=== PATIENT | male | born 1950 | race Caucasian/White ===

== ENCOUNTER 2020-12-14 16:21 | Emergency (ER) | payer MEDICARE, SELFPAY ==
[2020-12-14 15:28] VITALS: BMI 25.5
[2020-12-14 16:29] VITALS: BP 153/70; PULSE 90; RESP 16; TEMP 36.4; O2SAT 98; BMI 25.4
== END 2020-12-14 17:53 | disposition left against medical advice (07) ==
LOC: ED 17:53
PROVIDERS: PCP Student in an Organized Health Care Education/Training Program
DX: S89.90XA Unspecified injury of unspecified lower leg, initial encounter (principal); Z53.21 Procedure and treatment not carried out due to patient leaving prior to being seen by health care provider; X58.XXXA Exposure to other specified factors, initial encounter; Y93.9 Activity, unspecified; Y92.9 Unspecified place or not applicable; Y99.9 Unspecified external cause status

== ENCOUNTER 2020-12-14 17:39 | Inpatient (IN) | payer MEDICARE, SELFPAY ==
[2020-12-14 16:29] VITALS: BMI 25.4
[2020-12-14 17:15] VITALS: PULSE 80; BMI 23.8
[2020-12-14 17:30] VITALS: BP 163/83; PULSE 99; RESP 18; TEMP 37.7; O2SAT 97
--- NOTE | 2020-12-14 17:46 | HP.PCM.HOS_ITS ---
Documented by User: Isacc NELSON 12/14/20 18:15 HPI - General General Date of Admission: 12/14/20 HPI Narrative Patient is a 70-year-old male who is a direct admission to [facility] from his wound docotr, Dr. Sethi for an infected LLE. In the wound care center today, patient presented to Dr. Sethi with a temperature of 99.3, tachycardia at a rate of 109 and a left lower extremity that is more swollen, red and painful to tough than the right. Dr. Sethi was able to express a considerable amount of creamy pus from the wound. Cultures were sent to the lab. Dr. Sethi noted in her note that the knee was warm to the touch, however not reddened. Approximately 2 weeks ago, patient tripped over his walker and sustained an abrasion/injury to the left lower extremity, that eventually became red, tender and warm to touch. He was originally admitted to [facility] but signed out AGAINST MEDICAL ADVICE, citing poor care by the doctors. Patient attempted to get the wound treated as an outpatient and was put on different tr ials of Augmentin, doxycycline and Bactrim. None of the antibiotic trials were successful in treating his wound. Initial culture of the wound grew MRSA. [facility] Medical History (Updated 12/14/20 @ 16:[address] Alena Sethi, ) History of ETOH abuse Home Medications [id number]-oholdkdgrxgoc-xjybnwi-caff 325 tab 12/14/20 [History Last Taken 12/11/20] acetaminophen PRN PRN 12/14/20 [History Last Taken 12/11/20] furosemide [Lasix] 40 mg PO DAILY 12/14/20 [History Last Taken 12/14/20 08:00 1] lisinopril 20 mg PO DAILY 12/14/20 [History Last Taken 12/14/20 08:00 1] naproxen sodium [Aleve] 220 mg PO BID PRN 12/14/20 [History Last Taken 12/11/20] sulfamethoxazole-trimethoprim [Bactrim DS] 1 tab PO BID 12/14/20 [History Last Taken 12/14/20 08:00 1] Allergy/AdvReac Type Severity Reaction Status Date / Time No Known Allergies Allergy Verified 12/14/20 16:22 Social History (Updated 06/15/21 @ 16:[address] 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 Smoking Status: Former smoker alcohol intake: former details: he quit 20 years ago substance use type: does not use ROS Constitutional Constitutional: Reports weakness; Denies anorexia, change in weight, chills, fatigue, fever(s), malaise, night sweats or other Eyes Eyes: Denies blurry vision, change in eye color, change in vision, discharge from eye(s), double vision, erythema, eye pain, loss of vision or other ENT HEENT: Denies abnormal hearing, dysphagia, ear pain, epistaxis, headache(s), hearing loss, nasal congestion, nasal discharge, post nasal drip, sinus pressure, sore throat or other Cardiovascular Cardiovascular: Denies chest pain, claudication, dyspnea on exertion, edema, lightheadedness, orthopnea, palpitations, paroxysmal nocturnal dyspnea, rapid heart rate, syncope or other Respiratory/Chest Respiratory/Chest: Denies cough, dyspnea, excessive phlegm production, hemoptysis, productive cough, shortness of breath at rest, shortness of breath with exertion, wheezing or other Gastrointestinal Gastrointestinal: Denies abdominal pain, coffee ground emesis, constipation, diarrhea, dyspepsia, hematemesis, hematochezia, loose stools, melena, nausea, vomiting or other Genitourinary Genitourinary: Denies burning urination, difficulty urinating, dysuria, hematuria, nocturia, urinary frequency, urinary hesitancy, urinary incontinence, urinary urgency or other Musculoskeletal Musculoskeletal: Denies arthralgias, back pain, joint pain, joint stiffness, joint swelling, myalgias, neck pain or other Neurologic Neurologic: Denies abnormal gait, abnormal speech, confusion, disequilibrium, dizziness, focal weakness, headache(s), numbness, paresthesias, seizure-like activity, seizures, syncope, tingling, tremor(s) or other Psychiatric Psychiatric: Denies anxiety, depression, homicidal ideation, suicidal ideation or other Endocrine Endocrinology: Denies change in body appearance, cold intolerance, excessive sweating, heat intolerance, polydipsia, polyuria or other Hematologic/Lymphatic Hematologic/Lymphatic: Denies anemia, easy bleeding, easy bruising, lymphadenopathy or other Allergic/Immunologic Allergic/Immunologic: Denies rhinitis, hives, eczemia, asthma or other Vital Signs Vital Signs Vital Signs: Weight Weight: 175 lb 14.862 oz Body Mass Index (BMI) 23.8 Physical Exam Const alert and oriented x3 HEENT normocephalic and head/scalp atraumatic Eyes PERRL, EOMs intact bilaterally and conjunctivae normal Neck no lymphadenopathy, supple and no JVD Resp normal respiratory effort, no retractions and no use of accessory muscles Cardio regular rate, regular rhythm, no murmurs and no JVD GI normal to inspection, nondistended, normoactive bowel sounds and soft to palpation Extremity Extremity Narrative: See skin Skin Skin Narrative: 2 x 1 cm wound on the sanchez of the left lower extremity. Not painful to touch or reddened. No pus was able to be expressed when wound was squeezed. Neuro CN's II-XII intact bilaterally Psych affect normal Results Lab / Micro Data Result Diagrams: 12/14/20 18:04 12/14/20 18:04 Assessment & Plan Assessment/Plan (1) MRSA (methicillin resistant staph aureus) culture positive: (2) Thrombocytopenia: (3) Macrocytic anemia: (4) Elevated LFTs: (5) Cellulitis and abscess of left leg: (6) HTN (hypertension): QUALIFIERS: Hypertension type: essential hypertension Qualified Code(s): I10 - Essential (primary) hypertension (7) Tobacco dependence in remission: (8) Venous insufficiency of both lower extremities: PLAN: 1) MRSA Cellulitis/Abcess of the LLE. Previous wound culture grew MRSA. Patient is a direct admission from Dr. Sethi's wound center. Pend MRI on plastic surgery consult. Per note from Dr. Sethi, venous ultrasounds were obtained and demonstrated no clots. Plan; updated wound cultures ordred, vancomycin and Zosyn ordered, plastic surgery consult ordered, Tylenol as needed, Zofran as needed, Restoril as needed. 2) Elevated LFT's Patient has a history of EtOH abuse, had stopped 20 years ago. 30 pound unintentional weight loss noted. Elevated LFTs were noted in Dr. Sethi's note, no actual quantitative value provided. Plan; obtain updated LFTs. 3) Thrombocytopenia CBC from 12/02 demonstrated a platelet count of 87,000, with a hemoglobin of 12.8 and WBC of 4.6. Plan; CBC ordered. 4) HTN Continue Lasix and lisinopril. 5) history of tobacco abuse Continued cessation encouraged. DVT prophylaxis -heparin CODE STATUS: Full code Patient seen by Isacc Coronado PA-C, under the supervision of Dr. Burris. Documented by User: Dr. Francesco Burris DO 12/14/20 18:33 HPI - General General Date of Admission: 12/14/20 [facility] Medical History (Updated 12/14/20 @ 16:[address] Alena Sethi DO) History of ETOH abuse Home Medications UYB-iihrhidsrxxid-qebfpif-caff 325 tab 12/14/20 [History Last Taken 12/11/20] acetaminophen PRN PRN 12/14/20 [History Last Taken 12/11/20] furosemide [Lasix] 40 mg PO DAILY 12/14/20 [History Last Taken 12/14/20 08:00 1] lisinopril 20 mg PO DAILY 12/14/20 [History Last Taken 12/14/20 08:00 1] naproxen sodium [Aleve] 220 mg PO BID PRN 12/14/20 [History Last Taken 12/11/20] sulfamethoxazole-trimethoprim [Bactrim DS] 1 tab PO BID 12/14/20 [History Last Taken 12/14/20 08:00 1] Allergy/AdvReac Type Severity Reaction Status Date / Time No Known Allergies Allergy Verified 12/14/20 16:22 Social History (Updated 12/14/20 @ 16:[address] 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 Patient had suffered an abrasion to the left lower leg approximately 2 to 3 weeks ago while using his walker, since that time it has s wollen and become reddened, he was hospitalized overnight at a local [facility] approximately 10 days ago, he checked himself out after staying overnight. Cultures obtained at that time grew out small numbers of MRSA. Patient was seen in follow-up as an outpatient by his family physician who placed him on doxycycline and Augmentin, this was changed on December 09, 2020 to Augmentin and Bactrim. He was seen today in the wound care center and it was noted that there was purulent drainage from his left lower leg. On examination he appeared older than his stated age, he was in no distress. Vital signs as documented. Skin warm and dry and without overt rashes. Neck without JVD, neck was supple, trachea midline, thyroid was normal. Lungs clear bilaterally, normal air movement was noted. Heart exam notable for regular rhythm, normal sounds and absence of murmurs, rubs or gallops. Abdomen unremarkable and without evidence of organomegaly, masses, or abdominal aortic enlargement. Bowel sounds are present, abdomen is not distended. Extremities- there is evidence of edema over the lower legs bilaterally, in addition, there was a wound noted that was several millimeters in diameter to the lateral aspect of the patient's left lower leg. I tried to express drainage from this area but was unable to. The left lower leg is also reddened., no cyanosis was noted, no clubbing was noted. Neuro: Cranial nerves II through XII are grossly intact, no focal motor deficits were noted, sensation to light touch and pinprick intact, motor exam 5/5 throughout. Psych: Patient is alert and oriented x3, he does not appear anxious or depressed, he does not appear agitated. Patient was admitted to [facility], I have made the decision to place the patient on vancomycin and Zosyn for now until culture results are final-these were obtained today at the wound care center. I have contacted plastic surgery will see the patient in consultation, it is likely he will need debridement of the area and most probably a wound VAC, I discussed this with the patient's who was in the room at the time of my exam and also discussed this with the patient. I have reviewed Isacc Coronado's history and physical including his medical assessment and plan of care and endorse it. Visit Charges Inpatient E&M: 96920 Init Hosp L3
[2020-12-14 18:22] LABS: Absolute Lymphocyte Count 0.85 X10^3/uL (0.83-4.51); Absolute Neutrophil Count 2.5 X10^3/uL (2.0-7.7); Basophil# 0.02 X10^3/uL; Basophil% 0.5 % (0-1); Eosinophil# 0.04 X10^3/uL; Eosinophils% 1.1 % (0-5); Hematocrit 35.5 % (40-54); Hemoglobin 11.8 g/dL (13.0-16.5); Lymphocyte # 0.85 X10^3/ul (0.83-4.51); Lymphocyte % 22.8 % (19-41); Mean Corp Hgb Conc 33.2 g/dL (32-36); Mean Corpuscular Volume 102.3 fL (80-94); Mean Platelet Vol. 11.1 fl (6.2-12.0); Monocyte# 0.33 X10^3/uL; Monocyte% 8.9 % (0-10); NRBC Flagged by Analyzer 0 % (0-5); Neutrophil # 2.48 X10^3/uL (2.7-7.7); Neutrophil % 66.7 % (47-70); POSITIVE COUNT YES; Platelet Count 59 K/mm3 (150-450); RBC Distribution Width CV 14.2 % (11.6-14.6); RBC Distribution Width SD 53.5 fl (35.1-43.9); Red Blood Count 3.47 M/mm3 (4.6-6.2); White Blood Count 3.7 K/mm3 (4.4-11.0)
[2020-12-14 18:24] LABS: Differential Indicated SCAN CRITERIA MET
[2020-12-14 18:43] LABS: ALB/GLOB Ratio 0.5 RATIO (0.9-2.4); AST(SGOT) 104 U/L (15-37); Alanine Aminotransfer ALT/SGPT 57 U/L (16-61); Albumin, Serum 2.6 g/dL (3.2-5.0); Alkaline Phosphatase 149 U/L (45-117); Anion Gap 6 (5-15); BUN 10 mg/dL (7-18); Calcium,Total 8.7 mg/dL (8.5-10.1); Chloride 110 mmol/L (98-107); Creatinine, Serum 0.91 mg/dL (0.70-1.30); EST Glomerular Filtration Rate 88 mL/min (>60); Est Glom Filt Rate - Afr Amer 106 mL/min (>60); Estimated Creatinine Clearance 84.09 ml/min; Glucose 93 mg/dL (74-106); Protein, Total 7.6 g/dL (6.4-8.2); Sodium Level 141 mmol/L (136-145)
[2020-12-14 18:56] LABS: Platelet Estimate MOD DEC (ADEQ)
[2020-12-14 18:57] LABS: Anisocytosis 1+; Macrocytosis 1+; Red Cell Morphology N CHROM NORMAL (NORM C&C)
[2020-12-14 20:56] VITALS: BP 174/82; PULSE 82; RESP 18; TEMP 37; O2SAT 96
[2020-12-14] MEDS: Heparin Injection (Vial) 5,000 UNIT/ML VIAL 5000 UNIT SC (20:58)
--- NOTE | 2020-12-14 23:08 | PCM.RX.CS ---
Consult Pharmacy has been consulted to manage selected antiobiotic: Vancomycin Type of Consult: New start Suspected Infection: Skin/Soft tissue Prior Doses of Antibiotics Received/Current Regimen: Medications Vancomycin HCl (Vancomycin) 1,000 mg in 200 mls @ 200 mls/hr IV Q12H DHAVAL Discontinued Medications Vancomycin HCl 2,000 mg/ (Sodium Chloride) 540 mls @ 250 mls/hr IV X1 ONE Stop: 12/14/20 20:39 Last Admin: 12/14/20 20:42 Dose: Infused Labs: Sodium 141 mmol/L (136-145) 12/14/20 18:04 Potassium 4.0 mmol/L (3.5-5.1) 12/14/20 18:04 Chloride 110 mmol/L (98-107) H 12/14/20 18:04 Carbon Dioxide 25.0 mmol/L (21.0-32.0) 12/14/20 18:04 Anion Gap 6 (5-15) 12/14/20 18:04 BUN 10 mg/dL (7-18) 12/14/20 18:04 Creatinine 0.91 mg/dL (0.70-1.30) 12/14/20 18:04 Est GFR (MDRD) Af Amer 106 mL/min (>60) 12/14/20 18:04 Est GFR (MDRD) Non-Af 88 mL/min (>60) 12/14/20 18:04 BUN/Creatinine Ratio 11.0 RATIO (10-20) 12/14/20 18:04 Glucose 93 mg/dL (74-106) 12/14/20 18:04 Weight used for dosin.8 kg Estimated Creatinine Clearance: 84 Goal Trough: 10-15 mcg/mL Pharmacy Plan for Drug Dosing: Pharmacy Service will continue to monitor and adjust dosing as required. Follow-Up Labs: Trough Vancomycin Labs to be done on [date and time ordered]: 12/16/20 @0600
[2020-12-15 02:46] VITALS: BP 152/80; PULSE 92; RESP 18; TEMP 36.6; O2SAT 97
[2020-12-15] MEDS: Vancomycin IV 1,000 MG/200 ML BAG 200 MG IV ×2 (05:33→18:22)
--- NOTE | 2020-12-15 07:41 | PN.HOSP_ITS ---
Subjective Subjective Patient seen and examined. He was admitted from the wound clinic for a painful, swollen left lower extremity. He had tripped over his walker a couple of weeks ago and sustained an abrasion to the left leg. He was initially admitted at [facility] but left AMA because he was unhappy with the care he received there. HE had been treated on outpatient basis since then but wound worsened. HE is being manaed for sepsis due to cellulitis of the RLE. Patient complains of pain in his LLE, but this is not new, and is manageable. Review of systems is otherwise negative. Objective Data Objective Data Vital Signs: Vital Signs Temp Pulse Resp BP Pulse Ox 97.9 F 92 18 152/80 H 97 12/15/20 02:46 12/15/20 02:46 12/15/20 02:46 12/15/20 02:46 12/15/20 02:46 Oxygen Delivery Method Room Air Weight: 175 lb 14.862 oz Body Mass Index (BMI) 23.8 Intake & Output: Intake and Output for Last 24 Hours 12/13/20 12/14/20 12/15/20 23:59 23:59 23:59 Intake Total 540 / 540 250 / 250 Balance 540 / 540 250 / 250 Lab / Micro Data Result Diagrams: 12/15/20 08:24 12/15/20 08:24 Labs: Laboratory Results - last 24 hr 12/14/20 12/14/20 18:04 18:04 WBC 3.7 L RBC 3.47 L Hgb 11.8 L Hct 35.5 L MCV 102.3 H MCH 34.0 H MCHC 33.2 RDW Std Deviation 53.5 H RDW Coeff of Marisel 14.2 Plt Count 59 L MPV 11.1 Immature Gran % (Auto) 0.000 Neut % (Auto) 66.7 Lymph % (Auto) 22.8 Shelby % (Auto) 8.9 Eos % (Auto) 1.1 Baso % (Auto) 0.5 Absolute Neuts (auto) 2.5 Absolute Lymphs (auto) 0.85 Nucleated RBC % 0 Platelet Estimate MOD DEC RBC Morphology N CHROM Anisocytosis 1+ Macrocytosis 1+ Sodium 141 Potassium 4.0 Chloride 110 H Carbon Dioxide 25.0 Anion Gap 6 BUN 10 Creatinine 0.91 Estim Creat Clear Calc 84.09 Est GFR (MDRD) Af Amer 106 Est GFR (MDRD) Non-Af 88 BUN/Creatinine Ratio 11.0 Glucose 93 Calcium 8.7 Total Bilirubin 1.00 AST 104 H ALT 57 Alkaline Phosphatase 149 H Total Protein 7.6 Albumin 2.6 L Globulin 5.0 H Albumin/Globulin Ratio 0.5 L Physical Exam Const alert, oriented x3 and no apparent distress Exam Limitations: no limitations HEENT head/scalp atraumatic, moist oral mucous membranes and oropharynx normal Head and Scalp: normocephalic Eyes PERRL, EOMs intact bilaterally and conjunctivae normal Neck no lymphadenopathy, supple and no JVD Resp normal respiratory effort Cardio regular rate, regular rhythm, S1 normal heart sound, S2 normal heart sound and no murmurs GI normal to inspection, nondistended, normoactive bowel sounds, soft to palpation, non-tender and non-distended Extremity Extremity Narrative: Both LLE's wrapped in bandage. Peripheral Pulses: Yes pulses 2+ throughout Skin no rashes or lesions noted Neuro oriented x3 Sensorium / Orientation: awake and alert Psych affect normal Assessment & Plan Assessment/Plan (1) MRSA (methicillin resistant staph aureus) culture positive: (2) Cellulitis and abscess of left leg: PLAN: #Cellulitis of the LLE * on IV vanc omycin and zosyn * previous wound cultures grew MRSA * plastic surgery consulted; await rec's * on tylenol prn for pain. * PT/OT on board. Fall precautions * wound and blood cultures pending. * #Thrombocytopenia: platelets are 59. no previous baseline known. WIll monitor and trend. #Hypertension: on lasix and lisinopril #Nicotine dependence: counseled to quit. DVT prophylaxis: SCDs. NO anticoagulation o/a of low platelets. Charges/Coding Visit Charges Inpatient E&M: 91057 [facility] Hosp L3
[2020-12-15 08:35] LABS: Absolute Lymphocyte Count 0.99 X10^3/uL (0.83-4.51); Absolute Neutrophil Count 2.7 X10^3/uL (2.0-7.7); Basophil# 0.01 X10^3/uL; Basophil% 0.2 % (0-1); Differential Indicated SCAN CRITERIA MET; Eosinophil# 0.02 X10^3/uL; Eosinophils% 0.5 % (0-5); Hematocrit 35.3 % (40-54); Hemoglobin 11.7 g/dL (13.0-16.5); Lymphocyte # 0.99 X10^3/ul (0.83-4.51); Lymphocyte % 24.4 % (19-41); Mean Corp Hgb Conc 33.1 g/dL (32-36); Mean Corpuscular Hgb 34.1 pg (27.0-32.0); Mean Corpuscular Volume 102.9 fL (80-94); Mean Platelet Vol. 11.3 fl (6.2-12.0); Monocyte# 0.28 X10^3/uL; Monocyte% 6.9 % (0-10); NRBC Flagged by Analyzer 0 % (0-5); Neutrophil # 2.74 X10^3/uL (2.7-7.7); Neutrophil % 67.8 % (47-70); POSITIVE COUNT YES; Platelet Count 59 K/mm3 (150-450); RBC Distribution Width CV 14.3 % (11.6-14.6); RBC Distribution Width SD 54.1 fl (35.1-43.9); Red Blood Count 3.43 M/mm3 (4.6-6.2); White Blood Count 4.1 K/mm3 (4.4-11.0)
[2020-12-15 08:45] VITALS: BP 148/71; PULSE 82; RESP 18; TEMP 37.1; O2SAT 96
[2020-12-15] MEDS: Heparin Injection (Vial) 5,000 UNIT/ML VIAL 5000 UNIT SC ×2 (08:47→21:16)
[2020-12-15] MEDS: Furosemide 40 MG Tablet PO (08:47)
[2020-12-15] MEDS: Lisinopril 20 MG Tablet PO (08:47)
[2020-12-15 08:55] LABS: Anion Gap 4 (5-15); BUN 8 mg/dL (7-18); Calcium,Total 8.7 mg/dL (8.5-10.1); Chloride 114 mmol/L (98-107); EST Glomerular Filtration Rate 101 mL/min (>60); Est Glom Filt Rate - Afr Amer 122 mL/min (>60); Estimated Creatinine Clearance 95.65 ml/min; Glucose 98 mg/dL (74-106); Potassium 4.2 mmol/L (3.5-5.1); Sodium Level 142 mmol/L (136-145)
[2020-12-15 09:08] LABS: Platelet Estimate MOD DEC (ADEQ)
--- NOTE | 2020-12-15 10:45 | CASEMGMT ---
OMAR PFEIFFER Face to Face with patient for initial transition planning/care coordination assessment. RN CM introduced self and role at [facility]. Patient lying in bed, alert and oriented, family at bedside. Patient willing to participate in assessment and is able to answer all questions appropriately. Care providers, pharmacy, and demographics verified. Patient wishes to discharge home, family interested in HHC at discharge. Patient states he has no further needs or concerns at this time. CM to follow for discharge planning needs that may arise. PCP: Agatha Specialists: none Preferred Pharmacy: [facility] Insurance: [facility] Prescription Benefit: none Living Will/HPOA: none LNOK: daughter, significant other Living Arrangements: Patient lives with significant other in a mobile home with ramp to enter the home. Patient states he is independent at home. Transportation:self, significant other, daughter DME/HHC: Patient states he has raised toilet, cane, walker at home. Patient denies previous HHC or SNF. Disposition Plan: Patient to discharge home with HHC, family support, and follow-up plans in place. Latanya PHILLIPS, RN, CM
--- NOTE | 2020-12-15 11:31 | NURSING ---
wound photo: left lower leg
[2020-12-15] MEDS: oxyCODONE 5 MG Tablet PO (12:57)
[2020-12-15 14:14] VITALS: BP 149/73; PULSE 82; RESP 18; TEMP 37.4; O2SAT 96
--- NOTE | 2020-12-15 14:43 | CASEMGMT ---
Patient was provided a list of HHC providers including quality and resource use data and consistent with the patient?s preferred geographic region, medical needs, and insurance network. Patient to review HHC list with family and provide preferences. CM will continue to follow this patient and plan for a safe discharge.
--- NOTE | 2020-12-15 15:50 | CON.PCM_ITS ---
Assessment & Plan Assessment/Plan (1) MRSA infection: (2) Ulcer of left lower extremity with muscle involvement without evidence of necrosis: (3) Abscess of left leg: (4) Former smoker: PLAN: Continue Vancomycin and Zosyn. Patient has a nonhealing infected MRSA ulcer left anterior leg just lateral to the tibia. There is concern that the infection may track down to the bone. Recommend surgical preparation left anterior leg with incision and drainage and excisional debridement nonhealing infected MRSA ulcer. If bone is exposed with the debridement, then a partial ostectomy for osteomyelitis will be done. Surgery will be done under local anesthesia and IV sedation. Postoperatively will apply the VAC. Tissue that is debrided will be sent to Pathology for analysis to rule out carcinoma and to Microbiology for culture. A positive culture will necessitate antibiotic therapy. If bone is excised, it will be sent to Pathology for analysis to evaluate for osteomyelitis and to Microbiology for culture. Anticipate increased metabolic demands from the ulcer and the surgery. Encourage nutritional supplementation with protein to help the healing process. After discharge, may followup at the [facility]. If there is a plateau in the healing process, may proceed with delayed closure with skin grafting. Patient was informed of the risks and complications of the procedure including alternatives to surgery. These were discussed with the patient personally. Patient voices understanding and wishes to proceed. We discussed the current risks associated with COVID-19. While it is understood that there is a community spread of COVID-19, the risk of penny COVID-19 while at [facility] ([facility]) is very low; however, the risk cannot be completely mitigated because of the community spread of the disease. We discussed in detail the risk of exposure to and/or potential harm posed by the COVID-19 virus with having a surgery/procedure at this time versus the risk of delaying the surgery/procedure. It is not possible to know either the risk of delaying the surgery or procedure or chance of getting an infection with perfect accuracy, but a joint decision was made to proceed at this time with the scheduled surgery/procedure as indicated on the consent form. Patient was notified that we will need to comply with any screening or testing [facility] wishes to perform or that surgery may be delayed for any positive results. Discussed with the patient that I was tested for COVID-19 on 01/01/20 which was negative and on 01/15/20 which was negative and on 01/29/20 which was negative and on 02/12/20 which was negative and on 02/26/20 which was negative and on 03/18/20 which was negative and on 04/08/20 which was negative and on 05/13/20 which was negative and on 06/03/20 which was negative and on 06/22/20 which was negative. ? My testing regimen at this time is to be COVID-19 tested every 2 weeks or so.? I received the COVID-19 vaccine (Moderna) on 06/30/20 and the second vaccine dose was received on 07/28/20.? When I was hospitalized on 08/30/20 I was tested for COVID-19 which was negative.? I was also? tested for COVID-19 on 09/14/20 which was negative and on 10/11/20 which was negative. HPI Consult Data Date of Consult: 12/15/20 PCP / Referring MD: Dr. Prosper Snider DO/Dr. Francesco Burris MD Attending Care Provider: Dr. Gin Lindsay MD DEPUTY CORONER: Dr. Cavazos. HPI Narrative Reason for Consultation: Nonhealing infected MRSA ulcer left anterior leg. HPI Narrative: 70 M was admitted with a nonhealing infected MRSA ulcer left anterior leg. Approximately 2 weeks ago, patient tripped over his walker and sustained an abrasion/injury to the left lower extremity, that eventually became red, tender and warm to touch. He was seen at the [facility] and pus was expressed from the ulcer which prompted a visit to the ED. While as an outpatient he was placed on Augmentin, Doxycycline, and Bactrim without resolution. Initial culture of the wound grew MRSA. When admitted, he was placed on Vancomycin and Zosyn. I was asked to evaluate this patient for surgical options for treatment. [facility] Medical History Abscess of left leg Back pain due to injury Cirrhosis History of ETOH abuse MRSA infection Skin graft disorder Ulcer of left lower extremity with muscle involvement without evidence of necrosis Home Medications furosemide [Lasix] 40 mg PO DAILY 12/14/20 [History Last Taken 12/14/20 08:00 1] lisinopril 20 mg PO DAILY 12/14/20 [History Last Taken 12/14/20 08:00 1] sulfamethoxazole-trimethoprim [Bactrim DS] 1 tab PO BID 12/14/20 [History Last Taken 12/14/20 08:00 1] Allergy/AdvReac Type Severity Reaction Status Date / Time No Known Allergies Allergy Verified 12/14/20 16:22 Social History household members: significant other current occupational status: retired 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 Eyes - Denies cataracts and glaucoma. ENT - Denies nasal congestion and sore throat. Endocrine - Denies excessive thirst and urination. Skin - Denies suspicious lesions and skin cancer. Musculoskeletal - Denies joint pain, joint stiffness, weakness of muscles and joints, back pain, and arthritis. Neuro - Denies headaches. Cardiovascular - Denies chest pain, fatigue, and shortness of breath with exertion. Psych - Denies anxiety and depression. Respiratory - Denies chronic cough and shortness of breath. Gastrointestinal - Denies nausea, vomiting, diarrhea, and constipation. Hematologic - Denies abnormal bruising and bleeding. Genitourinary - Denies hematuria and urinary frequency. Physical Exam Narrative PHYSICAL EXAMINATION General - Alert and Oriented. HEENT - PERRL. EOMI. Throat is clear. Neck - Supple and nontender. No cervical adenopathy. Lungs - Clear to auscultation. Heart - Regular rate and rhythm. Abdomen - Soft and nondistended. Extremities - FROM. No axillary adenopathy. Radial pulses are palpable. No inguinal adenopathy. Dorsalis pedis pulses are palpable. Mild swelling noted left leg. On the left anterior mid leg is a nonhealing ulcer. Measures 1.5 x 1 x 0.4 cm. .Ulcer extends into the muscle (tibialis anterior). No evidence of necrosis seen. Some periwound redness. No purulent drainage. No exposed bone. Tibia is palpable just medial to the ulcer. Mild tenderness to palpation. Neuro - CN II-XII grossly intact. Psych - Normal mood and affect. Lab / Micro Data Attestation: I reviewed the patient's lab results. Result Diagrams: 12/18/20 06:00 12/18/20 06:00 Labs: Laboratory Results - last 24 hr 12/14/20 12/14/20 12/15/20 18:04 18:04 08:24 WBC 3.7 L 4.1 L RBC 3.47 L 3.43 L Hgb 11.8 L 11.7 L Hct 35.5 L 35.3 L MCV 102.3 H 102.9 H MCH 34.0 H 34.1 H MCHC 33.2 33.1 RDW Std Deviation 53.5 H 54.1 H RDW Coeff of Marisel 14.2 14.3 Plt Count 59 L 59 L MPV 11.1 11.3 Immature Gran % (Auto) 0.000 0.200 Neut % (Auto) 66.7 67.8 Lymph % (Auto) 22.8 24.4 [place] % (Auto) 8.9 6.9 Eos % (Auto) 1.1 0.5 Baso % (Auto) 0.5 0.2 Absolute Neuts (auto) 2.5 2.7 Absolute Lymphs (auto) 0.85 0.99 Nucleated RBC % 0 0 Platelet Estimate MOD DEC MOD DEC RBC Morphology N CHROM Anisocytosis 1+ Macrocytosis 1+ Sodium 141 Potassium 4.0 Chloride 110 H Carbon Dioxide 25.0 Anion Gap 6 BUN 10 Creatinine 0.91 Estim Creat Clear Calc 84.09 Est GFR (MDRD) Af Amer 106 Est GFR (MDRD) Non-Af 88 BUN/Creatinine Ratio 11.0 Glucose 93 Calcium 8.7 Total Bilirubin 1.00 AST 104 H ALT 57 Alkaline Phosphatase 149 H Total Protein 7.6 Albumin 2.6 L Globulin 5.0 H Albumin/Globulin Ratio 0.5 L 12/15/20 08:24 WBC RBC Hgb Hct MCV MCH MCHC RDW Std Deviation RDW Coeff of Marisel Plt Count MPV Immature Gran % (Auto) Neut % (Auto) Lymph % (Auto) Sunflower % (Auto) Eos % (Auto) Baso % (Auto) Absolute Neuts (auto) Absolute Lymphs (auto) Nucleated RBC % Platelet Estimate RBC Morphology Anisocytosis Macrocytosis Sodium 142 Potassium 4.2 Chloride 114 H Carbon Dioxide 24.0 Anion Gap 4 L BUN 8 Creatinine 0.80 Estim Creat Clear Calc 95.65 Est GFR (MDRD) Af Amer 122 Est GFR (MDRD) Non-Af 101 BUN/Creatinine Ratio 10.0 Glucose 98 Calcium 8.7 Total Bilirubin AST ALT Alkaline Phosphatase Total Protein Albumin Globulin Albumin/Globulin Ratio Procedure Criteria Type of Procedure Procedure Type: Elective Elective Risks - COVID COVID Risk Discussion: The surgeon/proceduralist and patient have discussed in detail the risk of exposure to and/or potential harm posed by the COVID-19 virus with having a surgery/procedure at this time versus the risk of delaying the surgery/procedure. It is not possible to know either the risk of delaying the surgery or procedure or chance of getting an infection with perfect accuracy, but a joint decision was made between the patient and the surgeon/proceduralist to proceed at this time with the scheduled surgery/procedure as indicated on the consent form. Charges/Coding Visit Charges Inpatient E&M: 13229 Init Hosp L2 (ICD-10 - L97.925, L02.416, A49.02, Z87.891)
--- NOTE | 2020-12-15 16:08 | CHAPLAIN ---
Type of Pastoral Visit _x__ Initial Visit ___ Follow-up Visit ___ On-call Visit ___ General Patient Visit ___ Spiritual Assessment ___ Family Conference ___ Bereavement ___ Rapid Response ___ Code Blue ___ Other (describe below) Pastoral Care Referral From _x__ Patient ___ Family ___ Nurse ___ Physician ___ Pastrycook ___ Leather Coverer ___ Other (describe below) Sacrament/Intervention _x__ Active listening ___ Anointing ___ Pentecostal ___ Bereavement ___ Communion ___ Shaniqua exploration ___ ___ Life review _x__ Prayer ___ Reconciliation ___ Sacrament of Sick _x__ Supportive presence ___ Wedding ___ Other (describe below) Pastoral Comments
[2020-12-15 20:15] VITALS: BP 139/71; PULSE 68; RESP 16; TEMP 37.2; O2SAT 96
[2020-12-16] VITALS (12 sets, daily range): BP systolic 126–165; BP diastolic 36–90; PULSE 66–84; RESP 14–18; TEMP 36.4–37.3; O2SAT 94–97; BMI 22.9
--- NOTE | 2020-12-16 06:00 | EKG12_ITS ---
Test Reason : PRE-OP Blood Pressure : / mmHG Vent. Rate : 069 BPM Atrial Rate : 069 BPM P-R Int : 116 ms QRS Dur : 092 ms QT Int : 460 ms P-R-T Axes : 002 -02 -01 degrees QTc Int : 492 ms Normal sinus rhythm with sinus arrhythmia Inferior infarct , age undetermined Abnormal ECG No previous ECGs available Confirmed by LETTY GOMEZ, ASHANTI ([id number]), loan expeditor PAPA GARCIA ([id number]) on 12/17/2020 10:48:25 A M Referred By: DR LEE Confirmed By:JOSE SAENZ MD
[2020-12-16 06:03] LABS: Absolute Lymphocyte Count 0.99 X10^3/uL (0.83-4.51); Absolute Neutrophil Count 1.4 X10^3/uL (2.0-7.7); Basophil# 0.01 X10^3/uL; Basophil% 0.4 % (0-1); Eosinophils% 3.6 % (0-5); Hematocrit 31.8 % (40-54); Hemoglobin 10.7 g/dL (13.0-16.5); Lymphocyte # 0.99 X10^3/ul (0.83-4.51); Lymphocyte % 35.4 % (19-41); Mean Corp Hgb Conc 33.6 g/dL (32-36); Mean Corpuscular Hgb 34.6 pg (27.0-32.0); Mean Corpuscular Volume 102.9 fL (80-94); Mean Platelet Vol. 10.8 fl (6.2-12.0); Monocyte# 0.28 X10^3/uL; NRBC Flagged by Analyzer 0 % (0-5); Neutrophil # 1.41 X10^3/uL (2.7-7.7); Neutrophil % 50.2 % (47-70); POSITIVE COUNT YES; RBC Distribution Width CV 14.4 % (11.6-14.6); RBC Distribution Width SD 54.3 fl (35.1-43.9); Red Blood Count 3.09 M/mm3 (4.6-6.2); White Blood Count 2.8 K/mm3 (4.4-11.0)
[2020-12-16] MEDS: Vancomycin IV 1,000 MG/200 ML BAG 200 MG IV ×2 (06:03→19:31)
[2020-12-16 06:12] LABS: Differential Indicated SCAN CRITERIA MET; Platelet Count 49 K/mm3 (150-450)
[2020-12-16 06:26] LABS: Anion Gap 4 (5-15); BUN 7 mg/dL (7-18); BUN/Creat Ratio 10.1 RATIO (10-20); Calcium,Total 8.1 mg/dL (8.5-10.1); Chloride 113 mmol/L (98-107); EST Glomerular Filtration Rate 120 mL/min (>60); Est Glom Filt Rate - Afr Amer 145 mL/min (>60); Estimated Creatinine Clearance 76.52 ml/min; Glucose 85 mg/dL (74-106); Potassium 3.7 mmol/L (3.5-5.1); Sodium Level 143 mmol/L (136-145)
[2020-12-16 06:29] LABS: Vancomycin, Trough Level 12.6 ug/mL (5.0-15.0)
[2020-12-16 06:30] LABS: Platelet Estimate MKD DEC (ADEQ)
--- NOTE | 2020-12-16 07:21 | PN.HOSP_ITS ---
Subjective Subjective Patient seen and examined. He has no complaints, and pain is well controlled. Review of systems is otherwise negative. He is due for surgery today with plastic surgery. He has otherwise remained hemodynamically stable. Objective Data Objective Data Vital Signs: Vital Signs Temp Pulse Resp BP Pulse Ox 98.3 F 72 16 126/61 H 97 12/16/20 02:15 12/16/20 02:15 12/16/20 02:15 12/16/20 02:15 12/16/20 02:15 Oxygen Delivery Method Room Air Weight: 175 lb 14.862 oz Body Mass Index (BMI) 23.8 Intake & Output: Intake and Output for Last 24 Hours 12/14/20 12/15/20 12/16/20 23:59 23:59 23:59 Intake Total 540 / 540 1500 / 2050 800 / 800 Output Total 850 / 1350 1000 / 1000 Balance 540 / 540 650 / 700 -200 / -200 Lab / Micro Data Result Diagrams: 12/16/20 05:33 12/16/20 05:33 Labs: Laboratory Results - last 24 hr 12/15/20 12/15/20 12/16/20 08:24 08:24 05:33 WBC 4.1 L RBC 3.43 L Hgb 11.7 L Hct 35.3 L MCV 102.9 H MCH 34.1 H MCHC 33.1 RDW Std Deviation 54.1 H RDW Coeff of Marisel 14.3 Plt Count 59 L MPV 11.3 Immature Gran % (Auto) 0.200 Neut % (Auto) 67.8 Lymph % (Auto) 24.4 [place] % (Auto) 6.9 Eos % (Auto) 0.5 Baso % (Auto) 0.2 Absolute Neuts (auto) 2.7 Absolute Lymphs (auto) 0.99 Nucleated RBC % 0 [address] Review Platelet Estimate MOD DEC Sodium 142 Potassium 4.2 Chloride 114 H Carbon Dioxide 24.0 Anion Gap 4 L BUN 8 Creatinine 0.80 Estim Creat Clear Calc 95.65 Est GFR (MDRD) Af Amer 122 Est GFR (MDRD) Non-Af 101 BUN/Creatinine Ratio 10.0 Glucose 98 Calcium 8.7 Vancomycin Trough 12.6 12/16/20 12/16/20 05:33 05:33 WBC 2.8 L RBC 3.09 L Hgb 10.7 L Hct 31.8 L MCV 102.9 H MCH 34.6 H MCHC 33.6 RDW Std Deviation 54.3 H RDW Coeff of Marisel 14.4 Plt Count 49 L* MPV 10.8 Immature Gran % (Auto) 0.400 Neut % (Auto) 50.2 Lymph % (Auto) 35.4 [place] % (Auto) 10.0 Eos % (Auto) 3.6 Baso % (Auto) 0.4 Absolute Neuts (auto) 1.4 L Absolute Lymphs (auto) 0.99 Nucleated RBC % 0 [address] Review May foll Platelet Estimate MKD DEC Sodium 143 Potassium 3.7 Chloride 113 H Carbon Dioxide 26.0 Anion Gap 4 L BUN 7 Creatinine 0.70 Estim Creat Clear Calc 76.52 Est GFR (MDRD) Af Amer 145 Est GFR (MDRD) Non-Af 120 BUN/Creatinine Ratio 10.1 Glucose 85 Calcium 8.1 L Vancomycin Trough Physical Exam Const alert, oriented x3 and no apparent distress Exam Limitations: no limitations HEENT head/scalp atraumatic, moist oral mucous membranes and oropharynx normal Head and Scalp: normocephalic Eyes PERRL, EOMs intact bilaterally and conjunctivae normal Neck no lymphadenopathy, supple and no JVD Resp normal respiratory effort Cardio regular rate, regular rhythm, S1 normal heart sound, S2 normal heart sound and no murmurs GI normal to inspection, nondistended, normoactive bowel sounds, soft to palpation, non-tender and non-distended Extremity Extremity Narrative: Both LLE's wrapped in bandage. Skin no rashes or lesions noted Neuro oriented x3 Sensorium / Orientation: awake and alert Psych affect normal Assessment & Plan Assessment/Plan (1) MRSA (methicillin resistant staph aureus) culture positive: (2) Cellulitis and abscess of left leg: PLAN: #Cellulitis of the LLE * on IV vanc omycin and zosyn * previous wound cultures grew MRSA * plastic surgery on board; for surgery today * on tylenol prn for pain. * PT/OT on board. Fall precautions * wound and blood cultures pending. * #Pancytopenia * platelets are down to 49 today. was 59 yesterday. wbc is down to 2.8 and Hb is 10.7 * he says he has been told about this, and told it is due to cirrhosis of the liver. * request records from [facility] #Hypertension: on lasix and lisinopril #Nicotine dependence: counseled to quit. DVT prophylaxis: SCDs. NO anticoagulation o/a of low platelets. Charges/Coding Visit Charges Inpatient E&M: 61898 [facility] Hosp L3
[2020-12-16] MEDS: oxyCODONE 5 MG Tablet PO ×2 (07:33→14:46)
[2020-12-16] MEDS: Lisinopril 20 MG Tablet PO (08:24)
--- NOTE | 2020-12-16 08:25 | PCM.RX.CS ---
Consult Pharmacy has been consulted to manage selected antiobiotic: Vancomycin Type of Consult: Follow-up Suspected Infection: Skin/Soft tissue Labs: Sodium 143 mmol/L (136-145) 12/16/20 05:33 Potassium 3.7 mmol/L (3.5-5.1) 12/16/20 05:33 Chloride 113 mmol/L (98-107) H 12/16/20 05:33 Carbon Dioxide 26.0 mmol/L (21.0-32.0) 12/16/20 05:33 Anion Gap 4 (5-15) L 12/16/20 05:33 BUN 7 mg/dL (7-18) 12/16/20 05:33 Creatinine 0.70 mg/dL (0.70-1.30) 12/16/20 05:33 Est GFR (MDRD) Af Amer 145 mL/min (>60) 12/16/20 05:33 Est GFR (MDRD) Non-Af 120 mL/min (>60) 12/16/20 05:33 BUN/Creatinine Ratio 10.1 RATIO (10-20) 12/16/20 05:33 Glucose 85 mg/dL (74-106) 12/16/20 05:33 Vancomycin Trough 12.6 ug/mL (5.0-15.0) 12/16/20 05:33 Goal Trough: 10-15 mcg/mL Pharmacy Plan for Drug Dosing: Pharmacy Service will continue to monitor and adjust dosing as required. Follow-Up Labs: Trough Vancomycin - 12/18/20 @0600 Labs to be done on [date and time ordered]: 12/18/20 @0600
--- NOTE | 2020-12-16 12:10 | ABS_PTH ---
PATIENT: FRIDA PARSONS LOC: MS3 U#:[id number] AGE/SX: 70/M ROOM: [facility] RE12/14/[address]: Dr. Gin Lindsay MD : [id number] BED: 1 DIS: 12/18/2020 SPEC #: [id number] RECD: 12/16/20 15:07 STATUS: TIM RAMOS #: [id number] GREGG: 12/16/20 12:[address]: Kalen Cavazos DEPT: SURGICAL PATHOLOGY RECD BY: Carmencita Ivy ENTERED: 12/17/20 07:52 SP TYPE: Abscess OTHR DR: DO Dr. Francesco Lizarraga, DO Dr. Gin Lindsay MD Tissues: Left leg Procedures: Surgery Specimen Level III HEADER OPERATION: Incision, drainage abscess, infected MRSA abscess left leg PRE-OP DIAGNOSIS: Left leg abscess TISSUE SUBMITTED: Debrided tissue left leg abscess MICROSCOPIC DIAGNOSIS Left leg abscess, debrided tissue: Fragments of skin with underlying tissue with ulceration, fat necrosis, acute and chronic inflammation and granulation tissue reaction. THOM:berto 12/20/2020 MICROSCOPIC DESCRIPTION Slides are reviewed. GROSS DESCRIPTION Received in fixative is one container labeled with the patient's name and designated debrided tissue left leg abscess. The specimen consists of three variable sized pieces of skin with underlying tissue that in aggregate measure 3 x 3 x 0.8 cm. A focal area of ulceration is noted in the largest piece. Surgeon'S Assistant sections are submitted in two cassettes. / THOM:berto 12/17/20 TC:2 CPT: 30124
[2020-12-16 13:13] LABS: Pathologist Review Reviewed
--- NOTE | 2020-12-16 13:15 | OP.PCM_ITS ---
Problems Associated Problem List Diagnoses (1) Ulcer of left lower extremity with muscle involvement without evidence of necrosis: (2) MRSA infection: (3) Abscess of left leg: Report of Operation Date of Procedure: 12/16/20 Pre-Operative Diagnosis: Nonhealing infected MRSA abscess ulcer left anterior leg. Post-Operative Diagnosis: Same. Surgery/Procedure Performed:: Surgical preparation left anterior leg with incision and drainage and excisional debridement nonhealing infected MRSA abscess ulcer (14 cm2). Description of Surgical Findings:: 70 M was admitted with a nonhealing infected MRSA ulcer left anterior leg. Approximately 2 weeks ago, patient tripped over his walker and sustained an abrasion/injury to the left lower extremity, that eventually became red, tender and warm to touch. He was seen at the [facility] and pus was expressed from the ulcer which prompted a visit to the ED. While as an outpatient he was placed on Augmentin, Doxycycline, and Bactrim wit hout resolution. Initial culture of the wound grew MRSA. When admitted, he was placed on Vancomycin and Zosyn. I was asked to evaluate this patient for surgical options for treatment. Patient was informed of the risks and complications of the procedure including alternatives to surgery. These were discussed with the patient personally. Patient voices understanding and wishes to proceed. Size of defect left anterior leg - 4 x 3.5 x 1.5 cm. Surgeon: Kalen Cavazos project controls scheduler: None Type of Anesthesia: Local MAC (xylocaine with epinephrine and IV sedation.) Specimen's removed: 1. Nonhealing infected MRSA abscess ulcer left anterior leg to Pathology and Microbiology. 2. MRSA Wound PCR by DNA. Drains: None. Estimated Blood Loss (mL): 5. Description of Procedure: Patient was taken to OR in supine position and was given IV sedation. The left leg ulcer was prepped and draped in the usual fashion. SCD's were placed for DVT prophylaxis. Perioperative antibiotics were given intravenously. The nonhealing infected MRSA abscess ulcer left anterior leg was infiltrated with xylocaine and epinephrine. After waiting 5 minutes for the anesthetic to take effect, I proceeded with surgical preparation left anterior leg with incision and drainage down into the subcutaneous tissue. Some pus was seen. There was muscle seen with thickened fascia (tibialis anterior and extensor hallicus longus) which was excised and debrided. The ulcer tracked laterally so the tibia was not involved. There was fat necrosis tissue that was excised and debrided. This tissue was sent to Pathology for analysis to rule out carcinoma and to Microbiology for culture. A positive culture will necessitate antibiotic therapy. The size of the defect after incision and drainage and excisional debridement was 4 x 3.5 x 1.5 cm or 14 cm2. The ulcer was irrigated with saline. Hemostasis was obtained with electrocautery. The ulcer was dressed with Mepitel nonadherent dressing followed by gauze and Betadine followed by dry Kerlix gauze and followed by a compression christian wrap. Patient tolerated the procedure well and was sent to PACU in satisfactory condition. Patient will be sent upstairs for continued postop care. The VAC will be placed tomorrow. Grafts/Implants Used: None. Complications None. Admit VTE Documentation VTE Present on Admission: No VTE Mechan Device Prophylaxis: SCD's VTE Pharm Prophylaxis ordered?: No Addendum Addendum: Surgery Charges CPT - 59478 ICD-10 - L97.925, A49.02, L02.416, Z87.891 14437 L02.416, L97.925, A49.02, Z87.891
--- NOTE | 2020-12-16 15:12 | NURSING ---
Home VAC paperwork completed and on the front of the chart. prescription faxed to Dr Cavazos's office for signature. Once received back, will need faxed back to [facility] before VAC will be approved.
[2020-12-16 16:47] LABS: M R Staph aureus DNA By PCR POSITIVE (Negative); Probe Check PASS; Staph aureus DNA By PCR POSITIVE (Negative)
[2020-12-16] MEDS: Heparin Injection (Vial) 5,000 UNIT/ML VIAL 5000 UNIT SC (21:30)
[2020-12-17 00:45] VITALS: BP 123/73; PULSE 75; RESP 16; TEMP 37.1; O2SAT 95
[2020-12-17] MEDS: oxyCODONE 5 MG Tablet PO ×5 (05:00→21:20)
[2020-12-17] MEDS: Vancomycin IV 1,000 MG/200 ML BAG 200 MG IV ×2 (05:13→18:18)
[2020-12-17 05:57] LABS: Absolute Lymphocyte Count 0.89 X10^3/uL (0.83-4.51); Absolute Neutrophil Count 1.7 X10^3/uL (2.0-7.7); Basophil# 0.02 X10^3/uL; Basophil% 0.7 % (0-1); Eosinophil# 0.14 X10^3/uL; Eosinophils% 4.7 % (0-5); Hematocrit 33.3 % (40-54); Lymphocyte # 0.89 X10^3/ul (0.83-4.51); Lymphocyte % 29.6 % (19-41); Mean Corpuscular Hgb 34.2 pg (27.0-32.0); Mean Corpuscular Volume 103.4 fL (80-94); Mean Platelet Vol. 11.2 fl (6.2-12.0); Monocyte# 0.27 X10^3/uL; NRBC Flagged by Analyzer 0 % (0-5); Neutrophil # 1.69 X10^3/uL (2.7-7.7); POSITIVE COUNT YES; RBC Distribution Width CV 14.3 % (11.6-14.6); RBC Distribution Width SD 54.3 fl (35.1-43.9); Red Blood Count 3.22 M/mm3 (4.6-6.2)
[2020-12-17 05:58] LABS: Differential Indicated SCAN CRITERIA MET; Platelet Count 49 K/mm3 (150-450)
[2020-12-17 06:11] LABS: Platelet Estimate MKD DEC (ADEQ)
[2020-12-17 06:37] VITALS: BP 139/75; PULSE 77; RESP 16; TEMP 36.7; O2SAT 96
[2020-12-17 06:44] LABS: Anion Gap 4 (5-15); BUN 8 mg/dL (7-18); BUN/Creat Ratio 10.6 RATIO (10-20); Calcium,Total 7.9 mg/dL (8.5-10.1); Chloride 110 mmol/L (98-107); Creatinine, Serum 0.75 mg/dL (0.70-1.30); EST Glomerular Filtration Rate 109 mL/min (>60); Est Glom Filt Rate - Afr Amer 132 mL/min (>60); Estimated Creatinine Clearance 75.59 ml/min; Glucose 128 mg/dL (74-106); Prealbumin 9.3 mg/dL (20.0-40.0); Sodium Level 141 mmol/L (136-145)
--- NOTE | 2020-12-17 07:49 | PN.HOSP_ITS ---
Subjective Subjective Patient seen and examined. He had debridement of the LLE abscess and cellulitis yesterday. Today is POD 1. Pain is well controlled. REivew of systems is otherwise negative. Objective Data Objective Data Vital Signs: Vital Signs Temp Pulse Resp BP Pulse Ox 98.1 F 77 16 139/75 H 96 12/17/20 06:37 12/17/20 06:37 12/17/20 06:37 12/17/20 06:37 12/17/20 06:37 Oxygen Delivery Method Room Air Weight: 169 lb Body Mass Index (BMI) 22.9 Intake & Output: Intake and Output for Last 24 Hours 12/15/20 12/16/20 12/17/20 23:59 23:59 23:59 Intake Total 1500 / 2050 1900.25 / 2100.25 650 / 650 Output Total 850 / 1350 1750 / 2000 725 / 725 Balance 650 / 700 150.25 / 100.25 -75 / -75 Lab / Micro Data Result Diagrams: 12/17/20 05:36 12/17/20 05:36 Labs: Laboratory Results - last 24 hr 12/16/20 12/16/20 12/17/20 05:33 Unknown 05:36 WBC RBC Hgb Hct MCV MCH MCHC RDW Std Deviation RDW Coeff of Marisel Plt Count MPV Immature Gran % (Auto) Neut % (Auto) Lymph % (Auto) [place] % (Auto) Eos % (Auto) Baso % (Auto) Absolute Neuts (auto) Absolute Lymphs (auto) Nucleated RBC % Diff Path Review Reviewed Platelet Estimate Sodium 141 Potassium 4.0 Chloride 110 H Carbon Dioxide 27.0 Anion Gap 4 L BUN 8 Creatinine 0.75 Estim Creat Clear Calc 75.59 Est GFR (MDRD) Af Amer 132 Est GFR (MDRD) Non-Af 109 BUN/Creatinine Ratio 10.6 Glucose 128 H Calcium 7.9 L Prealbumin 9.3 L S.aureus Protein A PCR POSITIVE H MRSA (PCR) POSITIVE H 12/17/20 05:36 WBC 3.0 L RBC 3.22 L Hgb 11.0 L Hct 33.3 L MCV 103.4 H MCH 34.2 H MCHC 33.0 RDW Std Deviation 54.3 H RDW Coeff of Marisel 14.3 Plt Count 49 L* MPV 11.2 Immature Gran % (Auto) 0.000 Neut % (Auto) 56.0 Lymph % (Auto) 29.6 [place] % (Auto) 9.0 Eos % (Auto) 4.7 Baso % (Auto) 0.7 Absolute Neuts (auto) 1.7 L Absolute Lymphs (auto) 0.89 Nucleated RBC % 0 Diff Path Review May foll Platelet Estimate MKD DEC Sodium Potassium Chloride Carbon Dioxide Anion Gap BUN Creatinine Estim Creat Clear Calc Est GFR (MDRD) Af Amer Est GFR (MDRD) Non-Af BUN/Creatinine Ratio Glucose Calcium Prealbumin S.aureus Protein A PCR MRSA (PCR) Micro: Microbiology 12/16/20 Unknown Tissue - Leg, Left Gram Stain - Final 12/16/20 07:35 Mucosa - Nose SARS-CoV-2 Antigen (Rapid) - Final Physical Exam Const alert, oriented x3 and no apparent distress Exam Limitations: no limitations HEENT head/scalp atraumatic, moist oral mucous membranes and oropharynx normal Eyes PERRL, EOMs intact bilaterally and conjunctivae normal Neck no lymphadenopathy, supple and no JVD Resp normal respiratory effort Cardio regular rate, regular rhythm, S1 normal heart sound, S2 normal heart sound and no murmurs GI normal to inspection, nondistended, normoactive bowel sounds, soft to palpation, non-tender and non-distended Extremity Extremity Narrative: Both LLE's wrapped in bandage. Skin no rashes or lesions noted Neuro oriented x3 Sensorium / Orientation: awake and alert Psych affect normal Assessment & Plan Assessment/Plan (1) MRSA (methicillin resistant staph aureus) culture positive: (2) Cellulitis and abscess of left leg: PLAN: #Cellulitis of the LLE * on IV vanc omycin and zosyn * previous wound cultures grew MRSA * had debridement yesterday. Today is POD 1. * on tylenol prn for pain. * PT/OT on board. Fall precautions * wound and blood cultures pending. * #Pancytopenia * platelets are still 49 today. wbc is 3,a nd Hb is 11, with platelets of 49 * he says he has been told about this, and told it is due to cirrhosis of the liver. * request records from [facility] #Hypertension: on lasix and lisinopril #Nicotine dependence: counseled to quit. DVT prophylaxis: SCDs. NO anticoagulation o/a of low platelets. Charges/Coding Visit Charges Inpatient E&M: 46407 Subs Hosp L3
[2020-12-17] MEDS: Lisinopril 20 MG Tablet PO (08:53)
[2020-12-17] MEDS: Furosemide 40 MG Tablet PO (08:53)
[2020-12-17] MEDS: Heparin Injection (Vial) 5,000 UNIT/ML VIAL 5000 UNIT SC ×2 (08:54→21:11)
--- NOTE | 2020-12-17 10:55 | CASEMGMT ---
OMAR PFEIFFER in to discuss C choice with patient and significant other. Patient and significant other prefer [facility] after revieing the list. OMAR PFEIFFER sent referral to [facility] and awaiting call back. OMAR PFEIFFER will continue to follow this patient and plan for a safe discharge.
[2020-12-17 11:15] VITALS: BP 126/73; PULSE 84; RESP 16; TEMP 36.7; O2SAT 93
--- NOTE | 2020-12-17 11:30 | CASEMGMT ---
RN CM received call back from [facility] and they are able to accept the patient. RN CM updated the patient and significant other. OMAR PFEIFFER also updated floor nurse. CM will continue to follow this patient and plan for a safe discharge.
[2020-12-17 12:49] LABS: Pathologist Review Reviewed
--- NOTE | 2020-12-17 14:14 | PCM.PN.SRG ---
Subjective Subjective Postop #1 Patient sitting up in bed eating lunch. He states his pain is controlled. Objective Data Objective Data Vital Signs: Vital Signs Temp Pulse Resp BP Pulse Ox 98.1 F 84 16 126/73 H 93 12/17/20 11:15 12/17/20 11:15 12/17/20 11:15 12/17/20 11:15 12/17/20 11:15 Oxygen Delivery Method Room Air Weight: 169 lb Body Mass Index (BMI) 22.9 Intake & Output: Intake and Output for Last 24 Hours 12/15/20 12/16/20 12/17/20 23:59 23:59 23:59 Intake Total 1500 / 2050 1900.25 / 2100.25 1140.25 / 1140.25 Output Total 850 / 1350 1750 / 2000 1125 / 1125 Balance 650 / 700 150.25 / 100.25 15.25 / 15.25 Lab / Micro Data Result Diagrams: 12/17/20 05:36 12/17/20 05:36 Labs: Laboratory Results - last 24 hr 12/16/20 12/17/20 12/17/20 Unknown 05:36 05:36 WBC 3.0 L RBC 3.22 L Hgb 11.0 L Hct 33.3 L MCV 103.4 H MCH 34.2 H MCHC 33.0 RDW Std Deviation 54.3 H RDW Coeff of Marisel 14.3 Plt Count 49 L* MPV 11.2 Immature Gran % (Auto) 0.000 Neut % (Auto) 56.0 Lymph % (Auto) 29.6 [place] % (Auto) 9.0 Eos % (Auto) 4.7 Baso % (Auto) 0.7 Absolute Neuts (auto) 1.7 L Absolute Lymphs (auto) 0.89 Nucleated RBC % 0 Diff Path Review Reviewed Platelet Estimate MKD DEC Sodium 141 Potassium 4.0 Chloride 110 H Carbon Dioxide 27.0 Anion Gap 4 L BUN 8 Creatinine 0.75 Estim Creat Clear Calc 75.59 Est GFR (MDRD) Af Amer 132 Est GFR (MDRD) Non-Af 109 BUN/Creatinine Ratio 10.6 Glucose 128 H Calcium 7.9 L Prealbumin 9.3 L S.aureus Protein A PCR POSITIVE H MRSA (PCR) POSITIVE H Micro: Microbiology 12/16/20 Unknown Tissue - Leg, Left Gram Stain - Final 12/16/20 Unknown Tissue - Leg, Left Wound Culture - Preliminary No growth-Final to follow 12/16/20 07:35 Mucosa - Nose SARS-CoV-2 Antigen (Rapid) - Final Physical Exam Const no apparent distress Resp normal respiratory effort Cardio regular rate Extremity Extremity Narrative: Wound VAC dressing in place over left anterior leg wound. Spoke with patient's nurse and there was no active bleeding when she placed the wound vac. Assessment & Plan Assessment/Plan (1) Abscess of left leg: (2) MRSA (methicillin resistant staph aureus) culture positive: (3) Venous insufficiency of both lower extremities: PLAN: Pain controlled with oral pain meds. Wound VAC dressing placed today at 150 mmHg. MAXIM wrap for compression. Upon discharge he will have home health to assist with VAC changes. Encourage ambulation with assistance. Wound culture from 12/14/20 positive for MRSA. Operative culture pending. He is currently on Vancomycin and Zosyn IV. Prealbumin 9.3. Encouraged supplementation with protein to help promote wound healing. After discharge, he will follow up at the Wound center for wound care. Charges/Coding Procedures Integumentary [id number]: [id number] Global Visit
[2020-12-17 16:15] VITALS: BP 135/76; PULSE 85; RESP 16; TEMP 37.1; O2SAT 94
[2020-12-17 21:06] VITALS: BP 136/63; PULSE 78; RESP 18; TEMP 37.3; O2SAT 94
[2020-12-18 02:55] VITALS: BP 102/52; PULSE 61; RESP 18; TEMP 36.5; O2SAT 95
[2020-12-18] MEDS: Vancomycin IV 1,000 MG/200 ML BAG 200 MG IV (06:05)
[2020-12-18] MEDS: oxyCODONE 5 MG Tablet PO ×3 (06:06→17:21)
[2020-12-18 06:25] LABS: Absolute Lymphocyte Count 1.08 X10^3/uL (0.83-4.51); Absolute Neutrophil Count 1.2 X10^3/uL (2.0-7.7); Basophil# 0.02 X10^3/uL; Basophil% 0.7 % (0-1); Eosinophil# 0.11 X10^3/uL; Eosinophils% 4.1 % (0-5); Hematocrit 33.2 % (40-54); Hemoglobin 10.9 g/dL (13.0-16.5); Lymphocyte # 1.08 X10^3/ul (0.83-4.51); Mean Corp Hgb Conc 32.8 g/dL (32-36); Mean Corpuscular Volume 103.4 fL (80-94); Mean Platelet Vol. 11.4 fl (6.2-12.0); Monocyte% 11.1 % (0-10); NRBC Flagged by Analyzer 0 % (0-5); Neutrophil # 1.19 X10^3/uL (2.7-7.7); Neutrophil % 44.1 % (47-70); POSITIVE COUNT YES; Platelet Count 51 K/mm3 (150-450); RBC Distribution Width SD 53.3 fl (35.1-43.9); Red Blood Count 3.21 M/mm3 (4.6-6.2); White Blood Count 2.7 K/mm3 (4.4-11.0)
[2020-12-18 06:50] LABS: Anion Gap 4 (5-15); BUN 11 mg/dL (7-18); BUN/Creat Ratio 15.4 RATIO (10-20); Calcium,Total 8.3 mg/dL (8.5-10.1); Chloride 109 mmol/L (98-107); Creatinine, Serum 0.72 mg/dL (0.70-1.30); EST Glomerular Filtration Rate 116 mL/min (>60); Est Glom Filt Rate - Afr Amer 140 mL/min (>60); Estimated Creatinine Clearance 75.59 ml/min; Glucose 83 mg/dL (74-106); Potassium 4.1 mmol/L (3.5-5.1); Sodium Level 142 mmol/L (136-145)
[2020-12-18 06:52] LABS: Vancomycin, Trough Level 12.3 ug/mL (5.0-15.0)
--- NOTE | 2020-12-18 07:26 | PCM.RX.CS ---
Consult Pharmacy has been consulted to manage selected antiobiotic: Vancomycin Type of Consult: Follow-up Suspected Infection: Skin/Soft tissue Prior Doses of Antibiotics Received/Current Regimen: currently on 1000mg IV q12h Labs: Sodium 142 mmol/L (136-145) 12/18/20 06:00 Potassium 4.1 mmol/L (3.5-5.1) 12/18/20 06:00 Chloride 109 mmol/L (98-107) H 12/18/20 06:00 Carbon Dioxide 29.0 mmol/L (21.0-32.0) 12/18/20 06:00 Anion Gap 4 (5-15) L 12/18/20 06:00 BUN 11 mg/dL (7-18) 12/18/20 06:00 Creatinine 0.72 mg/dL (0.70-1.30) 12/18/20 06:00 Est GFR (MDRD) Af Amer 140 mL/min (>60) 12/18/20 06:00 Est GFR (MDRD) Non-Af 116 mL/min (>60) 12/18/20 06:00 BUN/Creatinine Ratio 15.4 RATIO (10-20) 12/18/20 06:00 Glucose 83 mg/dL (74-106) 12/18/20 06:00 Vancomycin Trough 12.3 ug/mL (5.0-15.0) 12/18/20 06:00 Microbiology: Microbiology 12/16/20 Unknown Tissue - Leg, Left Gram Stain - Final 12/16/20 Unknown Tissue - Leg, Left Wound Culture - Preliminary No growth-Final to follow 12/16/20 07:35 Mucosa - Nose SARS-CoV-2 Antigen (Rapid) - Final Weight used for dosin.7 kg Estimated Creatinine Clearance: 76ml/min Goal Trough: 10-15 mcg/mL Pharmacy Plan for Drug Dosing: Trough drawn before this morning's dose was 12.3. This is in goal range so will keep current dosing. Repeat trough again in 4 days per protocol. Pharmacy Service will continue to monitor and adjust dosing as required. Follow-Up Labs: Trough Vancomycin Labs to be done on [date and time ordered]: 12/22/20 06:00
[2020-12-18 08:35] VITALS: BP 134/69; PULSE 71; RESP 16; TEMP 37.2; O2SAT 92
[2020-12-18 08:40] VITALS: PULSE 60
[2020-12-18] MEDS: Heparin Injection (Vial) 5,000 UNIT/ML VIAL 5000 UNIT SC (10:16)
[2020-12-18] MEDS: Lisinopril 20 MG Tablet PO (10:16)
[2020-12-18] MEDS: Furosemide 40 MG Tablet PO (10:16)
[2020-12-18] MEDS: 0.9% Saline Lock 10 ML Syringe IV (13:21)
--- NOTE | 2020-12-18 14:36 | DS.PCM_ITS ---
Providers Date of Admission: 12/14/20 Primary Care Physician: Dr. 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 Code(s): L97.925 - Non-pressure chronic ulcer of unspecified part of left lower leg with muscle involvement without evidence of necrosis (3) Abscess of left leg: Status: Acute Code(s): L02.416 - Cutaneous abscess of left lower limb (4) Former smoker: Status: Chronic Code(s): Z87.891 - Personal history of nicotine dependence Medications at Discharge Home Medications furosemide [Lasix] 40 mg PO DAILY 12/14/20 lisinopril 20 mg PO DAILY 12/14/20 doxycycline hyclate 100 mg PO BID #28 tab 12/18/20 Hospital Course Operations - (debridement of LLE cellulitis and abscess) Procedures None Summary of Care Provided Minutes Spent on Discharge: 45 Hospital Course: Patient is a 70-year-old male with a past medical history as outlined who was admitted from the wound care clinic on 12/14/2020 for infected l eft lower extremity ulcer. Patient said he tripped over his walker a few days prior to admission and went to [facility] after he sustained an abrasion on the left lower extremity. His abrasion eventually became red and tender and warm to touch. However he signed out AGAINST MEDICAL ADVICE from [facility]. He subsequently presented to the wound care center [facility] where he was found to have fever of 99.3 with tachycardia and heart rate of 109 in the left lower extremity was swollen and erythematous and tender to touch. He had been on a trial of oral antibiotics on outpatient basis. He was admitted and managed for cellulitis and abscess of the left lower extremity. He was started on IV vancomycin and Zosyn and plastic surgery was consulted. Patient had incision and drainage and debridement done on 12/16/2020. He tolerated procedure well. Wound cultures grew MRSA. He had a wound VAC applied. Patient remained stable and was discharged home on 12/18/2020 on a 2-week course of p.o. doxycycline 100 mg twice daily. Per plastic surgery, he is to have his wound VAC changed 3 times weekly at home and is to follow-up with the wound care center within a week. Patient seen and examined prior to discharge. He had no complaints and felt well. Pain had improved. Review systems otherwise negative. Labs and vitals reviewed. Home medication reviewed and reconciled. Physical Exam Const alert, oriented x3 and no apparent distress General Appearance: cooperative, comfortable and well kempt Exam Limitations: no limitations HEENT head/scalp atraumatic, moist oral mucous membranes and oropharynx normal Eyes PERRL, EOMs intact bilaterally and conjunctivae normal Neck no lymphadenopathy, supple and no JVD Resp normal respiratory effort Cardio regular rate, regular rhythm, S1 normal heart sound, S2 normal heart sound and no murmurs GI normal to inspection, nondistended, normoactive bowel sounds, soft to palpation, non-tender and non-distended Extremity Extremity Narrative: Both LLE's wrapped in bandage. Skin no rashes or lesions noted Neuro oriented x3 Sensorium / Orientation: awake and alert Psych affect normal Weight / BMI Weight Weight: 169 lb Body Mass Index (BMI) 22.9 ABG / Lab / Microbiology Data Result Diagrams: 12/18/20 06:00 12/18/20 06:00 Laboratory: Laboratory Results - last 24 hr 12/18/20 12/18/20 12/18/20 06:00 06:00 06:00 WBC 2.7 L RBC 3.21 L Hgb 10.9 L Hct 33.2 L MCV 103.4 H MCH 34.0 H MCHC 32.8 RDW Std Deviation 53.3 H RDW Coeff of Marisel 14.0 Plt Count 51 L MPV 11.4 Immature Gran % (Auto) 0.000 Neut % (Auto) 44.1 L Lymph % (Auto) 40.0 [place] % (Auto) 11.1 H Eos % (Auto) 4.1 Baso % (Auto) 0.7 Absolute Neuts (auto) 1.2 L Absolute Lymphs (auto) 1.08 Nucleated RBC % 0 Sodium 142 Potassium 4.1 Chloride 109 H Carbon Dioxide 29.0 Anion Gap 4 L BUN 11 Creatinine 0.72 Estim Creat Clear Calc 75.59 Est GFR (MDRD) Af Amer 140 Est GFR (MDRD) Non-Af 116 BUN/Creatinine Ratio 15.4 Glucose 83 Calcium 8.3 L Vancomycin Trough 12.3 Microbiology: Microbiology 12/16/20 Unknown Gram Stain - Final Tissue - Leg, Left Wound Culture - Preliminary No growth-Final to follow Microbiology 12/16/20 Unknown Tissue - Leg, Left Gram Stain - Final 12/16/20 Unknown Tissue - Leg, Left Wound Culture - Preliminary No growth-Final to follow 12/16/20 07:35 Mucosa - Nose SARS-CoV-2 Antigen (Rapid) - Final D/C Instructions Discharge Diet: 2000 mg Sodium Diet Discharge Activity: Return to Normal Activity Weight Bearing Status: Weight bearing as tolerated Call your doctor if your incision/area has: Continuous Slow Oozing, Sudden Increased Bleeding, Increased Pain/ Swelling and Foul Smelling Discharge Call your doctor if you observe: Fever of 101 or Higher, Shortness of breath, Increased palpitations (irregular heartbeat) and Uncontrolled pain Additional Dressing/Incision Instructions: wound vac to be changed 3 x weekly at 150mmhg. Additional Instructions: call wound clinic- [phone] to schedule an appointment with Dr Cavazos Meaningful Use Info Meaningful Use Diagnoses (Choose all that apply): None applicable Discharge Plan Admission Admit Date/Time: 12/14/20 17:39 Primary Reason for Your Visit: LLE cellulitis and abscess Attending Provider: Gin Lindsay Primary Care Provider: Prosper Snider Consulting Providers: Kalen Cavazos Instructions Patient Instructions: ED Cellulitis Discharge Orders/Prescriptions Prescriptions: New doxycycline hyclate 100 mg tablet 100 mg PO BID Qty: 28 RF: 0 Continued furosemide [Lasix] 40 mg Tablet 40 mg PO DAILY RF: 0 lisinopril 20 mg Tablet 20 mg PO DAILY RF: 0 Discontinued sulfamethoxazole-trimethoprim [Bactrim DS] 800-160 mg Tablet 1 tab PO BID RF: 0 Referrals / Follow Up: Prosper Snider DO [Primary Care Provider] - Within 2 Weeks Kalen Cavazos MD [STAFF PHYSICIAN] - Within 1 Week (call wound clinic at [phone] for an appointment) Disposition Disposition (needs filled in before D/C Order can be placed): Home Health Service Charges/Coding Visit Charges Inpatient E&M: 27975 Disch Hosp
[2020-12-18 15:58] VITALS: BP 128/68; PULSE 78; RESP 16; TEMP 37.3; O2SAT 95
== END 2020-12-18 17:45 | disposition home health service (06) | DRG 580 ==
PROVIDERS: Surgery; Admitting Provider Internal Medicine; PCP Student in an Organized Health Care Education/Training Program; Visit Provider Student in an Organized Health Care Education/Training Program
PROC: 0KBT0ZZ Excision of Left Lower Leg Muscle, Open Approach (ICD-10-PCS; principal; 2020-12-16 12:00)
DX: L97.825 Non-pressure chronic ulcer of other part of left lower leg with muscle involvement without evidence of necrosis (principal); L03.116 Cellulitis of left lower limb; L02.416 Cutaneous abscess of left lower limb; D61.818 Other pancytopenia; B95.62 Methicillin resistant Staphylococcus aureus infection as the cause of diseases classified elsewhere; Z20.822 Contact with and (suspected) exposure to COVID-19; I87.2 Venous insufficiency (chronic) (peripheral); I11.9 Hypertensive heart disease without heart failure; K74.60 Unspecified cirrhosis of liver; S80.812S Abrasion, left lower leg, sequela; W22.8XXS Striking against or struck by other objects, sequela; Z79.899 Other long term (current) drug therapy; Z87.891 Personal history of nicotine dependence
CPT/HCPCS: 11042; 36415; 80048; 80053; 80202; 84134; 85025; 87070; 87075; 87102; 87176; 87205; 87206; 87426; 87640; 88304; 93005; 97110; 97162; 97166; 97530; 97535; 99203; J7040; J7050; A4216; G0463; J2405

== ENCOUNTER 2020-12-28 13:30 | Outpatient (RCR) | payer MEDICARE, SELFPAY ==
[2020-12-14 15:10] VITALS: BP 169/80; PULSE 94; RESP 20; TEMP 37.4; BMI 25.5
--- NOTE | 2020-12-14 16:03 | HP.PCM_ITS ---
History of Present Illness Date of Service: 12/14/20 Chief Complaint: non-healing infected wound of the LLE History of Wound: Branden Fraser is a 70-year-old male with a PMH of tobacco dependence in remission(quit 20 years ago), pancytopenia recently diagnosed, Hypertension, remote hx of ETOH abuse(quit 20 years ago), elevated LFT's and unintentional weight loss (30 lbs in the past 6 months ) who fell over a walker approximately 2 weeks ago and sustained an injury/abrasion to his left lower extremity. It became red, warm to touch and painful. He was admitted to [facility] but, signed out AMA the next day because the doctor never came in and they never applied a dressing to the wound. Prior to the recent admission to the hospital he had not seen a physician in 30 years. He was seen at [facility] on 12/02 and 12/09 and was initially on Augmentin and doxycycline but when it was getting worse the Doxycycline was discontinued and he was started on Bactrim. While in the hospital he had pancytopenia and his PLT count was 87,000. HGB on 12/02 was 12.8 and the WBC was 4.6. The MCV was 102.5. Creatinine was within normal limits and the GFR was 87. Folate and B12 were within normal limits. He had a culture of the wound that grew MRSA. He is scheduled for an MRI next week or the week after. He has been taking Alleve and Tylenol for pain. He tells me that both his legs have been swollen for about a year now. His EF at [facility] on ECHO is normal and he had LVH. The clinic put him on Lasix and the swelling in the R leg is better. He had venous US's and there were no clots per the patient and his significant other. He had a liver US this week.....I have no results for this. [facility] today with a temp of 99.3. The BP is 169/80 and he is tachycardic with a HR of 109. The LLE is more swollen than the R. There is erythema and increased warmth to touch of the LLE. He also has a swollen L knee and there is an effusion. The knee is not red but it is warm to touch. There is a wound at approximately mid calf and there is tunneling and undermining of this wound laterally. I was able to express a considerable amount of creamy pus from the wound and aerobic and anaerobic cultures were sent to the lab. I explained that I did not feel ?Bactrim was an adequate tx for this wound at this time and I recommended admission to [facility] and he was agreeable. I spoke with Dr. Burris who is the admitting hospitalist and he will accept the pt onto the hospitalist service. [facility] Medical History (Updated 12/14/20 @ 16:[address] Alena Sethi DO) History of ETOH abuse Home Medications [id number] 325 tab 12/14/20 [History Last Taken Unknown] acetaminophen PRN PRN 12/14/20 [History Last Taken Unknown] furosemide [Lasix] 40 mg PO DAILY 12/14/20 [History Last Taken Unknown] lisinopril 20 mg PO DAILY 12/14/20 [History Last Taken Unknown] naproxen sodium [Aleve] 220 mg PO BID PRN 12/14/20 [History Last Taken Unknown] sulfamethoxazole-trimethoprim [Bactrim DS] 1 tab PO BID 12/14/20 [History Last Taken Unknown] Allergy/AdvReac Type Severity Reaction Status Date / Time No Known Allergies Allergy Verified 12/14/20 16:22 other no surgical history Social History (Updated 12/14/20 @ 16:[address] 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 Smoking Status: Former smoker alcohol intake: former details: he quit 20 years ago substance use type: does not use Prior Cardiac Testing/Procedures Prior Cardiac Testing/Procedures: Echocardiogram ROS Constitutional Constitutional: Reports change in weight and weakness ENT HEENT: Denies dysphagia Cardiovascular Cardiovascular: Reports edema; Denies chest pain or dyspnea Respiratory/Chest Respiratory/Chest: Denies cough or hemoptysis Gastrointestinal Gastrointestinal: Denies abdominal pain, nausea or vomiting Genitourinary Genitourinary: Denies dysuria or urinary frequency Musculoskeletal Musculoskeletal: Reports joint pain Integumentary Integumentary: Reports wounds Neurologic Neurologic: Reports systems reviewed and no addt'l complaints, except as documented Psychiatric Psychiatric: Denies anxiety, depression, homicidal ideation or suicidal ideation Endocrine Endocrinology: Reports change in body appearance Hematologic/Lymphatic Hematologic/Lymphatic: Reports anemia, easy bleeding and easy bruising Vital Signs Vital Signs Vital Signs: 12/14/20 15:10 Temperature 99.3 F H Temperature Source Temporal Pulse Rate 94 Respiratory Rate 20 H Blood Pressure 169/80 H Blood Pressure Mean 109 Blood Pressure Source Monitor Weight Weight: 188 lb 7.504 oz Body Mass Index (BMI) 25.5 Physical Exam Const alert and oriented x3 Constitutional Narrative: looks older than his stated age. to me he appears cachectic General Appearance: cooperative, ill appearing and appears older than stated age Nutritional Appearance: cachectic HEENT normocephalic Neck no lymphadenopathy and no meningeal signs Lymph Lymphatic: no lymphadenopathy noted Chest Chest: symmetrical chest wall rise Resp normal respiratory effort and normal air movement Resp Narrative: no wheezes, rales or rhonchi. No conversational dyspnea. No respiratory distress or accessory muscle use. Effort and Inspection: able to speak in complete sentences Cardio regular rhythm, S1 normal heart sound, S2 normal heart sound, no murmurs, no rub and no gallops Cardio Narrative: No MM GI non-tender, non-distended and no bruits GI Narrative: he has hepatomegaly. Auscultation: normoactive bowel sounds Extremity General Extremity: edema bilateral; Negative for clubbing or cyanosis Peripheral Pulses: Yes femoral pulses present bilateral and dorsalis pedis pulses present bilateral Skin no jaundice Skin Narrative: The left knee is swollen and painful. There is effusion present. There is a wound on the left about mid calf and there is tunneling and undermining present. When I compress the lateral calf I was able to express significant mount of pus from the wound. He bruise very easily. There is no odor to the DC. A aerobic and anaerobic cultures were taken and will be sent to the lab. There is erythema present distal to the tibial plateau and increased warmth to touch. There is evidence of venous hypertension with small petechiae. The left leg is considerably more swollen than the right. I do not appreciate any lymphadenopathy in the left groin. Neuro CN's II-XII intact bilaterally Sensorium / Orientation: alert, oriented to person, oriented to place and oriented to time Psych mental status grossly normal, thought process normal, cooperative, affect normal, denies homicidal ideation and denies suicidal ideation Debridement Note Debridement Note Post-Debridement Measurements and Additional Note: Post-Debridement Measurements/Treatment WC - Nurse 1 - General Ulcer Assessment Start: 12/14/20 15:09 Freq: Status: Active Protocol: RAZ Activity Type Activity Date Activity User E-Sign Co-Sign Detail Recorded Client Recorded Date Recorded By Document 12/14/20 15:10 DL [id number] 12/14/20 15:26 DL Document 12/14/20 15:28 BMF [id number] 12/14/20 15:30 BMF 12/14/20 12/14/20 15:10 15:28 WC - Today's Visit Information Type of service Initial Visit Arrival Mode Ambulatory, Walker Transfer Assistance None Patient Identification Verified (Name & Yes ) Safety Precautions Fall Prevention Height and Weight Height 6 ft Weight 188 lb 7.504 oz Weight in Pounds 188.5 lbs Weight Measurement Method Estimated by Patient Body Mass Index (BMI) 25.5 25.5 BMI Classification Overweight Overweight BSA - Marcela 2.08 Vital Signs Temperature (97.8 F-99.1 F) 99.3 F H Temperature Source Temporal Pulse Rate (60-100) 94 Pulse Location Monitor Respiratory Rate (12-18) 20 H Respiratory rate source Observation Blood Pressure (90/60-120/80) 169/80 H Blood Pressure Mean 109 Source Monitor History Since Last Visit- (Skip if this is Patient's initial visit) Left Footwear Regular Shoe Right Footwear Regular Shoe Pain Scale: 0-10 Numeric Is Patient Pain Free? Yes Lower Extremity Assessment/ Foot Assessment/ Toe Nail Assessment Right -Posterior Tibial Palpable No -Posterior Tibial Doppler Multiphasic -Dorsalis Pedis Palpable Yes -Dorsalis Pedis Doppler Multiphasic -Extremity Color Pale -Hair Growth on Legs No -Hair Growth on Toes No -Temperature of Extremity Warm -Other Deformity No -Prior Foot Ulcer No -Charcot Joint No -Prior Amputation No -Thick Yes -Discolored Yes -Deformed No -Improper Length & Hygeine No Left -Posterior Tibial Palpable No -Posterior Tibial Doppler Multiphasic -Dorsalis Pedis Palpable Yes -Dorsalis Pedis Doppler Multiphasic -Extremity Color Pale -Hair Growth on Legs No -Hair Growth on Toes No -Temperature of Extremity Warm -Other Deformity No -Prior Foot Ulcer No -Charcot Joint No -Prior Amputation No -Thick Yes -Discolored Yes -Deformed No -Improper Length & Hygeine No Neuropathy Assessment Feet - Top Side and Bottom <Entered> (a) Communication Assessment Preferred language Maltese Able to Read Yes Able to Write Yes Communication Tools None Right Hearing Abillity Hard of Hearing Left Hearing Abillity Hard of Hearing Visual Assistive Devices Glasses Teaching Assessment Preferences Verbal,Written, Demonstration Barriers to Learning Knowledge Deficit Readiness To Learn Fair Willingness to Engage in Self Management Low Activies Readiness to Engage in Self Management Low Activities Anxiety Level Calm Cooperation Cooperative Perception Coherent Interest in Health Problem Asks Questions Education Importance Acknowledges Need Does Patient Smoke tobacco or other No substances Smoking Status Former smoker Is Patient Diabetic No Functional Assessment Recent Decline in Ability to Perform Denies Any Declines 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 Rubber Press Operator to contact place of adventist No Teaching: Wound Center Control Swelling with Leg Elevation -Person Taught Patient Dressing Your Wound -Person Taught Patient Discharge Instructions -Person Taught Patient *Welcome to the Wound Center -Person Taught Patient (a) 1 - + WC - Nurse 1 - General Ulcer Measurement Start: 12/14/20 15:09 Freq: Status: Active Protocol: Activity Type Activity Date Activity User E-Sign Co-Sign Detail Recorded Client Recorded Date Recorded By Document 12/14/20 15:10 DL [id number] 12/14/20 15:26 DL 12/14/20 15:10 Wound Center Nurse 1 #1 L Coleman -Current Size (cm) - Length 0.9 -Current Size (cm) - Width 1.4 -Current Size (cm) - Depth 5 -Total Square Cm 1.26 -Photo Taken Yes -Classification - Thickness Full Thickness without Exposed Support Structure -Exudate Amt Small -Exudate Type Serosanguineous -Wound Margin Distinct, Outline Attached -Granulation Amt Medium (34-66%) -Granulation Quality [place] -Necrosis Amt Medium (34-66%) -Necrotic Tissue Type Adherent Slough -Structure Exposed N/A -Texture (Ayanna-wound Skin Appearance) Localized Edema ,Scarring -Moisture (Ayanna-wound Skin Appearance) Dry/Scaly -Color (Ayanna-wound Skin Appearance) Erythema, Hemosiderin Staining -Temperature (Ayanna-wound Skin No Abnormality Appearance) (Pt Warm) -Tenderness on Palpation (Ayanna-wound No Skin Appearance) -Ulcer Cleansing Wound Cleanser -Foul Odor after Cleansing Yes, Due to Product Use -Anesthetic Used 5% Lidocaine Gel Right Calf (cm) 36.7 Point of measurement (cm from the medial 29 instep) Left Calf (cm) 38.6 Left Ankle (cm) 29.4 WC - Nurse 2 - General Ulcer CM Notes Start: 12/14/20 15:09 Freq: Status: Active Protocol: Activity Type Activity Date Activity User E-Sign Co-Sign Detail Recorded Client Recorded Date Recorded By Document 12/14/20 15:30 MW [id number] 12/14/20 15:48 MW 12/14/20 15:30 Wound Center Nurse 2 #1 L Coleman -Time 15:32 -Correct Patient Yes -Correct Side, Site, Position Yes -Correct Procedure Yes -Procedure Performed Yes -Type of Procedure Debridement -Clinical Debridement Subcutaneous -Tissue Removed Subcutaneous -Post Debridement (cm) - Length 1.5 -Post Debridement (cm) - Width 1.0 -Post Debridement (cm) - Depth 0.1 -Total Square (Post) (cm) 1.50 -Area of Debridement (cm) - Length 1.5 -Area of Debridement (cm) - Width 1.0 -Total Square (Area) (cm) 1.50 -Tunneling No -Tunneling Position (O'clock) 4 -Tunneling Distance (cm) 0.7 -Tunneling Position #2 (O'clock) 6 -Tunneling Distance #2 (cm) 0.3 -Undermining/Tunneling No -Undermining/Tunneling Starts (O'clock 2 ) -Undermining/Tunneling Ends (O'clock) 6 -Maximum Distance (cm) 0.7 -Circular Undermining No -Wound/Ulcer Outcome Not Healed -Ulcer Cleansing Rinsed/ Irrigated with Saline -Foul Odor after Cleansing No -Bioengineered Tissue No -Bleeding Controlled with Pressure -Offloading No -Treatment Response Procedure Tolerated Well -Debridement - Subq, 1st 20sq cm Yes Pain Scale: 0-10 Numeric Is Patient Pain Free? Yes WC - Nurse 3 - General Ulcer D/C NN Start: 12/14/20 15:09 Freq: Status: Active Protocol: Activity Type Activity Date Activity User E-Sign Co-Sign Detail Recorded Client Recorded Date Recorded By Document 12/14/20 15:54 MW [id number] 12/14/20 15:58 MW 12/14/20 15:54 Wound Care Nurse 3 #1 L Coleman -Ulcer Cleansing Rinsed/ Irrigated with Saline -Foul Odor after Cleansing No -Negative Pressure Wound Therapy N/A -Primary Dressing Applied Nugauze, Iodoform -Primary Dressing Covered/Secured with Dry Gauze & Roll Gauze, Secured with Tape -Nugauze, Iodoform / 1 Treatment Response Procedure Tolerated Well Pain Scale: 0-10 Numeric Is Patient Pain Free? Yes Teaching: Wound Center Dressing Your Wound -Person Taught Patient,Family -Teaching Method Discussion, Demonstration -Response to teaching Verbalize understanding WC - Visit Discharge Discharge Condition Stable Ambulatory Status Ambulatory, Walker Transportation Private Auto Accompanied by partner Medication Reconcilliation completed & No provided to patient/care provider Clinical Summary of Care Provided Yes Notes: sent to ER for evaluation of infection per Dr. Sethi No debridement was completed: No debridement was completed today Charges/Coding Visit Charges Office Visits / Consults: [id number] OV L5 New Assessment/Plan Assessment/Plan (1) Cellulitis and abscess of left leg: CODE(S): L03.116 - Cellulitis of left lower limb; L02.416 - Cutaneous abscess of left lower limb (2) Thrombocytopenia: CODE(S): D69.6 - Thrombocytopenia, unspecified (3) Macrocytic anemia: CODE(S): D53.9 - Nutritional anemia, unspecified (4) Elevated LFTs: CODE(S): R79.89 - Other specified abnormal findings of blood chemistry (5) Venous insufficiency of both lower extremities: CODE(S): I87.2 - Venous insufficiency (chronic) (peripheral) (6) LVH (left ventricular hypertrophy): CODE(S): I51.7 - Cardiomegaly (7) Tobacco dependence in remission: CODE(S): F17.201 - Nicotine dependence, unspecified, in remission (8) HTN (hypertension): CODE(S): I10 - Essential (primary) hypertension QUALIFIERS: Hypertension type: essential hypertension Qualified Code(s): I10 - Essential (primary) hypertension (9) MRSA (methicillin resistant staph aureus) culture positive: CODE(S): Z22.322 - Carrier or suspected carrier of Methicillin resistant Staphylococcus aureus PLAN: Pt was sent to [facility] for admission to the hospital. Dr. Burris will be the admitting physician. Following DC from the hospital he will return to the [facility]ound [facility] for follow up.
[2020-12-21 13:19] VITALS: BP 163/82; PULSE 87; TEMP 36.6; BMI 25.5
--- NOTE | 2020-12-21 13:26 | PN.PCM_ITS ---
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 It became red, warm to touch and painful. He was admitted to [facility] but, signed out AMA the next day because the doctor never came in and they never applied a dressing to the wound. Prior to the recent admission to the hospital he had not seen a physician in 30 years. He was seen at [facility] on 12/02 and 12/09 and was initially on Augmentin and doxycycline but when it was getting worse the Doxycycline was discontinued and he was started on Bactrim. While in the hospital he had pancytopenia and his PLT count was 87,000. HGB on 12/02 was 12.8 and the WBC was 4.6. The MCV was 102.5. Creatinine was within normal limits and the GFR was 87. Folate and B12 were within normal limits. He had a culture of the wound that grew MRSA. He is scheduled for an MRI next week or the week after. He has been taking Alleve and Tylenol for pain. He tells me that both his legs have been swollen for about a year now. His EF at [facility] on ECHO is normal and he had LVH. The clinic put him on Lasix and the swelling in the R leg is better. He had venous US's and there were no clots per the patient and his significant other. He had a liver US this week.....I have no results for this. [facility] with a temp of 99.3. The BP is 169/80 and he is tachycardic with a HR of 109. The LLE is more swollen than the R. There is erythema and increased warmth to touch of the LLE. He also has a swollen L knee and there is an effusion. The knee is not red but it is warm to touch. There is a wound at approximately mid calf and there is tunneling and undermining of this wound laterally. I was able to express a considerable amount of creamy pus from the wound and aerobic and anaerobic cultures were sent to the lab. I explained that I did not feel ?Bactrim was an adequate tx for this wound at this time and I recommended admission to [facility] and he was agreeable. I spoke with Dr. Burris who is the admitting hospitalist and he will accept the pt onto the hospitalist service. Jamel Otero was admitted to the hospital with an MRSA infected abscess and underwent an I&D with excisional debridement on 12/[address] Cavazos. Muscle was involved but there was no necrosis. He was discharged form the hospital with a wound vac. He was discharged on Doxycycline for 14 days. He returns to the [facility] today for follow up. He denies F/C/S. Last night the wound vac had an air leak and has been leaking since. He is taking 2-3 Oxycodone a day for pain. Denies diarrhea and also denies sore mouth pain and odynophagia. Has not been wearing a compression on the R leg. Has not been moisturizing his leg. Objective Data Objective Data Vital Signs: Vital Signs Temp Pulse Resp BP 99.3 F H 94 20 H 169/80 H 12/14/20 15:10 12/14/20 15:10 12/14/20 15:10 12/14/20 15:10 Weight: 188 lb 7.504 oz Body Mass Index (BMI) 25.5 Lab / Micro Data Micro: Microbiology 12/14/20 15:30 Wound Abcess - Leg, Left Gram Stain - Final 12/14/20 15:30 Wound Abcess - Leg, Left Wound Culture - Final Meth. resistant Staph. aureus 12/14/20 15:30 Wound Abcess - Leg, Left Anaerobic Culture - Final No anaerobic bacteria isolated. Charges/Coding Procedures Integumentary [id number]: [id number] Jasmin subq tissue 20 sq cm/< Physical Exam Skin Wound Narrative: The wound on the LLE at the site of the previous abscess that was incised and drained by Dr. Cavazos has a wound vac in place. There is no erythema and no increased warmth to touch. There is no odor and no purulent DC. He tells me that the last time the vac was changed it developed a big leak soon after the [facility] nurse left. Debridement Note Debridement Note Post-Debridement Measurements and Additional Note: Post-Debridement Measurements/Treatment WC - Nurse 1 - General Ulcer Assessment Start: 12/14/20 15:09 Freq: Status: Active Protocol: RAZ Activity Type Activity Date Activity User E-Sign Co-Sign Detail Recorded Client Recorded Date Recorded By Document 12/14/20 15:10 DL [id number] 12/14/20 15:26 DL Document 12/14/20 15:28 BMF [id number] 12/14/20 15:30 BMF 12/14/20 12/14/20 15:10 15:28 WC - Today's Visit Information Type of service Initial Visit Arrival Mode Ambulatory, Walker Transfer Assistance None Patient Identification Verified (Name & Yes ) Safety Precautions Fall Prevention Height and Weight Height 6 ft Weight 188 lb 7.504 oz Weight in Pounds 188.5 lbs Weight Measurement Method Estimated by Patient Body Mass Index (BMI) 25.5 25.5 BMI Classification Overweight Overweight BSA - Marcela 2.08 Vital Signs Temperature (97.8 F-99.1 F) 99.3 F H Temperature Source Temporal Pulse Rate (60-100) 94 Pulse Location Monitor Respiratory Rate (12-18) 20 H Respiratory rate source Observation Blood Pressure (90/60-120/80) 169/80 H Blood Pressure Mean (mm Hg) 109 Source Monitor History Since Last Visit- (Skip if this is Patient's initial visit) Left Footwear Regular Shoe Right Footwear Regular Shoe Pain Scale: 0-10 Numeric Is Patient Pain Free? Yes Lower Extremity Assessment/ Foot Assessment/ Toe Nail Assessment Right -Posterior Tibial Palpable No -Posterior Tibial Doppler Multiphasic -Dorsalis Pedis Palpable Yes -Dorsalis Pedis Doppler Multiphasic -Extremity Color Pale -Hair Growth on Legs No -Hair Growth on Toes No -Temperature of Extremity Warm -Other Deformity No -Prior Foot Ulcer No -Charcot Joint No -Prior Amputation No -Thick Yes -Discolored Yes -Deformed No -Improper Length & Hygeine No Left -Posterior Tibial Palpable No -Posterior Tibial Doppler Multiphasic -Dorsalis Pedis Palpable Yes -Dorsalis Pedis Doppler Multiphasic -Extremity Color Pale -Hair Growth on Legs No -Hair Growth on Toes No -Temperature of Extremity Warm -Other Deformity No -Prior Foot Ulcer No -Charcot Joint No -Prior Amputation No -Thick Yes -Discolored Yes -Deformed No -Improper Length & Hygeine No Neuropathy Assessment Feet - Top Side and Bottom <Entered> (a) Communication Assessment Preferred language Malay Able to Read Yes Able to Write Yes Communication Tools None Right Hearing Abillity Hard of Hearing Left Hearing Abillity Hard of Hearing Visual Assistive Devices Glasses Teaching Assessment Preferences Verbal,Written, Demonstration Barriers to Learning Knowledge Deficit Readiness To Learn Fair Willingness to Engage in Self Management Low Activies Readiness to Engage in Self Management Low Activities Anxiety Level Calm Cooperation Cooperative Perception Coherent Interest in Health Problem Asks Questions Education Importance Acknowledges Need Does Patient Smoke tobacco or other No substances Smoking Status Former smoker Is Patient Diabetic No Functional Assessment Recent Decline in Ability to Perform Denies Any Declines 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 Blending Plant Operator to contact place of mandaen No Teaching: Wound Center Control Swelling with Leg Elevation -Person Taught Patient Dressing Your Wound -Person Taught Patient Discharge Instructions -Person Taught Patient *Welcome to the Wound Center -Person Taught Patient (a) 1 - + WC - Nurse 1 - General Ulcer Measurement Start: 12/14/20 15:09 Freq: Status: Active Protocol: Activity Type Activity Date Activity User E-Sign Co-Sign Detail Recorded Client Recorded Date Recorded By Document 12/14/20 15:10 DL [id number] 12/14/20 15:26 DL 12/14/20 15:10 Wound Center Nurse 1 #1 L Coleman -Current Size (cm) - Length 0.9 -Current Size (cm) - Width 1.4 -Current Size (cm) - Depth 5 -Total Square Cm 1.26 -Photo Taken Yes -Classification - Thickness Full Thickness without Exposed Support Structure -Exudate Amt Small -Exudate Type Serosanguineous -Wound Margin Distinct, Outline Attached -Granulation Amt Medium (34-66%) -Granulation Quality [place] -Necrosis Amt Medium (34-66%) -Necrotic Tissue Type Adherent Slough -Structure Exposed N/A -Texture (Ayanna-wound Skin Appearance) Localized Edema ,Scarring -Moisture (Ayanna-wound Skin Appearance) Dry/Scaly -Color (Ayanna-wound Skin Appearance) Erythema, Hemosiderin Staining -Temperature (Ayanna-wound Skin No Abnormality Appearance) (Pt Warm) -Tenderness on Palpation (Ayanna-wound No Skin Appearance) -Ulcer Cleansing Wound Cleanser -Foul Odor after Cleansing Yes, Due to Product Use -Anesthetic Used 5% Lidocaine Gel Right Calf (cm) 36.7 Point of measurement (cm from the medial 29 instep) Left Calf (cm) 38.6 Left Ankle (cm) 29.4 WC - Nurse 2 - General Ulcer CM Notes Start: 12/14/20 15:09 Freq: Status: Active Protocol: Activity Type Activity Date Activity User E-Sign Co-Sign Detail Recorded Client Recorded Date Recorded By Document 12/14/20 15:30 MW [id number] 12/14/20 15:48 MW Edit Result 12/14/20 15:30 MW (1) [id number] 12/15/20 12:58 PL (1) #1 L Coleman - Debridement - Subq, 1st 20sq cm Yes => No 12/14/20 15:30 Wound Center Nurse 2 #1 L Coleman -Time 15:32 -Correct Patient Yes -Correct Side, Site, Position Yes -Correct Procedure Yes -Procedure Performed Yes -Type of Procedure Debridement -Clinical Debridement Subcutaneous -Tissue Removed Subcutaneous -Post Debridement (cm) - Length 1.5 -Post Debridement (cm) - Width 1.0 -Post Debridement (cm) - Depth 0.1 -Total Square (Post) (cm) 1.50 -Area of Debridement (cm) - Length 1.5 -Area of Debridement (cm) - Width 1.0 -Total Square (Area) (cm) 1.50 -Tunneling No -Tunneling Position (O'clock) 4 -Tunneling Distance (cm) 0.7 -Tunneling Position #2 (O'clock) 6 -Tunneling Distance #2 (cm) 0.3 -Undermining/Tunneling No -Undermining/Tunneling Starts (O'clock 2 ) -Undermining/Tunneling Ends (O'clock) 6 -Maximum Distance (cm) 0.7 -Circular Undermining No -Wound/Ulcer Outcome Not Healed -Ulcer Cleansing Rinsed/ Irrigated with Saline -Foul Odor after Cleansing No -Bioengineered Tissue No -Bleeding Controlled with Pressure -Offloading No -Treatment Response Procedure Tolerated Well -Debridement - Subq, 1st 20sq cm No Pain Scale: 0-10 Numeric Is Patient Pain Free? Yes WC - Nurse 3 - General Ulcer D/C NN Start: 12/14/20 15:09 Freq: Status: Active Protocol: Activity Type Activity Date Activity User E-Sign Co-Sign Detail Recorded Client Recorded Date Recorded By Document 12/14/20 15:54 MW [id number] 12/14/20 15:58 MW 12/14/20 15:54 Wound Care Nurse 3 #1 L Coleman -Ulcer Cleansing Rinsed/ Irrigated with Saline -Foul Odor after Cleansing No -Negative Pressure Wound Therapy N/A -Primary Dressing Applied Nugauze, Iodoform -Primary Dressing Covered/Secured with Dry Gauze & Roll Gauze, Secured with Tape -Nugauze, Iodoform / 1 Treatment Response Procedure Tolerated Well Pain Scale: 0-10 Numeric Is Patient Pain Free? Yes Teaching: Wound Center Dressing Your Wound -Person Taught Patient,Family -Teaching Method Discussion, Demonstration -Response to teaching Verbalize understanding WC - Visit Discharge Discharge Condition Stable Ambulatory Status Ambulatory, Walker Transportation Private Auto Accompanied by partner Medication Reconcilliation completed & No provided to patient/care provider Clinical Summary of Care Provided Yes Notes: sent to ER for evaluation of infection per Dr. 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
--- NOTE | 2020-12-21 13:56 | PN.PCM_ITS ---
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 It became red, warm to touch and painful. He was admitted to [facility] but, signed out AMA the next day because the doctor never came in and they never applied a dressing to the wound. Prior to the recent admission to the hospital he had not seen a physician in 30 years. He was seen at [facility] on 12/02 and 12/09 and was initially on Augmentin and doxycycline but when it was getting worse the Doxycycline was discontinued and he was started on Bactrim. While in the hospital he had pancytopenia and his PLT count was 87,000. HGB on 12/02 was 12.8 and the WBC was 4.6. The MCV was 102.5. Creatinine was within normal limits and the GFR was 87. Folate and B12 were within normal limits. He had a culture of the wound that grew MRSA. He is scheduled for an MRI next week or the week after. He has been taking Alleve and Tylenol for pain. He tells me that both his legs have been swollen for about a year now. His EF at [facility] on ECHO is normal and he had LVH. The clinic put him on Lasix and the swelling in the R leg is better. He had venous US's and there were no clots per the patient and his significant other. He had a liver US this week.....I have no results for this. [facility] with a temp of 99.3. The BP is 169/80 and he is tachycardic with a HR of 109. The LLE is more swollen than the R. There is erythema and increased warmth to touch of the LLE. He also has a swollen L knee and there is an effusion. The knee is not red but it is warm to touch. There is a wound at approximately mid calf and there is tunneling and undermining of this wound laterally. I was able to express a considerable amount of creamy pus from the wound and aerobic and anaerobic cultures were sent to the lab. I explained that I did not feel ?Bactrim was an adequate tx for this wound at this time and I recommended admission to [facility] and he was agreeable. I spoke with Dr. Burris who is the admitting hospitalist and he will accept the pt onto the hospitalist service. Objective Data Objective Data Vital Signs: Vital Signs Temp Pulse Resp BP 97.8 F 87 20 H 163/82 H 12/21/20 13:19 12/21/20 13:19 12/14/20 15:10 12/21/20 13:19 Weight: 188 lb 7.504 oz Body Mass Index (BMI) 25.5 Lab / Micro Data Micro: Microbiology 12/14/20 15:30 Wound Abcess - Leg, Left Gram Stain - Final 12/14/20 15:30 Wound Abcess - Leg, Left Wound Culture - Final Meth. resistant Staph. aureus 12/14/20 15:30 Wound Abcess - Leg, Left Anaerobic Culture - Final No anaerobic bacteria isolated. Debridement Note Debridement Note Post-Debridement Measurements and Additional Note: Post-Debridement Measurements/Treatment WC - Nurse 1 - General Ulcer Assessment Start: 12/14/20 15:09 Freq: Status: Active Protocol: WC.AYNI Activity Type Activity Date Activity User E-Sign Co-Sign Detail Recorded Client Recorded Date Recorded By Document 12/14/20 15:10 DL [id number] 12/14/20 15:26 DL Document 12/14/20 15:28 BMF [id number] 12/14/20 15:30 BMF Document 12/21/20 13:19 KR [id number] 12/21/20 13:28 KR 12/14/20 12/14/20 12/21/20 15:10 15:28 13:19 WC - Today's Visit Information Type of service Initial Visit Follow-up Visit (Physician/MILITARY LOGISTICS SPECIALIST ) Arrival Mode Ambulatory, Ambulatory Walker Transfer Assistance None Patient Identification Verified (Name & Yes Yes ) Safety Precautions Fall Prevention Height and Weight Height 6 ft Weight 188 lb 7.504 oz Weight in Pounds 188.5 lbs Weight Measurement Method Estimated by Patient Body Mass Index (BMI) 25.5 25.5 25.5 BMI Classification Overweight Overweight Overweight BSA - Marcela 2.08 Vital Signs Temperature (97.8 F-99.1 F) 99.3 F H 97.8 F Temperature Source Temporal Temporal Pulse Rate (60-100) 94 87 Pulse Location Monitor Monitor Respiratory Rate (12-18) 20 H Respiratory rate source Observation Blood Pressure (90/60-120/80) 169/80 H 163/82 H Blood Pressure Mean (mm Hg) 109 109 Source Monitor Monitor Position Sitting Blood Pressure Location Left Arm Have you changed medications since your No last visit? Any new allergies or adverse reactions No Had a fall/change in ADL's that may No increase risk of falls Signs or symptoms of abuse and/or No neglect since last visit Have you been in the hospital since your No last visit? Has dressing in place as prescribed Yes Has compression in place as prescribed N/A Has offloadiing in place as prescribed N/A Experienced any changes in pain level or No management History Since Last Visit- (Skip if this is Patient's initial visit) Left Footwear Regular Shoe Regular Shoe Right Footwear Regular Shoe Regular Shoe Pain Scale: 0-10 Numeric Is Patient Pain Free? Yes Yes Lower Extremity Assessment/ Foot Assessment/ Toe Nail Assessment Right -Posterior Tibial Palpable No -Posterior Tibial Doppler Multiphasic -Dorsalis Pedis Palpable Yes -Dorsalis Pedis Doppler Multiphasic -Extremity Color Pale -Hair Growth on Legs No -Hair Growth on Toes No -Temperature of Extremity Warm -Other Deformity No -Prior Foot Ulcer No -Charcot Joint No -Prior Amputation No -Thick Yes -Discolored Yes -Deformed No -Improper Length & Hygeine No Left -Posterior Tibial Palpable No -Posterior Tibial Doppler Multiphasic -Dorsalis Pedis Palpable Yes -Dorsalis Pedis Doppler Multiphasic -Extremity Color Pale -Hair Growth on Legs No -Hair Growth on Toes No -Temperature of Extremity Warm -Other Deformity No -Prior Foot Ulcer No -Charcot Joint No -Prior Amputation No -Thick Yes -Discolored Yes -Deformed No -Improper Length & Hygeine No Neuropathy Assessment Feet - Top Side and Bottom <Entered> (a) Communication Assessment Preferred language Estonian Able to Read Yes Able to Write Yes Communication Tools None Right Hearing Abillity Hard of Hearing Left Hearing Abillity Hard of Hearing Visual Assistive Devices Glasses Teaching Assessment Preferences Verbal,Written, Demonstration Barriers to Learning Knowledge Deficit Readiness To Learn Fair Willingness to Engage in Self Management Low Activies Readiness to Engage in Self Management Low Activities Anxiety Level Calm Cooperation Cooperative Perception Coherent Interest in Health Problem Asks Questions Education Importance Acknowledges Need Does Patient Smoke tobacco or other No substances Smoking Status Former smoker Is Patient Diabetic No Functional Assessment Recent Decline in Ability to Perform Denies Any Declines Culture/Baptist/Jail Officer Cultural/Baptist Needs that may affect No Treatment Plan Would you allow our hospital elementary instructional coach to No meet you for the purpose of spiritual/ emotional support? Jail Officer to contact place of oriental orthodox No Teaching: Wound Center Control Swelling with Leg Elevation -Person Taught Patient Dressing Your Wound -Person Taught Patient Discharge Instructions -Person Taught Patient *Welcome to the Wound Center -Person Taught Patient (a) 1 - + WC - Nurse 1 - General Ulcer Measurement Start: 12/14/20 15:09 Freq: Status: Active Protocol: Activity Type Activity Date Activity User E-Sign Co-Sign Detail Recorded Client Recorded Date Recorded By Document 12/14/20 15:10 DL [id number] 12/14/20 15:26 DL Document 12/21/20 13:19 KR [id number] 12/21/20 13:28 KR 12/14/20 12/21/20 15:10 13:19 Wound Center Nurse 1 #1 L Coleman -Current Size (cm) - Length 0.9 3.7 -Current Size (cm) - Width 1.4 4.3 -Current Size (cm) - Depth 5 1.2 -Total Square Cm 1.26 15.91 -Photo Taken Yes -Classification - Thickness Full Thickness without Exposed Support Structure -Exudate Amt Small Large -Exudate Type Serosanguineous Serosanguineous -Wound Margin Distinct, Distinct, Outline Outline Attached Attached -Granulation Amt Medium (34-66%) Large (67-100%) -Granulation Quality [place] Red -Necrosis Amt Medium (34-66%) None Present (0 %) -Necrotic Tissue Type Adherent Slough -Structure Exposed N/A -Texture (Ayanna-wound Skin Appearance) Localized Edema Assessed, ,Scarring Scarring -Moisture (Ayanna-wound Skin Appearance) Dry/Scaly No Abnormality, Assessed -Color (Ayanna-wound Skin Appearance) Erythema, No Abnormality, Hemosiderin Assessed Staining -Temperature (Ayanna-wound Skin No Abnormality No Abnormality Appearance) (Pt Warm) (Pt Warm) -Tenderness on Palpation (Ayanna-wound No No Skin Appearance) -Ulcer Cleansing Wound Cleanser Rinsed/ Irrigated with Saline -Foul Odor after Cleansing Yes, Due to No Product Use -Anesthetic Used 5% Lidocaine 4% Lidocaine Gel Solution Right Calf (cm) 36.7 Point of measurement (cm from the medial 29 instep) Left Calf (cm) 38.6 Left Ankle (cm) 29.4 WC - Nurse 2 - General Ulcer CM Notes Start: 12/14/20 15:09 Freq: Status: Active Protocol: Activity Type Activity Date Activity User E-Sign Co-Sign Detail Recorded Client Recorded Date Recorded By Document 12/14/20 15:30 MW [id number] 12/14/20 15:48 MW Edit Result 12/14/20 15:30 MW (1) [id number] 12/15/20 12:58 PL Document 12/21/20 13:34 MW [id number] 12/21/20 13:47 MW (1) #1 L Coleman - Debridement - Subq, 1st 20sq cm Yes => No 12/14/20 12/21/20 15:30 13:34 Wound Center Nurse 2 #1 L Coleman -Time 15:32 13:34 -Correct Patient Yes Yes -Correct Side, Site, Position Yes Yes -Correct Procedure Yes Yes -Procedure Performed Yes Yes -Type of Procedure Debridement Debridement -Clinical Debridement Subcutaneous Subcutaneous -Tissue Removed Subcutaneous Subcutaneous -Post Debridement (cm) - Length 1.5 3.7 -Post Debridement (cm) - Width 1.0 4.3 -Post Debridement (cm) - Depth 0.1 1.6 -Total Square (Post) (cm) 1.50 15.91 -Area of Debridement (cm) - Length 1.5 3.7 -Area of Debridement (cm) - Width 1.0 4.3 -Total Square (Area) (cm) 1.50 15.91 -Tunneling No No -Tunneling Position (O'clock) 4 -Tunneling Distance (cm) 0.7 -Tunneling Position #2 (O'clock) 6 -Tunneling Distance #2 (cm) 0.3 -Undermining/Tunneling No No -Undermining/Tunneling Starts (O'clock 2 ) -Undermining/Tunneling Ends (O'clock) 6 -Maximum Distance (cm) 0.7 -Circular Undermining No No -Wound/Ulcer Outcome Not Healed Not Healed -Ulcer Cleansing Rinsed/ Rinsed/ Irrigated with Irrigated with Saline Saline -Foul Odor after Cleansing No No -Bioengineered Tissue No No -Bleeding Controlled with Pressure Pressure -Offloading No No -Treatment Response Procedure Procedure Tolerated Well Tolerated Well -Debridement - Subq, 1st 20sq cm No Yes Pain Scale: 0-10 Numeric Is Patient Pain Free? Yes Yes WC - Nurse 3 - General Ulcer D/C NN Start: 12/14/20 15:09 Freq: Status: Active Protocol: Activity Type Activity Date Activity User E-Sign Co-Sign Detail Recorded Client Recorded Date Recorded By Document 12/14/20 15:54 MW [id number] 12/14/20 15:58 MW 12/14/20 15:54 Wound Care Nurse 3 #1 L Coleman -Ulcer Cleansing Rinsed/ Irrigated with Saline -Foul Odor after Cleansing No -Negative Pressure Wound Therapy N/A -Primary Dressing Applied Nugauze, Iodoform -Primary Dressing Covered/Secured with Dry Gauze & Roll Gauze, Secured with Tape -Nugauze, Iodoform 1/4 1 Treatment Response Procedure Tolerated Well Pain Scale: 0-10 Numeric Is Patient Pain Free? Yes Teaching: Wound Center Dressing Your Wound -Person Taught Patient,Family -Teaching Method Discussion, Demonstration -Response to teaching Verbalize understanding WC - Visit Discharge Discharge Condition Stable Ambulatory Status Ambulatory, Walker Transportation Private Auto Accompanied by partner Medication Reconcilliation completed & No provided to patient/care provider Clinical Summary of Care Provided Yes Notes: sent to ER for evaluation of infection per Dr. Sethi
[2020-12-28 13:41] VITALS: BP 140/71; PULSE 90; TEMP 37.4; BMI 25.5
--- NOTE | 2020-12-28 17:18 | PN.PCM_ITS ---
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 It became red, warm to touch and painful. He was admitted to [facility] but, signed out AMA the next day because the doctor never came in and they never applied a dressing to the wound. Prior to the recent admission to the hospital he had not seen a physician in 30 years. He was seen at [facility] on 12/02 and 12/09 and was initially on Augmentin and doxycycline but when it was getting worse the Doxycycline was discontinued and he was started on Bactrim. While in the hospital he had pancytopenia and his PLT count was 87,000. HGB on 12/02 was 12.8 and the WBC was 4.6. The MCV was 102.5. Creatinine was within normal limits and the GFR was 87. Folate and B12 were within normal limits. He had a culture of the wound that grew MRSA. He is scheduled for an MRI next week or the week after. He has been taking Alleve and Tylenol for pain. He tells me that both his legs have been swollen for about a year now. His EF at [facility] on ECHO is normal and he had LVH. The clinic put him on Lasix and the swelling in the R leg is better. He had venous US's and there were no clots per the patient and his significant other. He had a liver US this week.....I have no results for this. Branden [facility] to the [facility] today with a temp of 99.3. The BP is 169/80 and he is tachycardic with a HR of 109. The LLE is more swollen than the R. There is erythema and increased warmth to touch of the LLE. He also has a swollen L knee and there is an effusion. The knee is not red but it is warm to touch. There is a wound at approximately mid calf and there is tunneling and undermining of this wound laterally. I was able to express a considerable amount of creamy pus from the wound and aerobic and anaerobic cultures were sent to the lab. I explained that I did not feel ?Bactrim was an adequate tx for this wound at this time and I recommended admission to [facility] and he was agreeable. I spoke with Dr. Burris who is the admitting hospitalist and he will accept the pt onto the hospitalist service. Subjective Jamel Otero returns to the wound care center today for a recheck on the wound involving the left lateral calf due to recent abscess with I&D. currently being treated with a Wound vac. Did not complain to me of pain today and he denies F/C/S. He tells me that he has been wearing the MAXIM wrap on the left leg and the double tubogrip on the R. Objective Data Objective Data Vital Signs: Vital Signs Temp Pulse Resp BP 99.3 F H 90 20 H 140/71 H 12/28/20 13:41 12/28/20 13:41 12/14/20 15:10 12/28/20 13:41 Weight: 188 lb 7.504 oz Body Mass Index (BMI) 25.5 Lab / Micro Data Micro: Microbiology 12/14/20 15:30 Wound Abcess - Leg, Left Gram Stain - Final 12/14/20 15:30 Wound Abcess - Leg, Left Wound Culture - Final Meth. resistant Staph. aureus 12/14/20 15:30 Wound Abcess - Leg, Left Anaerobic Culture - Final No anaerobic bacteria isolated. Charges/Coding Procedures Integumentary [id number]: [id number] Jasmin subq tissue 20 sq cm/< Physical Exam Skin Wounds: wounds noted Wound Narrative: The wound on the left lateral LE distal to the knee has filled in a lot since I last saw it. There is no undermining, no tunneling, no odor and no purulent discharge. There are still some cautery robbins and there is an area in the middle of the wound that is deeper than the rest of the wound. There is no ayanna-wound erythema. the edema is still present but it is less than when I last saw him. [facility] has been changing the wound vac. The wound continues to contract and today it is 15.12 cm? post debridement down from 15.91 last week. Debridement Note Debridement Note Post-Debridement Measurements and Additional Note: Post-Debridement Measurements/Treatment WC - Nurse 1 - General Ulcer Assessment Start: 12/14/20 15:09 Freq: Status: Active Protocol: RAZ Activity Type Activity Date Activity User E-Sign Co-Sign Detail Recorded Client Recorded Date Recorded By Document 12/14/20 15:10 DL [id number] 12/14/20 15:26 DL Document 12/14/20 15:28 BMF [id number] 12/14/20 15:30 BMF Document 12/21/20 13:19 KR [id number] 12/21/20 13:28 KR Document 12/28/20 13:41 KR [id number] 12/28/20 13:48 KR 12/14/20 12/14/20 12/21/20 15:10 15:28 13:19 WC - Today's Visit Information Type of service Initial Visit Follow-up Visit (Physician/IMPLANT POLISHER ) Arrival Mode Ambulatory, Ambulatory Walker Transfer Assistance None Patient Identification Verified (Name & Yes Yes ) Safety Precautions Fall Prevention Height and Weight Height 6 ft Weight 188 lb 7.504 oz Weight in Pounds 188.5 lbs Weight Measurement Method Estimated by Patient Body Mass Index (BMI) 25.5 25.5 25.5 BMI Classification Overweight Overweight Overweight BSA - Marcela 2.08 Vital Signs Temperature (97.8 F-99.1 F) 99.3 F H 97.8 F Temperature Source Temporal Temporal Pulse Rate (60-100) 94 87 Pulse Location Monitor Monitor Respiratory Rate (12-18) 20 H Respiratory rate source Observation Blood Pressure (90/60-120/80) 169/80 H 163/82 H Blood Pressure Mean (mm Hg) 109 109 Source Monitor Monitor Position Sitting Blood Pressure Location Left Arm Have you changed medications since your No last visit? Any new allergies or adverse reactions No Had a fall/change in ADL's that may No increase risk of falls Signs or symptoms of abuse and/or No neglect since last visit Have you been in the hospital since your No last visit? Has dressing in place as prescribed Yes Has compression in place as prescribed N/A Has offloadiing in place as prescribed N/A Experienced any changes in pain level or No management History Since Last Visit- (Skip if this is Patient's initial visit) Left Footwear Regular Shoe Regular Shoe Right Footwear Regular Shoe Regular Shoe Pain Scale: 0-10 Numeric Is Patient Pain Free? Yes Yes Lower Extremity Assessment/ Foot Assessment/ Toe Nail Assessment Right -Posterior Tibial Palpable No -Posterior Tibial Doppler Multiphasic -Dorsalis Pedis Palpable Yes -Dorsalis Pedis Doppler Multiphasic -Extremity Color Pale -Hair Growth on Legs No -Hair Growth on Toes No -Temperature of Extremity Warm -Other Deformity No -Prior Foot Ulcer No -Charcot Joint No -Prior Amputation No -Thick Yes -Discolored Yes -Deformed No -Improper Length & Hygeine No Left -Posterior Tibial Palpable No -Posterior Tibial Doppler Multiphasic -Dorsalis Pedis Palpable Yes -Dorsalis Pedis Doppler Multiphasic -Extremity Color Pale -Hair Growth on Legs No -Hair Growth on Toes No -Temperature of Extremity Warm -Other Deformity No -Prior Foot Ulcer No -Charcot Joint No -Prior Amputation No -Thick Yes -Discolored Yes -Deformed No -Improper Length & Hygeine No Neuropathy Assessment Feet - Top Side and Bottom <Entered> (a) Communication Assessment Preferred language Kazakh Able to Read Yes Able to Write Yes Communication Tools None Right Hearing Abillity Hard of Hearing Left Hearing Abillity Hard of Hearing Visual Assistive Devices Glasses Teaching Assessment Preferences Verbal,Written, Demonstration Barriers to Learning Knowledge Deficit Readiness To Learn Fair Willingness to Engage in Self Management Low Activies Readiness to Engage in Self Management Low Activities Anxiety Level Calm Cooperation Cooperative Perception Coherent Interest in Health Problem Asks Questions Education Importance Acknowledges Need Does Patient Smoke tobacco or other No substances Smoking Status Former smoker Is Patient Diabetic No Functional Assessment Recent Decline in Ability to Perform Denies Any Declines Culture/Sikhism/Jacker Cultural/Sikhism Needs that may affect No Treatment Plan Would you allow our hospital patternmaker hand to No meet you for the purpose of spiritual/ emotional support? Jacker to contact place of hinduism No Teaching: Wound Center Control Swelling with Leg Elevation -Person Taught Patient Dressing Your Wound -Person Taught Patient Discharge Instructions -Person Taught Patient *Welcome to the Wound Center -Person Taught Patient 12/28/20 13:41 WC - Today's Visit Information Type of service Follow-up Visit (Physician/IMPLANT POLISHER ) Arrival Mode Ambulatory, Walker Transfer Assistance Patient Identification Verified (Name & Yes ) Safety Precautions Height and Weight Height Weight Weight in Pounds Weight Measurement Method Body Mass Index (BMI) 25.5 BMI Classification Overweight BSA - Marcela Vital Signs Temperature (97.8 F-99.1 F) 99.3 F H Temperature Source Temporal Pulse Rate (60-100) 90 Pulse Location Monitor Respiratory Rate (12-18) Respiratory rate source Blood Pressure (90/60-120/80) 140/71 H Blood Pressure Mean (mm Hg) 94 Source Monitor Position Sitting Blood Pressure Location Right Arm Have you changed medications since your No last visit? Any new allergies or adverse reactions No Had a fall/change in ADL's that may No increase risk of falls Signs or symptoms of abuse and/or No neglect since last visit Have you been in the hospital since your No last visit? Has dressing in place as prescribed Yes Has compression in place as prescribed N/A Has offloadiing in place as prescribed N/A Experienced any changes in pain level or No management History Since Last Visit- (Skip if this is Patient's initial visit) Left Footwear Regular Shoe Right Footwear Regular Shoe Pain Scale: 0-10 Numeric Is Patient Pain Free? Yes Lower Extremity Assessment/ Foot Assessment/ Toe Nail Assessment Right -Posterior Tibial Palpable -Posterior Tibial Doppler -Dorsalis Pedis Palpable -Dorsalis Pedis Doppler -Extremity Color -Hair Growth on Legs -Hair Growth on Toes -Temperature of Extremity -Other Deformity -Prior Foot Ulcer -Charcot Joint -Prior Amputation -Thick -Discolored -Deformed -Improper Length & Hygeine Left -Posterior Tibial Palpable -Posterior Tibial Doppler -Dorsalis Pedis Palpable -Dorsalis Pedis Doppler -Extremity Color -Hair Growth on Legs -Hair Growth on Toes -Temperature of Extremity -Other Deformity -Prior Foot Ulcer -Charcot Joint -Prior Amputation -Thick -Discolored -Deformed -Improper Length & Hygeine Neuropathy Assessment Feet - Top Side and Bottom Communication Assessment Preferred language Able to Read Able to Write Communication Tools Right Hearing Abillity Left Hearing Abillity Visual Assistive Devices Teaching Assessment Preferences Barriers to Learning Readiness To Learn Willingness to Engage in Self Management Activies Readiness to Engage in Self Management Activities Anxiety Level Cooperation Perception Interest in Health Problem Education Importance Does Patient Smoke tobacco or other substances Smoking Status Is Patient Diabetic Functional Assessment Recent Decline in Ability to Perform Culture/Sikhism/Jacker Cultural/Sikhism Needs that may affect Treatment Plan Would you allow our hospital patternmaker hand to meet you for the purpose of spiritual/ emotional support? Jacker to contact place of hinduism Teaching: Wound Center Control Swelling with Leg Elevation -Person Taught Dressing Your Wound -Person Taught Discharge Instructions -Person Taught *Welcome to the Wound Center -Person Taught (a) 1 - + WC - Nurse 1 - General Ulcer Measurement Start: 12/14/20 15:09 Freq: Status: Active Protocol: Activity Type Activity Date Activity User E-Sign Co-Sign Detail Recorded Client Recorded Date Recorded By Document 12/14/20 15:10 DL [id number] 12/14/20 15:26 DL Document 12/21/20 13:19 KR [id number] 12/21/20 13:28 KR Document 12/28/20 13:41 KR [id number] 12/28/20 13:48 KR 12/14/20 12/21/20 12/28/20 15:10 13:19 13:41 Wound Center Nurse 1 #1 L Coleman -Current Size (cm) - Length 0.9 3.7 3.6 -Current Size (cm) - Width 1.4 4.3 4.1 -Current Size (cm) - Depth 5 1.2 1 -Total Square Cm 1.26 15.91 14.76 -Photo Taken Yes -Classification - Thickness Full Thickness without Exposed Support Structure -Exudate Amt Small Large Medium -Exudate Type Serosanguineous Serosanguineous Serosanguineous -Wound Margin Distinct, Distinct, Distinct, Outline Outline Outline Attached Attached Attached -Granulation Amt Medium (34-66%) Large (67-100%) Large (67-100%) -Granulation Quality Freder[place]on Red Red -Necrosis Amt Medium (34-66%) None Present (0 None Present (0 %) %) -Necrotic Tissue Type Adherent Slough -Structure Exposed N/A -Texture (Ayanna-wound Skin Appearance) Localized Edema Assessed, Assessed, ,Scarring Scarring Scarring -Moisture (Ayanna-wound Skin Appearance) Dry/Scaly No Abnormality, No Abnormality, Assessed Assessed -Color (Ayanna-wound Skin Appearance) Erythema, No Abnormality, No Abnormality, Hemosiderin Assessed Assessed Staining -Temperature (Ayanna-wound Skin No Abnormality No Abnormality No Abnormality Appearance) (Pt Warm) (Pt Warm) (Pt Warm) -Tenderness on Palpation (Ayanna-wound No No No Skin Appearance) -Ulcer Cleansing Wound Cleanser Rinsed/ Rinsed/ Irrigated with Irrigated with Saline Saline -Foul Odor after Cleansing Yes, Due to No No Product Use -Anesthetic Used 5% Lidocaine 4% Lidocaine 4% Lidocaine Gel Solution Solution,5% Lidocaine Gel Right Calf (cm) 36.7 Point of measurement (cm from the medial 29 instep) Left Calf (cm) 38.6 Left Ankle (cm) 29.4 WC - Nurse 2 - General Ulcer CM Notes Start: 12/14/20 15:09 Freq: Status: Active Protocol: Activity Type Activity Date Activity User E-Sign Co-Sign Detail Recorded Client Recorded Date Recorded By Document 12/14/20 15:30 MW [id number] 12/14/20 15:48 MW Edit Result 12/14/20 15:30 MW (1) [id number] 12/15/20 12:58 PL Document 12/21/20 13:34 MW [id number] 12/21/20 13:47 MW Document 12/28/20 13:58 JF [id number] 12/28/20 14:03 JF (1) #1 L Coleman - Debridement - Subq, 1st 20sq cm Yes => No 12/14/20 12/21/20 12/28/20 15:30 13:34 13:58 Wound Center Nurse 2 #1 L Coleman -Time 15:32 13:34 13:59 -Correct Patient Yes Yes Yes -Correct Side, Site, Position Yes Yes Yes -Correct Procedure Yes Yes Yes -Procedure Performed Yes Yes Yes -Type of Procedure Debridement Debridement Debridement -Clinical Debridement Subcutaneous Subcutaneous Subcutaneous -Tissue Removed Subcutaneous Subcutaneous Subcutaneous -Post Debridement (cm) - Length 1.5 3.7 3.6 -Post Debridement (cm) - Width 1.0 4.3 4.2 -Post Debridement (cm) - Depth 0.1 1.6 1.0 -Total Square (Post) (cm) 1.50 15.91 15.12 -Area of Debridement (cm) - Length 1.5 3.7 3.6 -Area of Debridement (cm) - Width 1.0 4.3 4.2 -Total Square (Area) (cm) 1.50 15.91 15.12 -Tunneling No No No -Tunneling Position (O'clock) 4 -Tunneling Distance (cm) 0.7 -Tunneling Position #2 (O'clock) 6 -Tunneling Distance #2 (cm) 0.3 -Undermining/Tunneling No No No -Undermining/Tunneling Starts (O'clock 2 ) -Undermining/Tunneling Ends (O'clock) 6 -Maximum Distance (cm) 0.7 -Circular Undermining No No No -Wound/Ulcer Outcome Not Healed Not Healed Not Healed -Ulcer Cleansing Rinsed/ Rinsed/ Rinsed/ Irrigated with Irrigated with Irrigated with Saline Saline Saline -Foul Odor after Cleansing No No No -Bioengineered Tissue No No No -Bleeding Controlled with Pressure Pressure Pressure -Offloading No No No -Treatment Response Procedure Procedure Procedure Tolerated Well Tolerated Well Tolerated Well -Debridement - Subq, 1st 20sq cm No Yes Yes Pain Scale: 0-10 Numeric Is Patient Pain Free? Yes Yes Yes - Nurse 3 - General Ulcer D/C NN Start: 12/14/20 15:09 Freq: Status: Active Protocol: Activity Type Activity Date Activity User E-Sign Co-Sign Detail Recorded Client Recorded Date Recorded By Document 12/14/20 15:54 MW [id number] 12/14/20 15:58 MW Document 12/21/20 14:03 DL [id number] 12/21/20 14:15 DL Document 12/28/20 14:18 DL [id number] 12/28/20 14:28 DL 12/14/20 12/21/20 12/28/20 15:54 14:03 14:18 Wound Care Nurse 3 #1 L Coleman -Ulcer Cleansing Rinsed/ Rinsed/ Rinsed/ Irrigated with Irrigated with Irrigated with Saline Saline Saline -Foul Odor after Cleansing No No No -Negative Pressure Wound Therapy N/A Continue Continue -Setting (mmHg) 150 150 -Negative Pressure is Continuous Continuous -Primary Dressing Applied Nugauze, Iodoform -Primary Dressing Covered/Secured with Dry Gauze & Roll Gauze, Secured with Tape -NPWT Application Charge ($) NPWT </= 50 sq NPWT </= 50 sq cm cm -Nugauze, Iodoform 1/4 1 Left -Other stockinette/maxim maxim Right -Tubular Bandage Double Layer Double Layer -Size of Tubigrip Used Size D Size E -Size D ($) 2 -Size E ($) 1 Treatment Response Procedure Procedure Procedure Tolerated Well Tolerated Well Tolerated Well Pain Scale: 0-10 Numeric Is Patient Pain Free? Yes Yes Yes Teaching: Wound Center Dressing Your Wound -Person Taught Patient,Family -Teaching Method Discussion, Demonstration -Response to teaching Verbalize understanding - Visit Discharge Discharge Condition Stable Stable Stable Ambulatory Status Ambulatory, Ambulatory, Ambulatory, Walker Walker Walker Transportation Private Auto Private Auto Private Auto Accompanied by partner Medication Reconcilliation completed & No provided to patient/care provider Clinical Summary of Care Provided Yes Notes: sent to ER for evaluation of infection per Dr. Sethi Facility Type Home Health Home Health Orders Sent Yes Yes Wound debrided: non - healing surgical wound due to I&D of abscess Laterality: Left Wound Grade/Stage: NA Type of Debridement: Excisional debridement Anesthesia Used: 4% Lidocaine Solution Depth: Down to and including healthy tissue and in the subcutaneous layer Percentage of wound debrided: 70 Instrument Used: 5mm curette and Forceps Assessment/Plan Assessment/Plan (1) History of incision and drainage: CODE(S): Z98.890 - Other specified postprocedural states (2) Surgical wound, non healing: CODE(S): T81.89XA - Other complications of procedures, not elsewhere classified, initial encounter QUALIFIERS: Encounter type: subsequent encounter Qualified Code(s): T81.89XD - Other complications of procedures, not elsewhere classified, subsequent encounter PLAN: The wound vac was reapplied prior to Branden leaving the wound care center. He will RTC in 1 week for a recheck. He will call me or the WCC if any F/C/S.
== END 2020-12-29 23:59 ==
LOC: WC 13:30
PROVIDERS: PCP Student in an Organized Health Care Education/Training Program; Referring Provider Student in an Organized Health Care Education/Training Program; Visit Provider Internal Medicine
DX: L97.825 Non-pressure chronic ulcer of other part of left lower leg with muscle involvement without evidence of necrosis (principal); L03.116 Cellulitis of left lower limb; L02.416 Cutaneous abscess of left lower limb; B95.62 Methicillin resistant Staphylococcus aureus infection as the cause of diseases classified elsewhere; S80.812S Abrasion, left lower leg, sequela; W22.8XXS Striking against or struck by other objects, sequela; I87.2 Venous insufficiency (chronic) (peripheral); I11.9 Hypertensive heart disease without heart failure; D61.818 Other pancytopenia; M79.89 Other specified soft tissue disorders; M25.462 Effusion, left knee; Z22.322 Carrier or suspected carrier of Methicillin resistant Staphylococcus aureus; Z79.899 Other long term (current) drug therapy; Z79.82 Long term (current) use of aspirin; Z87.891 Personal history of nicotine dependence; Z98.890 Other specified postprocedural states
CPT/HCPCS: 11042; 87070; 87075; 87077; 87186; 87205; 97605; 99203; G0463

== ENCOUNTER 2020-12-30 15:00 | Outpatient (RCR) | payer MEDICARE, SELFPAY ==
[2020-12-28 17:18] VITALS: BMI 22.9
[2020-12-30 15:34] LABS: Anion Gap 8 (5-15); BUN 14 mg/dL (7-18); BUN/Creat Ratio 18.2 RATIO (10-20); Calcium,Total 8.4 mg/dL (8.5-10.1); Chloride 108 mmol/L (98-107); Creatinine, Serum 0.77 mg/dL (0.70-1.30); EST Glomerular Filtration Rate 106 mL/min (>60); Est Glom Filt Rate - Afr Amer 128 mL/min (>60); Glucose 133 mg/dL (74-106); Potassium 3.8 mmol/L (3.5-5.1); Sodium Level 142 mmol/L (136-145)
== END 2020-12-30 18:00 | disposition home or self-care (01) ==
LOC: HHLAB 15:00
PROVIDERS: PCP Student in an Organized Health Care Education/Training Program; Visit Provider Student in an Organized Health Care Education/Training Program
DX: L02.416 Cutaneous abscess of left lower limb (principal); L03.116 Cellulitis of left lower limb; B95.62 Methicillin resistant Staphylococcus aureus infection as the cause of diseases classified elsewhere
CPT/HCPCS: 80048

== ENCOUNTER 2021-01-25 14:00 | Outpatient (RCR) | payer MEDICARE, SELFPAY ==
[2020-12-28 17:18] VITALS: BMI 22.9
[2020-12-30 00:33] VITALS: BP 140/71; PULSE 90; RESP 20; TEMP 37.4
[2021-01-04 13:53] VITALS: BP 150/71; PULSE 81; RESP 16; TEMP 37.3; BMI 22.9
--- NOTE | 2021-01-04 15:04 | PCM.WC.PN ---
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 It became red, warm to touch and painful. He was admitted to [facility] but, signed out AMA the next day because the doctor never came in and they never applied a dressing to the wound. Prior to the recent admission to the hospital he had not seen a physician in 30 years. He was seen at [facility] on 12/02 and 12/09 and was initially on Augmentin and doxycycline but when it was getting worse the Doxycycline was discontinued and he was started on Bactrim. While in the hospital he had pancytopenia and his PLT count was 87,000. HGB on 12/02 was 12.8 and the WBC was 4.6. The MCV was 102.5. Creatinine was within normal limits and the GFR was 87. Folate and B12 were within normal limits. He had a culture of the wound that grew MRSA. He is scheduled for an MRI next week or the week after. He has been taking Alleve and Tylenol for pain. He tells me that both his legs have been swollen for about a year now. His EF at [facility] on ECHO is normal and he had LVH. The clinic put him on Lasix and the swelling in the R leg is better. He had venous US's and there were no clots per the patient and his significant other. He had a liver US this week.....I have no results for this. [facility] with a temp of 99.3. The BP is 169/80 and he is tachycardic with a HR of 109. The LLE is more swollen than the R. There is erythema and increased warmth to touch of the LLE. He also has a swollen L knee and there is an effusion. The knee is not red but it is warm to touch. There is a wound at approximately mid calf and there is tunneling and undermining of this wound laterally. I was able to express a considerable amount of creamy pus from the wound and aerobic and anaerobic cultures were sent to the lab. I explained that I did not feel ?Bactrim was an adequate tx for this wound at this time and I recommended admission to [facility] and he was agreeable. I spoke with Dr. Burris who is the admitting hospitalist and he will accept the pt onto the hospitalist service. Subjective Subjective Branden denies fevers, chills, sweats. Up until last night he had no pain. He has [facility] and they have been doing wound vac dressing twice a week. Objective Data Objective Data Vital Signs: Vital Signs Temp Pulse Resp BP 99.1 F 81 16 150/71 H 01/04/21 13:53 01/04/21 13:53 01/04/21 13:53 01/04/21 13:53 Weight: 188 lb 7.504 oz Body Mass Index (BMI) 22.9 Charges/Coding Procedures Integumentary 111xxx-113xx: 96098 Jasmin subq tissue 20 sq cm/< Physical Exam Skin Wounds: wounds noted Wound Narrative: The site of the previous I&D of the LLE continues to improve. It is penny and the depth is decreasing. There is evidence of new epithelialization at the wound margins. It is 100% granulation tissue. There is no undermining and no tunneling. No odor and no purulent DC. The wound margins were turning under and the margin was debrided with a #3 currette. Debridement Note Debridement Note Post-Debridement Measurements and Additional Note: Post-Debridement Measurements/Treatment - Nurse 1 - General Ulcer Assessment Start: 01/04/21 13:53 Freq: Status: Active Protocol: WC.LOWEXT Activity Type Activity Date Activity User E-Sign Co-Sign Detail Recorded Client Recorded Date Recorded By Document 01/04/21 13:53 ML [id number] 01/04/21 14:06 ML 01/04/21 13:53 - Today's Visit Information Type of service Follow-up Visit (Physician/NEUROSURGICAL PHYSICIAN ASSISTANT ) Arrival Mode Ambulatory, Walker Transfer Assistance None Patient Identification Verified (Name & Yes ) Patient Requires Transmission-Based No Precautions Safety Precautions NA Height and Weight Body Mass Index (BMI) 22.9 BMI Classification Normal Vital Signs Temperature (97.8 F-99.1 F) 99.1 F Temperature Source Temporal Pulse Rate (60-100) 81 Pulse Location Monitor Respiratory Rate (12-18) 16 Respiratory rate source Observation Blood Pressure (90/60-120/80) 150/71 H Blood Pressure Mean (mm Hg) 97 Source Monitor Position Sitting Blood Pressure Location Left Arm History Since Last Visit- (Skip if this is Patient's initial visit) Have you changed medications since your No last visit? Any new allergies or adverse reactions No Had a fall/change in ADL's that may No increase risk of falls Signs or symptoms of abuse and/or No neglect since last visit Have you been in the hospital since your No last visit? Has dressing in place as prescribed Yes Has compression in place as prescribed Yes Has offloadiing in place as prescribed Yes Experienced any changes in pain level or No management Left Footwear Regular Shoe Right Footwear Regular Shoe Pain Scale: 0-10 Numeric Is Patient Pain Free? Yes WC - Nurse 1 - General Ulcer Measurement Start: 01/04/21 13:53 Freq: Status: Active Protocol: Activity Type Activity Date Activity User E-Sign Co-Sign Detail Recorded Client Recorded Date Recorded By Document 01/04/21 13:53 ML [id number] 01/04/21 14:06 ML 01/04/21 13:53 Wound Center Nurse 1 #1 L Coleman -Current Size (cm) - Length 3.8 -Current Size (cm) - Width 4.1 -Current Size (cm) - Depth 0.2 -Total Square Cm 15.58 -Exudate Amt Large -Exudate Type Serosanguineous -Wound Margin Distinct, Outline Attached -Granulation Amt Medium (34-66%) -Granulation Quality Red -Slough/Fibrin Yes -Necrosis Amt None Present (0 %) -Texture (Ayanna-wound Skin Appearance) Assessed -Moisture (Ayanna-wound Skin Appearance) Assessed -Color (Ayanna-wound Skin Appearance) Assessed -Temperature (Ayanna-wound Skin No Abnormality Appearance) (Pt Warm) -Tenderness on Palpation (Ayanna-wound No Skin Appearance) -Ulcer Cleansing Wound Cleanser -Foul Odor after Cleansing No -Anesthetic Used 4% Lidocaine Solution WC - Nurse 2 - General Ulcer CM Notes Start: 01/04/21 13:53 Freq: Status: Active Protocol: Activity Type Activity Date Activity User E-Sign Co-Sign Detail Recorded Client Recorded Date Recorded By Document 01/04/21 14:10 MW [id number] 01/04/21 14:17 MW 01/04/21 14:10 Wound Center Nurse 2 -Time 14:11 -Correct Patient Yes -Correct Side, Site, Position Yes -Correct Procedure Yes -Procedure Performed Yes -Type of Procedure Debridement -Clinical Debridement Subcutaneous -Tissue Removed Subcutaneous -Post Debridement (cm) - Length 3.8 -Post Debridement (cm) - Width 4.3 -Post Debridement (cm) - Depth 0.2 -Total Square (Post) (cm) 16.34 -Area of Debridement (cm) - Length 3.8 -Area of Debridement (cm) - Width 4.3 -Total Square (Area) (cm) 16.34 -Tunneling No -Undermining/Tunneling No -Circular Undermining No -Wound/Ulcer Outcome Not Healed -Ulcer Cleansing Rinsed/ Irrigated with Saline -Foul Odor after Cleansing No -Bioengineered Tissue No -Bleeding Controlled with Pressure -Offloading No -Treatment Response Procedure Not Tolerated Well -Debridement - Subq, 1st 20sq cm Yes Pain Scale: 0-10 Numeric Is Patient Pain Free? Yes Wound debrided: site of previous I&D on the Left lateral leg distal to the knee Laterality: Left Wound Grade/Stage: N/A Type of Debridement: Selective debridement Anesthesia Used: 4% Lidocaine Solution Depth: Down to and including healthy tissue and in the subcutaneous layer Percentage of wound debrided: 50 Instrument Used: 3mm curette Tissue Removed: the rim of the wound which is rolled under and inhibiting epithelialzation Severity: Fat Layer Exposed Amount of bleeding with debridement: Mild Bleeding Controlled with: Pressure Patient tolerated procedure: Patient tolerated procedure well Operative Diagnosis: non-healing surgical wound at site of previous abscess Assessment/Plan Assessment/Plan (1) Venous insufficiency of both lower extremities: CODE(S): I87.2 - Venous insufficiency (chronic) (peripheral) (2) Ulcer of left lower extremity with muscle involvement without evidence of necrosis: CODE(S): L97.925 - Non-pressure chronic ulcer of unspecified part of left lower leg with muscle involvement without evidence of necrosis (3) Surgical wound, non healing: CODE(S): T81.89XA - Other complications of procedures, not elsewhere classified, initial encounter (4) History of incision and drainage: CODE(S): Z98.890 - Other specified postprocedural states PLAN: 1. Continue with the wound vac for now and apply for an advanced skin substitute product to cover the wound now that it is 100% granulating. 2. BL MAXIM wraps for compression. He had a reaction to the wound veil and will pad with gauze to prevent contact with the skin. there is a abrasion distal to the wound which I suspect is from tape. Will cover with adaptic. 3. RTC in 2 weeks for a recheck and hopefully we will be able to apply the advance skin substitute at that time. 4. He was reminded to elevate his legs whenever he is sitting. 5. Needs to have a CBC rechecked. Find out if he is following up with a PCP at his next visit. Why does he have this much edema if he has a normal EF? Why was he pancytopenic when he left the hospital?
[2021-01-18 14:35] VITALS: BP 144/76; PULSE 96; RESP 16; TEMP 37.3; BMI 22.9
--- NOTE | 2021-01-20 19:22 | PCM.WC.PN ---
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 It became red, warm to touch and painful. He was admitted to [facility] but, signed out AMA the next day because the doctor never came in and they never applied a dressing to the wound. Prior to the recent admission to the hospital he had not seen a physician in 30 years. He was seen at [facility] on 12/02 and 12/09 and was initially on Augmentin and doxycycline but when it was getting worse the Doxycycline was discontinued and he was started on Bactrim. While in the hospital he had pancytopenia and his PLT count was 87,000. HGB on 12/02 was 12.8 and the WBC was 4.6. The MCV was 102.5. Creatinine was within normal limits and the GFR was 87. Folate and B12 were within normal limits. He had a culture of the wound that grew MRSA. He is scheduled for an MRI next week or the week after. He has been taking Alleve and Tylenol for pain. He tells me that both his legs have been swollen for about a year now. His EF at [facility] on ECHO is normal and he had LVH. The clinic put him on Lasix and the swelling in the R leg is better. He had venous US's and there were no clots per the patient and his significant other. He had a liver US this week.....I have no results for this. Branden [facility] today with a temp of 99.3. The BP is 169/80 and he is tachycardic with a HR of 109. The LLE is more swollen than the R. There is erythema and increased warmth to touch of the LLE. He also has a swollen L knee and there is an effusion. The knee is not red but it is warm to touch. There is a wound at approximately mid calf and there is tunneling and undermining of this wound laterally. I was able to express a considerable amount of creamy pus from the wound and aerobic and anaerobic cultures were sent to the lab. I explained that I did not feel ?Bactrim was an adequate tx for this wound at this time and I recommended admission to [facility] and he was agreeable. I spoke with Dr. Burris who is the admitting hospitalist and he will accept the pt onto the hospitalist service. Jamel Otero returns to the wound care center today for a recheck. He has a nonhealing wound on the left lower extremity secondary to incision and drainage of an abscess. He continues to use a wound VAC. He denies fevers, chills, sweats. He states his pain is adequately controlled and he got a prescription for oxycodone recently from Dr. Cavazos. He cannot take Tylenol secondary to chronic liver disease. Objective Data Objective Data Vital Signs: Vital Signs Temp Pulse Resp BP 99.1 F 96 16 144/76 H 01/18/21 14:35 01/18/21 14:35 01/18/21 14:35 01/18/21 14:35 Oxygen Delivery Method Room Air Weight: 188 lb 7.504 oz Body Mass Index (BMI) 22.9 Charges/Coding Procedures Integumentary 111xxx-113xx: 65217 Jasmin subq tissue 20 sq cm/< Physical Exam Extremity Extremity Narrative: He has pitting edema of Both LE's with superficial varicosities. The edema is pitting. RLE edema is > LLE edema Skin Wound Narrative: The wound is 100% granulating and the depth is 0....it is even with the surrounding skin. There is no tunneling and no undermining. No purulent DC, no ayanna-wound erythema, no odor. the wound has decreased in size from 16.34 cm squared to 15.75 cm squared. Debridement Note Debridement Note Post-Debridement Measurements and Additional Note: Post-Debridement Measurements/Treatment WC - Nurse 1 - General Ulcer Assessment Start: 01/04/21 13:53 Freq: Status: Active Protocol: WC.LOWEXT Activity Type Activity Date Activity User E-Sign Co-Sign Detail Recorded Client Recorded Date Recorded By Document 01/04/21 13:53 ML [id number] 01/04/21 14:06 ML Document 01/18/21 14:35 DL [id number] 01/18/21 14:47 DL 01/04/21 01/18/21 13:53 14:35 WC - Today's Visit Information Type of service Follow-up Visit Follow-up Visit (Physician/ELECTRICAL TIMING DEVICE CALIBRATOR (Physician/ELECTRICAL TIMING DEVICE CALIBRATOR ) ) Arrival Mode Ambulatory, Ambulatory Walker Transfer Assistance None None Patient Identification Verified (Name & Yes Yes ) Patient Requires Transmission-Based No No Precautions Safety Precautions NA Height and Weight Body Mass Index (BMI) 22.9 22.9 BMI Classification Normal Normal Vital Signs Temperature (97.8 F-99.1 F) 99.1 F 99.1 F Temperature Source Temporal Temporal Pulse Rate (60-100) 81 96 Pulse Location Monitor Monitor Respiratory Rate (12-18) 16 16 Respiratory rate source Observation Observation Oxygen Delivery Method Room Air Blood Pressure (90/60-120/80) 150/71 H 144/76 H Blood Pressure Mean (mm Hg) 97 98 Source Monitor Monitor Position Sitting Sitting Blood Pressure Location Left Arm Left Arm History Since Last Visit- (Skip if this is Patient's initial visit) Have you changed medications since your No No last visit? Any new allergies or adverse reactions No No Had a fall/change in ADL's that may No No increase risk of falls Signs or symptoms of abuse and/or No No neglect since last visit Have you been in the hospital since your No No last visit? Has dressing in place as prescribed Yes Yes Has compression in place as prescribed Yes Yes Has offloadiing in place as prescribed Yes N/A Experienced any changes in pain level or No No management Left Footwear Regular Shoe Regular Shoe Right Footwear Regular Shoe Regular Shoe Pain Scale: 0-10 Numeric Is Patient Pain Free? Yes Yes - Nurse 1 - General Ulcer Measurement Start: 01/04/21 13:53 Freq: Status: Active Protocol: Activity Type Activity Date Activity User E-Sign Co-Sign Detail Recorded Client Recorded Date Recorded By Document 01/04/21 13:53 ML [id number] 01/04/21 14:06 ML Document 01/18/21 14:35 DL [id number] 01/18/21 14:47 DL 01/04/21 01/18/21 13:53 14:35 Wound Center Nurse 1 #1 L Coleman -Combined with other wound No -Current Size (cm) - Length 3.8 3.6 -Current Size (cm) - Width 4.1 4.3 -Current Size (cm) - Depth 0.2 0.1 -Total Square Cm 15.58 15.48 -Photo Taken No -Epithelialization Small 1-33% -Tunneling No -Undermining/Tunneling No -Circular Undermining No -Exudate Amt Large Medium -Exudate Type Serosanguineous Serosanguineous -Wound Margin Distinct, Distinct, Outline Outline Attached Attached -Granulation Amt Medium (34-66%) Large (67-100%) -Granulation Quality Red Red -Slough/Fibrin Yes Yes -Necrosis Amt None Present (0 Small (1-33%) %) -Necrotic Tissue Type Adherent Slough -Texture (Ayanna-wound Skin Appearance) Assessed Assessed, Scarring -Moisture (Ayanna-wound Skin Appearance) Assessed Assessed -Color (Ayanna-wound Skin Appearance) Assessed Assessed -Temperature (Ayanna-wound Skin No Abnormality No Abnormality Appearance) (Pt Warm) (Pt Warm) -Tenderness on Palpation (Ayanna-wound No Yes Skin Appearance) -Ulcer Cleansing Wound Cleanser soapy water -Foul Odor after Cleansing No No -Anesthetic Used 4% Lidocaine 5% Lidocaine Solution Gel WC - Nurse 2 - General Ulcer CM Notes Start: 01/04/21 13:53 Freq: Status: Active Protocol: Activity Type Activity Date Activity User E-Sign Co-Sign Detail Recorded Client Recorded Date Recorded By Document 01/04/21 14:10 MW [id number] 01/04/21 14:17 MW Document 01/18/21 15:03 MW [id number] 01/18/21 15:08 MW 01/04/21 01/18/21 14:10 15:03 Wound Center Nurse 2 #1 L Coleman -Time 14:11 15:04 -Correct Patient Yes Yes -Correct Side, Site, Position Yes Yes -Correct Procedure Yes Yes -Procedure Performed Yes Yes -Type of Procedure Debridement Debridement -Clinical Debridement Subcutaneous Subcutaneous -Tissue Removed Subcutaneous Subcutaneous -Post Debridement (cm) - Length 3.8 3.5 -Post Debridement (cm) - Width 4.3 4.5 -Post Debridement (cm) - Depth 0.2 0.1 -Total Square (Post) (cm) 16.34 15.75 -Area of Debridement (cm) - Length 3.8 3.5 -Area of Debridement (cm) - Width 4.3 4.5 -Total Square (Area) (cm) 16.34 15.75 -Tunneling No No -Undermining/Tunneling No No -Circular Undermining No No -Wound/Ulcer Outcome Not Healed Not Healed -Ulcer Cleansing Rinsed/ Rinsed/ Irrigated with Irrigated with Saline Saline -Foul Odor after Cleansing No No -Bioengineered Tissue No No -Bleeding Controlled with Pressure Pressure -Offloading No No -Treatment Response Procedure Not Procedure Tolerated Well Tolerated Well -Debridement - Subq, 1st 20sq cm Yes Yes Pain Scale: 0-10 Numeric Is Patient Pain Free? Yes Yes - Nurse 3 - General Ulcer D/C NN Start: 01/04/21 13:53 Freq: Status: Active Protocol: Activity Type Activity Date Activity User E-Sign Co-Sign Detail Recorded Client Recorded Date Recorded By Document 01/04/21 13:50 PL [id number] 01/06/21 06:43 PL Document 01/18/21 15:20 [facility] [id number] 01/18/21 15:23 [facility] 01/04/21 01/18/21 13:50 15:20 Wound Care Nurse 3 #1 L Coleman -Ulcer Cleansing Rinsed/ Rinsed/ Irrigated with Irrigated with Saline Saline -Foul Odor after Cleansing No No -Negative Pressure Wound Therapy Continue -Negative Pressure is Continuous -Primary Dressing Applied NonAdherent Contact Layer, Promogran Regino Matter -Primary Dressing Covered/Secured with Dry Gauze & Roll Gauze, Secured with Tape -NPWT Application Charge ($) NPWT </= 50 sq cm -Promogran Regino Matter 2 Left -Compression Wrap Moy Wrap Treatment Response Procedure Tolerated Well Pain Scale: 0-10 Numeric Is Patient Pain Free? Yes - Visit Discharge Discharge Condition Stable Ambulatory Status Ambulatory Transportation Private Auto Accompanied by girlfriend Facility Type Home Health Additional Wound Wound debrided: LLE wound Wound Grade/Stage: N/A - not a pressure wound Type of Debridement: Excisional debridement Anesthesia Used: 5% Lidocaine Gel Depth: Down to and including healthy tissue and in the subcutaneous layer Percentage of wound debrided: 100 Instrument Used: 5mm curette Tissue Removed: biofilm and dry top layer of cells Severity: Limited To Skin Breakdown Amount of bleeding with debridement: Mild Bleeding Controlled with: Pressure Patient tolerated procedure: Patient tolerated procedure well Operative Diagnosis: non-healing wound due to I&D of abscess Assessment/Plan Assessment/Plan (1) History of incision and drainage: CODE(S): Z98.890 - Other specified postprocedural states (2) Surgical wound, non healing: CODE(S): T81.89XA - Other complications of procedures, not elsewhere classified, initial encounter QUALIFIERS: Encounter type: subsequent encounter Qualified Code(s): T81.89XD - Other complications of procedures, not elsewhere classified, subsequent encounter (3) Venous insufficiency of both lower extremities: CODE(S): I87.2 - Venous insufficiency (chronic) (peripheral) (4) Pancytopenia: CODE(S): D61.818 - Other pancytopenia (5) Hypoalbuminemia: CODE(S): E88.09 - Other disorders of plasma-protein metabolism, not elsewhere classified PLAN: 1. The LE edema may be due to a multitude of things - hypoalbuminemia, chronic liver disease, venous insufficiency. continue with compression. 2. Wound vac hol - use a regino dressing 3. RTC in 1 week for a recheck 4. Call me or the [facility] if any F/C/S 5. Home Health for dressing changes on and Saturdays and we will change at the [facility] on Sunday 6. what is the chronic liver disease? Has he had a CT scan?, biopsy? US? 7. why is he pancytopenic? Is he following up with the PCP who saw him at [facility]?
[2021-01-25 14:12] VITALS: BP 141/71; PULSE 84; RESP 18; TEMP 37.3; BMI 22.9
--- NOTE | 2021-01-26 16:20 | PCM.WC.PN ---
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 It became red, warm to touch and painful. He was admitted to [facility] but, signed out AMA the next day because the doctor never came in and they never applied a dressing to the wound. Prior to the recent admission to the hospital he had not seen a physician in 30 years. He was seen at [facility] on 12/02 and 12/09 and was initially on Augmentin and doxycycline but when it was getting worse the Doxycycline was discontinued and he was started on Bactrim. While in the hospital he had pancytopenia and his PLT count was 87,000. HGB on 12/02 was 12.8 and the WBC was 4.6. The MCV was 102.5. Creatinine was within normal limits and the GFR was 87. Folate and B12 were within normal limits. He had a culture of the wound that grew MRSA. He is scheduled for an MRI next week or the week after. He has been taking Alleve and Tylenol for pain. He tells me that both his legs have been swollen for about a year now. His EF at [facility] on ECHO is normal and he had LVH. The clinic put him on Lasix and the swelling in the R leg is better. He had venous US's and there were no clots per the patient and his significant other. He had a liver US this week.....I have no results for this. Branden [facility] today with a temp of 99.3. The BP is 169/80 and he is tachycardic with a HR of 109. The LLE is more swollen than the R. There is erythema and increased warmth to touch of the LLE. He also has a swollen L knee and there is an effusion. The knee is not red but it is warm to touch. There is a wound at approximately mid calf and there is tunneling and undermining of this wound laterally. I was able to express a considerable amount of creamy pus from the wound and aerobic and anaerobic cultures were sent to the lab. I explained that I did not feel ?Bactrim was an adequate tx for this wound at this time and I recommended admission to [facility] and he was agreeable. I spoke with Dr. Burris who is the admitting hospitalist and he will accept the pt onto the hospitalist service. Subjective Subjective Branden returns to the wound care clinic today for a follow-up visit. He denies fevers, chills, night sweats. He has been on a wound VAC vacation for the past 1 week. The dressing is Delmi covered by a nonadherent contact layer and dry gauze. It was wrapped with a roll of gauze and secured with tape. His significant other does not feel comfortable doing the dressing changes. Objective Data Objective Data Vital Signs: Vital Signs Temp Pulse Resp BP 99.2 F H 84 18 141/71 H 01/25/21 14:12 01/25/21 14:12 01/25/21 14:12 01/25/21 14:12 Oxygen Delivery Method Room Air Weight: 188 lb 7.504 oz Body Mass Index (BMI) 22.9 Charges/Coding Procedures Integumentary 111xxx-113xx: 44708 Jasmin subq tissue 20 sq cm/< Physical Exam Skin Wounds: wounds noted Wound Narrative: The wound continues to contract. There is evidence of new epithelialization at the wound margins. The margins are somewhat hyperkeratotic and rolled under a bit. The wound base is 100% beefy red granulation tissue. There is no purulent discharge. There is no periwound erythema or increased warmth to touch. The wound has no tunneling and no undermining and there is no odor. Debridement Note Debridement Note Post-Debridement Measurements and Additional Note: Post-Debridement Measurements/Treatment WC - Nurse 1 - General Ulcer Assessment Start: 01/04/21 13:53 Freq: Status: Active Protocol: RO.LOWEXT Activity Type Activity Date Activity User E-Sign Co-Sign Detail Recorded Client Recorded Date Recorded By Document 01/04/21 13:53 ML [id number] 01/04/21 14:06 ML Document 01/18/21 14:35 DL [id number] 01/18/21 14:47 DL Document 01/25/21 14:12 JF [id number] 01/25/21 14:19 JF 01/04/21 01/18/21 01/25/21 13:53 14:35 14:12 WC - Today's Visit Information Type of service Follow-up Visit Follow-up Visit Follow-up Visit (Physician/ROD TAPE OPERATOR (Physician/ROD TAPE OPERATOR (Physician/ROD TAPE OPERATOR ) ) ) Arrival Mode Ambulatory, Ambulatory Ambulatory, Walker Walker Transfer Assistance None None Patient Identification Verified (Name & Yes Yes Yes ) Patient Requires Transmission-Based No No No Precautions Safety Precautions NA Height and Weight Body Mass Index (BMI) 22.9 22.9 22.9 BMI Classification Normal Normal Normal Vital Signs Temperature (97.8 F-99.1 F) 99.1 F 99.1 F 99.2 F H Temperature Source Temporal Temporal Temporal Pulse Rate (60-100) 81 96 84 Pulse Location Monitor Monitor Monitor Respiratory Rate (12-18) 16 16 18 Respiratory rate source Observation Observation Observation Oxygen Delivery Method Room Air Blood Pressure (90/60-120/80) 150/71 H 144/76 H 141/71 H Blood Pressure Mean (mm Hg) 97 98 94 Source Monitor Monitor Monitor Position Sitting Sitting Blood Pressure Location Left Arm Left Arm History Since Last Visit- (Skip if this is Patient's initial visit) Have you changed medications since your No No No last visit? Any new allergies or adverse reactions No No No Had a fall/change in ADL's that may No No No increase risk of falls Signs or symptoms of abuse and/or No No No neglect since last visit Have you been in the hospital since your No No No last visit? Has dressing in place as prescribed Yes Yes Has compression in place as prescribed Yes Yes Has offloadiing in place as prescribed Yes N/A Experienced any changes in pain level or No No management Left Footwear Regular Shoe Regular Shoe Regular Shoe Right Footwear Regular Shoe Regular Shoe Regular Shoe Pain Scale: 0-10 Numeric Is Patient Pain Free? Yes Yes Yes - Nurse 1 - General Ulcer Measurement Start: 01/04/21 13:53 Freq: Status: Active Protocol: Activity Type Activity Date Activity User E-Sign Co-Sign Detail Recorded Client Recorded Date Recorded By Document 01/04/21 13:53 ML [id number] 01/04/21 14:06 ML Document 01/18/21 14:35 DL [id number] 01/18/21 14:47 DL Document 01/25/21 14:12 JF [id number] 01/25/21 14:19 JF 01/04/21 01/18/21 01/25/21 13:53 14:35 14:12 Wound Center Nurse 1 #1 L Coleman -Combined with other wound No -Current Size (cm) - Length 3.8 3.6 2.6 -Current Size (cm) - Width 4.1 4.3 4.4 -Current Size (cm) - Depth 0.2 0.1 0.1 -Total Square Cm 15.58 15.48 11.44 -Photo Taken No -Epithelialization Small 1-33% -Tunneling No -Undermining/Tunneling No -Circular Undermining No -Exudate Amt Large Medium -Exudate Type Serosanguineous Serosanguineous Serosanguineous -Wound Margin Distinct, Distinct, Distinct, Outline Outline Outline Attached Attached Attached -Granulation Amt Medium (34-66%) Large (67-100%) None Present (0 %) -Granulation Quality Red Red -Slough/Fibrin Yes Yes No -Necrosis Amt None Present (0 Small (1-33%) %) -Necrotic Tissue Type Adherent Slough -Texture (Ayanna-wound Skin Appearance) Assessed Assessed, No Abnormality, Scarring Assessed -Moisture (Ayanna-wound Skin Appearance) Assessed Assessed No Abnormality, Assessed -Color (Ayanna-wound Skin Appearance) Assessed Assessed No Abnormality, Assessed -Temperature (Ayanna-wound Skin No Abnormality No Abnormality No Abnormality Appearance) (Pt Warm) (Pt Warm) (Pt Warm) -Tenderness on Palpation (Ayanna-wound No Yes Skin Appearance) -Ulcer Cleansing Wound Cleanser soapy water -Foul Odor after Cleansing No No -Anesthetic Used 4% Lidocaine 5% Lidocaine Solution Gel WC - Nurse 2 - General Ulcer CM Notes Start: 01/04/21 13:53 Freq: Status: Active Protocol: Activity Type Activity Date Activity User E-Sign Co-Sign Detail Recorded Client Recorded Date Recorded By Document 01/04/21 14:10 MW [id number] 01/04/21 14:17 MW Document 01/18/21 15:03 MW [id number] 01/18/21 15:08 MW Document 01/25/21 14:26 MW [id number] 01/25/21 14:40 MW 01/04/21 01/18/21 01/25/21 14:10 15:03 14:26 Wound Center Nurse 2 #1 L Coleman -Time 14:11 15:04 14:30 -Correct Patient Yes Yes Yes -Correct Side, Site, Position Yes Yes Yes -Correct Procedure Yes Yes Yes -Procedure Performed Yes Yes No -Type of Procedure Debridement Debridement -Clinical Debridement Subcutaneous Subcutaneous -Tissue Removed Subcutaneous Subcutaneous -Post Debridement (cm) - Length 3.8 3.5 2.1 -Post Debridement (cm) - Width 4.3 4.5 4.3 -Post Debridement (cm) - Depth 0.2 0.1 0.1 -Total Square (Post) (cm) 16.34 15.75 9.03 -Area of Debridement (cm) - Length 3.8 3.5 2.1 -Area of Debridement (cm) - Width 4.3 4.5 4.3 -Total Square (Area) (cm) 16.34 15.75 9.03 -Tunneling No No No -Undermining/Tunneling No No No -Circular Undermining No No No -Wound/Ulcer Outcome Not Healed Not Healed Not Healed -Ulcer Cleansing Rinsed/ Rinsed/ Rinsed/ Irrigated with Irrigated with Irrigated with Saline Saline Saline -Foul Odor after Cleansing No No No -Bioengineered Tissue No No Yes -Type of Bioengineered Tissue Theraskin -Bleeding Controlled with Pressure Pressure NA -Offloading No No No -Treatment Response Procedure Not Procedure Tolerated Well Tolerated Well -Debridement - Subq, 1st 20sq cm Yes Yes -Apply Skin Sub - 1st 25 sq cm - Legs 1 -Theraskin (per sq cm) 13 Pain Scale: 0-10 Numeric Is Patient Pain Free? Yes Yes Yes - Nurse 3 - General Ulcer D/C NN Start: 01/04/21 13:53 Freq: Status: Active Protocol: Activity Type Activity Date Activity User E-Sign Co-Sign Detail Recorded Client Recorded Date Recorded By Document 01/04/21 13:50 PL [id number] 01/06/21 06:43 PL Document 01/18/21 15:20 [facility] [id number] 01/18/21 15:23 BMF Document 01/25/21 14:54 DL [id number] 01/25/21 14:55 DL 07/06/21 07/20/21 07/27/21 13:50 15:20 14:54 Wound Care Nurse 3 #1 L Coleman -Ulcer Cleansing Rinsed/ Rinsed/ Irrigated with Irrigated with Saline Saline -Foul Odor after Cleansing No No No -Negative Pressure Wound Therapy Continue -Negative Pressure is Continuous -Primary Dressing Applied NonAdherent Contact Layer, Promogran Delmi Matter -Other Dressing theraskin -Primary Dressing Covered/Secured with Dry Gauze & Dry Gauze & Roll Gauze, Roll Gauze, Secured with Secured with Tape Tape -NPWT Application Charge ($) NPWT </= 50 sq cm -Promogran Delmi Matter 2 Left -Compression Wrap Moy Wrap -Tubular Bandage Double Layer -Size of Tubigrip Used Size D -Size D ($) 1 Treatment Response Procedure Procedure Tolerated Well Tolerated Well Pain Scale: 0-10 Numeric Is Patient Pain Free? Yes WC - Visit Discharge Discharge Condition Stable Stable Ambulatory Status Ambulatory Ambulatory, Walker Transportation Private Auto Private Auto Accompanied by girlfriend Facility Type Home Health Home Health Orders Sent Yes Additional Wound Wound debrided: Left lower leg wound Laterality: Left Wound Grade/Stage: this is surgical wound due to I&D of an abscess Type of Debridement: Excisional debridement Depth: Down to and including healthy tissue Percentage of wound debrided: 100 Instrument Used: 5mm curette, #15 blade and Forceps Tissue Removed: The hyperkeratotic margin and biofilm. Severity: Limited To Skin Breakdown Amount of bleeding with debridement: Mild Bleeding Controlled with: Pressure Operative Diagnosis: non-healing surgical wound due to I&D of an abscess Assessment/Plan Assessment/Plan (1) History of incision and drainage: CODE(S): Z98.890 - Other specified postprocedural states PLAN: Abscess RLE with infection due to MRSA. (2) Surgical wound, non healing: CODE(S): T81.89XA - Other complications of procedures, not elsewhere classified, initial encounter QUALIFIERS: Encounter type: subsequent encounter Qualified Code(s): T81.89XD - Other complications of procedures, not elsewhere classified, subsequent encounter PLAN: The wound is now even with the skin and continues to contract without the wound vac. He was approved for Ther-a-skin and we applied the first one today. The ther-a-skin was covered with an adaptic touch and then secured with steri strips. He will follow up with me again next week in the [facility] and he will call if fevers/chills/night sweats. (3) Pancytopenia: CODE(S): D61.818 - Other pancytopenia PLAN: This needs to be worked up by the PCP. I explained this to Branden. Will send a copy of this letter to the PCP if we have that name.
== END 2021-01-29 23:59 ==
LOC: WC 14:00
PROVIDERS: PCP Student in an Organized Health Care Education/Training Program; Referring Provider Student in an Organized Health Care Education/Training Program; Visit Provider Internal Medicine
DX: T81.89XD Other complications of procedures, not elsewhere classified, subsequent encounter (principal); I87.2 Venous insufficiency (chronic) (peripheral); L97.925 Non-pressure chronic ulcer of unspecified part of left lower leg with muscle involvement without evidence of necrosis; D61.818 Other pancytopenia; E88.09 Other disorders of plasma-protein metabolism, not elsewhere classified; M79.89 Other specified soft tissue disorders; M25.462 Effusion, left knee; I10 Essential (primary) hypertension; Z79.899 Other long term (current) drug therapy; Z98.890 Other specified postprocedural states; Z87.891 Personal history of nicotine dependence; Z86.14 Personal history of Methicillin resistant Staphylococcus aureus infection
CPT/HCPCS: 11042; 15271; 97605; Q4121

== ENCOUNTER 2021-03-01 14:15 | Outpatient (RCR) | payer MEDICARE, SELFPAY ==
[2021-01-30 00:33] VITALS: BP 141/71; PULSE 84; RESP 18; TEMP 37.3
[2021-02-01 14:17] VITALS: BP 145/73; PULSE 90; TEMP 37.3; BMI 22.9
--- NOTE | 2021-02-01 14:57 | PCM.WC.PN ---
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 It became red, warm to touch and painful. He was admitted to [facility] but, signed out AMA the next day because the doctor never came in and they never applied a dressing to the wound. Prior to the recent admission to the hospital he had not seen a physician in 30 years. He was seen at [facility] on 12/02 and 12/09 and was initially on Augmentin and doxycycline but when it was getting worse the Doxycycline was discontinued and he was started on Bactrim. While in the hospital he had pancytopenia and his PLT count was 87,000. HGB on 12/02 was 12.8 and the WBC was 4.6. The MCV was 102.5. Creatinine was within normal limits and the GFR was 87. Folate and B12 were within normal limits. He had a culture of the wound that grew MRSA. He is scheduled for an MRI next week or the week after. He has been taking Alleve and Tylenol for pain. He tells me that both his legs have been swollen for about a year now. His EF at [facility] on ECHO is normal and he had LVH. The clinic put him on Lasix and the swelling in the R leg is better. He had venous US's and there were no clots per the patient and his significant other. He had a liver US this week.....I have no results for this. Branden [facility] to the [facility] today with a temp of 99.3. The BP is 169/80 and he is tachycardic with a HR of 109. The LLE is more swollen than the R. There is erythema and increased warmth to touch of the LLE. He also has a swollen L knee and there is an effusion. The knee is not red but it is warm to touch. There is a wound at approximately mid calf and there is tunneling and undermining of this wound laterally. I was able to express a considerable amount of creamy pus from the wound and aerobic and anaerobic cultures were sent to the lab. I explained that I did not feel ?Bactrim was an adequate tx for this wound at this time and I recommended admission to [facility] and he was agreeable. I spoke with Dr. Burris who is the admitting hospitalist and he will accept the pt onto the hospitalist service. Subjective Jamel Otero presents to the wound care center today for a recheck on the non-healing surgical wound on the R lateral calf from I&D of an abscess due to MRSA. Last week we applied the first Theraskin. He has not changed the bandage since we applied it last week and the bandage was stuck to the wound from dried drainage and we had to soak it off which helped a little and then I had to debride the rest off. They have not been moistening the Theraskin as directed. Objective Data Objective Data Vital Signs: Vital Signs Temp Pulse Resp BP 99.1 F 90 18 145/73 H 02/01/21 14:17 02/01/21 14:17 01/30/21 00:33 02/01/21 14:17 Weight: 188 lb 7.504 oz Body Mass Index (BMI) 22.9 Lab / Micro Data Result Diagrams: 03/01/21 15:56 03/01/21 15:56 Charges/Coding Procedures Integumentary 111xxx-113xx: 11295 Jasmin subq tissue 20 sq cm/< Physical Exam Extremity Extremity Narrative: 4+ edema of the LE's L>R Skin Wound Narrative: after the dried Theraskin was debrided off the wound bed there was noted to be 95% granulation tissue and 5% slough. There was no undermining or tunnelling and after the wound was irrigated there was no odor. There is no armando-wound erythema. Debridement Note Debridement Note Post-Debridement Measurements and Additional Note: Post-Debridement Measurements/Treatment WC - Nurse 1 - General Ulcer Assessment Start: 02/01/21 14:17 Freq: Status: Active Protocol: RO.LOWEXT Activity Type Activity Date Activity User E-Sign Co-Sign Detail Recorded Client Recorded Date Recorded By Document 02/01/21 14:17 NOEL [id number] 02/01/21 14:20 NOEL 02/01/21 14:17 - Today's Visit Information Type of service Initial Visit Arrival Mode Ambulatory,Cane Patient Identification Verified (Name & Yes ) Height and Weight Body Mass Index (BMI) 22.9 BMI Classification Normal Vital Signs Temperature (97.8 F-99.1 F) 99.1 F Temperature Source Oral Pulse Rate (60-100) 90 Pulse Location Monitor Blood Pressure (90/60-120/80) 145/73 H Blood Pressure Mean (mm Hg) 97 Source Monitor Position Semi-Fowlers Blood Pressure Location Left Arm History Since Last Visit- (Skip if this is Patient's initial visit) Have you changed medications since your No last visit? Any new allergies or adverse reactions No Had a fall/change in ADL's that may No increase risk of falls Signs or symptoms of abuse and/or No neglect since last visit Have you been in the hospital since your No last visit? Has dressing in place as prescribed Yes Has compression in place as prescribed N/A Has offloadiing in place as prescribed N/A Experienced any changes in pain level or No management Left Footwear Regular Shoe Right Footwear Regular Shoe Pain Scale: 0-10 Numeric Is Patient Pain Free? Yes - Nurse 1 - General Ulcer Measurement Start: 02/01/21 14:17 Freq: Status: Active Protocol: Activity Type Activity Date Activity User E-Sign Co-Sign Detail Recorded Client Recorded Date Recorded By Document 02/01/21 14:17 NOEL [id number] 02/01/21 14:20 NOEL 02/01/21 14:17 Wound Center Nurse 1 #1 L Coleman -Current Size (cm) - Length 0.1 -Current Size (cm) - Width 0.1 -Current Size (cm) - Depth 0.1 -Total Square Cm 0.01 - Nurse 2 - General Ulcer CM Notes Start: 02/01/21 14:17 Freq: Status: Active Protocol: Activity Type Activity Date Activity User E-Sign Co-Sign Detail Recorded Client Recorded Date Recorded By Document 02/01/21 14:47 LAKEISHA [id number] 02/01/21 14:49 02/01/21 14:47 Wound Center Nurse 2 -Time 14:48 -Correct Patient Yes -Correct Side, Site, Position Yes -Correct Procedure Yes -Procedure Performed Yes -Type of Procedure Debridement -Clinical Debridement Subcutaneous -Tissue Removed Subcutaneous -Post Debridement (cm) - Length 2.3 -Post Debridement (cm) - Width 3.2 -Post Debridement (cm) - Depth 0.1 -Total Square (Post) (cm) 7.36 -Area of Debridement (cm) - Length 2.3 -Area of Debridement (cm) - Width 3.2 -Total Square (Area) (cm) 7.36 -Tunneling No -Undermining/Tunneling No -Circular Undermining No -Wound/Ulcer Outcome Not Healed -Ulcer Cleansing Rinsed/ Irrigated with Saline -Foul Odor after Cleansing No -Bioengineered Tissue Yes -Type of Bioengineered Tissue Theraskin -Expiration Date 04/11/24 -Product Lot Number [id number] -Percent Used 100 -Lot number of Saline Used [id number] -Bleeding Controlled with Pressure -Offloading No -Treatment Response Procedure Tolerated Well -Debridement - Subq, 1st 20sq cm No -Apply Skin Sub - 1st 25 sq cm - Legs 1 -Theraskin (per sq cm) 13 Pain Scale: 0-10 Numeric Is Patient Pain Free? Yes Wound debrided: Left coleman wound Laterality: Left Type of Debridement: Excisional debridement Anesthesia Used: 4% Lidocaine Solution Depth: Down to and including healthy tissue and in the subcutaneous layer Percentage of wound debrided: 100 Instrument Used: 5mm curette and Forceps Tissue Removed: slough and biofilm Severity: Limited To Skin Breakdown Amount of bleeding with debridement: Mild Bleeding Controlled with: Pressure Patient tolerated procedure: Patient tolerated procedure well Operative Diagnosis: non-healing surgical wound post I&D Assessment/Plan Assessment/Plan (1) Surgical wound, non healing: CODE(S): T81.89XA - Other complications of procedures, not elsewhere classified, initial encounter QUALIFIERS: Encounter type: subsequent encounter Qualified Code(s): T81.89XD - Other complications of procedures, not elsewhere classified, subsequent encounter PLAN: 1. theraskin #2 was applied today and covered with an adaptic touch. This was then secured with steri strips and a dry dressing was applied. 2. I asked him once again to keep the compression on the legs to help control the edema and promote healing 3. I asked him to follow up with his PCP to determine the cause of the 4+ edema and treat.......he is also pancytopenic and should be evaluated for this.
[2021-02-08 14:06] VITALS: BP 156/86; PULSE 90; TEMP 35.9; BMI 22.9
--- NOTE | 2021-02-08 17:17 | PCM.WC.PN ---
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 It became red, warm to touch and painful. He was admitted to [facility] but, signed out AMA the next day because the doctor never came in and they never applied a dressing to the wound. Prior to the recent admission to the hospital he had not seen a physician in 30 years. He was seen at [facility] on 12/02 and 12/09 and was initially on Augmentin and doxycycline but when it was getting worse the Doxycycline was discontinued and he was started on Bactrim. While in the hospital he had pancytopenia and his PLT count was 87,000. HGB on 12/02 was 12.8 and the WBC was 4.6. The MCV was 102.5. Creatinine was within normal limits and the GFR was 87. Folate and B12 were within normal limits. He had a culture of the wound that grew MRSA. He is scheduled for an MRI next week or the week after. He has been taking Alleve and Tylenol for pain. He tells me that both his legs have been swollen for about a year now. His EF at [facility] on ECHO is normal and he had LVH. The clinic put him on Lasix and the swelling in the R leg is better. He had venous US's and there were no clots per the patient and his significant other. He had a liver US this week.....I have no results for this. [facility]en [facility] today with a temp of 99.3. The BP is 169/80 and he is tachycardic with a HR of 109. The LLE is more swollen than the R. There is erythema and increased warmth to touch of the LLE. He also has a swollen L knee and there is an effusion. The knee is not red but it is warm to touch. There is a wound at approximately mid calf and there is tunneling and undermining of this wound laterally. I was able to express a considerable amount of creamy pus from the wound and aerobic and anaerobic cultures were sent to the lab. I explained that I did not feel ?Bactrim was an adequate tx for this wound at this time and I recommended admission to [facility] and he was agreeable. I spoke with Dr. Burris who is the admitting hospitalist and he will accept the pt onto the hospitalist service. Jamel Otero presents to the wound care center today for a follow-up visit. The wound VAC has been discontinued and he has had 2 applications of TheraSkin. He denies fevers, shaking chills, sweats. He denies pain in the left lower extremity. His tells me that he has no appetite. He drinks a lot of gatorade and the swelling in the legs is increased today. I presume this is due to cirrhosis due to prior ETOH abuse but, I am not certain. He has Lasix at home but, he has not been taking it. He denies being on Aldactone. He takes Oxycodone on a regular basis for pain due to rheumatoid arthritis. He was diagnosed with this at the [facility] many years ago and is on disability for this. He has not seen a ceramic chemist since them and is not on tx for RA.....just pain relievers. Objective Data Objective Data Vital Signs: Vital Signs Temp Pulse Resp BP 96.7 F L 90 18 156/86 H 02/08/21 14:06 02/08/21 14:06 01/30/21 00:33 02/08/21 14:06 Weight: 188 lb 7.504 oz Body Mass Index (BMI) 22.9 Charges/Coding Procedures Integumentary 111xxx-113xx: 54352 Jasmin subq tissue 20 sq cm/< Physical Exam Skin Wounds: wounds noted Wound Narrative: He has increased swelling of the legs today. Has been wearing double tubogrips but, not elevating enough and he is not restricting salt intake. There is venous HTN present and dilated superficial varicosities. The wound continues to contract and the size today is 6.08 cm?, down from 7.36 cm? last week. The base of the wound is 100% granulating with no slough. There is no odor, no purulent discharge and no periwound erythema or increased warmth. The old Theraskin was debrided off the wound. Debridement Note Debridement Note Post-Debridement Measurements and Additional Note: Post-Debridement Measurements/Treatment WC - Nurse 1 - General Ulcer Assessment Start: 02/01/21 14:17 Freq: Status: Active Protocol: RAZ Activity Type Activity Date Activity User E-Sign Co-Sign Detail Recorded Client Recorded Date Recorded By Document 02/01/21 14:17 NOEL [id number] 02/01/21 14:20 KR Document 02/08/21 14:06 KR [id number] 02/08/21 14:12 KR 02/01/21 02/08/21 14:17 14:06 WC - Today's Visit Information Type of service Initial Visit Follow-up Visit (Physician/COMMERCIAL REPRESENTATIVE ) Arrival Mode Ambulatory,Cane Ambulatory, Walker Patient Identification Verified (Name & Yes Yes ) Height and Weight Body Mass Index (BMI) 22.9 22.9 BMI Classification Normal Normal Vital Signs Temperature (97.8 F-99.1 F) 99.1 F 96.7 F L Temperature Source Oral Temporal Pulse Rate (60-100) 90 90 Pulse Location Monitor Monitor Blood Pressure (90/60-120/80) 145/73 H 156/86 H Blood Pressure Mean (mm Hg) 97 109 Source Monitor Monitor Position Semi-Fowlers Semi-Fowlers Blood Pressure Location Left Arm Right Arm History Since Last Visit- (Skip if this is Patient's initial visit) Have you changed medications since your No No last visit? Any new allergies or adverse reactions No No Had a fall/change in ADL's that may No No increase risk of falls Signs or symptoms of abuse and/or No No neglect since last visit Have you been in the hospital since your No No last visit? Has dressing in place as prescribed Yes Yes Has compression in place as prescribed N/A N/A Has offloadiing in place as prescribed N/A N/A Experienced any changes in pain level or No No management Left Footwear Regular Shoe Regular Shoe Right Footwear Regular Shoe Regular Shoe Pain Scale: 0-10 Numeric Is Patient Pain Free? Yes Yes RO Nix Nurse 1 - General Ulcer Measurement Start: 02/01/21 14:17 Freq: Status: Active Protocol: Activity Type Activity Date Activity User E-Sign Co-Sign Detail Recorded Client Recorded Date Recorded By Document 02/01/21 14:17 KR [id number] 02/01/21 14:20 KR Document 02/08/21 14:06 KR [id number] 02/08/21 14:12 KR 02/01/21 02/08/21 14:17 14:06 Wound Center Nurse 1 #1 L Coleman -Current Size (cm) - Length 0.1 0.1 -Current Size (cm) - Width 0.1 0.1 -Current Size (cm) - Depth 0.1 0.1 -Total Square Cm 0.01 0.01 -Texture (Ayanna-wound Skin Appearance) Scarring WC - Nurse 2 - General Ulcer CM Notes Start: 02/01/21 14:17 Freq: Status: Active Protocol: Activity Type Activity Date Activity User E-Sign Co-Sign Detail Recorded Client Recorded Date Recorded By Document 02/01/21 14:47 MW [id number] 02/01/21 14:49 MW Document 02/08/21 14:36 MW [id number] 02/08/21 14:43 MW 02/01/21 02/08/21 14:47 14:36 Wound Center Nurse 2 #1 L Coleman -Time 14:48 14:37 -Correct Patient Yes Yes -Correct Side, Site, Position Yes Yes -Correct Procedure Yes Yes -Procedure Performed Yes Yes -Type of Procedure Debridement Debridement -Clinical Debridement Subcutaneous Subcutaneous -Tissue Removed Subcutaneous Subcutaneous -Post Debridement (cm) - Length 2.3 1.9 -Post Debridement (cm) - Width 3.2 3.2 -Post Debridement (cm) - Depth 0.1 0.1 -Total Square (Post) (cm) 7.36 6.08 -Area of Debridement (cm) - Length 2.3 1.9 -Area of Debridement (cm) - Width 3.2 3.2 -Total Square (Area) (cm) 7.36 6.08 -Tunneling No No -Undermining/Tunneling No No -Circular Undermining No No -Wound/Ulcer Outcome Not Healed Not Healed -Ulcer Cleansing Rinsed/ Rinsed/ Irrigated with Irrigated with Saline Saline -Foul Odor after Cleansing No No -Bioengineered Tissue Yes Yes -Type of Bioengineered Tissue Theraskin Theraskin -Expiration Date 04/11/24 08/12/24 -Product Lot Number [id number] -Percent Used 100 100 -Lot number of Saline Used [id number] -Bleeding Controlled with Pressure Pressure -Offloading No No -Treatment Response Procedure Procedure Tolerated Well Tolerated Well -Debridement - Subq, 1st 20sq cm No No -Apply Skin Sub - 1st 25 sq cm - Legs 1 1 -Theraskin (per sq cm) 13 6 Pain Scale: 0-10 Numeric Is Patient Pain Free? Yes Yes WC - Nurse 3 - General Ulcer D/C NN Start: 02/01/21 14:17 Freq: Status: Active Protocol: Activity Type Activity Date Activity User E-Sign Co-Sign Detail Recorded Client Recorded Date Recorded By Document 02/01/21 15:10 AK [id number] 02/01/21 15:12 AK Document 02/08/21 15:12 DL [id number] 02/08/21 15:13 DL 02/01/21 02/08/21 15:10 15:12 Wound Care Nurse 3 #1 L Coleman -Ulcer Cleansing Not Cleansed -Foul Odor after Cleansing No No -Other Dressing Theraskin -Primary Dressing Covered/Secured with Dry Gauze & Dry Gauze & Roll Gauze, Roll Gauze, Secured with Secured with Tape Tape Right -Compression Wrap Surepress ($) left leg -Compression Wrap Surepress ($) -Tubular Bandage Double Layer -Size of Tubigrip Used Size D -Size D ($) 1 Treatment Response Procedure Tolerated Well Pain Scale: 0-10 Numeric Is Patient Pain Free? Yes WC - Visit Discharge Discharge Condition Unstable Stable Ambulatory Status Ambulatory,Cane Ambulatory, Walker Transportation Private Auto Accompanied by Clinical Summary of Care Provided Yes Facility Type Home Health Orders Sent Yes Additional Wound Wound debrided: Left coleman non-healing surgical wound Laterality: Left Type of Debridement: Excisional debridement Anesthesia Used: 5% Lidocaine Gel Depth: Down to and including healthy tissue Percentage of wound debrided: 50 Tissue Removed: old Theraskin and biofilm Severity: Limited To Skin Breakdown Amount of bleeding with debridement: Mild Bleeding Controlled with: Pressure Operative Diagnosis: delayed surgical wound healing Assessment/Plan Assessment/Plan (1) Surgical wound, non healing: CODE(S): T81.89XA - Other complications of procedures, not elsewhere classified, initial encounter QUALIFIERS: Encounter type: subsequent encounter Qualified Code(s): T81.89XD - Other complications of procedures, not elsewhere classified, subsequent encounter (2) History of incision and drainage: CODE(S): Z98.890 - Other specified postprocedural states PLAN: 1. Another Theraskin was applied to the wound today. Healing is slow due to multiple factors which include Cirrhosis, 4+ pitting edema of the LE's, malnutrition and wt loss, etc. I suspect the LE edema is due to cirrhosis but I can not r/o CHF, NS, venous insufficiency at this point. I told him to take the Lasix as instructed and follow up with Dr. Snider. 2. DC the double tubogrips and apply a surepres wrap today for better compression 3. Schedule an appt with the esters and emulsifiers supervisor to teach him about salt restriction and healthy protein and calorie intake 4. He needs to see a ceramic chemist to manage the RA and prevent further triston destruction. 5. RTC in 1 week for a recheck on the progress of the wound
[2021-02-15 14:44] VITALS: BP 152/67; PULSE 90; RESP 16; TEMP 37.1; BMI 22.9
--- NOTE | 2021-02-15 14:48 | WC ---
garry left intact
--- NOTE | 2021-02-15 17:30 | PCM.WC.PN ---
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 It became red, warm to touch and painful. He was admitted to [facility] but, signed out AMA the next day because the doctor never came in and they never applied a dressing to the wound. Prior to the recent admission to the hospital he had not seen a physician in 30 years. He was seen at [facility] on 12/02 and 12/09 and was initially on Augmentin and doxycycline but when it was getting worse the Doxycycline was discontinued and he was started on Bactrim. While in the hospital he had pancytopenia and his PLT count was 87,000. HGB on 12/02 was 12.8 and the WBC was 4.6. The MCV was 102.5. Creatinine was within normal limits and the GFR was 87. Folate and B12 were within normal limits. He had a culture of the wound that grew MRSA. He is scheduled for an MRI next week or the week after. He has been taking Alleve and Tylenol for pain. He tells me that both his legs have been swollen for about a year now. His EF at [facility] on ECHO is normal and he had LVH. The clinic put him on Lasix and the swelling in the R leg is better. He had venous US's and there were no clots per the patient and his significant other. He had a liver US this week.....I have no results for this. Branden presents to the [facility] today with a temp of 99.3. The BP is 169/80 and he is tachycardic with a HR of 109. The LLE is more swollen than the R. There is erythema and increased warmth to touch of the LLE. He also has a swollen L knee and there is an effusion. The knee is not red but it is warm to touch. There is a wound at approximately mid calf and there is tunneling and undermining of this wound laterally. I was able to express a considerable amount of creamy pus from the wound and aerobic and anaerobic cultures were sent to the lab. I explained that I did not feel ?Bactrim was an adequate tx for this wound at this time and I recommended admission to [facility] and he was agreeable. I spoke with Dr. Burris who is the admitting hospitalist and he will accept the pt onto the hospitalist service. Jamel Otero returns to the wound care center for a follow-up visit today. We are treating a nonhealing surgical wound of the left lower extremity that was the result of an incision and drainage of an abscess infected with MRSA. He had a wound VAC for a period of time and when the wound was 100% granulating and the base of the wound was even with the skin surface the wound VAC was discontinued and we have been using TheraSkin. Today is the third application of TheraSkin. Branden denies fevers, chills, night sweats, pain. His tells me that he has been removing the sure press wraps because they are causing pressure when he moves. They do not have a scale at home and he has not been doing daily weights. His LE's are very swollen today again and the LLE has a little seepage through the skin. He denies calf pain. He has been taking Lasix 40 mg a day again to help with the swelling. He denies SOB/orthopnea. Denies leg cramps. Objective Data Objective Data Vital Signs: Vital Signs Temp Pulse Resp BP 98.8 F 90 16 152/67 H 02/15/21 14:44 02/15/21 14:44 02/15/21 14:44 02/15/21 14:44 Oxygen Delivery Method Room Air Weight: 188 lb 7.504 oz Body Mass Index (BMI) 22.9 Lab / Micro Data Result Diagrams: 03/01/21 15:56 03/01/21 15:56 Charges/Coding Procedures Integumentary 111xxx-113xx: 57044 Jasmin subq tissue 20 sq cm/< Physical Exam Extremity Extremity Narrative: still with 4+ edema of the Legs. Skin Wound Narrative: the wound is 100% granulating and continues to contract. It is actually hypergranular and the wound base is above the surrounding skin. There is no tunnelling and no undermining. No odor and no purulent DC. No increased warmth to touch. Debridement Note Debridement Note Post-Debridement Measurements and Additional Note: Post-Debridement Measurements/Treatment - Nurse 1 - General Ulcer Assessment Start: 02/01/21 14:17 Freq: Status: Active Protocol: RO.[email or web address] Activity Type Activity Date Activity User E-Sign Co-Sign Detail Recorded Client Recorded Date Recorded By Document 02/01/21 14:17 [id number] 02/01/21 14:20 KR Document 02/08/21 14:06 KR [id number] 02/08/21 14:12 KR Document 02/15/21 14:44 [facility] [id number] 02/15/21 14:48 [facility] 02/01/21 02/08/21 02/15/21 14:17 14:06 14:44 - Today's Visit Information Type of service Initial Visit Follow-up Visit Follow-up Visit (Physician/MATERIALS ENGINEER (Physician/MATERIALS ENGINEER ) ) Arrival Mode Ambulatory,Cane Ambulatory, Ambulatory, Walker Walker Transfer Assistance None Accompanied by girlfriend Patient Identification Verified (Name & Yes Yes Yes ) Patient Requires Transmission-Based No Precautions Height and Weight Body Mass Index (BMI) 22.9 22.9 22.9 BMI Classification Normal Normal Normal Vital Signs Temperature (97.8 F-99.1 F) 99.1 F 96.7 F L 98.8 F Temperature Source Oral Temporal Temporal Pulse Rate (60-100) 90 90 90 Pulse Location Monitor Monitor Monitor Respiratory Rate (12-18) 16 Respiratory rate source Observation Oxygen Delivery Method Room Air Blood Pressure (90/60-120/80) 145/73 H 156/86 H 152/67 H Blood Pressure Mean (mm Hg) 97 109 95 Source Monitor Monitor Monitor Position Semi-Fowlers Semi-Fowlers Sitting Blood Pressure Location Left Arm Right Arm Left Arm History Since Last Visit- (Skip if this is Patient's initial visit) Have you changed medications since your No No No last visit? Any new allergies or adverse reactions No No No Had a fall/change in ADL's that may No No No increase risk of falls Signs or symptoms of abuse and/or No No No neglect since last visit Have you been in the hospital since your No No No last visit? Has dressing in place as prescribed Yes Yes Yes Has compression in place as prescribed N/A N/A No Has offloadiing in place as prescribed N/A N/A N/A Experienced any changes in pain level or No No No management Left Footwear Regular Shoe Regular Shoe Slipper Right Footwear Regular Shoe Regular Shoe Slipper Pain Scale: 0-10 Numeric Is Patient Pain Free? Yes Yes Yes - Nurse 1 - General Ulcer Measurement Start: 02/01/21 14:17 Freq: Status: Active Protocol: Activity Type Activity Date Activity User E-Sign Co-Sign Detail Recorded Client Recorded Date Recorded By Document 02/01/21 14:17 KR [id number] 02/01/21 14:20 KR Document 02/08/21 14:06 KR [id number] 02/08/21 14:12 KR Document 02/15/21 14:44 BM [id number] 02/15/21 14:48 BMF 02/01/21 02/08/21 02/15/21 14:17 14:06 14:44 Wound Center Nurse 1 #1 L Coleman -Combined with other wound No -Current Size (cm) - Length 0.1 0.1 0.1 -Current Size (cm) - Width 0.1 0.1 0.1 -Current Size (cm) - Depth 0.1 0.1 0.1 -Total Square Cm 0.01 0.01 0.01 -Texture (Aaynna-wound Skin Appearance) Scarring Assessed -Moisture (Ayanna-wound Skin Appearance) Assessed -Color (Ayanna-wound Skin Appearance) Assessed Lower Limb Edema Present Yes Left Calf (cm) 36 Left Ankle (cm) 29.5 WC - Nurse 2 - General Ulcer CM Notes Start: 02/01/21 14:17 Freq: Status: Active Protocol: Activity Type Activity Date Activity User E-Sign Co-Sign Detail Recorded Client Recorded Date Recorded By Document 02/01/21 14:47 MW [id number] 02/01/21 14:49 MW Document 02/08/21 14:36 MW [id number] 02/08/21 14:43 MW Document 02/15/21 14:52 JF [id number] 02/15/21 15:05 JF 02/01/21 02/08/21 02/15/21 14:47 14:36 14:52 Wound Center Nurse 2 #1 L Coleman -Time 14:48 14:37 15:03 -Correct Patient Yes Yes Yes -Correct Side, Site, Position Yes Yes Yes -Correct Procedure Yes Yes Yes -Procedure Performed Yes Yes Yes -Type of Procedure Debridement Debridement Debridement -Clinical Debridement Subcutaneous Subcutaneous Subcutaneous -Tissue Removed Subcutaneous Subcutaneous Subcutaneous -Post Debridement (cm) - Length 2.3 1.9 2 -Post Debridement (cm) - Width 3.2 3.2 2.8 -Post Debridement (cm) - Depth 0.1 0.1 0.1 -Total Square (Post) (cm) 7.36 6.08 5.6 -Area of Debridement (cm) - Length 2.3 1.9 2 -Area of Debridement (cm) - Width 3.2 3.2 2.8 -Total Square (Area) (cm) 7.36 6.08 5.6 -Tunneling No No -Undermining/Tunneling No No No -Circular Undermining No No No -Wound/Ulcer Outcome Not Healed Not Healed Not Healed -Ulcer Cleansing Rinsed/ Rinsed/ Rinsed/ Irrigated with Irrigated with Irrigated with Saline Saline Saline -Foul Odor after Cleansing No No No -Bioengineered Tissue Yes Yes Yes -Type of Bioengineered Tissue Theraskin Theraskin Theraskin -Expiration Date 04/11/24 08/12/24 08/14/24 -Product Lot Number [id number] -Percent Used 100 100 100 -Lot number of Saline Used [id number] -Bleeding Controlled with Pressure Pressure Pressure -Offloading No No No -Treatment Response Procedure Procedure Procedure Tolerated Well Tolerated Well Tolerated Well -Debridement - Subq, 1st 20sq cm No No No -Apply Skin Sub - 1st 25 sq cm - Legs 1 1 1 -Theraskin (per sq cm) 13 6 6 Pain Scale: 0-10 Numeric Is Patient Pain Free? Yes Yes Yes WC - Nurse 3 - General Ulcer D/C NN Start: 02/01/21 14:17 Freq: Status: Active Protocol: Activity Type Activity Date Activity User E-Sign Co-Sign Detail Recorded Client Recorded Date Recorded By Document 02/01/21 15:10 AK [id number] 02/01/21 15:12 AK Document 02/08/21 15:12 DL [id number] 02/08/21 15:13 DL Document 02/15/21 15:15 AK [id number] 02/15/21 15:17 AK 02/01/21 02/08/21 02/15/21 15:10 15:12 15:15 Wound Care Nurse 3 #1 L Coleman -Ulcer Cleansing Not Cleansed -Foul Odor after Cleansing No No -Other Dressing Theraskin -Primary Dressing Covered/Secured with Dry Gauze & Dry Gauze & Roll Gauze, Roll Gauze, Secured with Secured with Tape Tape Right -Compression Wrap Surepress ($) Surepress ($) -Other stockinette 1st left leg -Lotion applied to leg before No compression wrap -Compression Wrap Surepress ($) Surepress ($) -Tubular Bandage Double Layer -Size of Tubigrip Used Size D -Size D ($) 1 -Other stockinette 1st Treatment Response Procedure Tolerated Well Pain Scale: 0-10 Numeric Is Patient Pain Free? Yes WC - Visit Discharge Discharge Condition Unstable Stable Stable Ambulatory Status Ambulatory,Cane Ambulatory, Ambulatory Walker Transportation Private Auto Accompanied by Medication Reconcilliation completed & No provided to patient/care provider Clinical Summary of Care Provided Yes Yes Facility Type Home Health Orders Sent Yes Wound debrided: left coleman Laterality: Left Type of Debridement: Excisional debridement Anesthesia Used: 4% Lidocaine Solution Depth: Down to and including healthy tissue and in the subcutaneous layer Instrument Used: 5mm curette and Forceps Tissue Removed: biofilm and slough Severity: Limited To Skin Breakdown Amount of bleeding with debridement: Mild Bleeding Controlled with: Pressure Patient tolerated procedure: Patient tolerated procedure well Debridement Free Text: Theraskin was reapplied Assessment/Plan Assessment/Plan (1) Surgical wound, non healing: CODE(S): T81.89XA - Other complications of procedures, not elsewhere classified, initial encounter QUALIFIERS: Encounter type: subsequent encounter Qualified Code(s): T81.89XD - Other complications of procedures, not elsewhere classified, subsequent encounter PLAN: The wound is looking very good. It is penny more and more and there is now 100% granulation tissue in the wound bed. Another Theraskin was applied today and Branden will RTC in 1 week for a recheck. BMP today since he has restarted daily Lasix. I encouraged him to get a scale and start keeping track of his weight daily.
[2021-02-15 17:41] LABS: Albumin, Serum 2.6 g/dL (3.2-5.0); Anion Gap 6 (5-15); BUN 8 mg/dL (7-18); BUN/Creat Ratio 10.9 RATIO (10-20); Calcium,Total 8.6 mg/dL (8.5-10.1); Chloride 110 mmol/L (98-107); Creatinine, Serum 0.73 mg/dL (0.70-1.30); EST Glomerular Filtration Rate 113 mL/min (>60); Est Glom Filt Rate - Afr Amer 136 mL/min (>60); Estimated Creatinine Clearance 76.52 ml/min; Glucose 87 mg/dL (74-106); Potassium 3.8 mmol/L (3.5-5.1); Sodium Level 142 mmol/L (136-145)
[2021-02-22 15:14] VITALS: BP 146/70; PULSE 88; RESP 20; TEMP 37.4; BMI 22.9
--- NOTE | 2021-02-22 16:18 | PCM.WC.PN ---
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 It became red, warm to touch and painful. He was admitted to [facility] but, signed out AMA the next day because the doctor never came in and they never applied a dressing to the wound. Prior to the recent admission to the hospital he had not seen a physician in 30 years. He was seen at [facility] on 12/02 and 12/09 and was initially on Augmentin and doxycycline but when it was getting worse the Doxycycline was discontinued and he was started on Bactrim. While in the hospital he had pancytopenia and his PLT count was 87,000. HGB on 12/02 was 12.8 and the WBC was 4.6. The MCV was 102.5. Creatinine was within normal limits and the GFR was 87. Folate and B12 were within normal limits. He had a culture of the wound that grew MRSA. He is scheduled for an MRI next week or the week after. He has been taking Alleve and Tylenol for pain. He tells me that both his legs have been swollen for about a year now. His EF at [facility] on ECHO is normal and he had LVH. The clinic put him on Lasix and the swelling in the R leg is better. He had venous US's and there were no clots per the patient and his significant other. He had a liver US this week.....I have no results for this. [facility] with a temp of 99.3. The BP is 169/80 and he is tachycardic with a HR of 109. The LLE is more swollen than the R. There is erythema and increased warmth to touch of the LLE. He also has a swollen L knee and there is an effusion. The knee is not red but it is warm to touch. There is a wound at approximately mid calf and there is tunneling and undermining of this wound laterally. I was able to express a considerable amount of creamy pus from the wound and aerobic and anaerobic cultures were sent to the lab. I explained that I did not feel ?Bactrim was an adequate tx for this wound at this time and I recommended admission to [facility] and he was agreeable. I spoke with Dr. Burris who is the admitting hospitalist and he will accept the pt onto the hospitalist service. Subjective Subjective Denies fevers, chills, night sweats. He denies pain in the area of the wound on the left lower extremity. He has now been seen by palliative care and they will be handling his pain control. He was able to purchase a scale and he is weighing himself daily and keeping a record. He was started on Aldactone 25 mg daily after his last visit. He continues to take Lasix 40 mg daily. He denies muscle cramps. Denies shortness of breath, orthopnea or paroxysmal nocturnal dyspnea. Objective Data Objective Data Vital Signs: Vital Signs Temp Pulse Resp BP 99.4 F H 88 20 H 146/70 H 02/22/21 15:14 02/22/21 15:14 02/22/21 15:14 02/22/21 15:14 Oxygen Delivery Method Room Air Weight: 188 lb 7.504 oz Body Mass Index (BMI) 22.9 Lab / Micro Data Result Diagrams: 02/15/21 15:36 02/15/21 15:36 Charges/Coding Visit Charges Office Visits / Consults: [id number] OV L2 Est Physical Exam Extremity Extremity Narrative: there is less edema in the LE's today. Skin Wound Narrative: I elected to leave the current Theraskin on for a second week. The dressing is intact and there is no erythema around the dressing. There is no odor. Debridement Note Debridement Note Post-Debridement Measurements and Additional Note: Post-Debridement Measurements/Treatment - Nurse 1 - General Ulcer Assessment Start: 02/01/21 14:17 Freq: Status: Active Protocol: RO.LOWEXT Activity Type Activity Date Activity User E-Sign Co-Sign Detail Recorded Client Recorded Date Recorded By Document 02/01/21 14:17 NOEL [id number] 02/01/21 14:20 KR Document 02/08/21 14:06 KR [id number] 02/08/21 14:12 KR Document 02/15/21 14:44 BMF [id number] 02/15/21 14:48 BMF Document 02/22/21 15:14 DL [id number] 02/22/21 15:20 DL 02/01/21 02/08/21 02/15/21 14:17 14:06 14:44 WC - Today's Visit Information Type of service Initial Visit Follow-up Visit Follow-up Visit (Physician/CONSTRUCTION LINEMAN (Physician/CONSTRUCTION LINEMAN ) ) Arrival Mode Ambulatory,Cane Ambulatory, Ambulatory, Walker Walker Transfer Assistance None Accompanied by girlfriend Patient Identification Verified (Name & Yes Yes Yes ) Patient Requires Transmission-Based No Precautions Height and Weight Body Mass Index (BMI) 22.9 22.9 22.9 BMI Classification Normal Normal Normal Vital Signs Temperature (97.8 F-99.1 F) 99.1 F 96.7 F L 98.8 F Temperature Source Oral Temporal Temporal Pulse Rate (60-100) 90 90 90 Pulse Location Monitor Monitor Monitor Respiratory Rate (12-18) 16 Respiratory rate source Observation Oxygen Delivery Method Room Air Blood Pressure (90/60-120/80) 145/73 H 156/86 H 152/67 H Blood Pressure Mean (mm Hg) 97 109 95 Source Monitor Monitor Monitor Position Semi-Fowlers Semi-Fowlers Sitting Blood Pressure Location Left Arm Right Arm Left Arm Comment History Since Last Visit- (Skip if this is Patient's initial visit) Have you changed medications since your No No No last visit? Any new allergies or adverse reactions No No No Had a fall/change in ADL's that may No No No increase risk of falls Signs or symptoms of abuse and/or No No No neglect since last visit Have you been in the hospital since your No No No last visit? Has dressing in place as prescribed Yes Yes Yes Has compression in place as prescribed N/A N/A No Has offloadiing in place as prescribed N/A N/A N/A Experienced any changes in pain level or No No No management Left Footwear Regular Shoe Regular Shoe Slipper Right Footwear Regular Shoe Regular Shoe Slipper Pain Scale: 0-10 Numeric Is Patient Pain Free? Yes Yes Yes 02/22/21 15:14 WC - Today's Visit Information Type of service Follow-up Visit (Physician/CONSTRUCTION LINEMAN ) Arrival Mode Ambulatory Transfer Assistance Stretcher Accompanied by Patient Identification Verified (Name & Yes ) Patient Requires Transmission-Based No Precautions Height and Weight Body Mass Index (BMI) 22.9 BMI Classification Normal Vital Signs Temperature (97.8 F-99.1 F) 99.4 F H Temperature Source Temporal Pulse Rate (60-100) 88 Pulse Location Monitor Respiratory Rate (12-18) 20 H Respiratory rate source Observation Oxygen Delivery Method Blood Pressure (90/60-120/80) 146/70 H Blood Pressure Mean (mm Hg) 95 Source Monitor Position Blood Pressure Location Comment Theraskin recheck today History Since Last Visit- (Skip if this is Patient's initial visit) Have you changed medications since your No last visit? Any new allergies or adverse reactions No Had a fall/change in ADL's that may No increase risk of falls Signs or symptoms of abuse and/or No neglect since last visit Have you been in the hospital since your No last visit? Has dressing in place as prescribed Yes Has compression in place as prescribed No Has offloadiing in place as prescribed N/A Experienced any changes in pain level or management Left Footwear Right Footwear Pain Scale: 0-10 Numeric Is Patient Pain Free? Yes WC - Nurse 1 - General Ulcer Measurement Start: 02/01/21 14:17 Freq: Status: Active Protocol: Activity Type Activity Date Activity User E-Sign Co-Sign Detail Recorded Client Recorded Date Recorded By Document 02/01/21 14:17 KR [id number] 02/01/21 14:20 KR Document 02/08/21 14:06 KR [id number] 02/08/21 14:12 KR Document 02/15/21 14:44 [facility] [id number] 02/15/21 14:48 BMF Document 02/22/21 15:14 DL [id number] 02/22/21 15:20 DL 02/01/21 02/08/21 02/15/21 14:17 14:06 14:44 Wound Center Nurse 1 #1 L Coleman -Combined with other wound No -Current Size (cm) - Length 0.1 0.1 0.1 -Current Size (cm) - Width 0.1 0.1 0.1 -Current Size (cm) - Depth 0.1 0.1 0.1 -Total Square Cm 0.01 0.01 0.01 -Photo Taken -Exudate Amt -Exudate Type -Wound Margin -Texture (Ayanna-wound Skin Appearance) Scarring Assessed -Moisture (Ayanna-wound Skin Appearance) Assessed -Color (Ayanna-wound Skin Appearance) Assessed -Temperature (Ayanna-wound Skin Appearance) -Tenderness on Palpation (Ayanna-wound Skin Appearance) -Ulcer Cleansing -Foul Odor after Cleansing Lower Limb Edema Present Yes Left Calf (cm) 36 Left Ankle (cm) 29.5 02/22/21 15:14 Wound Center Nurse 1 #1 L Coleman -Combined with other wound -Current Size (cm) - Length 0.1 -Current Size (cm) - Width 0.1 -Current Size (cm) - Depth 0.1 -Total Square Cm 0.01 -Photo Taken No -Exudate Amt Small -Exudate Type Serosanguineous -Wound Margin Distinct, Outline Attached -Texture (Ayanna-wound Skin Appearance) -Moisture (Ayanna-wound Skin Appearance) -Color (Ayanna-wound Skin Appearance) Hemosiderin Staining -Temperature (Ayanna-wound Skin No Abnormality Appearance) (Pt Warm) -Tenderness on Palpation (Ayanna-wound No Skin Appearance) -Ulcer Cleansing Wound Cleanser -Foul Odor after Cleansing No Lower Limb Edema Present Left Calf (cm) 33.8 Left Ankle (cm) 30.5 WC - Nurse 2 - General Ulcer CM Notes Start: 02/01/21 14:17 Freq: Status: Active Protocol: Activity Type Activity Date Activity User E-Sign Co-Sign Detail Recorded Client Recorded Date Recorded By Document 02/01/21 14:47 MW [id number] 02/01/21 14:49 MW Document 02/08/21 14:36 MW [id number] 02/08/21 14:43 MW Document 02/15/21 14:52 [id number] 02/15/21 15:05 JF Document 02/22/21 15:37 MW [id number] 02/22/21 15:38 MW 02/01/21 02/08/21 02/15/21 14:47 14:36 14:52 Wound Center Nurse 2 #1 L Coleman -Time 14:48 14:37 15:03 -Correct Patient Yes Yes Yes -Correct Side, Site, Position Yes Yes Yes -Correct Procedure Yes Yes Yes -Procedure Performed Yes Yes Yes -Type of Procedure Debridement Debridement Debridement -Clinical Debridement Subcutaneous Subcutaneous Subcutaneous -Tissue Removed Subcutaneous Subcutaneous Subcutaneous -Post Debridement (cm) - Length 2.3 1.9 2 -Post Debridement (cm) - Width 3.2 3.2 2.8 -Post Debridement (cm) - Depth 0.1 0.1 0.1 -Total Square (Post) (cm) 7.36 6.08 5.6 -Area of Debridement (cm) - Length 2.3 1.9 2 -Area of Debridement (cm) - Width 3.2 3.2 2.8 -Total Square (Area) (cm) 7.36 6.08 5.6 -Tunneling No No -Undermining/Tunneling No No No -Circular Undermining No No No -Wound/Ulcer Outcome Not Healed Not Healed Not Healed -Ulcer Cleansing Rinsed/ Rinsed/ Rinsed/ Irrigated with Irrigated with Irrigated with Saline Saline Saline -Foul Odor after Cleansing No No No -Bioengineered Tissue Yes Yes Yes -Type of Bioengineered Tissue Theraskin Theraskin Theraskin -Expiration Date 04/11/24 08/12/24 08/14/24 -Product Lot Number [id number] -Percent Used 100 100 100 -Lot number of Saline Used [id number] -Bleeding Controlled with Pressure Pressure Pressure -Offloading No No No -Treatment Response Procedure Procedure Procedure Tolerated Well Tolerated Well Tolerated Well -Debridement - Subq, 1st 20sq cm No No No -Apply Skin Sub - 1st 25 sq cm - Legs 1 1 1 -Theraskin (per sq cm) 13 6 6 Pain Scale: 0-10 Numeric Is Patient Pain Free? Yes Yes Yes 02/22/21 15:37 Wound Center Nurse 2 #1 L Coleman -Time 15:37 -Correct Patient Yes -Correct Side, Site, Position Yes -Correct Procedure Yes -Procedure Performed No -Type of Procedure -Clinical Debridement -Tissue Removed -Post Debridement (cm) - Length -Post Debridement (cm) - Width -Post Debridement (cm) - Depth -Total Square (Post) (cm) -Area of Debridement (cm) - Length -Area of Debridement (cm) - Width -Total Square (Area) (cm) -Tunneling No -Undermining/Tunneling No -Circular Undermining No -Wound/Ulcer Outcome Not Healed -Ulcer Cleansing -Foul Odor after Cleansing -Bioengineered Tissue -Type of Bioengineered Tissue -Expiration Date -Product Lot Number -Percent Used -Lot number of Saline Used -Bleeding Controlled with -Offloading -Treatment Response -Debridement - Subq, 1st 20sq cm -Apply Skin Sub - 1st 25 sq cm - Legs -Theraskin (per sq cm) Pain Scale: 0-10 Numeric Is Patient Pain Free? Yes - Nurse 3 - General Ulcer D/C NN Start: 02/01/21 14:17 Freq: Status: Active Protocol: Activity Type Activity Date Activity User E-Sign Co-Sign Detail Recorded Client Recorded Date Recorded By Document 02/01/21 15:10 AK [id number] 02/01/21 15:12 AK Document 02/08/21 15:12 DL [id number] 02/08/21 15:13 DL Document 02/15/21 15:15 AK [id number] 02/15/21 15:17 AK Document 02/22/21 15:48 BMF [id number] 02/22/21 15:48 BMF 02/01/21 02/08/21 02/15/21 15:10 15:12 15:15 Wound Care Nurse 3 #1 L Coleman -Ulcer Cleansing Not Cleansed -Foul Odor after Cleansing No No -Primary Dressing Applied -Other Dressing Theraskin -Primary Dressing Covered/Secured with Dry Gauze & Dry Gauze & Roll Gauze, Roll Gauze, Secured with Secured with Tape Tape Right -Compression Wrap Surepress ($) Surepress ($) -Other stockinette 1st left leg -Lotion applied to leg before No compression wrap -Compression Wrap Surepress ($) Surepress ($) -Tubular Bandage Double Layer -Size of Tubigrip Used Size D -Size D ($) 1 -Other stockinette 1st Treatment Response Procedure Tolerated Well Pain Scale: 0-10 Numeric Is Patient Pain Free? Yes - Visit Discharge Discharge Condition Unstable Stable Stable Ambulatory Status Ambulatory,Cane Ambulatory, Ambulatory Walker Transportation Private Auto Accompanied by Medication Reconcilliation completed & No provided to patient/care provider Clinical Summary of Care Provided Yes Yes Facility Type Home Health Orders Sent Yes 02/22/21 15:48 Wound Care Nurse 3 #1 L Coleman -Ulcer Cleansing -Foul Odor after Cleansing -Primary Dressing Applied Other -Other Dressing theraskin left intact -Primary Dressing Covered/Secured with Dry Gauze & Roll Gauze, Secured with Tape Right -Compression Wrap -Other left leg -Lotion applied to leg before compression wrap -Compression Wrap Surepress ($) -Tubular Bandage -Size of Tubigrip Used -Size D ($) -Other Treatment Response Procedure Tolerated Well Pain Scale: 0-10 Numeric Is Patient Pain Free? Yes WC - Visit Discharge Discharge Condition Stable Ambulatory Status Ambulatory, Walker Transportation Private Auto Accompanied by girlfriend Medication Reconcilliation completed & provided to patient/care provider Clinical Summary of Care Provided Facility Type Orders Sent Assessment/Plan Assessment/Plan (1) Surgical wound, non healing: CODE(S): T81.89XA - Other complications of procedures, not elsewhere classified, initial encounter QUALIFIERS: Encounter type: subsequent encounter Qualified Code(s): T81.89XD - Other complications of procedures, not elsewhere classified, subsequent encounter PLAN: The wound is healing with Theraskin and resolution of infection. Will have him come back next week and will take the Theraskin off at that time. (2) Venous insufficiency of both lower extremities: CODE(S): I87.2 - Venous insufficiency (chronic) (peripheral) PLAN: BL peripheral edema. Continue the Lasix and the Aldactone. (3) Cirrhosis: CODE(S): K74.60 - Unspecified cirrhosis of liver PLAN: This also contributes to the swelling in the LE's. I ? how bad the cirrhosis is ? The bili was only 1 in November of this year. The AST was 104 and the ALT was 57. AP was 149. There is no PT/PTT in the EMR from this institution. He also has not had a CT abdomen to look at the liver at this hospital. (4) Hypoalbuminemia: CODE(S): E88.09 - Other disorders of plasma-protein metabolism, not elsewhere classified (5) Leg edema: CODE(S): R60.0 - Localized edema PLAN: This is somewhat better with the addition of the Aldactone to the Lasix. He will bring the record of his weights with him to the next visit and will order a repeat BMP next week. (6) Pancytopenia: CODE(S): D61.818 - Other pancytopenia PLAN: WHY? due to RA? +/- cirrhosis? malignancy? B12 deficiency? I recommended he discuss a referral to a milking machine mechanic with his PCP. I also think he should see a spare parts clerk because he is on disability for RA and he is not on any medications used to treat RA to prevent joint destruction.
[2021-03-01 14:37] VITALS: BP 130/69; PULSE 86; TEMP 37.4; BMI 22.9
--- NOTE | 2021-03-01 14:39 | PCM.WC.PN ---
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 It became red, warm to touch and painful. He was admitted to [facility] but, signed out AMA the next day because the doctor never came in and they never applied a dressing to the wound. Prior to the recent admission to the hospital he had not seen a physician in 30 years. He was seen at [facility] on 12/02 and 12/09 and was initially on Augmentin and doxycycline but when it was getting worse the Doxycycline was discontinued and he was started on Bactrim. While in the hospital he had pancytopenia and his PLT count was 87,000. HGB on 12/02 was 12.8 and the WBC was 4.6. The MCV was 102.5. Creatinine was within normal limits and the GFR was 87. Folate and B12 were within normal limits. He had a culture of the wound that grew MRSA. He is scheduled for an MRI next week or the week after. He has been taking Alleve and Tylenol for pain. He tells me that both his legs have been swollen for about a year now. His EF at [facility] on ECHO is normal and he had LVH. The clinic put him on Lasix and the swelling in the R leg is better. He had venous US's and there were no clots per the patient and his significant other. He had a liver US this week.....I have no results for this. [facility] with a temp of 99.3. The BP is 169/80 and he is tachycardic with a HR of 109. The LLE is more swollen than the R. There is erythema and increased warmth to touch of the LLE. He also has a swollen L knee and there is an effusion. The knee is not red but it is warm to touch. There is a wound at approximately mid calf and there is tunneling and undermining of this wound laterally. I was able to express a considerable amount of creamy pus from the wound and aerobic and anaerobic cultures were sent to the lab. I explained that I did not feel ?Bactrim was an adequate tx for this wound at this time and I recommended admission to [facility] and he was agreeable. I spoke with Dr. Burris who is the admitting hospitalist and he will accept the pt onto the hospitalist service. Subjective Subjective Branden returns today for a follow up visit for a non-healing wound due to I&D of a MRSA abscess on the RLE. We have been treating him with Theraskin. It has been 2 weeks since the current Theraskin was applied. He tells me that he is only sometimes wearing the compression stockings. He has been weighing himself and tells me he has lost 6 ounces.......yet his and I agree that both legs are smaller since he is taking Aldactone and Lasix together. He struck his left leg on the corner of the door in his BR and has a new open wound. He denies F/S/C. He has no pain in the left leg. Objective Data Objective Data Vital Signs: Vital Signs Temp Pulse Resp BP 99.4 F H 88 20 H 146/70 H 02/22/21 15:14 02/22/21 15:14 02/22/21 15:14 02/22/21 15:14 Oxygen Delivery Method Room Air Weight: 188 lb 7.504 oz Body Mass Index (BMI) 22.9 Lab / Micro Data Result Diagrams: 03/01/21 15:56 03/01/21 15:56 Charges/Coding Visit Charges Office Visits / Consults: 19456 OV L3 Est Physical Exam Skin Skin Narrative: He has patchy redness in areas of both eyebrows and there are yello scales present. He also has some in the nasolabial fold on the L and in the kirby area. Wound Narrative: The wound we have been treating on the lateral left leg about 3 inches below the knee is penny every week. There is nearly 100% granulation tissue. There is no purulent DC and no odor. There is no erythema surrounding the wound. No tunnelling and no undermining. the pitting edema is more distal now and there is no pitting over the mid tibia area. He has swelling in both feet. He also now has a open area on the left lateral leg proximal to the ankle. It is superficial. There is a small amount of focal swelling and bruising. It was cleansed. Debridement Note Debridement Note Post-Debridement Measurements and Additional Note: Post-Debridement Measurements/Treatment - Nurse 1 - General Ulcer Assessment Start: 02/01/21 14:17 Freq: Status: Active Protocol: KRISTIEXT Activity Type Activity Date Activity User E-Sign Co-Sign Detail Recorded Client Recorded Date Recorded By Document 02/01/21 14:17 KR [id number] 02/01/21 14:20 KR Document 02/08/21 14:06 KR [id number] 02/08/21 14:12 KR Document 02/15/21 14:44 BMF [id number] 02/15/21 14:48 BMF Document 02/22/21 15:14 DL [id number] 02/22/21 15:20 DL 02/01/21 02/08/21 02/15/21 14:17 14:06 14:44 - Today's Visit Information Type of service Initial Visit Follow-up Visit Follow-up Visit (Physician/TURNING AND BEADING MACHINE OPERATOR (Physician/TURNING AND BEADING MACHINE OPERATOR ) ) Arrival Mode Ambulatory,Cane Ambulatory, Ambulatory, Walker Walker Transfer Assistance None Accompanied by girlfriend Patient Identification Verified (Name & Yes Yes Yes ) Patient Requires Transmission-Based No Precautions Height and Weight Body Mass Index (BMI) 22.9 22.9 22.9 BMI Classification Normal Normal Normal Vital Signs Temperature (97.8 F-99.1 F) 99.1 F 96.7 F L 98.8 F Temperature Source Oral Temporal Temporal Pulse Rate (60-100) 90 90 90 Pulse Location Monitor Monitor Monitor Respiratory Rate (12-18) 16 Respiratory rate source Observation Oxygen Delivery Method Room Air Blood Pressure (90/60-120/80) 145/73 H 156/86 H 152/67 H Blood Pressure Mean (mm Hg) 97 109 95 Source Monitor Monitor Monitor Position Semi-Fowlers Semi-Fowlers Sitting Blood Pressure Location Left Arm Right Arm Left Arm Comment History Since Last Visit- (Skip if this is Patient's initial visit) Have you changed medications since your No No No last visit? Any new allergies or adverse reactions No No No Had a fall/change in ADL's that may No No No increase risk of falls Signs or symptoms of abuse and/or No No No neglect since last visit Have you been in the hospital since your No No No last visit? Has dressing in place as prescribed Yes Yes Yes Has compression in place as prescribed N/A N/A No Has offloadiing in place as prescribed N/A N/A N/A Experienced any changes in pain level or No No No management Left Footwear Regular Shoe Regular Shoe Slipper Right Footwear Regular Shoe Regular Shoe Slipper Pain Scale: 0-10 Numeric Is Patient Pain Free? Yes Yes Yes 02/22/21 15:14 - Today's Visit Information Type of service Follow-up Visit (Physician/TURNING AND BEADING MACHINE OPERATOR ) Arrival Mode Ambulatory Transfer Assistance Stretcher Accompanied by Patient Identification Verified (Name & Yes ) Patient Requires Transmission-Based No Precautions Height and Weight Body Mass Index (BMI) 22.9 BMI Classification Normal Vital Signs Temperature (97.8 F-99.1 F) 99.4 F H Temperature Source Temporal Pulse Rate (60-100) 88 Pulse Location Monitor Respiratory Rate (12-18) 20 H Respiratory rate source Observation Oxygen Delivery Method Blood Pressure (90/60-120/80) 146/70 H Blood Pressure Mean (mm Hg) 95 Source Monitor Position Blood Pressure Location Comment Theraskin recheck today History Since Last Visit- (Skip if this is Patient's initial visit) Have you changed medications since your No last visit? Any new allergies or adverse reactions No Had a fall/change in ADL's that may No increase risk of falls Signs or symptoms of abuse and/or No neglect since last visit Have you been in the hospital since your No last visit? Has dressing in place as prescribed Yes Has compression in place as prescribed No Has offloadiing in place as prescribed N/A Experienced any changes in pain level or management Left Footwear Right Footwear Pain Scale: 0-10 Numeric Is Patient Pain Free? Yes - Nurse 1 - General Ulcer Measurement Start: 02/01/21 14:17 Freq: Status: Active Protocol: Activity Type Activity Date Activity User E-Sign Co-Sign Detail Recorded Client Recorded Date Recorded By Document 02/01/21 14:17 KR [id number] 02/01/21 14:20 KR Document 02/08/21 14:06 KR [id number] 02/08/21 14:12 KR Document 02/15/21 14:44 BM [id number] 02/15/21 14:48 BMF Document 02/22/21 15:14 DL [id number] 02/22/21 15:20 DL 02/01/21 02/08/21 02/15/21 14:17 14:06 14:44 Wound Center Nurse 1 #1 L Coleman -Combined with other wound No -Current Size (cm) - Length 0.1 0.1 0.1 -Current Size (cm) - Width 0.1 0.1 0.1 -Current Size (cm) - Depth 0.1 0.1 0.1 -Total Square Cm 0.01 0.01 0.01 -Photo Taken -Exudate Amt -Exudate Type -Wound Margin -Texture (Ayanna-wound Skin Appearance) Scarring Assessed -Moisture (Ayanna-wound Skin Appearance) Assessed -Color (Ayanna-wound Skin Appearance) Assessed -Temperature (Ayanna-wound Skin Appearance) -Tenderness on Palpation (Ayanna-wound Skin Appearance) -Ulcer Cleansing -Foul Odor after Cleansing Lower Limb Edema Present Yes Left Calf (cm) 36 Left Ankle (cm) 29.5 02/22/21 15:14 Wound Center Nurse 1 #1 L Coleman -Combined with other wound -Current Size (cm) - Length 0.1 -Current Size (cm) - Width 0.1 -Current Size (cm) - Depth 0.1 -Total Square Cm 0.01 -Photo Taken No -Exudate Amt Small -Exudate Type Serosanguineous -Wound Margin Distinct, Outline Attached -Texture (Ayanna-wound Skin Appearance) -Moisture (Ayanna-wound Skin Appearance) -Color (Ayanna-wound Skin Appearance) Hemosiderin Staining -Temperature (Ayanna-wound Skin No Abnormality Appearance) (Pt Warm) -Tenderness on Palpation (Ayanna-wound No Skin Appearance) -Ulcer Cleansing Wound Cleanser -Foul Odor after Cleansing No Lower Limb Edema Present Left Calf (cm) 33.8 Left Ankle (cm) 30.5 WC - Nurse 2 - General Ulcer CM Notes Start: 02/01/21 14:17 Freq: Status: Active Protocol: Activity Type Activity Date Activity User E-Sign Co-Sign Detail Recorded Client Recorded Date Recorded By Document 02/01/21 14:47 MW [id number] 02/01/21 14:49 MW Document 02/08/21 14:36 MW [id number] 02/08/21 14:43 MW Document 02/15/21 14:52 [id number] 02/15/21 15:05 JF Document 02/22/21 15:37 MW [id number] 02/22/21 15:38 MW 02/01/21 02/08/21 02/15/21 14:47 14:36 14:52 Wound Center Nurse 2 #1 L Coleman -Time 14:48 14:37 15:03 -Correct Patient Yes Yes Yes -Correct Side, Site, Position Yes Yes Yes -Correct Procedure Yes Yes Yes -Procedure Performed Yes Yes Yes -Type of Procedure Debridement Debridement Debridement -Clinical Debridement Subcutaneous Subcutaneous Subcutaneous -Tissue Removed Subcutaneous Subcutaneous Subcutaneous -Post Debridement (cm) - Length 2.3 1.9 2 -Post Debridement (cm) - Width 3.2 3.2 2.8 -Post Debridement (cm) - Depth 0.1 0.1 0.1 -Total Square (Post) (cm) 7.36 6.08 5.6 -Area of Debridement (cm) - Length 2.3 1.9 2 -Area of Debridement (cm) - Width 3.2 3.2 2.8 -Total Square (Area) (cm) 7.36 6.08 5.6 -Tunneling No No -Undermining/Tunneling No No No -Circular Undermining No No No -Wound/Ulcer Outcome Not Healed Not Healed Not Healed -Ulcer Cleansing Rinsed/ Rinsed/ Rinsed/ Irrigated with Irrigated with Irrigated with Saline Saline Saline -Foul Odor after Cleansing No No No -Bioengineered Tissue Yes Yes Yes -Type of Bioengineered Tissue Theraskin Theraskin Theraskin -Expiration Date 04/11/24 08/12/24 08/14/24 -Product Lot Number [id number] -Percent Used 100 100 100 -Lot number of Saline Used [id number] -Bleeding Controlled with Pressure Pressure Pressure -Offloading No No No -Treatment Response Procedure Procedure Procedure Tolerated Well Tolerated Well Tolerated Well -Debridement - Subq, 1st 20sq cm No No No -Apply Skin Sub - 1st 25 sq cm - Legs 1 1 1 -Theraskin (per sq cm) 13 6 6 Pain Scale: 0-10 Numeric Is Patient Pain Free? Yes Yes Yes 02/22/21 15:37 Wound Center Nurse 2 #1 L Coleman -Time 15:37 -Correct Patient Yes -Correct Side, Site, Position Yes -Correct Procedure Yes -Procedure Performed No -Type of Procedure -Clinical Debridement -Tissue Removed -Post Debridement (cm) - Length -Post Debridement (cm) - Width -Post Debridement (cm) - Depth -Total Square (Post) (cm) -Area of Debridement (cm) - Length -Area of Debridement (cm) - Width -Total Square (Area) (cm) -Tunneling No -Undermining/Tunneling No -Circular Undermining No -Wound/Ulcer Outcome Not Healed -Ulcer Cleansing -Foul Odor after Cleansing -Bioengineered Tissue -Type of Bioengineered Tissue -Expiration Date -Product Lot Number -Percent Used -Lot number of Saline Used -Bleeding Controlled with -Offloading -Treatment Response -Debridement - Subq, 1st 20sq cm -Apply Skin Sub - 1st 25 sq cm - Legs -Theraskin (per sq cm) Pain Scale: 0-10 Numeric Is Patient Pain Free? Yes - Nurse 3 - General Ulcer D/C NN Start: 02/01/21 14:17 Freq: Status: Active Protocol: Activity Type Activity Date Activity User E-Sign Co-Sign Detail Recorded Client Recorded Date Recorded By Document 02/01/21 15:10 AK [id number] 02/01/21 15:12 AK Document 02/08/21 15:12 DL [id number] 02/08/21 15:13 DL Document 02/15/21 15:15 AK [id number] 02/15/21 15:17 AK Document 02/22/21 15:48 [facility] [id number] 02/22/21 15:48 [facility] 02/01/21 02/08/21 02/15/21 15:10 15:12 15:15 Wound Care Nurse 3 #1 L Coleman -Ulcer Cleansing Not Cleansed -Foul Odor after Cleansing No No -Primary Dressing Applied -Other Dressing Theraskin -Primary Dressing Covered/Secured with Dry Gauze & Dry Gauze & Roll Gauze, Roll Gauze, Secured with Secured with Tape Tape Right -Compression Wrap Surepress ($) Surepress ($) -Other stockinette 1st left leg -Lotion applied to leg before No compression wrap -Compression Wrap Surepress ($) Surepress ($) -Tubular Bandage Double Layer -Size of Tubigrip Used Size D -Size D ($) 1 -Other stockinette 1st Treatment Response Procedure Tolerated Well Pain Scale: 0-10 Numeric Is Patient Pain Free? Yes WC - Visit Discharge Discharge Condition Unstable Stable Stable Ambulatory Status Ambulatory,Cane Ambulatory, Ambulatory Walker Transportation Private Auto Accompanied by Medication Reconcilliation completed & No provided to patient/care provider Clinical Summary of Care Provided Yes Yes Facility Type Home Health Orders Sent Yes 02/22/21 15:48 Wound Care Nurse 3 #1 L Coleman -Ulcer Cleansing -Foul Odor after Cleansing -Primary Dressing Applied Other -Other Dressing theraskin left intact -Primary Dressing Covered/Secured with Dry Gauze & Roll Gauze, Secured with Tape Right -Compression Wrap -Other left leg -Lotion applied to leg before compression wrap -Compression Wrap Surepress ($) -Tubular Bandage -Size of Tubigrip Used -Size D ($) -Other Treatment Response Procedure Tolerated Well Pain Scale: 0-10 Numeric Is Patient Pain Free? Yes WC - Visit Discharge Discharge Condition Stable Ambulatory Status Ambulatory, Walker Transportation Private Auto Accompanied by girlfriend Medication Reconcilliation completed & provided to patient/care provider Clinical Summary of Care Provided Facility Type Orders Sent Wound debrided: Left lateral distal LE below the knee Laterality: Left Type of Debridement: Excisional debridement Anesthesia Used: 4% Lidocaine Solution Depth: Down to and including healthy tissue Percentage of wound debrided: 100 Tissue Removed: the remaining Theraskin and biofilm Severity: Limited To Skin Breakdown Amount of bleeding with debridement: Mild Bleeding Controlled with: Pressure Patient tolerated procedure: Patient tolerated procedure well Operative Diagnosis: delayed healing of surgical wound due to I&D of abscess Assessment/Plan Assessment/Plan (1) Cirrhosis: CODE(S): K74.60 - Unspecified cirrhosis of liver (2) Surgical wound, non healing: CODE(S): T81.89XA - Other complications of procedures, not elsewhere classified, initial encounter QUALIFIERS: Encounter type: subsequent encounter Qualified Code(s): T81.89XD - Other complications of procedures, not elsewhere classified, subsequent encounter (3) Pancytopenia: CODE(S): D61.818 - Other pancytopenia (4) Leg edema: CODE(S): R60.0 - Localized edema (5) Venous insufficiency of both lower extremities: CODE(S): I87.2 - Venous insufficiency (chronic) (peripheral) (6) Seborrheic dermatitis: CODE(S): L21.9 - Seborrheic dermatitis, unspecified PLAN: 1. Theraskin applied to the wound. He will return in 1 week for a recheck. He will call me if he has F/C/S, increased pain or increased redness of the leg. 2. BMP and mag today 3. continue the Lasix and the Aldactone 4. He has an appt with Dr. Snider tomorrow and I will send a copy of today's note when finished. 5. He is persistently pancytopenic.......why? due to cirrhosis? occult malignancy? HIV? Will defer w/U to Dr. Snider. 6. Ketaconazol/hydrocortisone cream to the reddened areas with yellow scales on the eyebrows and the nasolabial folds BID
[2021-03-01 17:26] LABS: Anion Gap 4 (5-15); BUN 10 mg/dL (7-18); BUN/Creat Ratio 12.6 RATIO (10-20); Chloride 109 mmol/L (98-107); Creatinine, Serum 0.79 mg/dL (0.70-1.30); EST Glomerular Filtration Rate 103 mL/min (>60); Est Glom Filt Rate - Afr Amer 125 mL/min (>60); Estimated Creatinine Clearance 76.52 ml/min; Glucose 92 mg/dL (74-106); Magnesium 2.1 mg/dL (1.6-2.6); Potassium 4.3 mmol/L (3.5-5.1); Sodium Level 140 mmol/L (136-145)
== END 2021-03-01 23:59 ==
LOC: WC 14:15
PROVIDERS: PCP Student in an Organized Health Care Education/Training Program; Referring Provider Student in an Organized Health Care Education/Training Program; Visit Provider Internal Medicine
DX: T81.89XA Other complications of procedures, not elsewhere classified, initial encounter (principal); I87.2 Venous insufficiency (chronic) (peripheral); S81.802A Unspecified open wound, left lower leg, initial encounter; W22.09XA Striking against other stationary object, initial encounter; Y93.9 Activity, unspecified; Y92.003 Bedroom of unspecified non-institutional (private) residence as the place of occurrence of the external cause; Y99.9 Unspecified external cause status; R60.0 Localized edema; M25.462 Effusion, left knee; D61.818 Other pancytopenia; E88.09 Other disorders of plasma-protein metabolism, not elsewhere classified; K74.60 Unspecified cirrhosis of liver; I10 Essential (primary) hypertension; M06.9 Rheumatoid arthritis, unspecified; L21.9 Seborrheic dermatitis, unspecified; Z79.899 Other long term (current) drug therapy; Z87.891 Personal history of nicotine dependence; Z86.14 Personal history of Methicillin resistant Staphylococcus aureus infection
CPT/HCPCS: 11042; 15271; 36415; 80048; 82040; 83735; 99213; Q4121; G0463

== ENCOUNTER 2021-03-22 14:15 | Outpatient (RCR) | payer MEDICARE, SELFPAY ==
[2021-03-02 00:36] VITALS: BP 130/69; PULSE 86; RESP 20; TEMP 37.4; BMI 22.9
[2021-03-08 15:13] VITALS: BP 136/69; PULSE 68; TEMP 37.2; BMI 22.9
--- NOTE | 2021-03-08 16:12 | PCM.WC.PN ---
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 It became red, warm to touch and painful. He was admitted to [facility] but, signed out AMA the next day because the doctor never came in and they never applied a dressing to the wound. Prior to the recent admission to the hospital he had not seen a physician in 30 years. He was seen at [facility] on 12/02 and 12/09 and was initially on Augmentin and doxycycline but when it was getting worse the Doxycycline was discontinued and he was started on Bactrim. While in the hospital he had pancytopenia and his PLT count was 87,000. HGB on 12/02 was 12.8 and the WBC was 4.6. The MCV was 102.5. Creatinine was within normal limits and the GFR was 87. Folate and B12 were within normal limits. He had a culture of the wound that grew MRSA. He is scheduled for an MRI next week or the week after. He has been taking Alleve and Tylenol for pain. He tells me that both his legs have been swollen for about a year now. His EF at [facility] on ECHO is normal and he had LVH. The clinic put him on Lasix and the swelling in the R leg is better. He had venous US's and there were no clots per the patient and his significant other. He had a liver US this week.....I have no results for this. [facility] with a temp of 99.3. The BP is 169/80 and he is tachycardic with a HR of 109. The LLE is more swollen than the R. There is erythema and increased warmth to touch of the LLE. He also has a swollen L knee and there is an effusion. The knee is not red but it is warm to touch. There is a wound at approximately mid calf and there is tunneling and undermining of this wound laterally. I was able to express a considerable amount of creamy pus from the wound and aerobic and anaerobic cultures were sent to the lab. I explained that I did not feel ?Bactrim was an adequate tx for this wound at this time and I recommended admission to [facility] and he was agreeable. I spoke with Dr. Burris who is the admitting hospitalist and he will accept the pt onto the hospitalist service. Subjective Subjective Branden returns to the [facility] today for a follow up visit on the non-healing surgical site of I&D of an abscess. Branden denies fever/chills/shaking chills. He currently has a Tegaderm in place that was applied last week. The steri strips and the Adaptic touch were removed and the wound was examined. The Tegaderm is in good position and we elected to leave the dressing in place for another week. He is not c/o pain and the swelling in his legs is much better since the Aldactone was added to the daily Lasix. Objective Data Objective Data Vital Signs: Vital Signs Temp Pulse Resp BP 98.9 F 68 20 H 136/69 H 03/08/21 15:13 03/08/21 15:13 03/02/21 00:36 03/08/21 15:13 Weight: 188 lb 7.504 oz Body Mass Index (BMI) 22.9 Charges/Coding Visit Charges Office Visits / Consults: 74670 OV L2 Est Physical Exam Skin Wound Narrative: There are 2 wounds on the LLE. The wound we have been treating with Tegaderm on the lateral upper portion of the calf is covered with covered with Theraskin and the Tegaderm remains in good poistion. There is no increased warmth to touch in the area and no significant erythema. No maceration. the wound on the distal lateral sanchez is healing with no evidence of infection, no DC and no erythema. The pitting edema is pretty much limited to the feet and ankles today and he had no pitting over the pretibial area. Debridement Note Debridement Note No debridement was completed: No debridement was completed today Post-Debridement Measurements and Additional Note: Post-Debridement Measurements/Treatment WC - Nurse 1 - General Ulcer Assessment Start: 03/08/21 15:12 Freq: Status: Active Protocol: RO.LOWEXT Activity Type Activity Date Activity User E-Sign Co-Sign Detail Recorded Client Recorded Date Recorded By Document 03/08/21 15:13 AK [id number] 03/08/21 15:17 AK 03/08/21 15:13 WC - Today's Visit Information Type of service Follow-up Visit (Physician/CALCINE FURNACE TENDER ) Arrival Mode Ambulatory, Walker Patient Identification Verified (Name & No ) Patient Requires Transmission-Based No Precautions Safety Precautions NA Height and Weight Body Mass Index (BMI) 22.9 BMI Classification Normal Vital Signs Temperature (97.8 F-99.1 F) 98.9 F Temperature Source Temporal Pulse Rate (60-100) 68 Pulse Location Monitor Blood Pressure (90/60-120/80) 136/69 H Blood Pressure Mean (mm Hg) 91 Source Monitor History Since Last Visit- (Skip if this is Patient's initial visit) Have you changed medications since your No last visit? Any new allergies or adverse reactions No Had a fall/change in ADL's that may No increase risk of falls Signs or symptoms of abuse and/or No neglect since last visit Have you been in the hospital since your No last visit? Has dressing in place as prescribed Yes Has compression in place as prescribed Yes Has offloadiing in place as prescribed N/A Experienced any changes in pain level or No management Left Footwear Regular Shoe Right Footwear Regular Shoe - Nurse 2 - General Ulcer CM Notes Start: 03/08/21 15:12 Freq: Status: Active Protocol: Activity Type Activity Date Activity User E-Sign Co-Sign Detail Recorded Client Recorded Date Recorded By Document 03/08/21 15:51 MW [id number] 03/08/21 15:54 MW 03/08/21 15:51 Wound Center Nurse 2 #2 Left sanchez inferior / lateral -Time 15:52 -Correct Patient Yes -Correct Side, Site, Position Yes -Correct Procedure Yes -Procedure Performed No -Tunneling No -Undermining/Tunneling No -Circular Undermining No -Wound/Ulcer Outcome Not Healed #1 L Sanchez -Time 15:53 -Correct Patient Yes -Correct Side, Site, Position Yes -Correct Procedure Yes -Procedure Performed No -Tunneling No -Undermining/Tunneling No -Circular Undermining No -Wound/Ulcer Outcome Not Healed Pain Scale: 0-10 Numeric Is Patient Pain Free? Yes - Nurse 3 - General Ulcer D/C NN Start: 03/08/21 15:12 Freq: Status: Active Protocol: Activity Type Activity Date Activity User E-Sign Co-Sign Detail Recorded Client Recorded Date Recorded By Document 03/08/21 16:07 [facility] [id number] 03/08/21 16:07 [facility] 03/08/21 16:07 Wound Care Nurse 3 #2 Left sanchez inferior / lateral -Other Dressing theraskin -Primary Dressing Covered/Secured with Dry Gauze & Roll Gauze, Secured with Tape #1 L Sanchez -Other Dressing theraskin -Primary Dressing Covered/Secured with Dry Gauze & Roll Gauze, Secured with Tape Left -Compression Wrap Surepress ($) -Other stockinette to protect skin Treatment Response Procedure Tolerated Well Pain Scale: 0-10 Numeric Is Patient Pain Free? Yes WC - Visit Discharge Discharge Condition Stable Ambulatory Status Ambulatory, Walker Transportation Private Auto Accompanied by girlfriend Assessment/Plan Assessment/Plan (1) Surgical wound, non healing: CODE(S): T81.89XA - Other complications of procedures, not elsewhere classified, initial encounter QUALIFIERS: Encounter type: subsequent encounter Qualified Code(s): T81.89XD - Other complications of procedures, not elsewhere classified, subsequent encounter (2) Seborrheic dermatitis: CODE(S): L21.9 - Seborrheic dermatitis, unspecified PLAN: 1. the seborrheic dermatitis is healed. 2. RTC in 1 week for removal of the Tegaderm and follow up 3. Call me or the [facility] if any F/S/C or if there is increased swelling, pain or redness.
[2021-03-15 14:47] VITALS: BMI 22.9
--- NOTE | 2021-03-15 15:33 | PCM.WC.PN ---
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 It became red, warm to touch and painful. He was admitted to [facility] but, signed out AMA the next day because the doctor never came in and they never applied a dressing to the wound. Prior to the recent admission to the hospital he had not seen a physician in 30 years. He was seen at [facility] on 12/02 and 12/09 and was initially on Augmentin and doxycycline but when it was getting worse the Doxycycline was discontinued and he was started on Bactrim. While in the hospital he had pancytopenia and his PLT count was 87,000. HGB on 12/02 was 12.8 and the WBC was 4.6. The MCV was 102.5. Creatinine was within normal limits and the GFR was 87. Folate and B12 were within normal limits. He had a culture of the wound that grew MRSA. He is scheduled for an MRI next week or the week after. He has been taking Alleve and Tylenol for pain. He tells me that both his legs have been swollen for about a year now. His EF at [facility] on ECHO is normal and he had LVH. The clinic put him on Lasix and the swelling in the R leg is better. He had venous US's and there were no clots per the patient and his significant other. He had a liver US this week.....I have no results for this. Branden [facility] today with a temp of 99.3. The BP is 169/80 and he is tachycardic with a HR of 109. The LLE is more swollen than the R. There is erythema and increased warmth to touch of the LLE. He also has a swollen L knee and there is an effusion. The knee is not red but it is warm to touch. There is a wound at approximately mid calf and there is tunneling and undermining of this wound laterally. I was able to express a considerable amount of creamy pus from the wound and aerobic and anaerobic cultures were sent to the lab. I explained that I did not feel ?Bactrim was an adequate tx for this wound at this time and I recommended admission to [facility] and he was agreeable. I spoke with Dr. Burris who is the admitting hospitalist and he will accept the pt onto the hospitalist service. Jamel Otero returns to the wound care center today for a follow-up visit on a nonhealing surgical wound on the left lower extremity. He has a second wound distal to the previous wound which was due to hitting his leg on a door. He denies fevers, shaking chills and sweats. His legs have been swelling more with the heat. He does not know who made the diagnosis of cirrhosis as the cause of the BL LE edema. He has been trying to get an appt with a station cleaning porter but no one calls him back. Objective Data Objective Data Vital Signs: Vital Signs Temp Pulse Resp BP 98.9 F 68 20 H 136/69 H 03/08/21 15:13 03/08/21 15:13 03/02/21 00:36 03/08/21 15:13 Weight: 188 lb 7.504 oz Body Mass Index (BMI) 22.9 Charges/Coding Procedures Integumentary [id number]: [id number] Jasmin subq tissue 20 sq cm/< Physical Exam Extremity Extremity Narrative: He has deeply pitting edema of both LE's. Skin Wound Narrative: The distal wound on the L leg is completely healed. The Proximal wound is 0.1 cm in diameter. there is no increased warmth to touch and no DC. Debridement Note Debridement Note Wound debrided: non-healing surgical wound secondary to I&D of a MRSA abscess Laterality: Left Type of Debridement: Excisional debridement Anesthesia Used: 5% Lidocaine Gel Depth: Down to and including healthy tissue and in the subcutaneous layer Percentage of wound debrided: 100 Instrument Used: Forceps Tissue Removed: the old Theraskin was debrided off and the biofilm Severity: Limited To Skin Breakdown Amount of bleeding with debridement: Mild Bleeding Controlled with: Pressure Patient tolerated procedure: Patient tolerated procedure well Operative Diagnosis: non-healing surgical wound on the left leg Post-Debridement Measurements and Additional Note: Post-Debridement Measurements/Treatment - Nurse 1 - General Ulcer Assessment Start: 03/08/21 15:12 Freq: Status: Active Protocol: RAZ Activity Type Activity Date Activity User E-Sign Co-Sign Detail Recorded Client Recorded Date Recorded By Document 03/08/21 15:13 AK [id number] 03/08/21 15:17 AK Document 03/15/21 14:47 DL [id number] 03/15/21 14:51 DL 03/08/21 03/15/21 15:13 14:47 - Today's Visit Information Type of service Follow-up Visit Follow-up Visit (Physician/CLEANER [employer]ORAT[employer] EQUIPMENT (Physician/CLEANER [employer]ORAT[employer] EQUIPMENT ) ) Arrival Mode Ambulatory, Ambulatory Walker Transfer Assistance None Patient Identification Verified (Name & No Yes ) Patient Requires Transmission-Based No No Precautions Safety Precautions NA Height and Weight Body Mass Index (BMI) 22.9 22.9 BMI Classification Normal Normal Vital Signs Temperature (97.8 F-99.1 F) 98.9 F Temperature Source Temporal Pulse Rate (60-100) 68 Pulse Location Monitor Blood Pressure (90/60-120/80) 136/69 H Blood Pressure Mean (mm Hg) 91 Source Monitor History Since Last Visit- (Skip if this is Patient's initial visit) Have you changed medications since your No No last visit? Any new allergies or adverse reactions No No Had a fall/change in ADL's that may No No increase risk of falls Signs or symptoms of abuse and/or No No neglect since last visit Have you been in the hospital since your No No last visit? Has dressing in place as prescribed Yes Yes Has compression in place as prescribed Yes Yes Has offloadiing in place as prescribed N/A N/A Experienced any changes in pain level or No No management Left Footwear Regular Shoe Right Footwear Regular Shoe Pain Scale: 0-10 Numeric Is Patient Pain Free? Yes - Nurse 1 - General Ulcer Measurement Start: 03/08/21 15:12 Freq: Status: Active Protocol: Activity Type Activity Date Activity User E-Sign Co-Sign Detail Recorded Client Recorded Date Recorded By Document 03/15/21 14:47 DL [id number] 03/15/21 14:51 DL 03/15/21 14:47 Wound Center Nurse 1 #2 Left coleman inferior / lateral -Current Size (cm) - Length 0.1 -Current Size (cm) - Width 0.1 -Current Size (cm) - Depth 0.1 -Total Square Cm 0.01 -Photo Taken No -Exudate Amt None Present -Wound Margin Indistinct, Non -Visible -Granulation Amt None Present (0 %) -Necrosis Amt None Present (0 %) -Structure Exposed N/A -Texture (Ayanna-wound Skin Appearance) Scarring -Moisture (Ayanna-wound Skin Appearance) No Abnormality -Color (Ayanna-wound Skin Appearance) No Abnormality -Temperature (Ayanna-wound Skin No Abnormality Appearance) (Pt Warm) -Tenderness on Palpation (Ayanna-wound No Skin Appearance) -Ulcer Cleansing Wound Cleanser -Foul Odor after Cleansing Yes, Due to Product Use -Anesthetic Used 5% Lidocaine Gel #1 L Coleman -Current Size (cm) - Length 1 -Current Size (cm) - Width 2 -Current Size (cm) - Depth 0.1 -Total Square Cm 2 -Photo Taken No -Exudate Amt Small -Exudate Type Serosanguineous -Wound Margin Indistinct, Non -Visible -Granulation Amt None Present (0 %) -Necrosis Amt None Present (0 %) -Structure Exposed N/A -Texture (Ayanna-wound Skin Appearance) Scarring -Moisture (Ayanna-wound Skin Appearance) No Abnormality -Color (Ayanna-wound Skin Appearance) No Abnormality -Temperature (Ayanna-wound Skin No Abnormality Appearance) (Pt Warm) -Tenderness on Palpation (Ayanna-wound No Skin Appearance) -Ulcer Cleansing Wound Cleanser -Foul Odor after Cleansing No -Anesthetic Used 5% Lidocaine Gel Left Calf (cm) 34.5 Left Ankle (cm) 29.4 WC - Nurse 2 - General Ulcer CM Notes Start: 03/08/21 15:12 Freq: Status: Active Protocol: Activity Type Activity Date Activity User E-Sign Co-Sign Detail Recorded Client Recorded Date Recorded By Document 03/08/21 15:51 MW [id number] 03/08/21 15:54 MW Document 03/15/21 14:57 MW [id number] 03/15/21 15:01 MW 03/08/21 03/15/21 15:51 14:57 Wound Center Nurse 2 #2 Left coleman inferior / lateral -Time 15:52 14:59 -Correct Patient Yes Yes -Correct Side, Site, Position Yes Yes -Correct Procedure Yes Yes -Procedure Performed No No -Post Debridement (cm) - Length 0 -Post Debridement (cm) - Width 0 -Post Debridement (cm) - Depth 0 -Total Square (Post) (cm) 0 -Tunneling No -Undermining/Tunneling No -Circular Undermining No -Wound/Ulcer Outcome Not Healed Healed- Epithelialized #1 L Coleman -Time 15:53 15:00 -Correct Patient Yes Yes -Correct Side, Site, Position Yes Yes -Correct Procedure Yes Yes -Procedure Performed No Yes -Type of Procedure Debridement -Clinical Debridement Subcutaneous -Tissue Removed Subcutaneous -Post Debridement (cm) - Length 0.1 -Post Debridement (cm) - Width 0.1 -Post Debridement (cm) - Depth 0.1 -Total Square (Post) (cm) 0.01 -Area of Debridement (cm) - Length 0.1 -Area of Debridement (cm) - Width 0.1 -Total Square (Area) (cm) 0.01 -Tunneling No No -Undermining/Tunneling No No -Circular Undermining No No -Wound/Ulcer Outcome Not Healed Not Healed -Ulcer Cleansing Rinsed/ Irrigated with Saline -Foul Odor after Cleansing No -Bioengineered Tissue No -Bleeding Controlled with Pressure -Offloading No -Treatment Response Procedure Tolerated Well -Debridement - Subq, 1st 20sq cm Yes Pain Scale: 0-10 Numeric Is Patient Pain Free? Yes Yes - Nurse 3 - General Ulcer D/C NN Start: 03/08/21 15:12 Freq: Status: Active Protocol: Activity Type Activity Date Activity User E-Sign Co-Sign Detail Recorded Client Recorded Date Recorded By Document 03/08/21 16:07 [facility] [id number] 03/08/21 16:07 [facility] Document 03/15/21 15:08 [facility] [id number] 03/15/21 15:09 [facility] 03/08/21 03/15/21 16:07 15:08 Wound Care Nurse 3 #2 Left coleman inferior / lateral -Other Dressing theraskin -Primary Dressing Covered/Secured with Dry Gauze & Roll Gauze, Secured with Tape #1 L Coleman -Ulcer Cleansing Rinsed/ Irrigated with Saline -Foul Odor after Cleansing No -Primary Dressing Applied NonAdherent Contact Layer -Other Dressing theraskin drsg per ak extension course counselor -Primary Dressing Covered/Secured with Dry Gauze & Dry Gauze & Roll Gauze, Roll Gauze, Secured with Secured with Tape Tape Left -Compression Wrap Surepress ($) Surepress ($) -Other stockinette to protect skin Treatment Response Procedure Tolerated Well Pain Scale: 0-10 Numeric Is Patient Pain Free? Yes Yes WC - Visit Discharge Discharge Condition Stable Stable Ambulatory Status Ambulatory, Ambulatory, Walker Walker Transportation Private Auto Private Auto Accompanied by girlfriend girlfriend Assessment/Plan Assessment/Plan (1) Surgical wound, non healing: CODE(S): T81.89XA - Other complications of procedures, not elsewhere classified, initial encounter QUALIFIERS: Encounter type: subsequent encounter Qualified Code(s): T81.89XD - Other complications of procedures, not elsewhere classified, subsequent encounter PLAN: The proximal wound on the LLE is nearly healed. The more distal wound is healed. (2) Pancytopenia: CODE(S): D61.818 - Other pancytopenia PLAN: I do not think he has been evaluated for this. (3) Cirrhosis: CODE(S): K74.60 - Unspecified cirrhosis of liver PLAN: I do not know who made this diagnosis or how the diagnosis was made. Branden can not tell me. Bili is normal and the AST is mildly increased at 104 with a SLT of 57. AP was 149. No Pt was checked. He has not had hepatitis serology at this institution. He has not had any imaging of the abd/liver at [facility]. There is no record of a liver biopsy and Branden denies. He has no hx of CHF and to his knowledge he has no pulmonary HTN. He has RA but this is not currently being treated although I have encouraged him to follow up with the [facility] in [place]. I am going to refer him to Dr. Díaz who is a station cleaning porter who recently started at [facility]. (4) Leg edema: CODE(S): R60.0 - Localized edema PLAN: Etiology of this is uncertain at this time. I started him on Lasix and Aldactone he is supposed to be wearing compression stockings but he is no real consistent with this. Will consider a venous study of the LE's to r/o incompetent valves. (5) Seborrheic dermatitis: CODE(S): L21.9 - Seborrheic dermatitis, unspecified PLAN: Resolved with Ketoconazole.
[2021-03-22 14:19] VITALS: BP 143/69; PULSE 78; RESP 16; TEMP 36.3; BMI 22.9
--- NOTE | 2021-03-22 15:28 | PCM.WC.PN ---
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 It became red, warm to touch and painful. He was admitted to [facility] but, signed out AMA the next day because the doctor never came in and they never applied a dressing to the wound. Prior to the recent admission to the hospital he had not seen a physician in 30 years. He was seen at [facility] on 12/02 and 12/09 and was initially on Augmentin and doxycycline but when it was getting worse the Doxycycline was discontinued and he was started on Bactrim. While in the hospital he had pancytopenia and his PLT count was 87,000. HGB on 12/02 was 12.8 and the WBC was 4.6. The MCV was 102.5. Creatinine was within normal limits and the GFR was 87. Folate and B12 were within normal limits. He had a culture of the wound that grew MRSA. He is scheduled for an MRI next week or the week after. He has been taking Alleve and Tylenol for pain. He tells me that both his legs have been swollen for about a year now. His EF at [facility] on ECHO is normal and he had LVH. The clinic put him on Lasix and the swelling in the R leg is better. He had venous US's and there were no clots per the patient and his significant other. He had a liver US this week.....I have no results for this. [facility] with a temp of 99.3. The BP is 169/80 and he is tachycardic with a HR of 109. The LLE is more swollen than the R. There is erythema and increased warmth to touch of the LLE. He also has a swollen L knee and there is an effusion. The knee is not red but it is warm to touch. There is a wound at approximately mid calf and there is tunneling and undermining of this wound laterally. I was able to express a considerable amount of creamy pus from the wound and aerobic and anaerobic cultures were sent to the lab. I explained that I did not feel ?Bactrim was an adequate tx for this wound at this time and I recommended admission to [facility] and he was agreeable. I spoke with Dr. Burris who is the admitting hospitalist and he will accept the pt onto the hospitalist service. Subjective Subjective He denies F/C/S. He denies pain in the LLE. His legs and feet are swollen. He has been taking Lasix and Aldactone everyday except when he comes to [facility]. They have called Dr. Díaz's office and are awaiting a call back about an appt to be evaluated for cirrhosis. HE will not wear the Surepres wraps but he is compliant with the Tubigrips. Objective Data Objective Data Vital Signs: Vital Signs Temp Pulse Resp BP 97.3 F L 78 16 143/69 H 03/22/21 14:19 03/22/21 14:19 03/22/21 14:19 03/22/21 14:19 Oxygen Delivery Method Room Air Weight: 188 lb 7.504 oz Body Mass Index (BMI) 22.9 Charges/Coding Visit Charges Office Visits / Consults: 41694 OV L2 Est Physical Exam Skin Wound Narrative: The wound on the distal LLE remains healed. the proximal wound is now healed as well. Debridement Note Debridement Note No debridement was completed: No debridement was completed today Assessment/Plan Assessment/Plan (1) Surgical wound, non healing: CODE(S): T81.89XA - Other complications of procedures, not elsewhere classified, initial encounter QUALIFIERS: Encounter type: subsequent encounter Qualified Code(s): T81.89XD - Other complications of procedures, not elsewhere classified, subsequent encounter PLAN: The wound is healed. We discussed the different options for compression and he has chosen to wear double layer Tubigrips BL. He will call me or schedule an appt if there is any breakdown and he knows that he needs to be very careful with that area as the skin is still fragile.
== END 2021-03-22 15:04 | disposition home or self-care (01) ==
LOC: WC 14:15
PROVIDERS: PCP Student in an Organized Health Care Education/Training Program; Referring Provider Student in an Organized Health Care Education/Training Program; Visit Provider Internal Medicine
DX: T81.89XA Other complications of procedures, not elsewhere classified, initial encounter (principal); R60.0 Localized edema; L21.9 Seborrheic dermatitis, unspecified; M25.462 Effusion, left knee; S80.812A Abrasion, left lower leg, initial encounter; W18.09XA Striking against other object with subsequent fall, initial encounter; Y93.9 Activity, unspecified; Y92.9 Unspecified place or not applicable; Y99.9 Unspecified external cause status; K74.60 Unspecified cirrhosis of liver; D61.818 Other pancytopenia; I10 Essential (primary) hypertension; Z79.899 Other long term (current) drug therapy; Z87.891 Personal history of nicotine dependence; Z86.14 Personal history of Methicillin resistant Staphylococcus aureus infection
CPT/HCPCS: 11042; 99213; G0463

== ENCOUNTER 2021-09-06 08:35 | Outpatient (CLI) | payer MEDICARE, MEDICAID, SELFPAY ==
--- NOTE | 2021-09-06 08:38 | US_ITS ---
STUDY: ABDOMINAL ULTRASOUND - RIGHT UPPER QUADRANT REASON FOR VISIT: Male, 71 years old LIVER CIRRHOSIS -- ATTN: LIVER, SPLEEN TECHNIQUE: Ultrasound evaluation of the right upper quadrant was performed with real-time and static walter-scale imaging. TECHNICAL QUALITY: Adequate. COMPARISON: None. FINDINGS: Liver: The liver is upper limits of normal and measures 17.9 cm. There is increased echogenicity consistent with fatty infiltration. The bile ducts are within normal limits. There is hepatic color flow. The direction of portal flow is hepatopetal. There is no demonstrated mass lesion. Gallbladder: There is a distended gallbladder. The gallbladder wall measures 2.8 mm. There is a negative sonographic Aviles''s sign. There is no pericholecystic fluid. There are no gallstones. There is a 5 mm gallbladder polyp adherent to the gallbladder wall. Common Bile Duct (C.B.D.): The common bile duct measures 4.5 mm. Pancreas: Normal size of the head, body and tail of the pancreas. There is normal echogenicity of the pancreas. There is no demonstrated pancreatic mass or cyst. Right Kidney: Normal size of the right kidney. The right kidney measures 11.5 cm x 6.9 cm x 5.6 cm. Normal renal cortex. The right cortex measures 1.5 cm. There is no demonstrated renal mass or cyst. There is no right hydronephrosis. US/Abdomen Limited IMPRESSION: The liver measures upper limits of normal. Fatty infiltration of the liver. Distended gallbladder. 5 mm gallbladder polyp. Electronically Signed: Francis Lucero MD at 13:07 EST ,
--- NOTE | 2021-09-06 08:38 | US_ITS ---
STUDY: ABDOMINAL ULTRASOUND - left UPPER QUADRANT REASON FOR VISIT: Male, 71 years old CIRRHOSIS TECHNIQUE: Ultrasound evaluation of the right upper quadrant was performed with real-time and static walter-scale imaging. TECHNICAL QUALITY: Adequate. COMPARISON: None. FINDINGS: Spleen: There is evidence of a splenomegaly. The spleen measures 16.1 cm x 7.3 cm x 5.9 cm. Left Kidney: Normal size of the left kidney. The left kidney measures 12.5 cm x 6 cm x 6.5 cm. Normal renal cortex. The left cortex measures 2.4 cm. There is no demonstrated renal mass or cyst. There is no left hydronephrosis. US/Spleen IMPRESSION: Splenomegaly. Electronically Signed: Francis Lucero MD at 13:05 EST ,
== END 2021-09-06 23:59 | disposition home or self-care (01) ==
PROVIDERS: PCP Student in an Organized Health Care Education/Training Program; Referring Provider Internal Medicine Hematology & Oncology; Visit Provider Internal Medicine Hematology & Oncology
DX: K74.60 Unspecified cirrhosis of liver (principal)
CPT/HCPCS: 76705

== ENCOUNTER → 2021-09-12 15:55 | Outpatient (CLI) | payer MEDICARE, SELFPAY | PROVIDERS: PCP Student in an Organized Health Care Education/Training Program | DX: R97.20 Elevated prostate specific antigen [PSA] (principal) | CPT/HCPCS: 36415; 84153 ==

== ENCOUNTER → 2022-08-29 | Outpatient (CLI) | payer MEDICARE, SELFPAY ==
[2022-08-29 12:29] LABS: Hematocrit 34.8 % (40-54); Hemoglobin 11.4 g/dL (13.0-16.5); Mean Corp Hgb Conc 32.8 g/dL (32-36); Mean Corpuscular Hgb 33.3 pg (27.0-32.0); Mean Corpuscular Volume 101.8 fL (80-94); Mean Platelet Vol. 10.5 fl (6.2-12.0); POSITIVE COUNT YES; Platelet Count 59 K/mm3 (150-450); RBC Distribution Width CV 14.6 % (11.6-14.6); RBC Distribution Width SD 54.7 fl (35.1-43.9); Red Blood Count 3.42 M/mm3 (4.6-6.2); White Blood Count 4.3 K/mm3 (4.4-11.0)
[2022-08-29 12:33] LABS: ALB/GLOB Ratio 0.4 RATIO (0.9-2.4); AST(SGOT) 74 U/L (15-37); Alanine Aminotransfer ALT/SGPT 47 U/L (16-61); Albumin, Serum 1.9 g/dL (3.2-5.0); Alkaline Phosphatase 77 U/L (45-117); Anion Gap 3 (5-15); BUN 10 mg/dL (7-18); Calcium,Total 8.3 mg/dL (8.5-10.1); Chloride 111 mmol/L (98-107); Creatinine, Serum 0.71 mg/dL (0.70-1.30); EST Glomerular Filtration Rate 116 mL/min (>60); Est Glom Filt Rate - Afr Amer 140 mL/min (>60); Globulin 4.7 g/dL (2.2-4.2); Glucose 121 mg/dL (74-106); Protein, Total 6.6 g/dL (6.4-8.2); Scan Indicated on CBC? Y/N NO; Sodium Level 141 mmol/L (136-145)
== END | disposition home or self-care (01) ==
LOC: LABSPEC 12:08
PROVIDERS: PCP Student in an Organized Health Care Education/Training Program; Visit Provider Family Medicine
DX: D61.818 Other pancytopenia (principal); K70.30 Alcoholic cirrhosis of liver without ascites; D53.9 Nutritional anemia, unspecified
CPT/HCPCS: 80053; 85027

== ENCOUNTER → 2022-09-07 | Outpatient (CLI) | payer MEDICARE, MEDICAID, SELFPAY ==
[2022-09-07 18:46] LABS: Color, Urine Yellow (Yellow); Glucose, Dipstick Normal (Normal); Ketone-Dipstick 5 mg/dl (Negative); Leukocyte Esterase-Dipstick 100 /ul (Negative); Nitrite-Dipstick Positive (Negative); Occult Blood-Urine 250 /ul (Negative); Protein-Dipstick 100 mg/dl (Negative); Specific Gravity, Urine 1.015 (1.002-1.030); Urine Clarity Cloudy (Clear); Urine Urobilinogen 8 mg/dl (Normal); Urine pH 6.5 (5.0 - 8.0)
[2022-09-07 18:47] LABS: Urine Bilirubin Dipstick 1 mg/dL (Negative)
== END | disposition home or self-care (01) ==
PROVIDERS: PCP Student in an Organized Health Care Education/Training Program; Visit Provider Family Medicine
DX: N39.0 Urinary tract infection, site not specified (principal); K70.30 Alcoholic cirrhosis of liver without ascites
CPT/HCPCS: 81002; 87077; 87086; 87088; 87186

== ENCOUNTER 2022-09-08 13:03 | Inpatient (IN) | payer MEDICARE, MEDICAID, SELFPAY ==
[2022-09-08 13:04] VITALS: BP 147/88; PULSE 101; RESP 20; TEMP 37.7; O2SAT 97; BMI 25.2
[2022-09-08 13:09] VITALS: BP 147/88; PULSE 94; RESP 19; TEMP 37.7; O2SAT 97
[2022-09-08] MEDS: 0.9% Normal Saline 1,000 ML 1000 ML IV (14:08)
[2022-09-08 14:10] VITALS: BP 123/83; PULSE 88; RESP 19; TEMP 37.7; O2SAT 96
[2022-09-08 14:17] LABS: Absolute Lymphocyte Count 0.71 X10^3/uL (0.83-4.51); Absolute Neutrophil Count 4.1 X10^3/uL (2.0-7.7); Basophil# 0.02 X10^3/uL; Basophil% 0.4 % (0-1); Eosinophil# 0.01 X10^3/uL; Eosinophils% 0.2 % (0-5); Hematocrit 34.8 % (40-54); Hemoglobin 11.7 g/dL (13.0-16.5); Lymphocyte # 0.71 X10^3/ul (0.83-4.51); Lymphocyte % 13.1 % (19-41); Mean Corp Hgb Conc 33.6 g/dL (32-36); Mean Corpuscular Hgb 33.8 pg (27.0-32.0); Mean Corpuscular Volume 100.6 fL (80-94); Mean Platelet Vol. 10.6 fl (6.2-12.0); Monocyte# 0.53 X10^3/uL; Monocyte% 9.8 % (0-10); NRBC Flagged by Analyzer 0 % (0-5); Neutrophil # 4.13 X10^3/uL (2.7-7.7); Neutrophil % 76.3 % (47-70); POSITIVE COUNT YES; Platelet Count 58 K/mm3 (150-450); RBC Distribution Width CV 14.6 % (11.6-14.6); RBC Distribution Width SD 53.6 fl (35.1-43.9); Red Blood Count 3.46 M/mm3 (4.6-6.2); White Blood Count 5.4 K/mm3 (4.4-11.0)
--- NOTE | 2022-09-08 14:22 | EX.ED.DYSGE1 ---
HPI History of Present Illness Chief Complaint: Complaint Informant: patient and other (Caregiver) Narrative Narrative: Patient sent in here by hospice nurse, Vandana, for Potts catheter. I spoke with Vandana after evaluation the patient. Apparently having difficulty urinating she attempted Potts catheter 8 Spanish unable to get this in. Caregiver here states there is increasing blood. Reporting slight confusion. He has been with hospice for a year. Hospice for history of cirrhosis he had findings of stroke he has been bedridden for the last 18 months. He deals with previous osteomyelitis of the foot, he has had wound care and currently followed outpatient. He is currently on Keflex twice daily started yesterday. Per caregiver he has had extensive urination since yesterday. Per caregiver they do not want to revoke hospice. [facility] OF [facility] Medical History Abscess of left leg Back pain due to injury Cirrhosis History of ETOH abuse MRSA infection Polyclonal gammopathy Rheumatoid arthritis Skin graft disorder Ulcer of left lower extremity with muscle involvement without evidence of necrosis Home Medications furosemide 40 mg tablet (Lasix) 40 mg PO DAILY water pill 12/14/20 [History Last Taken 12/14/20 08:00 1] lisinopril 20 mg tablet 20 mg PO DAILY high bp 12/14/20 [History Last Taken 12/14/20 08:00 1] hydroxyzine HCl 25 mg tablet 25 mg PO TID PRN 08/12/21 [History Last Taken Unknown] guaifenesin 600 mg tablet, extended release 12 hr (Mucinex) 600 mg PO BID 09/12/21 [History Last Taken Unknown] albuterol sulfate 2.5 mg/3 mL (0.083 %) solution for nebulization 2.5 mg inhalation Q4H PRN SOB 09/08/22 [History Last Taken 2 Days Ago ~09/06/22] cephalexin 500 mg capsule 500 mg PO BID . 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 Smoking Status: Former smoker how long ago did patient quit smokin years ago alcohol intake: former details: he quit 20 years ago substance use type: does not use ROS ROS ED Constitutional Constitutional ED: Denies chills, fever(s) or sweats Eyes Eyes: Denies change in vision ENT ENT ED: Denies dysphagia or sore throat Cardiovascular Cardiovascular: Denies chest pain, leg edema, palpitations or racing heartbeat Respiratory/Chest Respiratory/Chest: Denies cough, dyspnea or dyspnea on exertion Gastrointestinal Gastrointestinal: Denies abdominal pain, diarrhea, nausea or vomiting Genitourinary Genitourinary ED: Reports urinary frequency; Denies dysuria or hematuria Musculoskeletal Musculoskeletal: Denies back pain, extremity pain or neck pain Integumentary Reports rash; Denies wounds Neurologic Neurologic: Denies headache(s), paresthesias or weakness EXAM Physical Exam Const Vital Signs: 09/08/22 13:04 09/08/22 13:09 09/08/22 14:10 Temperature 99.9 F H 99.9 F H 99.8 F H Temperature Source Temporal Temporal Temporal Pulse Rate 101 H 94 88 Respiratory Rate 20 H 19 H 19 H Blood Pressure 147/88 H 147/88 H 123/83 H Blood Pressure Mean 107 107 96 Pulse Ox 97 97 96 Oxygen Delivery Method Room Air Room Air Room Air Constitutional Narrative: Patient awake alert, answering some questions. Denies any pain symptoms. HEENT Reports dry mucous membranes normocephalic and atraumatic Mouth ED: Yes dry mucous membranes Mouth: dry mucous membranes Eyes PERRL, EOMs intact bilaterally and conjunctivae normal General Eye ED: Yes normal appearance of both eyes Neck no lymphadenopathy and supple General: Negative for tenderness Chest Wall Chest: Negative for tenderness Resp normal respiratory effort and normal air movement Effort and Inspection: symmetric chest movement; Negative for respiratory distress Cardio regular rate, regular rhythm and no murmurs Peripheral Pulses: pulses 2+ throughout GI normal to inspection, nondistended, normoactive bowel sounds and non-tender Palpation: Negative for guarding or rebound tenderness present Narrative: There is stenosis at the orifice of the foreskin, he is uncircumcised Back/Spine no CVA tenderness and no thoracic nor lumbar tenderness Extremity normal to inspection General Extremety ED: Negative for edema or tenderness General Extremity: Negative for edema Neuro oriented x3 and no sensory deficits noted Sensorium / Orientation: awake and alert Skin Skin Narrative: Left leg swelling with erythema with scaly skin. Cellulitis. Bilateral heels with blisters, there is no ulcers there is clear drainage. MDM MDM MDM Narrative Medical decision making narrative: Interventions / MDM: Differential diagnosis: Left lower extremity cellulitis, UTI, pressure sores bilateral heels Diagnosis considered but do not suspect: N/A My EKG interpretation: N/A Imaging independently reviewed and interpreted by myself: N/A External documents reviewed: N/A Test considered but not ordered:N/A ED course: After my evaluation, I reached out to hospice nurse Vandana, requesting a Potts catheter. Nursing with difficulties due to stenosis, I will attempt. She did okay labs and fluids along with urine test. Attempted Potts catheter, going through the foreskin as an able to access the orifice to advance. Multiple attempts, unsuccessful. He urinated approximate 300 cc of urine, he is not obstructed. His labs creatinine 1.01 white count was 5.4. He had a nondistended abdomen. Urine sent positive for infection culture sent. 163: Rediscussed with hospice nurse Vandana, discussed findings and treatment for complicated UTI using cefuroxime instead of Keflex which has skin coverage of the legs. She agreed with this. I discussed that if for concerns of wanting Potts catheter, he can be referred to urology through them for placement for convenience. She is concerned that caregiver are unable to change him frequently. Hospice is only there 3 days a week. She states she was going to talk with family. I spoke with the niece in the room updated on plan of care with antibiotics. She initially was stating concerns that he would like to walk again and he has not walked for 1 year now. He has contractures of the lower extremity other and I stated to her he is likely not able to walk again. Plan was for discharge with continued hospice care which was noted. Re-evaluation: 1644: I was called back to the room, patient's caregiver apparently got off the phone with hospice nurse, now tells me that they want his heel blisters and wound addressed. They were told that they can revoke hospice and when discharged can get back onto hospice. Therefore they have made the decision to revoke hospice. I spoke with them his white count is normal he is tolerating oral antibiotics, admission would be for wound care to evaluate, and if concerns that they cannot manage him that he goes to a nursing facility. Therefore, I did speak with hospitalist Dr. Jacobson, updated on patient's findings and family concerns. We will admit to medicine under observations. Disposition discussed with patient/family/significant other: Patient and caregiver and niece Case discussed with consulting clinician: Hospice nurseVandana. Hospitalist, Dr. Jacobson Lab Data Attestation: I reviewed the patient's lab results. Labs: Laboratory Results - last 24 hr 09/08/22 09/08/22 09/08/22 14:00 14:00 15:10 WBC 5.4 RBC 3.46 L Hgb 11.7 L Hct 34.8 L MCV 100.6 H MCH 33.8 H MCHC 33.6 RDW Std Deviation 53.6 H RDW Coeff of Marisel 14.6 Plt Count 58 L MPV 10.6 Immature Gran % (Auto) 0.200 Neut % (Auto) 76.3 H Lymph % (Auto) 13.1 L Morrill % (Auto) 9.8 Eos % (Auto) 0.2 Baso % (Auto) 0.4 Absolute Neuts (auto) 4.1 Absolute Lymphs (auto) 0.71 L Nucleated RBC % 0 Sodium 142 Potassium 3.8 Chloride 110 H Carbon Dioxide 27.0 Anion Gap 5 BUN 13 Creatinine 1.01 Estim Creat Clear Calc 73.63 Est GFR (MDRD) Af Amer 94 Est GFR (MDRD) Non-Af 77 BUN/Creatinine Ratio 12.9 Glucose 138 H Calcium 8.0 L Urine Color Ирина Urine Clarity Cloudy Urine pH 7.0 Ur Specific [place] 1.015 Urine Protein 100 H Urine Glucose (UA) Normal Urine Ketones 5 H Urine Occult Blood 250 H Urine Nitrite Positive H Urine Bilirubin 3 H Urine Urobilinogen 8 H Ur Leukocyte Esterase 100 H Urine RBC > 100 SEEN Urine WBC 5-10 SEEN Ur Squamous Epith Cells 0-5 SEEN Urine Bacteria RARE Urine Mucus 0 SEEN Discharge Plan Triage Chief Complaint: Complaint ED Provider: Josh Guzman Dx/Rx/DC Orders Clinical Impression: Acute UTI, Urine frequency, Cellulitis of left leg, Cirrhosis Prescriptions: New cefuroxime axetil 500 mg tablet 500 mg PO BID Qty: 13 0RF No Action hydroxyzine HCl 25 mg tablet 25 mg PO TID PRN clindamycin HCl 150 mg capsule 150 mg PO TID guaifenesin [Mucinex] 600 mg tablet extended release 12hr 600 mg PO BID furosemide [Lasix] 40 mg Tablet 40 mg PO DAILY lisinopril 20 mg Tablet 20 mg PO DAILY oxycodone 5 mg tablet 5 mg PO Q6H PRN (Reason: pain) 7 Days Qty: 21 0RF oxycodone 5 mg tablet See Rx Instructions .ROUTE .COMPLEX PRN (Reason: pain) 7 Days Qty: 42 0RF Rx Instructions: 5-10 mg every 4 hours as needed for pain 4-10 spironolactone [Aldactone] 25 mg tablet 25 mg PO DAILY Qty: 30 0RF ketoconazole-hydrocortisone [Pheyo] 2-2.5 % cream 1 applic topical BID Qty: 30 0RF Rx Instructions: apply to the red area in the eyebrows and around the nose and mouth. Primary Care Provider: Care Physician,No Primary Referrals: Alecia Zhao MD [Med Staff - Active Staff] - 1 Week Care Physician,No Primary [Primary Care Provider] - Disposition Disposition: [facility]
[2022-09-08 14:27] LABS: Anion Gap 5 (5-15); BUN 13 mg/dL (7-18); BUN/Creat Ratio 12.9 RATIO (10-20); Chloride 110 mmol/L (98-107); Creatinine, Serum 1.01 mg/dL (0.70-1.30); EST Glomerular Filtration Rate 77 mL/min (>60); Est Glom Filt Rate - Afr Amer 94 mL/min (>60); Estimated Creatinine Clearance 73.63 ml/min; Glucose 138 mg/dL (74-106); Potassium 3.8 mmol/L (3.5-5.1); Sodium Level 142 mmol/L (136-145)
[2022-09-08 15:18] LABS: Mucous, Urine 0 SEEN /hpf (<or=2+)
[2022-09-08] MEDS: oxyCODONE 5 MG Tablet 15 MG PO (15:35)
[2022-09-08 15:44] LABS: Color, Urine Amber (Yellow); Glucose, Dipstick Normal (Normal); Ketone-Dipstick 5 mg/dl (Negative); Leukocyte Esterase-Dipstick 100 /ul (Negative); Nitrite-Dipstick Positive (Negative); Occult Blood-Urine 250 /ul (Negative); Protein-Dipstick 100 mg/dl (Negative); Specific Gravity, Urine 1.015 (1.002-1.030); Urine Clarity Cloudy (Clear); Urine Urobilinogen 8 mg/dl (Normal)
[2022-09-08 16:00] LABS: Red Blood Cells-Urine > 100 SEEN /hpf (0-5); Squamous Epithelial Cells - UA 0-5 SEEN /hpf (0-5); Urine Bilirubin Dipstick 3 mg/dL (Negative); White Blood Cells 5-10 SEEN /hpf (0-5)
[2022-09-08 16:01] LABS: Bacteria RARE /hpf (None Seen)
--- NOTE | 2022-09-08 16:48 | PCM.HP.STD ---
HPI - General General Date of Admission: 09/08/22 Date of Service: 09/08/22 Chief Complaint: Family revoked hospice. Bilateral heel ulcer, left worse than right. Contracture of lower extremities. Suspicion of UTI. HPI Narrative FRIDA PARSONS, is a 72 M who was sent to ED by hospice nurse Vandana. ED physician talked to hospice nurse Vandana and she tried to put Potts catheter 8 [place] but was unable to get through. Patient is still voiding urine although incontinent. Patient has been home hospice for more than 1 year and has been bedridden for last 18 months after his stroke. Patient also has history of alcoholic cirrhosis with pancytopenia. Patient used to follow with wound center until March 2021. Was last admitted in November 2020 for left lower extremity abscess and cellulitis. At that time patient had wound debridement and grew MRSA at that. Patient has history of MRSA. Patient has history of osteomyelitis of foot. Wound culture from 09/07 growing gram-negative clay 25,000-50,000 colonies. Patient is confused disoriented. He looks very dehydrated. In ED, Tmax 99.9 Fahrenheit. Patient does not have understanding and cannot make decision by himself. ED physician tried to discharge on oral antibiotic but family wanted more care therefore admitted. Rest of the history taken by patient's significant others and daughter in ED. [facility] Medical History Abscess of left leg Back pain due to injury Cirrhosis History of ETOH abuse MRSA infection Polyclonal gammopathy Rheumatoid arthritis Skin graft disorder Ulcer of left lower extremity with muscle involvement without evidence of necrosis Home Medications furosemide 40 mg tablet (Lasix) 40 mg PO DAILY water pill 12/14/20 [History Last Taken 2 Weeks Ago ~08/25/22] lisinopril 20 mg tablet 20 mg PO DAILY high bp 12/14/20 [History Last Taken 09/08/22] hydroxyzine HCl 25 mg tablet 25 mg PO TID PRN Anxiety 08/12/21 [History Last Taken 2 Weeks Ago ~08/25/22] guaifenesin 600 mg tablet, extended release 12 hr (Mucinex) 600 mg PO BID 09/12/21 [History Last Taken 09/08/22] albuterol sulfate 2.5 mg/3 mL (0.083 %) solution for nebulization 2.5 mg inhalation Q4H PRN SOB 09/08/22 [History Last Taken 2 Days Ago ~09/06/22] cephalexin 500 mg capsule 500 mg PO BID . 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 Urinary incontinent. Complain of pain in lower back, legs but cannot identify exact location. Cannot give detailed history of pain. Patient has been chronically confused and disoriented possible dementia. Vital Signs Vital Signs Vital Signs: 09/08/22 13:04 09/08/22 13:09 09/08/22 14:10 Temperature 99.9 F H 99.9 F H 99.8 F H Temperature Source Temporal Temporal Temporal Pulse Rate 101 H 94 88 Respiratory Rate 20 H 19 H 19 H Blood Pressure 147/88 H 147/88 H 123/83 H Blood Pressure Mean 107 107 96 Pulse Ox 97 97 96 Oxygen Delivery Method Room Air Room Air Room Air Weight Weight: 186 lb 1.122 oz Body Mass Index (BMI) 25.2 Physical Exam Narrative Physical exam General: Confused, disoriented, incoherent and incomprehensible few words. Cannot speak in sentences. HEENT: Atraumatic, PERRLA, EOMI, Normocephalic Oral: Oral mucosa very dry. No Gingival or Mucosal Lesions/ Ulcerations Neck: Supple, No JVD, Negative Carotid Bruits Lungs: Air entry diminished in bilateral lung bases. No crepitation/rhonchi Cardiovascular: Sinus rhythm, Normal S1, Normal S2, No murmurs Abdomen: Bowel Sounds Present, Soft, Non Tender, Non-Distended : Chronic urinary incontinent, cannot ascertain dysuria or new LUTS. No renal angle tenderness. No suprapubic tenderness. Extremities: Chronic bilateral lower extremity subcutaneous fibrosis and lymphedema, Capillary Refill Less than 3 Seconds Skin: Large ulcer of left heel. Blister has ruptured. Foul-smelling, purulent discharge. Right heel ulcer but left is worse. Musculoskeletal: Contractures present in bilateral lower extremity at knee and hip joints. Cannot extend both knees. Back could not be examined. Patient in debilitated condition. Neurological: Cranial nerves II-XII grossly intact, detailed neuro exam unobtainable. Psych/Mental Status: Confused disoriented, possible dementia. Results Lab / Micro Data Result Diagrams: 09/08/22 14:00 09/08/22 14:00 Labs: Laboratory Results - last 24 hr 09/08/22 14:00: WBC 5.4, RBC 3.46 L, Hgb 11.7 L, Hct 34.8 L, MCV 100.6 H, MCH 33.8 H, MCHC 33.6, RDW Std Deviation 53.6 H, RDW Coeff of Marisel 14.6, Plt Count 58 L, MPV 10.6, Immature Gran % (Auto) 0.200, Neut % (Auto) 76.3 H, Lymph % (Auto) 13.1 L, [place] % (Auto) 9.8, Eos % (Auto) 0.2, Baso % (Auto) 0.4, Absolute Neuts (auto) 4.1, Absolute Lymphs (auto) 0.71 L, Nucleated RBC % 0 09/08/22 14:00: Sodium 142, Potassium 3.8, Chloride 110 H, Carbon Dioxide 27.0, Anion Gap 5, BUN 13, Creatinine 1.01, Estim Creat Clear Calc 73.63, Est GFR (MDRD) Af Amer 94, Est GFR (MDRD) Non-Af 77, BUN/Creatinine Ratio 12.9, Glucose 138 H, Calcium 8.0 L 09/08/22 15:10: Urine Color Ирина, Urine Clarity Cloudy, Urine pH 7.0, Ur Specific [place] 1.015, Urine Protein 100 H, Urine Glucose (UA) Normal, Urine Ketones 5 H, Urine Occult Blood 250 H, Urine Nitrite Positive H, Urine Bilirubin 3 H, Urine Urobilinogen 8 H, Ur Leukocyte Esterase 100 H, Urine RBC > 100 SEEN, Urine WBC 5-10 SEEN, Ur Squamous Epith Cells 0-5 SEEN, Urine Bacteria RARE, Urine Mucus 0 SEEN Assessment & Plan Assessment/Plan (1) Cellulitis of left leg: (2) Heel ulcer: PLAN: Plan This is a 72-year-old gentleman who revoked hospice for treatment of bilateral heel ulcer and possible UTI 1. Bilateral heel ulcer left worse than right with purulent drainage and surrounding/contiguous cellulitis: Patient is being admitted to [facility]. Ulcer looks chronic. Bilateral lower extremity lymphedema with subcutaneous fibrosis and hyperplasia. After discussion of family members, they are agreeable for realistic goal of wound dressing, care and antibiotic but not definitive treatment or major surgical procedure like amputation. Production Aide Is consulted. Empirically started on IV vancomycin and Zosyn. IV fluid half-normal saline. Lactic acid is ordered. Patient family knows that if patient meets criteria for sepsis, he is not a candidate for sepsis protocol for IV fluid bolus, vasopressors or aggressive measures because of decompensated alcoholic cirrhosis, multiple comorbidities, and poor functional status . 2. Suspected UTI/colonization/contamination: Patient last urine culture shows gram-negative clay [id number] but urine collection method is doubtful and does not seem to be sterile or optimal collection. 3. Chronic alcoholic cirrhosis decompensated with pancytopenia: Patient has seen Dr. Phillips's oncologist in the past. Hemoglobin 11.7, hematocrit 35%, MCV 100.6, platelet count 58,000 WBC count normal. Patient does not look like fluid overload. Will hold Lasix and lisinopril. 4. Hypertension: Hold lasix and lisinopril 5. Patient significant other and daughter revoked home hospice care. They are agreeable for gentle wound care, IV antibiotics, fluid and wounddressing, local bedside debridement and podiatry consult. They know that definitive treatment is not realistic goal as it seems patient does not have healthy vascular supply or nerve supply, nutrition and functional mobility. 6. Emaciated, chronic moderate protein calorie malnutrition: Although BMI is 25.2 kg/m? but patient is contracted at knee and hip joints. Patient has moderate to severe muscle atrophy and loss of subcutaneous fat. ADL is dependent. Patient cannot transfer himself or rotate sideways on the bed. Living will/advanced directive/end of life care: Patient does have living will or advanced directive. His significant other present in the room has power of document review attorney for health. As patient cannot understand and make decisions therefore discussed with patient's significant other and her daughter at the bedside. After discussion of benefits/risks procedures involved with full code, DNR CC arrest and DNR CC, they are agreeable with DNR CC arrest with no intubation. Patient does want artificial life support including intubation, tube feed, ventilator and/chest compression, central venous catheter, vasopressor and DC shock if needed Total time spent in [id number] encounter in discussion of advanced directive 20 minutes. Laboratory Results 09/08/22 14:00: WBC 5.4, RBC 3.46 L, Hgb 11.7 L, Hct 34.8 L, MCV 100.6 H, MCH 33.8 H, MCHC 33.6, RDW Std Deviation 53.6 H, RDW Coeff of Marisel 14.6, Plt Count 58 L, MPV 10.6, Immature Gran % (Auto) 0.200, Neut % (Auto) 76.3 H, Lymph % (Auto) 13.1 L, [place] % (Auto) 9.8, Eos % (Auto) 0.2, Baso % (Auto) 0.4, Absolute Neuts (auto) 4.1, Absolute Lymphs (auto) 0.71 L, Nucleated RBC % 0 09/08/22 14:00: Sodium 142, Potassium 3.8, Chloride 110 H, Carbon Dioxide 27.0, Anion Gap 5, BUN 13, Creatinine 1.01, Estim Creat Clear Calc 73.63, Est GFR (MDRD) Af Amer 94, Est GFR (MDRD) Non-Af 77, BUN/Creatinine Ratio 12.9, Glucose 138 H, Calcium 8.0 L 09/08/22 14:00: Magnesium Pending 09/08/22 15:10: Urine Color Ирина, Urine Clarity Cloudy, Urine pH 7.0, Ur Specific [place] 1.015, Urine Protein 100 H, Urine Glucose (UA) Normal, Urine Ketones 5 H, Urine Occult Blood 250 H, Urine Nitrite Positive H, Urine Bilirubin 3 H, Urine Urobilinogen 8 H, Ur Leukocyte Esterase 100 H, Urine RBC > 100 SEEN, Urine WBC 5-10 SEEN, Ur Squamous Epith Cells 0-5 SEEN, Urine Bacteria RARE, Urine Mucus 0 SEEN Charges/Coding Visit Charges Inpatient E&M: 72738 Init Hosp L3 Procedures Hospitalists Procedures: 33669 Advncd Care Plan 30 Min
[2022-09-08 17:00] VITALS: BP 148/83; PULSE 96; RESP 18; TEMP 37.7; O2SAT 96
[2022-09-08 18:01] LABS: Magnesium 1.8 mg/dL (1.6-2.6)
[2022-09-08 18:07] VITALS: BP 148/83; PULSE 96; RESP 19; TEMP 37.7; O2SAT 94
[2022-09-08 18:23] VITALS: BMI 23.3
[2022-09-08 18:31] VITALS: BP 152/83; PULSE 82; RESP 18; TEMP 37.5; O2SAT 98
[2022-09-08 19:13] LABS: Lactic Acid 0.7 mmol/L (0.4-1.9)
--- NOTE | 2022-09-08 19:35 | CPS ---
Pt asleep, unable to wake up to do IS/PEP therapy.
[2022-09-08] MEDS: KCL 20MEQ in 0.9% NS 20 MEQ/1,000 ML IV.SOLN. 100 MEQ IV (20:26)
[2022-09-08] MEDS: 0.9% Saline Lock 10 ML Syringe IV (20:27)
[2022-09-08] MEDS: Senna/Docusate Sodium 1 Tablet 2 TABLET PO (20:34)
[2022-09-08] MEDS: Polyethylene Glycol 3350 17 GM PACKET PO (20:34)
[2022-09-08] MEDS: guaiFENesin 600 MG Tablet PO (20:34)
--- NOTE | 2022-09-08 20:43 | PCM.RX.CS ---
Consult Pharmacy has been consulted to manage selected antiobiotic: Vancomycin Type of Consult: New start Suspected Infection: Skin/Soft tissue Labs: Sodium 142 mmol/L (136-145) 09/08/22 14:00 Potassium 3.8 mmol/L (3.5-5.1) 09/08/22 14:00 Chloride 110 mmol/L (98-107) H 09/08/22 14:00 Carbon Dioxide 27.0 mmol/L (21.0-32.0) 09/08/22 14:00 Anion Gap 5 (5-15) 09/08/22 14:00 BUN 13 mg/dL (7-18) 09/08/22 14:00 Creatinine 1.01 mg/dL (0.70-1.30) 09/08/22 14:00 Est GFR (MDRD) Af Amer 94 mL/min (>60) 09/08/22 14:00 Est GFR (MDRD) Non-Af 77 mL/min (>60) 09/08/22 14:00 BUN/Creatinine Ratio 12.9 RATIO (10-20) 09/08/22 14:00 Glucose 138 mg/dL (74-106) H 09/08/22 14:00 Pharmacy Plan for Drug Dosing: NEW START IV VANCOMYCIN Consulting Physician: RAEANN Indication: CELLULITIS Goal Trough: 15-20 MG/DL SrCr: 1.01 MG/DL (09/08) CrCl: 73.6 ML/MIN Comments: LOADING DOSE OF 2000MG GIVEN @2036 Vancomycin Dose: WILL SCHEDULE 1250MG Q12H STARTING 09/09 @ 0900 BASED ON WEIGHT AND CRCL. WILL ORDER A TROUGH PRIOR TO 4TH TOTAL DOSE OF REGIMEN PER POLICY. Pending Level: 09/10/22 @ 0830 Pharmacy Service will continue to monitor and adjust dosing as required.
[2022-09-08 22:06] LABS: M R Staph aureus DNA By PCR POSITIVE (Negative); Probe Check PASS; Staph aureus DNA By PCR POSITIVE (Negative)
[2022-09-08 22:07] LABS: M R Staph aureus DNA By PCR POSITIVE (Negative); Probe Check PASS; Staph aureus DNA By PCR POSITIVE (Negative)
[2022-09-09 02:00] VITALS: BP 138/80; PULSE 76; RESP 16; TEMP 37.2; O2SAT 97
[2022-09-09] MEDS: oxyCODONE 5 MG Tablet PO ×4 (03:28→20:04)
[2022-09-09 04:21] VITALS: BMI 23.3
[2022-09-09 06:50] VITALS: O2SAT 95
[2022-09-09 07:35] LABS: Absolute Lymphocyte Count 0.57 X10^3/uL (0.83-4.51); Absolute Neutrophil Count 3.2 X10^3/uL (2.0-7.7); Basophil# 0.01 X10^3/uL; Basophil% 0.2 % (0-1); Eosinophil# 0.03 X10^3/uL; Eosinophils% 0.7 % (0-5); Hematocrit 30.2 % (40-54); Lymphocyte # 0.57 X10^3/ul (0.83-4.51); Lymphocyte % 13.6 % (19-41); Mean Corp Hgb Conc 33.1 g/dL (32-36); Mean Corpuscular Volume 102.7 fL (80-94); Mean Platelet Vol. 11.5 fl (6.2-12.0); Monocyte# 0.39 X10^3/uL; Monocyte% 9.3 % (0-10); NRBC Flagged by Analyzer 0 % (0-5); Neutrophil # 3.18 X10^3/uL (2.7-7.7); Neutrophil % 75.7 % (47-70); POSITIVE COUNT YES; POSITIVE DIFFERENTIAL YES; RBC Distribution Width CV 14.6 % (11.6-14.6); RBC Distribution Width SD 55.2 fl (35.1-43.9); Red Blood Count 2.94 M/mm3 (4.6-6.2); White Blood Count 4.2 K/mm3 (4.4-11.0)
[2022-09-09 07:38] LABS: Differential Indicated SCAN CRITERIA MET; Platelet Count 48 K/mm3 (150-450)
[2022-09-09 07:51] LABS: Anion Gap 6 (5-15); BUN 13 mg/dL (7-18); BUN/Creat Ratio 16.4 RATIO (10-20); Calcium,Total 7.5 mg/dL (8.5-10.1); Chloride 112 mmol/L (98-107); Creatinine, Serum 0.79 mg/dL (0.70-1.30); EST Glomerular Filtration Rate 102 mL/min (>60); Est Glom Filt Rate - Afr Amer 124 mL/min (>60); Estimated Creatinine Clearance 78.78 ml/min; Glucose 84 mg/dL (74-106); Potassium 3.9 mmol/L (3.5-5.1); Sodium Level 142 mmol/L (136-145)
[2022-09-09 08:05] LABS: AST(SGOT) 47 U/L (15-37); Alanine Aminotransfer ALT/SGPT 29 U/L (16-61); Albumin, Serum 1.6 g/dL (3.2-5.0); Alkaline Phosphatase 58 U/L (45-117); Bilirubin, Direct 0.71 mg/dL (0.00-0.30); Protein, Total 5.6 g/dL (6.4-8.2)
[2022-09-09] MEDS: KCL 20MEQ in 0.9% NS 20 MEQ/1,000 ML IV.SOLN. 100 MEQ IV (08:47)
[2022-09-09] MEDS: Polyethylene Glycol 3350 17 GM PACKET PO (08:49)
[2022-09-09] MEDS: Furosemide 40 MG Tablet PO (08:49)
[2022-09-09] MEDS: Senna/Docusate Sodium 1 Tablet 2 TABLET PO (08:50)
[2022-09-09] MEDS: guaiFENesin 600 MG Tablet PO ×2 (08:50→22:54)
[2022-09-09 08:51] LABS: International Normalized Ratio 1.6; Partial Thromboplast Time 33.5 Seconds (24.1-36.2); Prothrombin Time (Protime)PT. 18.5 SECONDS (11.7-14.9)
[2022-09-09] MEDS: Acetaminophen 325 MG Tablet 650 MG PO (08:54)
[2022-09-09 09:02] VITALS: BP 128/69; PULSE 69; RESP 16; TEMP 36.8; O2SAT 94
--- NOTE | 2022-09-09 09:11 | PN_ITS ---
Objective Data Objective Data Vital Signs: Vital Signs Temp Pulse Resp BP Pulse Ox O2 Del Method 98.2 F 69 16 128/69 H 94 Room Air 09/09/22 09:02 09/09/22 09:02 09/09/22 09:02 09/09/22 09:02 09/09/22 09:02 09/09/22 09:02 Oxygen Delivery Method Room Air Weight: 82.5 kg Body Mass Index (BMI) 23.3 Intake & Output: Intake and Output for Last 24 Hours 09/07/22 09/08/22 09/09/22 23:59 23:59 23:59 Intake Total 1563.33 / 1563.33 1026.67 / 1026.67 Output Total 200 / 200 Balance 1563.33 / 1563.33 826.67 / 826.67 Lab / Micro Data Result Diagrams: 09/09/22 05:25 09/09/22 05:25 Labs: Laboratory Results - last 24 hr 09/08/22 14:00: WBC 5.4, RBC 3.46 L, Hgb 11.7 L, Hct 34.8 L, MCV 100.6 H, MCH 33.8 H, MCHC 33.6, RDW Std Deviation 53.6 H, RDW Coeff of Marisel 14.6, Plt Count 58 L, MPV 10.6, Immature Gran % (Auto) 0.200, Neut % (Auto) 76.3 H, Lymph % (Auto) 13.1 L, [place] % (Auto) 9.8, Eos % (Auto) 0.2, Baso % (Auto) 0.4, Absolute Neuts (auto) 4.1, Absolute Lymphs (auto) 0.71 L, Nucleated RBC % 0 09/08/22 14:00: Sodium 142, Potassium 3.8, Chloride 110 H, Carbon Dioxide 27.0, Anion Gap 5, BUN 13, Creatinine 1.01, Estim Creat Clear Calc 73.63, Est GFR (MDRD) Af Amer 94, Est GFR (MDRD) Non-Af 77, BUN/Creatinine Ratio 12.9, Glucose 138 H, Calcium 8.0 L 09/08/22 14:00: Magnesium 1.8 09/08/22 15:10: Urine Color Ирина, Urine Clarity Cloudy, Urine pH 7.0, Ur Specific [place] 1.015, Urine Protein 100 H, Urine Glucose (UA) Normal, Urine Ketones 5 H, Urine Occult Blood 250 H, Urine Nitrite Positive H, Urine Bilirubin 3 H, Urine Urobilinogen 8 H, Ur Leukocyte Esterase 100 H, Urine RBC > 100 SEEN, Urine WBC 5-10 SEEN, Ur Squamous Epith Cells 0-5 SEEN, Urine Bacteria RARE, Urine Mucus 0 SEEN 09/08/22 18:43: Lactic Acid 0.7 09/08/22 18:45: S.aureus Protein A PCR POSITIVE H, MRSA (PCR) POSITIVE H 09/08/22 18:45: S.aureus Protein A PCR POSITIVE H, MRSA (PCR) POSITIVE H 09/09/22 05:25: WBC 4.2 L, RBC 2.94 L, Hgb 10.0 L, Hct 30.2 L, MCV 102.7 H, MCH 34.0 H, MCHC 33.1, RDW Std Deviation 55.2 H, RDW Coeff of Marisel 14.6, Plt Count 48 L*, MPV 11.5, Immature Gran % (Auto) 0.500, Neut % (Auto) 75.7 H, Lymph % (Auto) 13.6 L, [place] % (Auto) 9.3, Eos % (Auto) 0.7, Baso % (Auto) 0.2, Absolute Neuts (auto) 3.2, Absolute Lymphs (auto) 0.57 L, Nucleated RBC % 0 09/09/22 05:25: Sodium 142, Potassium 3.9, Chloride 112 H, Carbon Dioxide 24.0, Anion Gap 6, BUN 13, Creatinine 0.79, Estim Creat Clear Calc 78.78, Est GFR (MDRD) Af Amer 124, Est GFR (MDRD) Non-Af 102, BUN/Creatinine Ratio 16.4, Glucose 84, Calcium 7.5 L 09/09/22 05:25: Total Bilirubin 2.00 H, Direct Bilirubin 0.71 H, AST 47 H, ALT 29, Alkaline Phosphatase 58, Total Protein 5.6 L, Albumin 1.6 L, Globulin 4.0 09/09/22 08:00: PT 18.5 H, INR 1.6, APTT 33.5
--- NOTE | 2022-09-09 09:46 | CASEMGMT ---
Social Work SW reviewed chart, pt had been on hospice with [facility] for a year. Hospice revoked and pt now in the hospital. SW called [facility]. Pt does not have POA papers on the chart. SW spoke w/pt's significant other/parallel computing software engineer Lise and his niece Tiffany outside of the room. They explain pt has been home on hospice for a year, pt has not walked in 18 months. Lise has been his primary parallel computing software engineer, and helps pt with all ADLs. Lise and Tiffany explain pt is normally alert and oriented, though has been more confused the last couple of days. SW spoke w/Lise and Tiffany about POA. Pt has not completed the forms, they said they are making all decisions together. SW inquired about other family. Pt has 4 siblings. SW explained that if pt becomes more alert and oriented, we will completed POA papers w/pt. Family states understanding. They explained pt had an infection and was having pain, they did not feel hospice was addressing the issue. They spoke about plan at discharge, they do NOT want pt going back on hospice with [facility]. They spoke about pt going to the hospice center in [place]. Lise states she does not feel she can manage his care any longer at home. We talked about pt going back to hospice versus going to a group home skilled for a short time. They may be in agreement with skilled care at a group home for a short time before going back on hospice. EPHRAIM provided to Lise and Tiffany a list of alf facilities in pt's preferred geographic area, in pt's insurance network, complete with quality and resource use data. SW will continue to follow, it is anticipated pt will be here through the weekend. Family gave SW insurance cards, SW copied and sent to financial dept via interoffice envelope. Plan: SNF vs hospice. VEE Chavira
--- NOTE | 2022-09-09 09:53 | PCM.PN.HOSP ---
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 Very low functional status, confusion, encephalopathy contracture and decompensated cirrhosis. Objective Data Objective Data Vital Signs: Vital Signs Temp Pulse Resp BP Pulse Ox O2 Del Method 98.2 F 69 16 128/69 H 94 Room Air 09/09/22 09:02 09/09/22 09:02 09/09/22 09:02 09/09/22 09:02 09/09/22 09:02 09/09/22 09:05 Oxygen Delivery Method Room Air Weight: 181 lb 14.102 oz Body Mass Index (BMI) 23.3 Intake & Output: Intake and Output for Last 24 Hours 09/07/22 09/08/22 09/09/22 23:59 23:59 23:59 Intake Total 1563.33 / 1563.33 1026.67 / 1026.67 Output Total 200 / 200 Balance 1563.33 / 1563.33 826.67 / 826.67 Lab / Micro Data Result Diagrams: 09/09/22 05:25 09/09/22 05:25 Labs: Laboratory Results - last 24 hr 09/08/22 14:00: WBC 5.4, RBC 3.46 L, Hgb 11.7 L, Hct 34.8 L, MCV 100.6 H, MCH 33.8 H, MCHC 33.6, RDW Std Deviation 53.6 H, RDW Coeff of Marisel 14.6, Plt Count 58 L, MPV 10.6, Immature Gran % (Auto) 0.200, Neut % (Auto) 76.3 H, Lymph % (Auto) 13.1 L, [place] % (Auto) 9.8, Eos % (Auto) 0.2, Baso % (Auto) 0.4, Absolute Neuts (auto) 4.1, Absolute Lymphs (auto) 0.71 L, Nucleated RBC % 0 09/08/22 14:00: Sodium 142, Potassium 3.8, Chloride 110 H, Carbon Dioxide 27.0, Anion Gap 5, BUN 13, Creatinine 1.01, Estim Creat Clear Calc 73.63, Est GFR (MDRD) Af Amer 94, Est GFR (MDRD) Non-Af 77, BUN/Creatinine Ratio 12.9, Glucose 138 H, Calcium 8.0 L 09/08/22 14:00: Magnesium 1.8 09/08/22 15:10: Urine Color Ирина, Urine Clarity Cloudy, Urine pH 7.0, Ur Specific [place] 1.015, Urine Protein 100 H, Urine Glucose (UA) Normal, Urine Ketones 5 H, Urine Occult Blood 250 H, Urine Nitrite Positive H, Urine Bilirubin 3 H, Urine Urobilinogen 8 H, Ur Leukocyte Esterase 100 H, Urine RBC > 100 SEEN, Urine WBC 5-10 SEEN, Ur Squamous Epith Cells 0-5 SEEN, Urine Bacteria RARE, Urine Mucus 0 SEEN 09/08/22 18:43: Lactic Acid 0.7 09/08/22 18:45: S.aureus Protein A PCR POSITIVE H, MRSA (PCR) POSITIVE H 09/08/22 18:45: S.aureus Protein A PCR POSITIVE H, MRSA (PCR) POSITIVE H 09/09/22 05:25: WBC 4.2 L, RBC 2.94 L, Hgb 10.0 L, Hct 30.2 L, MCV 102.7 H, MCH 34.0 H, MCHC 33.1, RDW Std Deviation 55.2 H, RDW Coeff of Marisel 14.6, Plt Count 48 L*, MPV 11.5, Immature Gran % (Auto) 0.500, Neut % (Auto) 75.7 H, Lymph % (Auto) 13.6 L, [place] % (Auto) 9.3, Eos % (Auto) 0.7, Baso % (Auto) 0.2, Absolute Neuts (auto) 3.2, Absolute Lymphs (auto) 0.57 L, Nucleated RBC % 0 09/09/22 05:25: Sodium 142, Potassium 3.9, Chloride 112 H, Carbon Dioxide 24.0, Anion Gap 6, BUN 13, Creatinine 0.79, Estim Creat Clear Calc 78.78, Est GFR (MDRD) Af Amer 124, Est GFR (MDRD) Non-Af 102, BUN/Creatinine Ratio 16.4, Glucose 84, Calcium 7.5 L 09/09/22 05:25: Total Bilirubin 2.00 H, Direct Bilirubin 0.71 H, AST 47 H, ALT 29, Alkaline Phosphatase 58, Total Protein 5.6 L, Albumin 1.6 L, Globulin 4.0 09/09/22 08:00: PT 18.5 H, INR 1.6, APTT 33.5 Physical Exam Narrative Discussed with the patient, family, significant other and niece present in the room Physical exam General: More awake, alert, speaking few words to 1 sentence. Still does not have good understanding. HEENT: Atraumatic, PERRLA, EOMI, Normocephalic Oral: Oral mucosa very dry. No Gingival or Mucosal Lesions/ Ulcerations Neck: Supple, No JVD, Negative Carotid Bruits Lungs: Air entry diminished in bilateral lung bases. No crepitation/rhonchi Cardiovascular: Sinus rhythm, Normal S1, Normal S2, No murmurs Abdomen: Bowel Sounds Present, Soft, Non Tender, Non-Distended : Chronic urinary incontinent, cannot ascertain dysuria or new LUTS. No renal angle tenderness. No suprapubic tenderness. Extremities: Chronic bilateral lower extremity subcutaneous fibrosis and lymphedema, Capillary Refill Less than 3 Seconds Skin: Large ulcer of left heel. Blister has ruptured. Serous discharge with mild purulent stain on the dressing. Some necrotic tissue. Small right heel ulcer but left is worse. Musculoskeletal: Contractures present in bilateral lower extremity at knee and hip joints. Bedbound for more than 1 year. Patient in debilitated condition. Neurological: Cranial nerves II-XII grossly intact, no acute neurological lateralization sign. Psych/Mental Status: Confused disoriented, possible dementia. Assessment & Plan Assessment/Plan (1) Cellulitis of left leg: (2) Heel ulcer: PLAN: Plan This is a 72-year-old gentleman who revoked hospice for treatment of bilateral heel ulcer and possible UTI 1. Bilateral heel ulcer left worse than right with purulent drainage and surrounding/contiguous cellulitis: Patient is being admitted to [facility]. Ulcer looks chronic. Bilateral lower extremity lymphedema with subcutaneous fibrosis and hyperplasia. After discussion of family members, they are agreeable for realistic goal of wound dressing, care and antibiotic but not definitive treatment with the intent of cure or major surgical procedure like amputation. Employment Programs Analyst Is consulted. Empirically started on IV vancomycin and Zosyn. IV fluid half-normal saline. 09/09: Labs reviewed. Lactic acid normal. Patient did not had hypotension therefore does not meet criteria for sepsis. Discussed with Dr. Rhodes. Goal is to control infection, palliative wound debridement. Overall patient looks better. Discussed with Dr. Rhodes. Infection looks more superficial it was mainly blister which ruptured with serous discharge and small necrotic tissue which was debrided near the bedside. He ordered the x-ray. egative clay [id number] but urine collection method is doubtful and does not seem to be sterile or optimal collection. 09/09: UA shows WBC 5-10 cells, RBC more than 100, LE 100 urine nitrite positive therefore possible UTI. Acute encephalopathy, present on admission with history of baseline hepatic encephalopathy and dementia: As per patient's caregiver his significant other and niece's mental status has worsened for last 4 to 5 days with confusion, disorientation, talking irrelevant which does not make sense, less amount of his speech hardly 1 or 2 words and mostly somnolent. 3: Patient looks better he is eating his breakfast, he speaks more words sometimes in whole sentence. Orientation still cannot be ascertained. Started on lactulose and Xifaxan. 3. Chronic alcoholic cirrhosis decompensated with pancytopenia and hepatic encephalopathy, splenomegaly: Patient has seen Dr. Chaudhry oncologist in the past. Hemoglobin 11.7, hematocrit 35%, MCV 100.6, platelet count 58,000. WBC count normal. Patient does not look like fluid overload. 09/09: Patient has thrombocytopenia but WBC count and hemoglobin acceptable limit. On lactulose and Xifaxan. Lasix low-dose 20 mg and spironolactone 50 mg daily from tomorrow AM. 4. Hypertension: Hold lisinopril 5. Patient significant other and daughter revoked home hospice care. They are agreeable for gentle wound care, IV antibiotics, fluid and wounddressing, local bedside debridement and podiatry consult. They know that definitive treatment is not realistic goal as it seems patient does not have healthy vascular supply or nerve supply, nutrition and functional mobility. 6. Emaciated, chronic moderate protein calorie malnutrition: Although BMI is 25.2 kg/m? but patient is contracted at knee and hip joints. Patient has moderate to severe muscle atrophy and loss of subcutaneous fat. ADL is dependent. Patient cannot transfer himself or rotate sideways on the bed. Living will/advanced directive/end of life care: Patient does have living will or advanced directive. His significant other present in the room has power of corporate associate attorney for health. As patient cannot understand and make decisions therefore discussed with patient's significant other and her daughter at the bedside. After discussion of benefits/risks procedures involved with full code, DNR CC arrest and DNR CC, they are agreeable with DNR CC arrest with no intubation. Patient does want artificial life support including intubation, tube feed, ventilator and/chest compression, central venous catheter, vasopressor and DC shock if needed Total time of the visit including total time spent in counseling or coordination of care, (more than 50% of the total time, spent in obtaining medical information from nurses and other ancillary care providers,explaining to the patient about labs, imaging, diagnosis and management of active complex medical conditions, wound review discussion with electrical tester battery, clinical update to patient's niece and significant other, review of labs and imaging is 55 minutes. Charges/Coding Visit Charges Inpatient E&M: 52823 Subs Hosp L3
[2022-09-09 09:56] LABS: Differential Comment SCANNED; Platelet Estimate MKD DEC (ADEQ)
--- NOTE | 2022-09-09 10:11 | RAD_ITS ---
STUDY: X-RAY - RIGHT FOOT CLINICAL: Male, 72 years old. heel ulcer TECHNIQUE: 3 view(s) of the foot. COMPARISON: None. FINDINGS: Radiolucency the plantar aspect of the calcaneus worrisome for osteomyelitis. Normal visualized subtalar, talonavicular, calcaneocuboid, tarsal and tarsometatarsal articulations. Normal metatarsi. There is degenerative arthrosis of the metatarsophalangeal joint of the hallux . Normal tibial and fibular sesamoid bones. Normal interphalangeal joint of the great toe. Normal phalanges of the great toe. Normal second through fifth metatarsophalangeal joints. Normal interphalangeal joints and phalanges of the lesser toes. The soft tissue structures are unremarkable. 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 Correlation MRI would be useful. Electronically Signed: Holger Carson MD at 12:22 EST ,
--- NOTE | 2022-09-09 10:12 | PCM.CONS.GEN ---
Assessment & Plan Assessment/Plan (1) Heel ulcer: (2) Cirrhosis: PLAN: Plan Evaluation performed. Reviewed diagnostic data. Patient has bilateral heel ulcerations. He also has blister to lateral left midfoot and 5th toe. These are c/w pressure wounds. There was some very loose superficial epidermal skin which was removed sharply. A culture has been obtained and is pending. Patient is on Vanc/Zosyn at this time. Bilateral foot xrays were ordered. Wound care: Dakin's solution (half strength, 0.25%) gauze wet to dry, overlying dry gauze, kerlix and christian. Keep heels offloaded at all times. Ordered offloading heel boots. Discussed with patient's family who was present at bedside. Reviewed these will likely be very slow to heal or could be nonhealing given patient's overall health status. Patient would benefit going to wound center after discharge. Discussed with Dr. Jacobson, hospitalist. Podiatry will continue to follow, thank you for consult. HPI Consult Data Date of Consult: 09/09/22 HPI Narrative Reason for Consultation: Heel ulcers bilateral HPI Narrative: FRIDA PARSONS, is a 72 M who presents with bilateral heel ulcerations. Patient is bed bound, knees are contracted, he has developed blisters/wounds to heels. He has infection and has been started on Vanc and Zosyn. A culture has been obtained and is pending. He has cirrhosis of the liver and is on hospice. He is afebrile. He does relate there is pain to the ulcer sites. [facility] Medical History Abscess of left leg Back pain due to injury Cirrhosis History of ETOH abuse MRSA infection Polyclonal gammopathy Rheumatoid arthritis Skin graft disorder Ulcer of left lower extremity with muscle involvement without evidence of necrosis Home Medications furosemide 40 mg tablet (Lasix) 40 mg PO DAILY water pill 12/14/20 [History Last Taken 2 Weeks Ago ~08/25/22] lisinopril 20 mg tablet 20 mg PO DAILY high bp 12/14/20 [History Last Taken 09/08/22] hydroxyzine HCl 25 mg tablet 25 mg PO TID PRN Anxiety 08/12/21 [History Last Taken 2 Weeks Ago ~08/25/22] guaifenesin 600 mg tablet, extended release 12 hr (Mucinex) 600 mg PO BID 09/12/21 [History Last Taken 09/08/22] albuterol sulfate 2.5 mg/3 mL (0.083 %) solution for nebulization 2.5 mg inhalation Q4H PRN SOB 09/08/22 [History Last Taken 2 Days Ago ~09/06/22] cephalexin 500 mg capsule 500 mg PO BID . 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 There is intact superficial blister to the lateral left midfoot and lateral 5th toe with no evidence of infection, there is chronic venous stasis skin changes bilateral lower extremity, CFT < 2 seconds to all toes with no evidence of acute ischemia. The bases of the ulcerations of the heels is granular and otherwise margins healthy and viable. Const alert and no apparent distress Lab / Micro Data Result Diagrams: 09/09/22 05:25 09/09/22 05:25 Labs: Laboratory Results - last 24 hr 09/08/22 14:00: WBC 5.4, RBC 3.46 L, Hgb 11.7 L, Hct 34.8 L, MCV 100.6 H, MCH 33.8 H, MCHC 33.6, RDW Std Deviation 53.6 H, RDW Coeff of Marisel 14.6, Plt Count 58 L, MPV 10.6, Immature Gran % (Auto) 0.200, Neut % (Auto) 76.3 H, Lymph % (Auto) 13.1 L, [place] % (Auto) 9.8, Eos % (Auto) 0.2, Baso % (Auto) 0.4, Absolute Neuts (auto) 4.1, Absolute Lymphs (auto) 0.71 L, Nucleated RBC % 0 09/08/22 14:00: Sodium 142, Potassium 3.8, Chloride 110 H, Carbon Dioxide 27.0, Anion Gap 5, BUN 13, Creatinine 1.01, Estim Creat Clear Calc 73.63, Est GFR (MDRD) Af Amer 94, Est GFR (MDRD) Non-Af 77, BUN/Creatinine Ratio 12.9, Glucose 138 H, Calcium 8.0 L 09/08/22 14:00: Magnesium 1.8 09/08/22 15:10: Urine Color Ирина, Urine Clarity Cloudy, Urine pH 7.0, Ur Specific [place] 1.015, Urine Protein 100 H, Urine Glucose (UA) Normal, Urine Ketones 5 H, Urine Occult Blood 250 H, Urine Nitrite Positive H, Urine Bilirubin 3 H, Urine Urobilinogen 8 H, Ur Leukocyte Esterase 100 H, Urine RBC > 100 SEEN, Urine WBC 5-10 SEEN, Ur Squamous Epith Cells 0-5 SEEN, Urine Bacteria RARE, Urine Mucus 0 SEEN 09/08/22 18:43: Lactic Acid 0.7 09/08/22 18:45: S.aureus Protein A PCR POSITIVE H, MRSA (PCR) POSITIVE H 09/08/22 18:45: S.aureus Protein A PCR POSITIVE H, MRSA (PCR) POSITIVE H 09/09/22 05:25: WBC 4.2 L, RBC 2.94 L, Hgb 10.0 L, Hct 30.2 L, MCV 102.7 H, MCH 34.0 H, MCHC 33.1, RDW Std Deviation 55.2 H, RDW Coeff of Marisel 14.6, Plt Count 48 L*, MPV 11.5, Immature Gran % (Auto) 0.500, Neut % (Auto) 75.7 H, Lymph % (Auto) 13.6 L, [place] % (Auto) 9.3, Eos % (Auto) 0.7, Baso % (Auto) 0.2, Absolute Neuts (auto) 3.2, Absolute Lymphs (auto) 0.57 L, Nucleated RBC % 0, Differential Comment SCANNED, Diff Path Review October, Platelet Estimate MKD 09/09/22 05:25: Sodium 142, Potassium 3.9, Chloride 112 H, Carbon Dioxide 24.0, Anion Gap 6, BUN 13, Creatinine 0.79, Estim Creat Clear Calc 78.78, Est GFR (MDRD) Af Amer 124, Est GFR (MDRD) Non-Af 102, BUN/Creatinine Ratio 16.4, Glucose 84, Calcium 7.5 L 09/09/22 05:25: Total Bilirubin 2.00 H, Direct Bilirubin 0.71 H, AST 47 H, ALT 29, Alkaline Phosphatase 58, Total Protein 5.6 L, Albumin 1.6 L, Globulin 4.0 09/09/22 08:00: PT 18.5 H, INR 1.6, APTT 33.5
--- NOTE | 2022-09-09 10:13 | RAD_ITS ---
STUDY: X-RAY - LEFT FOOT CLINICAL: Male, 72 years old. HEEL ULCER TECHNIQUE: 3 view(s) of the foot. COMPARISON: None. FINDINGS: 2 cm oval radiolucency involving the plantar aspect of the calcaneus worrisome for osteomyelitis. Normal visualized subtalar, talonavicular, calcaneocuboid, tarsal and tarsometatarsal articulations. Normal metatarsi. Normal metatarsophalangeal joint of the great toe. Normal tibial and fibular sesamoid bones. Normal interphalangeal joint of the great toe. Normal phalanges of the great toe. Normal second through fifth metatarsophalangeal joints. Healed fractures of the fourth and fifth proximal phalanges. The soft tissue structures are unremarkable. 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 Electronically Signed: Holger Carson MD at 12:20 EST ,
--- NOTE | 2022-09-09 10:29 | CASEMGMT ---
Social Work SW spoke w/pt's niece and significant other, as well as [facility]. Pt does not have healthcare POA papers completed. VEE Chavira
[2022-09-09] MEDS: rifAXIMin 550 MG Tablet PO ×2 (10:32→22:54)
[2022-09-09] MEDS: Lactulose 20 GM/30 ML PHA UDC PO ×2 (10:32→22:55)
--- NOTE | 2022-09-09 11:20 | NURSING ---
waffle boots applied
[2022-09-09] MEDS: Ensure Plus High Protein 120 ML LIQUID PO ×2 (13:59→17:39)
[2022-09-09] MEDS: MENTHOL 226.8 GM JAR 1 APPLIC TOPICAL (14:01)
[2022-09-09 14:02] VITALS: BP 131/74; PULSE 64; RESP 16; TEMP 36.7; O2SAT 95
[2022-09-09 19:59] VITALS: BP 144/81; PULSE 76; RESP 18; TEMP 36.8; O2SAT 92
[2022-09-09] MEDS: 0.9% Saline Lock 10 ML Syringe IV (20:05)
[2022-09-09] MEDS: Menthol/Lanolin/Calamine/Znox 113 GM Tube 1 APPLIC TOPICAL (22:54)
[2022-09-10 04:01] VITALS: BP 149/92; PULSE 78; RESP 18; TEMP 37; O2SAT 92
[2022-09-10 06:00] VITALS: BMI 23.8
[2022-09-10 06:59] VITALS: O2SAT 95
--- NOTE | 2022-09-10 08:20 | PCM.PN.HOSP ---
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 Objective Data Objective Data Vital Signs: Vital Signs Temp Pulse Resp BP Pulse Ox O2 Del Method 98.6 F 78 18 149/92 H 95 Room Air 09/10/22 04:01 09/10/22 04:01 09/10/22 04:01 09/10/22 04:01 09/10/22 06:59 09/10/22 06:59 Oxygen Delivery Method Room Air Weight: 185 lb 10.067 oz Body Mass Index (BMI) 23.8 Intake & Output: Intake and Output for Last 24 Hours 09/08/22 09/09/22 09/11/22 23:59 23:59 00:59 Intake Total 1563.33 / 1563.33 3376.67 / 3376.67 325 / 325 Output Total 200 / 200 1000 / 1000 Balance 1563.33 / 1563.33 3176.67 / 3176.67 -675 / -675 Medical Nutrition Assessment Dietitian: Malnutrition Criteria Met Start: 09/09/22 10:18 Freq: Status: Active Protocol: Document 09/09/22 10:18 AG (Rec: 09/09/22 10:18 [id number]) Nutrition Malnutrition Evidence of Malnutrition Exists Yes Malnutrition (moderate): Chronic Evidenced By Suboptimal Energy Intake ( Moderate),Weight Loss ( Moderate) Clinical Problem Chronic Disease or Condition Related Malnutrition Etiology moderate, chronic malnutrition related to inadequate energy intake Signs/Symptoms as evidenced by estimated PO intake meeting <75% of estimated energy needs > 3 months; Moderate muscle wasting/fat loss evident in physical exam per orbital, clavicle, acromion, temporal areas and muscle wasting in lower extremities Status Active Problem Recommendation Dietitian Recommendations/Changes continue regular diet as tolerated; will add 120mL ensure plus high protein 4x/ day w/ medpass for additional calories/protein if consumed. Will cut up meats as requested by family. Lab / Micro Data Result Diagrams: 09/09/22 05:25 09/09/22 05:25 Labs: Laboratory Results - last 24 hr 09/09/22 05:25: WBC 4.2 L, RBC 2.94 L, Hgb 10.0 L, Hct 30.2 L, MCV 102.7 H, MCH 34.0 H, MCHC 33.1, RDW Std Deviation 55.2 H, RDW Coeff of Marisel 14.6, Plt Count 48 L*, MPV 11.5, Immature Gran % (Auto) 0.500, Neut % (Auto) 75.7 H, Lymph % (Auto) 13.6 L, Anson % (Auto) 9.3, Eos % (Auto) 0.7, Baso % (Auto) 0.2, Absolute Neuts (auto) 3.2, Absolute Lymphs (auto) 0.57 L, Nucleated RBC % 0, Differential Comment SCANNED, Diff Path Review October, Platelet Estimate MKD 09/09/22 05:25: Sodium 142, Potassium 3.9, Chloride 112 H, Carbon Dioxide 24.0, Anion Gap 6, BUN 13, Creatinine 0.79, Estim Creat Clear Calc 78.78, Est GFR (MDRD) Af Amer 124, Est GFR (MDRD) Non-Af 102, BUN/Creatinine Ratio 16.4, Glucose 84, Calcium 7.5 L 09/09/22 05:25: Total Bilirubin 2.00 H, Direct Bilirubin 0.71 H, AST 47 H, ALT 29, Alkaline Phosphatase 58, Total Protein 5.6 L, Albumin 1.6 L, Globulin 4.0 09/09/22 08:00: PT 18.5 H, INR 1.6, APTT 33.5 Micro: Microbiology 09/08/22 18:45 Wound - Heel Gram Stain - Final 09/08/22 18:45 Wound - Heel Wound Culture - Preliminary Mixed Gram Pos & Gram Neg Org 09/08/22 18:45 Wound - Other Gram Stain - Final 09/08/22 18:45 Wound - Other Wound Culture - Preliminary Mixed Gram Pos & Gram Neg Org 09/08/22 15:10 Urine, Random Urine Culture - Preliminary Culture exhibits no growth. 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 Correlation MRI would be useful. 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 Electronically Signed: Holger Carson MD at 12:20 EST Reading Location ID and State: [id number] / [facility] Tel , Service support , Physical Exam Narrative Discussed with the patient, family, significant other and niece present in the room Physical exam General: Patient awake and alert and answer simple questions. Fluctuating orientation because of cirrhosis. HEENT: Atraumatic, PERRLA, EOMI, Normocephalic Oral: Oral mucosa moist. No Gingival or Mucosal Lesions/ Ulcerations Neck: Supple, No JVD, Negative Carotid Bruits Lungs: Air entry diminished in bilateral lung bases. No crepitation/rhonchi Cardiovascular: Sinus rhythm, Normal S1, Normal S2, No murmurs Abdomen: Bowel Sounds Present, Soft, Non Tender, Non-Distended : Chronic urinary incontinent, cannot ascertain dysuria or new LUTS. No renal angle tenderness. No suprapubic tenderness. Extremities: Chronic bilateral lower extremity subcutaneous fibrosis and lymphedema, Capillary Refill Less than 3 Seconds Skin: Large ulcer superficial ulcer after ruptured blister.Serous discharge. Some necrotic tissue was debrided. Small right heel ulcer but left is worse. Musculoskeletal: Contractures present in bilateral lower extremity at knee and hip joints. Bedbound for more than 1 year. Patient in debilitated condition. Neurological: Cranial nerves II-XII grossly intact, no acute neurological lateralization sign. Psych/Mental Status: Mild cognitive deficit with dementia Assessment & Plan Assessment/Plan (1) Cellulitis of left leg: (2) Heel ulcer: PLAN: Plan This is a 72-year-old gentleman who revoked hospice for treatment of bilateral heel ulcer and possible UTI 1. Bilateral heel ulcer left worse than right with purulent drainage and surrounding/contiguous cellulitis: Patient is being admitted to [facility]. Ulcer looks chronic. Bilateral lower extremity lymphedema with subcutaneous fibrosis and hyperplasia. After discussion of family members, they are agreeable for realistic goal of wound dressing, care and antibiotic but not definitive treatment with the intent of cure or major surgical procedure like amputation. Weight And Test Bar Clerk Is consulted. Empirically started on IV vancomycin and Zosyn. IV fluid half-normal saline. 09/09: Labs reviewed. Lactic acid normal. Patient did not had hypotension therefore does not meet criteria for sepsis. Discussed with Dr. Rhodes. Goal is to control infection, palliative wound debridement. Overall patient looks better. Discussed with Dr. Rhodes. Infection looks more superficial it was mainly blister which ruptured with serous discharge and small necrotic tissue which was debrided near the bedside. He ordered the x-ray. egative clay [id number] but urine collection method is doubtful and does not seem to be sterile or optimal collection. 09/09: UA shows WBC 5-10 cells, RBC more than 100, LE 100 urine nitrite positive therefore possible UTI. 09/10: Urine culture from 09/08 shows no growth. Previous urine culture from 09/07 Morganella morganii, sensitive to present antibiotic Zosyn but also to fluoroquinolones and Bactrim. Prelim Gram stain shows gram-negative clay 3+ Staph aureus 1+. Overall since patient had a UTI and is treated, therefore resolved. Continue present antibiotic. And consult ID tomorrow a.m. Acute encephalopathy, present on admission with history of baseline hepatic encephalopathy and dementia: As per patient's caregiver his significant other and niece's mental status has worsened for last 4 to 5 days with confusion, disorientation, talking irrelevant which does not make sense, less amount of his speech hardly 1 or 2 words and mostly somnolent. 09/09: Patient looks better he is eating his breakfast, he speaks more words sometimes in whole sentence. Orientation still cannot be ascertained. Started on lactulose and Xifaxan. 09/10: Patient mental status is improved. Patient having loose bowel movement with lactulose. On Xifaxan. 3. Chronic alcoholic cirrhosis decompensated with pancytopenia and hepatic encephalopathy, splenomegaly: Patient has seen Dr. Chaudhry oncologist in the past. Hemoglobin 11.7, hematocrit 35%, MCV 100.6, platelet count 58,000. WBC count normal. Patient does not look like fluid overload. 09/09: Patient has thrombocytopenia but WBC count and hemoglobin acceptable limit. On lactulose and Xifaxan. Lasix low-dose 20 mg and spironolactone 50 mg daily from tomorrow AM. 09/10: Follow electrolytes 4. Hypertension: Hold lisinopril 09/10: BP systolic 149. Resume lisinopril. 5. Patient significant other and daughter revoked home hospice care. They are agreeable for gentle wound care, IV antibiotics, fluid and wounddressing, local bedside debridement and podiatry consult. They know that definitive treatment is not realistic goal as it seems patient does not have healthy vascular supply or nerve supply, nutrition and functional mobility. 6. Emaciated, chronic moderate protein calorie malnutrition: Although BMI is 25.2 kg/m? but patient is contracted at knee and hip joints. Patient has moderate to severe muscle atrophy and loss of subcutaneous fat. ADL is dependent. Patient cannot transfer himself or rotate sideways on the bed. Living will/advanced directive/end of life care: Patient does have living will or advanced directive. His significant other present in the room has power of butter grader for health. As patient cannot understand and make decisions therefore discussed with patient's significant other and her daughter at the bedside. After discussion of benefits/risks procedures involved with full code, DNR CC arrest and DNR CC, they are agreeable with DNR CC arrest with no intubation. Patient does want artificial life support including intubation, tube feed, ventilator and/chest compression, central venous catheter, vasopressor and DC shock if needed Charges/Coding Visit Charges Inpatient E&M: [address] [facility] Hosp L2
[2022-09-10 09:00] VITALS: BP 154/72; PULSE 75; RESP 18; TEMP 37.1; O2SAT 95
[2022-09-10] MEDS: Ensure Plus High Protein 120 ML LIQUID PO ×3 (09:00→18:30)
[2022-09-10] MEDS: Polyethylene Glycol 3350 17 GM PACKET PO (09:16)
[2022-09-10] MEDS: guaiFENesin 600 MG Tablet PO ×2 (09:16→21:21)
[2022-09-10] MEDS: rifAXIMin 550 MG Tablet PO ×2 (09:17→21:21)
[2022-09-10] MEDS: Furosemide 20 MG Tablet PO (09:17)
[2022-09-10] MEDS: Menthol/Lanolin/Calamine/Znox 113 GM Tube 1 APPLIC TOPICAL ×2 (09:19→21:22)
[2022-09-10 09:42] LABS: Vancomycin, Trough Level 20.9 ug/mL (5.0-15.0)
[2022-09-10] MEDS: oxyCODONE 5 MG Tablet PO ×3 (09:44→21:22)
[2022-09-10 10:36] LABS: Creatinine, Serum 0.83 mg/dL (0.70-1.30); EST Glomerular Filtration Rate 97 mL/min (>60); Est Glom Filt Rate - Afr Amer 117 mL/min (>60); Estimated Creatinine Clearance 94.91 ml/min
--- NOTE | 2022-09-10 10:54 | PCM.PROGNOTE ---
Subjective Subjective Patient wsraquel seen this morning for follow up on bilateral heel ulcers. He is resting in bed. No new complaints. Objective Data Objective Data Vital Signs: Vital Signs Temp Pulse Resp BP Pulse Ox O2 Del Method 98.6 F 78 18 149/92 H 95 Room Air 09/10/22 04:01 09/10/22 04:01 09/10/22 04:01 09/10/22 04:01 09/10/22 06:59 09/10/22 06:59 Oxygen Delivery Method Room Air Weight: 84.2 kg Body Mass Index (BMI) 23.8 Intake & Output: Intake and Output for Last 24 Hours 09/08/22 09/09/22 09/11/22 23:59 23:59 00:59 Intake Total 1563.33 / 1563.33 3376.67 / 3376.67 375 / 375 Output Total 200 / 200 1000 / 1000 Balance 1563.33 / 1563.33 3176.67 / 3176.67 -625 / -625 Medical Nutrition Assessment Dietitian: Malnutrition Criteria Met Start: 09/09/22 10:18 Freq: Status: Active Protocol: Document 09/09/22 10:18 AG (Rec: 09/09/22 10:18 AG [id number]) Nutrition Malnutrition Evidence of Malnutrition Exists Yes Malnutrition (moderate): Chronic Evidenced By Suboptimal Energy Intake ( Moderate),Weight Loss ( Moderate) Clinical Problem Chronic Disease or Condition Related Malnutrition Etiology moderate, chronic malnutrition related to inadequate energy intake Signs/Symptoms as evidenced by estimated PO intake meeting <75% of estimated energy needs > 3 months; Moderate muscle wasting/fat loss evident in physical exam per orbital, clavicle, acromion, temporal areas and muscle wasting in lower extremities Status Active Problem Recommendation Dietitian Recommendations/Changes continue regular diet as tolerated; will add 120mL ensure plus high protein 4x/ day w/ medpass for additional calories/protein if consumed. Will cut up meats as requested by family. Lab / Micro Data Result Diagrams: 09/09/22 05:25 09/10/22 08:25 Labs: Laboratory Results - last 24 hr 09/09/22 05:25: Differential Comment SCANNED, Diff Path Review October foll, Platelet Estimate MKD 09/10/22 08:25: Vancomycin Trough 20.9 H 09/10/22 08:25: Creatinine 0.83, Estim Creat Clear Calc 94.91, Est GFR (MDRD) Af Amer 117, Est GFR (MDRD) Non-Af 97 Micro: Microbiology 09/08/22 18:45 Wound - Heel Gram Stain - Final 09/08/22 18:45 Wound - Heel Wound Culture - Preliminary Gram negative clay Staphylococcus aureus 09/08/22 18:45 Wound - Other Gram Stain - Final 09/08/22 18:45 Wound - Other Wound Culture - Preliminary Gram negative clay Gram negative clay#2 Staphylococcus aureus 09/08/22 15:10 Urine, Random Urine Culture - Preliminary Culture exhibits no growth. 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 Correlation MRI would be useful. 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 Electronically Signed: Holger Carson MD at 12:20 EST Reading Location ID and State: [place] / [employer] Tel , Service support , Physical Exam Narrative Bilateral superficial heel ulcerations down to subcutaneous tissue with some dry eschar right heel, otherwise granular visble tissue base and margins, there is no probe or exposed bone, no fluctuance, no visible abscess, no crepitus, no streaking, no purulence at this time. There is intact superficial blister to the lateral left midfoot and lateral 5th toe with no evidence of infection, there is chronic venous stasis skin changes bilateral lower extremity, CFT < 2 seconds to all toes with no evidence of acute ischemia. Const alert and no apparent distress Assessment & Plan Assessment/Plan (1) Heel ulcer: (2) Cirrhosis: PLAN: Plan Evaluation performed. Reviewed diagnostic data. Patient has bilateral heel ulcerations. He also has blister to lateral left midfoot and 5th toe. These are c/w pressure wounds. Ulcers are stable. A culture has been obtained, reviewed available results, final results pending. Patient is on Vanc/Zosyn at this time. Bilateral foot xrays were ordered. Reviewed - there is noted diffuse radiolucency - radiologist unable to r/o osteomyelitis, discussed with Dr. Jacobson as well as Lise patient's significant other; will hold off on MRI at this time and we will continue with local wound care and antibiotics. Wound care: Dakin's solution (half strength, 0.25%) gauze wet to dry, overlying dry gauze, kerlix and christian. Keep heels offloaded at all times. Ordered offloading heel boots. Discussed with Dr. Jacobson, hospitalist. Podiatry will continue to follow.
--- NOTE | 2022-09-10 11:13 | PHA.PHARE_ITS ---
Consult Pharmacy has been consulted to manage selected antiobiotic: Vancomycin Type of Consult: Follow-up Suspected Infection: Skin/Soft tissue Prior Doses of Antibiotics Received/Current Regimen: current dose is vanc 1250mg IV q12h Labs: Sodium 142 mmol/L (136-145) 09/09/22 05:25 Potassium 3.9 mmol/L (3.5-5.1) 09/09/22 05:25 Chloride 112 mmol/L (98-107) H 09/09/22 05:25 Carbon Dioxide 24.0 mmol/L (21.0-32.0) 09/09/22 05:25 Anion Gap 6 (5-15) 09/09/22 05:25 BUN 13 mg/dL (7-18) 09/09/22 05:25 Creatinine 0.83 mg/dL (0.70-1.30) 09/10/22 08:25 Est GFR (MDRD) Af Amer 117 mL/min (>60) 09/10/22 08:25 Est GFR (MDRD) Non-Af 97 mL/min (>60) 09/10/22 08:25 BUN/Creatinine Ratio 16.4 RATIO (10-20) 09/09/22 05:25 Glucose 84 mg/dL (74-106) 09/09/22 05:25 Vancomycin Trough 20.9 ug/mL (5.0-15.0) H 09/10/22 08:25 Microbiology: Microbiology 09/08/22 18:45 Wound - Heel Gram Stain - Final 09/08/22 18:45 Wound - Heel Wound Culture - Preliminary Gram negative clay Staphylococcus aureus 09/08/22 18:45 Wound - Other Gram Stain - Final 09/08/22 18:45 Wound - Other Wound Culture - Preliminary Gram negative clay Gram negative clay#2 Staphylococcus aureus 09/08/22 15:10 Urine, Random Urine Culture - Preliminary Culture exhibits no growth. Weight used for dosin.2 kg Estimated Creatinine Clearance: 94.9ml/min Goal Trough: 15-20 mcg/mL Pharmacy Plan for Drug Dosing: The vanc trough drawn at 08:25 today (approx 11.5 hours after the previous dose) was 20.9. This is above goal range so will hold current dose. Will check a random level in about 8 hours per protocol. If that is <20, will be able to res tart at a newly calculated dose. Pharmacy Service will continue to monitor and adjust dosing as required. Follow-Up Labs: Trough Vancomycin - random Labs to be done on [date and time ordered]: 09/10/22 17:00
--- NOTE | 2022-09-10 12:11 | NURSING ---
This RN got a phone call from Luis E Allen. Tiffany stated that her Uncle used to take anti anxiety medication because he can get verbal abuse and agitated. He told the Niece that he felt more agitated the more he has to stay in the hospital. This RN Cortexted DR. Jacobson to let him know.
[2022-09-10] MEDS: Lisinopril 10 MG Tablet PO (12:24)
[2022-09-10] MEDS: Spironolactone 50 MG Tablet PO (12:24)
[2022-09-10] MEDS: hydrOXYzine 10 MG Tablet PO (15:14)
[2022-09-10] MEDS: Acetaminophen 325 MG Tablet 650 MG PO (15:31)
[2022-09-10 15:36] VITALS: BP 122/68; PULSE 75; RESP 20; TEMP 38.4; O2SAT 93
[2022-09-10] MEDS: Vancomycin IV 1,000 MG/200 ML BAG 200 MG IV (18:29)
[2022-09-10 18:31] VITALS: BP 112/65; PULSE 67; RESP 16; TEMP 37.2; O2SAT 93
--- NOTE | 2022-09-10 18:36 | PCM.RX.CS ---
Consult Pharmacy has been consulted to manage selected antiobiotic: Vancomycin Type of Consult: Follow-up Suspected Infection: Skin/Soft tissue Prior Doses of Antibiotics Received/Current Regimen: dose is currently being held Labs: Sodium 142 mmol/L (136-145) 09/09/22 05:25 Potassium 3.9 mmol/L (3.5-5.1) 09/09/22 05:25 Chloride 112 mmol/L (98-107) H 09/09/22 05:25 Carbon Dioxide 24.0 mmol/L (21.0-32.0) 09/09/22 05:25 Anion Gap 6 (5-15) 09/09/22 05:25 BUN 13 mg/dL (7-18) 09/09/22 05:25 Creatinine 0.83 mg/dL (0.70-1.30) 09/10/22 08:25 Est GFR (MDRD) Af Amer 117 mL/min (>60) 09/10/22 08:25 Est GFR (MDRD) Non-Af 97 mL/min (>60) 09/10/22 08:25 BUN/Creatinine Ratio 16.4 RATIO (10-20) 09/09/22 05:25 Glucose 84 mg/dL (74-106) 09/09/22 05:25 Vancomycin Trough 20.9 ug/mL (5.0-15.0) H 09/10/22 08:25 Random Vancomycin 15.0 ug/mL (0.0-15.0) 09/10/22 16:40 Microbiology: Microbiology 09/08/22 15:10 Urine, Random Urine Culture - Final Culture exhibits no growth. 09/08/22 18:45 Wound - Heel Gram Stain - Final 09/08/22 18:45 Wound - Heel Wound Culture - Preliminary Gram negative clay Staphylococcus aureus 09/08/22 18:45 Wound - Other Gram Stain - Final 09/08/22 18:45 Wound - Other Wound Culture - Preliminary Gram negative clay Gram negative clay#2 Staphylococcus aureus Weight used for dosin.2 kg Estimated Creatinine Clearance: 94.9ml/min Goal Trough: 15-20 mcg/mL Pharmacy Plan for Drug Dosing: The vanc random level drawn at 16:40 was 15.0. This is back below 20 so can resume dosing at a newly calculated dose of 1000mg IV q12h. Will check a trough before the 4th dose. Pharmacy Service will continue to monitor and adjust dosing as required. Follow-Up Labs: Trough Vancomycin Labs to be done on [date and time ordered]: 09/12/22 05:30
[2022-09-10 21:15] VITALS: BP 114/60; PULSE 74; RESP 18; TEMP 37.1; O2SAT 94
[2022-09-11 01:22] VITALS: BMI 23.8
[2022-09-11 03:32] VITALS: BP 127/76; PULSE 69; RESP 18; TEMP 36.8; O2SAT 92
[2022-09-11] MEDS: oxyCODONE 5 MG Tablet PO ×4 (03:38→21:18)
[2022-09-11] MEDS: Vancomycin IV 1,000 MG/200 ML BAG 200 MG IV ×2 (05:10→17:44)
[2022-09-11 07:10] LABS: Absolute Lymphocyte Count 0.78 X10^3/uL (0.83-4.51); Absolute Neutrophil Count 2.1 X10^3/uL (2.0-7.7); Basophil# 0.02 X10^3/uL; Basophil% 0.6 % (0-1); Eosinophil# 0.18 X10^3/uL; Eosinophils% 5.3 % (0-5); Hematocrit 30.3 % (40-54); Lymphocyte # 0.78 X10^3/ul (0.83-4.51); Lymphocyte % 22.8 % (19-41); Mean Corpuscular Hgb 33.6 pg (27.0-32.0); Mean Corpuscular Volume 101.7 fL (80-94); Mean Platelet Vol. 11.1 fl (6.2-12.0); Monocyte# 0.33 X10^3/uL; Monocyte% 9.6 % (0-10); NRBC Flagged by Analyzer 0 % (0-5); Neutrophil % 61.4 % (47-70); POSITIVE COUNT YES; Platelet Count 56 K/mm3 (150-450); RBC Distribution Width CV 14.7 % (11.6-14.6); Red Blood Count 2.98 M/mm3 (4.6-6.2); White Blood Count 3.4 K/mm3 (4.4-11.0)
[2022-09-11 07:50] LABS: ALB/GLOB Ratio 0.4 RATIO (0.9-2.4); AST(SGOT) 37 U/L (15-37); Alanine Aminotransfer ALT/SGPT 25 U/L (16-61); Albumin, Serum 1.5 g/dL (3.2-5.0); Alkaline Phosphatase 54 U/L (45-117); Anion Gap 6 (5-15); BUN 12 mg/dL (7-18); BUN/Creat Ratio 14.7 RATIO (10-20); Calcium,Total 7.6 mg/dL (8.5-10.1); Chloride 115 mmol/L (98-107); Creatinine, Serum 0.81 mg/dL (0.70-1.30); EST Glomerular Filtration Rate 99 mL/min (>60); Est Glom Filt Rate - Afr Amer 120 mL/min (>60); Estimated Creatinine Clearance 97.25 ml/min; Globulin 3.9 g/dL (2.2-4.2); Glucose 110 mg/dL (74-106); Potassium 3.1 mmol/L (3.5-5.1); Protein, Total 5.4 g/dL (6.4-8.2); Sodium Level 145 mmol/L (136-145)
--- NOTE | 2022-09-11 08:53 | PCM.PN.HOSP ---
Subjective Subjective Doing well, having some pain. Wound cultures are pending Objective Data Objective Data Vital Signs: Vital Signs Temp Pulse Resp BP Pulse Ox O2 Del Method 98.2 F 69 18 127/76 H 92 Room Air 09/11/22 03:32 09/11/22 03:32 09/11/22 03:32 09/11/22 03:32 09/11/22 03:32 09/11/22 03:41 Oxygen Delivery Method Room Air Weight: 185 lb 10.067 oz Body Mass Index (BMI) 23.8 Intake & Output: Intake and Output for Last 24 Hours 09/10/22 09/11/22 09/12/22 03:59 03:59 03:59 Intake Total 1469.25 / 1469.25 400 / 400 Output Total 500 / 500 200 / 200 Balance 969.25 / 969.25 200 / 200 Medical Nutrition Assessment Dietitian: Malnutrition Criteria Met Start: 09/09/22 10:18 Freq: Status: Active Protocol: Document 09/09/22 10:18 AG (Rec: 09/09/22 10:18 [id number]) Nutrition Malnutrition Evidence of Malnutrition Exists Yes Malnutrition (moderate): Chronic Evidenced By Suboptimal Energy Intake ( Moderate),Weight Loss ( Moderate) Clinical Problem Chronic Disease or Condition Related Malnutrition Etiology moderate, chronic malnutrition related to inadequate energy intake Signs/Symptoms as evidenced by estimated PO intake meeting <75% of estimated energy needs > 3 months; Moderate muscle wasting/fat loss evident in physical exam per orbital, clavicle, acromion, temporal areas and muscle wasting in lower extremities Status Active Problem Recommendation Dietitian Recommendations/Changes continue regular diet as tolerated; will add 120mL ensure plus high protein 4x/ day w/ medpass for additional calories/protein if consumed. Will cut up meats as requested by family. Lab / Micro Data Result Diagrams: 09/11/22 06:20 09/11/22 06:20 Labs: Laboratory Results - last 24 hr 09/10/22 08:25: Vancomycin Trough 20.9 H 09/10/22 08:25: Creatinine 0.83, Estim Creat Clear Calc 94.91, Est GFR (MDRD) Af Amer 117, Est GFR (MDRD) Non-Af 97 09/10/22 16:40: Random Vancomycin 15.0 09/11/22 06:20: WBC 3.4 L, RBC 2.98 L, Hgb 10.0 L, Hct 30.3 L, MCV 101.7 H, MCH 33.6 H, MCHC 33.0, RDW Std Deviation 55.0 H, RDW Coeff of Marisel 14.7 H, Plt Count 56 L, MPV 11.1, Immature Gran % (Auto) 0.300, Neut % (Auto) 61.4, Lymph % (Auto) 22.8, [place] % (Auto) 9.6, Eos % (Auto) 5.3 H, Baso % (Auto) 0.6, Absolute Neuts (auto) 2.1, Absolute Lymphs (auto) 0.78 L, Nucleated RBC % 0 09/11/22 06:20: Sodium 145, Potassium 3.1 L, Chloride 115 H, Carbon Dioxide 24.0, Anion Gap 6, BUN 12, Creatinine 0.81, Estim Creat Clear Calc 97.25, Est GFR (MDRD) Af Amer 120, Est GFR (MDRD) Non-Af 99, BUN/Creatinine Ratio 14.7, Glucose 110 H, Calcium 7.6 L, Total Bilirubin 0.80, AST 37, ALT 25, Alkaline Phosphatase 54, Total Protein 5.4 L, Albumin 1.5 L, Globulin 3.9, Albumin/Globulin Ratio 0.4 L Micro: Microbiology 09/08/22 18:45 Wound - Heel Gram Stain - Final 09/08/22 18:45 Wound - Heel Wound Culture - Final Meth. resistant Staph. aureus Acinetobacter baumannii 09/08/22 18:45 Wound - Other Gram Stain - Final 09/08/22 18:45 Wound - Other Wound Culture - Final Acinetobacter baumannii Enterobacter cloacae complex Meth. resistant Staph. aureus 09/08/22 15:10 Urine, Random Urine Culture - Final Culture exhibits no growth. Physical Exam Narrative General: Alert, cooperative, No apparent distress HEENT: Atraumatic, PERRLA, EOMI, Normocephalic Oral: Moist Mucosa Neck: Supple, No JVD Lungs: Clear to auscultation, Normal air movement, No rhonchi, No wheeze, No rales Cardiovascular: Regular rate, Regular Rhythm, Normal S1, Normal S2, No murmurs Abdomen: Soft, Non Tender, Non-Distended, No Hepato-splenomegaly Extremities: No edema, Capillary Refill Less than 3 Seconds Skin: Lower extremity wounds bilaterally on his heels imaging consistent with osteo Musculoskeletal: Bilateral lower extremity contractures, extremely debilitated Neurological: No focal neurological deficits, complete exam difficult with his contractures Psych/Mental Status: Flat Assessment & Plan Assessment/Plan (1) Cellulitis of left leg: (2) Heel ulcer: PLAN: Plan 1. Bilateral heel ulcer left worse than right with purulent drainage and surrounding/contiguous cellulitis: Patient is being [facility]. Ulcer looks chronic. Bilateral lower extremity lymphedema with subcutaneous fibrosis and hyperplasia. After discussion of family members, they are agreeable for realistic goal of wound dressing, care and antibiotic but not definitive treatment with the intent of cure or major surgical procedure like amputation. Media Aid Is consulted. Empirically started on IV vancomycin and Zosyn. IV fluid half-normal saline. 09/09: Labs reviewed. Lactic acid normal. Patient did not had hypotension therefore does not meet criteria for sepsis. Discussed with Dr. Rhodes. Goal is to control infection, palliative wound debridement. Overall patient looks better. Discussed with Dr. Rhodes. Infection looks more superficial it was mainly blister which ruptured with serous discharge and small necrotic tissue which was debrided near the bedside. He ordered the x-ray. egative clay [id number] but urine collection method is doubtful and does not seem to be sterile or optimal collection. 09/09: UA shows WBC 5-10 cells, RBC more than 100, LE 100 urine nitrite positive therefore possible UTI. 09/10: Urine culture from 09/08 shows no growth. Previous urine culture from 09/07 Morganella morganii, sensitive to present antibiotic Zosyn but also to fluoroquinolones and Bactrim. Prelim Gram stain shows gram-negative clay 3+ Staph aureus 1+. Overall since patient had a UTI and is treated, therefore resolved. Continue present antibiotic. And consult ID tomorrow a.m. 09/11/2022: Hopefully wound cultures when they resolve can identify an oral antibiotic as are not sure he would qualify for any kind of hospice if he needed IV antibiotics 2. Acute encephalopathy, present on admission with history of baseline hepatic encephalopathy and dementia: As per patient's caregiver his significant other and niece's mental status has worsened for last 4 to 5 days with confusion, disorientation, talking irrelevant which does not make sense, less amount of his speech hardly 1 or 2 words and mostly somnolent. 09/09: Patient looks better he is eating his breakfast, he speaks more words sometimes in whole sentence. Orientation still cannot be ascertained. Started on lactulose and Xifaxan. 09/10: Patient mental status is improved. Patient having loose bowel movement with lactulose. On Xifaxan. 3. Chronic alcoholic cirrhosis decompensated with pancytopenia and hepatic encephalopathy, splenomegaly: Patient has seen Dr. Chaudhry oncologist in the past. Hemoglobin 11.7, hematocrit 35%, MCV 100.6, platelet count 58,000. WBC count normal. Patient does not look like fluid overload. 09/09: Patient has thrombocytopenia but WBC count and hemoglobin acceptable limit. On lactulose and Xifaxan. Lasix low-dose 20 mg and spironolactone 50 mg daily from tomorrow AM. 09/10: Follow electrolytes 4. Hypertension: Hold lisinopril 09/10: BP systolic 149. Resume lisinopril. 3. Patient significant other and daughter revoked home hospice care. They are agreeable for gentle wound care, IV antibiotics, fluid and wounddressing, local bedside debridement and podiatry consult. They know that definitive treatment is not realistic goal as it seems patient does not have healthy vascular supply or nerve supply, nutrition and functional mobility. 09/11/2022: Will need to discuss with family the role of IV antibiotics versus oral antibiotics, there is reports that they would like to transition to [facility] 4. Emaciated, chronic moderate protein calorie malnutrition: Although BMI is 25.2 kg/m? but patient is contracted at knee and hip joints. Patient has moderate to severe muscle atrophy and loss of subcutaneous fat. ADL is dependent. Patient cannot transfer himself or rotate sideways on the bed. Charges/Coding Visit Charges Inpatient E&M: 73524 Subs Hosp L2
[2022-09-11 09:01] VITALS: BP 143/76; PULSE 79; RESP 16; TEMP 36.7; O2SAT 94
--- NOTE | 2022-09-11 10:03 | CASEMGMT ---
Addendum entered by Ирина Cueto 09/11/22 10:05: SW will follow up with pt and family when pt is more comfortable. Original Note: Social Work SW in to pt room to follow up with pt and family from weekend SW visit. Pt SO, Lise, informed pt has been waiting for a bed house for sometime. EPHRAIM informed Lise MONTGOMERY, of pt need. Lise informed will assist pt's Matthew MONTGOMERY in aiding pt. ELI Hernandez
[2022-09-11] MEDS: rifAXIMin 550 MG Tablet PO ×2 (10:25→21:25)
[2022-09-11] MEDS: Ciprofloxacin 500 MG Tablet PO ×2 (10:26→21:19)
[2022-09-11] MEDS: Furosemide 20 MG Tablet PO (10:26)
[2022-09-11] MEDS: Lisinopril 10 MG Tablet PO (10:26)
[2022-09-11] MEDS: Spironolactone 50 MG Tablet PO (10:26)
[2022-09-11] MEDS: guaiFENesin 600 MG Tablet PO ×2 (10:26→21:19)
[2022-09-11] MEDS: Potassium Chloride Oral Tablet 20 MEQ 40 MEQ PO (10:27)
[2022-09-11] MEDS: Menthol/Lanolin/Calamine/Znox 113 GM Tube 1 APPLIC TOPICAL ×2 (10:37→21:18)
[2022-09-11] MEDS: Acetaminophen 325 MG Tablet 650 MG PO (10:43)
--- NOTE | 2022-09-11 12:05 | CASEMGMT ---
Addendum entered by Ирина Cueto 09/11/22 13:43: EPHRAIM received update from wound nurse, No, that MD Parkinson had met with pt and family. No shared family have decided to have consult sent to [facility] to determine if pt is appropriate for inpatient level of care. SW faxed referral to [facility]. Original Note: Social Work SW in to meet with pt and family. SW attempted to monitor pt mentation. Pt still appearing slightly confused, stated it is month of Aug and discussed groundhog's day was not long ago. Pt initially stated not knowing who family in room was then stated was joking. SW explained pt needs to be of sound mind to complete HCPOA documents and this will be revisited tomorrow. Pt voiced understanding. SO and shannon discussed discharge plan with SW. Pt and family stated that pt does want to go with [facility] and if SNF is needed [facility] would be first choice. However, pt and family want to talk to MD Jacobson before making that choice. Family stated MD Jacobson is aware they are waiting to discuss pt prognosis. SW discussed intent to check back later this day or tomorrow morning for ongoing care. ELI Hernandez
--- NOTE | 2022-09-11 12:37 | PN_ITS ---
Subjective Subjective No changes today, patient reports pain to foot wounds. Denies constitutionals. No new complaints. Objective Data Objective Data Vital Signs: Vital Signs Temp Pulse Resp BP Pulse Ox O2 Del Method 98.0 F 79 16 143/76 H 94 Room Air 09/11/22 09:01 09/11/22 09:01 09/11/22 09:01 09/11/22 09:01 09/11/22 09:01 09/11/22 09:01 Oxygen Delivery Method Room Air Weight: 84.2 kg Body Mass Index (BMI) 23.8 Intake & Output: Intake and Output for Last 24 Hours 09/09/22 09/10/22 09/11/22 22:59 23:59 23:59 Intake Total 700 / 700 Output Total 200 / 200 Balance 500 / 500 Medical Nutrition Assessment Dietitian: Malnutrition Criteria Met Start: 09/09/22 10:18 Freq: Status: Active Protocol: Document 09/09/22 10:18 AG (Rec: 09/09/22 10:18 [id number]) Nutrition Malnutrition Evidence of Malnutrition Exists Yes Malnutrition (moderate): Chronic Evidenced By Suboptimal Energy Intake ( Moderate),Weight Loss ( Moderate) Clinical Problem Chronic Disease or Condition Related Malnutrition Etiology moderate, chronic malnutrition related to inadequate energy intake Signs/Symptoms as evidenced by estimated PO intake meeting <75% of estimated energy needs > 3 months; Moderate muscle wasting/fat loss evident in physical exam per orbital, clavicle, acromion, temporal areas and muscle wasting in lower extremities Status Active Problem Recommendation Dietitian Recommendations/Changes continue regular diet as tolerated; will add 120mL ensure plus high protein 4x/ day w/ medpass for additional calories/protein if consumed. Will cut up meats as requested by family. Lab / Micro Data Result Diagrams: 09/11/22 06:20 09/11/22 06:20 Labs: Laboratory Results - last 24 hr 09/10/22 16:40: Random Vancomycin 15.0 09/11/22 06:20: WBC 3.4 L, RBC 2.98 L, Hgb 10.0 L, Hct 30.3 L, MCV 101.7 H, MCH 33.6 H, MCHC 33.0, RDW Std Deviation 55.0 H, RDW Coeff of Marisel 14.7 H, Plt Count 56 L, MPV 11.1, Immature Gran % (Auto) 0.300, Neut % (Auto) 61.4, Lymph % (Auto) 22.8, [place] % (Auto) 9.6, Eos % (Auto) 5.3 H, Baso % (Auto) 0.6, Absolute Neuts (auto) 2.1, Absolute Lymphs (auto) 0.78 L, Nucleated RBC % 0 09/11/22 06:20: Sodium 145, Potassium 3.1 L, Chloride 115 H, Carbon Dioxide 24.0, Anion Gap 6, BUN 12, Creatinine 0.81, Estim Creat Clear Calc 97.25, Est GFR (MDRD) Af Amer 120, Est GFR (MDRD) Non-Af 99, BUN/Creatinine Ratio 14.7, Glucose 110 H, Calcium 7.6 L, Total Bilirubin 0.80, AST 37, ALT 25, Alkaline Phosphatase 54, Total Protein 5.4 L, Albumin 1.5 L, Globulin 3.9, Albumin/Globulin Ratio 0.4 L Micro: Microbiology 09/08/22 17:43 Blood Culture (Wb) - Left Hand Blood Culture - Preliminary No growth in 48 hours. 09/08/22 17:40 Blood Culture (Wb) - Anticubital Left Blood Culture - Preliminary No growth in 48 hours. 09/08/22 18:45 Wound - Heel Gram Stain - Final 09/08/22 18:45 Wound - Heel Wound Culture - Final Meth. resistant Staph. aureus Acinetobacter baumannii 09/08/22 18:45 Wound - Other Gram Stain - Final 09/08/22 18:45 Wound - Other Wound Culture - Final Acinetobacter baumannii Enterobacter cloacae complex Meth. resistant Staph. aureus 09/08/22 15:10 Urine, Random Urine Culture - Final Culture exhibits no growth. Physical Exam Narrative Bilateral superficial heel ulcerations down to subcutaneous tissue with some dry eschar right heel, otherwise granular visble tissue base and margins, there is no probe or exposed bone, no fluctuance, no visible abscess, no crepitus, no streaking, no purulence at this time. There is intact superficial blister to the lateral left midfoot and lateral 5th toe with no evidence of infection, there is chronic venous stasis skin changes bilateral lower extremity, CFT < 2 seconds to all toes with no evidence of acute ischemia. Const alert and no apparent distress Assessment & Plan Assessment/Plan (1) Heel ulcer: (2) Cirrhosis: PLAN: Plan Evaluation performed. Reviewed diagnostic data. Patient has bilateral heel ulcerations. He also has blister to lateral left midfoot and 5th toe. These are c/w pressure wounds. Ulcers are stable. Culture positive for MRSA. Patient is on Vanc/Zosyn at this time. Bilateral foot xrays demonstrate disuse osteoporosis. Wound care: non-adherent dressing with absorptive overlying dressing. Podiatry will continue to follow, I recommend frequent dressing changes to manage chronic ulcerations.
[2022-09-11] MEDS: Morphine 4 MG/ML Syringe IV (13:04)
[2022-09-11] MEDS: 0.9% Saline Lock 10 ML Syringe IV (13:05)
[2022-09-11 13:57] LABS: Pathologist Review Reviewed
--- NOTE | 2022-09-11 14:34 | WOUNDNOTE ---
wound photo: left lower leg
--- NOTE | 2022-09-11 14:35 | WOUNDNOTE ---
wound photo: left heel
--- NOTE | 2022-09-11 14:35 | WOUNDNOTE ---
skin photo: bilateral lower legs
--- NOTE | 2022-09-11 14:36 | WOUNDNOTE ---
wound photo: right heel
[2022-09-11 15:34] VITALS: BP 113/66; PULSE 70; RESP 16; TEMP 36.9; O2SAT 95
[2022-09-11 21:12] VITALS: BP 121/70; PULSE 74; RESP 18; TEMP 37; O2SAT 95
[2022-09-12 02:15] VITALS: BP 105/58; PULSE 72; RESP 18; TEMP 36.7; O2SAT 94
[2022-09-12] MEDS: oxyCODONE 5 MG Tablet PO ×4 (02:19→21:10)
[2022-09-12] MEDS: hydrOXYzine 10 MG Tablet PO ×2 (02:23→21:11)
[2022-09-12] MEDS: Vancomycin IV 1,000 MG/200 ML BAG 200 MG IV (05:57)
[2022-09-12 06:00] VITALS: BMI 23.6
[2022-09-12 06:13] LABS: Absolute Lymphocyte Count 1.14 X10^3/uL (0.83-4.51); Absolute Neutrophil Count 3.3 X10^3/uL (2.0-7.7); Basophil# 0.02 X10^3/uL; Basophil% 0.4 % (0-1); Eosinophil# 0.13 X10^3/uL; Eosinophils% 2.6 % (0-5); Hematocrit 32.5 % (40-54); Hemoglobin 10.8 g/dL (13.0-16.5); Lymphocyte # 1.14 X10^3/ul (0.83-4.51); Lymphocyte % 22.6 % (19-41); Mean Corp Hgb Conc 33.2 g/dL (32-36); Mean Corpuscular Hgb 33.9 pg (27.0-32.0); Mean Corpuscular Volume 101.9 fL (80-94); Mean Platelet Vol. 11.2 fl (6.2-12.0); Monocyte% 7.9 % (0-10); NRBC Flagged by Analyzer 0 % (0-5); Neutrophil # 3.34 X10^3/uL (2.7-7.7); Neutrophil % 66.1 % (47-70); POSITIVE COUNT YES; Platelet Count 62 K/mm3 (150-450); RBC Distribution Width CV 14.6 % (11.6-14.6); RBC Distribution Width SD 54.4 fl (35.1-43.9); Red Blood Count 3.19 M/mm3 (4.6-6.2); White Blood Count 5.1 K/mm3 (4.4-11.0)
--- NOTE | 2022-09-12 06:59 | PCM.RX.CS ---
Consult Pharmacy has been consulted to manage selected antiobiotic: Vancomycin Type of Consult: Follow-up Prior Doses of Antibiotics Received/Current Regimen: Medications Vancomycin HCl (Vancomycin) 1,000 mg in 200 mls @ 200 mls/hr IV Q12H DHAVAL Last Admin: 09/12/22 05:57 Dose: 200 mls/hr Labs: Sodium 145 mmol/L (136-145) 09/11/22 06:20 Potassium 3.1 mmol/L (3.5-5.1) L 09/11/22 06:20 Chloride 115 mmol/L (98-107) H 09/11/22 06:20 Carbon Dioxide 24.0 mmol/L (21.0-32.0) 09/11/22 06:20 Anion Gap 6 (5-15) 09/11/22 06:20 BUN 12 mg/dL (7-18) 09/11/22 06:20 Creatinine 0.81 mg/dL (0.70-1.30) 09/11/22 06:20 Est GFR (MDRD) Af Amer 120 mL/min (>60) 09/11/22 06:20 Est GFR (MDRD) Non-Af 99 mL/min (>60) 09/11/22 06:20 BUN/Creatinine Ratio 14.7 RATIO (10-20) 09/11/22 06:20 Glucose 110 mg/dL (74-106) H 09/11/22 06:20 Vancomycin Trough 19.0 ug/mL (5.0-15.0) H 09/12/22 05:35 Random Vancomycin 15.0 ug/mL (0.0-15.0) 09/10/22 16:40 Microbiology: Microbiology 09/08/22 17:43 Blood Culture (Wb) - Left Hand Blood Culture - Preliminary No growth in 48 hours. 09/08/22 17:40 Blood Culture (Wb) - Anticubital Left Blood Culture - Preliminary No growth in 48 hours. 09/08/22 18:45 Wound - Heel Gram Stain - Final 09/08/22 18:45 Wound - Heel Wound Culture - Final Meth. resistant Staph. aureus Acinetobacter baumannii 09/08/22 18:45 Wound - Other Gram Stain - Final 09/08/22 18:45 Wound - Other Wound Culture - Final Acinetobacter baumannii Enterobacter cloacae complex Meth. resistant Staph. aureus 09/08/22 15:10 Urine, Random Urine Culture - Final Culture exhibits no growth. Weight used for dosin kg Goal Trough: 15-20 mcg/mL Pharmacy Plan for Drug Dosing: Vancomycin trough still at the upper end of goal limit after previous reduction. Dose already given after trough drawn. Reduce to 750mg IV q12h and re-check prior to 4th dose. Will add 25% to interval to make up for dose reduction. Pharmacy Service will continue to monitor and adjust dosing as required. Follow-Up Labs: Trough Vancomycin - 09/14 @ [id number]
--- NOTE | 2022-09-12 08:31 | CASEMGMT ---
Social Work SW received VM from Oksana at [facility]. A nurse will be in to meet with and assess pt today. Hospice will call pt family to arrange a time. ELI Hernandez
--- NOTE | 2022-09-12 08:55 | PCM.PN.HOSP ---
Subjective Subjective Unchanged from yesterday, no new issues Objective Data Objective Data Vital Signs: Vital Signs Temp Pulse Resp BP Pulse Ox O2 Del Method 98.1 F 72 18 105/58 L 94 Room Air 09/12/22 02:15 09/12/22 02:15 09/12/22 02:15 09/12/22 02:15 09/12/22 02:15 09/12/22 02:31 Oxygen Delivery Method Room Air Weight: 183 lb 13.848 oz Body Mass Index (BMI) 23.6 Intake & Output: Intake and Output for Last 24 Hours 09/11/22 09/12/22 09/13/22 03:59 03:59 03:59 Intake Total 1469.25 / 1469.25 1095.75 / 1095.75 300 / 300 Output Total 500 / 500 200 / 200 Balance 969.25 / 969.25 895.75 / 895.75 300 / 300 Medical Nutrition Assessment Dietitian: Malnutrition Criteria Met Start: 09/09/22 10:18 Freq: Status: Active Protocol: Document 09/09/22 10:18 AG (Rec: 09/09/22 10:18 [id number]) Nutrition Malnutrition Evidence of Malnutrition Exists Yes Malnutrition (moderate): Chronic Evidenced By Suboptimal Energy Intake ( Moderate),Weight Loss ( Moderate) Clinical Problem Chronic Disease or Condition Related Malnutrition Etiology moderate, chronic malnutrition related to inadequate energy intake Signs/Symptoms as evidenced by estimated PO intake meeting <75% of estimated energy needs > 3 months; Moderate muscle wasting/fat loss evident in physical exam per orbital, clavicle, acromion, temporal areas and muscle wasting in lower extremities Status Active Problem Recommendation Dietitian Recommendations/Changes continue regular diet as tolerated; will add 120mL ensure plus high protein 4x/ day w/ medpass for additional calories/protein if consumed. Will cut up meats as requested by family. Lab / Micro Data Result Diagrams: 09/12/22 05:35 09/11/22 06:20 Labs: Laboratory Results - last 24 hr 09/09/22 05:25: Diff Path Review Reviewed 09/12/22 05:35: WBC 5.1, RBC 3.19 L, Hgb 10.8 L, Hct 32.5 L, MCV 101.9 H, MCH 33.9 H, MCHC 33.2, RDW Std Deviation 54.4 H, RDW Coeff of Marisel 14.6, Plt Count 62 L, MPV 11.2, Immature Gran % (Auto) 0.400, Neut % (Auto) 66.1, Lymph % (Auto) 22.6, [place] % (Auto) 7.9, Eos % (Auto) 2.6, Baso % (Auto) 0.4, Absolute Neuts (auto) 3.3, Absolute Lymphs (auto) 1.14, Nucleated RBC % 0 09/12/22 05:35: Vancomycin Trough 19.0 H Micro: Microbiology 09/08/22 17:43 Blood Culture (Wb) - Left Hand Blood Culture - Preliminary No growth in 48 hours. 09/08/22 17:40 Blood Culture (Wb) - Anticubital Left Blood Culture - Preliminary No growth in 48 hours. 09/08/22 18:45 Wound - Heel Gram Stain - Final 09/08/22 18:45 Wound - Heel Wound Culture - Final Meth. resistant Staph. aureus Acinetobacter baumannii 09/08/22 18:45 Wound - Other Gram Stain - Final 09/08/22 18:45 Wound - Other Wound Culture - Final Acinetobacter baumannii Enterobacter cloacae complex Meth. resistant Staph. aureus 09/08/22 15:10 Urine, Random Urine Culture - Final Culture exhibits no growth. Physical Exam Narrative General: Alert, cooperative, No apparent distress HEENT: Atraumatic, PERRLA, EOMI, Normocephalic Oral: Moist Mucosa Neck: Supple, No JVD Lungs: Clear to auscultation, Normal air movement, No rhonchi, No wheeze, No rales Cardiovascular: Regular rate, Regular Rhythm, Normal S1, Normal S2, No murmurs Abdomen: Soft, Non Tender, Non-Distended, No Hepato-splenomegaly Extremities: No edema, Capillary Refill Less than 3 Seconds Skin: Lower extremity wounds bilaterally on his heels imaging consistent with osteo Musculoskeletal: Bilateral lower extremity contractures, extremely debilitated Neurological: No focal neurological deficits, complete exam difficult with his contractures Psych/Mental Status: Flat Assessment & Plan Assessment/Plan (1) Cellulitis of left leg: (2) Heel ulcer: PLAN: Plan 1. Bilateral heel ulcer left worse than right with purulent drainage and surrounding/contiguous cellulitis: Patient is being admitted to [facility]. Ulcer looks chronic. Bilateral lower extremity lymphedema with subcutaneous fibrosis and hyperplasia. After discussion of family members, they are agreeable for realistic goal of wound dressing, care and antibiotic but not definitive treatment with the intent of cure or major surgical procedure like amputation. Tar Leveler Is consulted. Empirically started on IV vancomycin and Zosyn. IV fluid half-normal saline. 09/09: Labs reviewed. Lactic acid normal. Patient did not had hypotension therefore does not meet criteria for sepsis. Discussed with Dr. Rhodes. Goal is to control infection, palliative wound debridement. Overall patient looks better. Discussed with Dr. Rhodes. Infection looks more superficial it was mainly blister which ruptured with serous discharge and small necrotic tissue which was debrided near the bedside. He ordered the x-ray. egative clay [id number] but urine collection method is doubtful and does not seem to be sterile or optimal collection. 09/09: UA shows WBC 5-10 cells, RBC more than 100, LE 100 urine nitrite positive therefore possible UTI. 09/10: Urine culture from 09/08 shows no growth. Previous urine culture from 09/07 Morganella morganii, sensitive to present antibiotic Zosyn but also to fluoroquinolones and Bactrim. Prelim Gram stain shows gram-negative clay 3+ Staph aureus 1+. Overall since patient had a UTI and is treated, therefore resolved. Continue present antibiotic. And consult ID tomorrow a.m. 09/11/2022: Hopefully wound cultures when they resolve can identify an oral antibiotic as are not sure he would qualify for any kind of hospice if he needed IV antibiotics 09/12/2022: Cultures are back and everything is sensitive to Levaquin which she can be discharged on 500 mg p.o. daily 2. Acute encephalopathy, present on admission with history of baseline hepatic encephalopathy and dementia: As per patient's caregiver his significant other and niece's mental status has worsened for last 4 to 5 days with confusion, disorientation, talking irrelevant which does not make sense, less amount of his speech hardly 1 or 2 words and mostly somnolent. 09/09: Patient looks better he is eating his breakfast, he speaks more words sometimes in whole sentence. Orientation still cannot be ascertained. Started on lactulose and Xifaxan. 09/10: Patient mental status is improved. Patient having loose bowel movement with lactulose. On Xifaxan. 3. Chronic alcoholic cirrhosis decompensated with pancytopenia and hepatic encephalopathy, splenomegaly: Patient has seen Dr. Chaudhry oncologist in the past. Hemoglobin 11.7, hematocrit 35%, MCV 100.6, platelet count 58,000. WBC count normal. Patient does not look like fluid overload. 09/09: Patient has thrombocytopenia but WBC count and hemoglobin acceptable limit. On lactulose and Xifaxan. Lasix low-dose 20 mg and spironolactone 50 mg daily from tomorrow AM. 09/10: Follow electrolytes 4. Hypertension: Hold lisinopril 09/10: BP systolic 149. Resume lisinopril. 3. Patient significant other and daughter revoked home hospice care. They are agreeable for gentle wound care, IV antibiotics, fluid and wounddressing, local bedside debridement and podiatry consult. They know that definitive treatment is not realistic goal as it seems patient does not have healthy vascular supply or nerve supply, nutrition and functional mobility. 09/11/2022: Will need to discuss with family the role of IV antibiotics versus oral antibiotics, there is reports that they would like to transition to [facility], versus hospice at SNF 09/12/2022: We will discuss plans for transitioning of his care to hospice either in [facility], back at home, or at a SNF 4. Emaciated, chronic moderate protein calorie malnutrition: Although BMI is 25.2 kg/m? but patient is contracted at knee and hip joints. Patient has moderate to severe muscle atrophy and loss of subcutaneous fat. ADL is dependent. Patient cannot transfer himself or rotate sideways on the bed. Charges/Coding Visit Charges Inpatient E&M: 49293 Subs Hosp L2
[2022-09-12 09:22] VITALS: BP 131/64; PULSE 70; RESP 16; TEMP 36.9; O2SAT 95
[2022-09-12] MEDS: Spironolactone 50 MG Tablet PO (09:29)
[2022-09-12] MEDS: Menthol/Lanolin/Calamine/Znox 113 GM Tube 1 APPLIC TOPICAL ×2 (09:29→21:10)
[2022-09-12] MEDS: Furosemide 20 MG Tablet PO (09:30)
[2022-09-12] MEDS: guaiFENesin 600 MG Tablet PO ×2 (09:30→21:10)
[2022-09-12] MEDS: Lisinopril 10 MG Tablet PO (09:31)
[2022-09-12] MEDS: rifAXIMin 550 MG Tablet PO ×2 (09:31→21:10)
[2022-09-12] MEDS: levoFLOXacin 500 MG Tablet PO (09:48)
--- NOTE | 2022-09-12 09:58 | PCM.CONS.GEN ---
Assessment & Plan Assessment/Plan (1) Cellulitis of left leg: PLAN: Ucx with morganella. Wound cx with AcB, MRSA, enterobacter. Will change abx to po levaquin, plan on 10 more days of abx. Will follow as needed, thank you, d/w case folder (2) Heel ulcer: HPI Consult Data Date of Consult: 09/12/22 HPI Narrative Reason for Consultation: foot infection HPI Narrative: FRIDA PARSONS, is a 72 M who presented 09/08 after hospice was revoked by family. H/o stroke, cirrhosis, pancytopenia. C/o severe pain in foot. Seen by podiatry, I&D done, on vanc/cefepime. Cipro added yesterday. Feeling ok this AM, no fever. Family to meet with hospice today. Full ROS performed and neg except as noted above. [facility] Medical History Abscess of left leg Back pain due to injury Cirrhosis History of ETOH abuse MRSA infection Polyclonal gammopathy Rheumatoid arthritis Skin graft disorder Ulcer of left lower extremity with muscle involvement without evidence of necrosis Home Medications furosemide 40 mg tablet (Lasix) 40 mg PO DAILY water pill 12/14/20 [History Last Taken 2 Weeks Ago ~08/25/22] lisinopril 20 mg tablet 20 mg PO DAILY high bp 12/14/20 [History Last Taken 09/08/22] hydroxyzine HCl 25 mg tablet 25 mg PO TID PRN Anxiety 08/12/21 [History Last Taken 2 Weeks Ago ~08/25/22] guaifenesin 600 mg tablet, extended release 12 hr (Mucinex) 600 mg PO BID 09/12/21 [History Last Taken 09/08/22] albuterol sulfate 2.5 mg/3 mL (0.083 %) solution for nebulization 2.5 mg inhalation Q4H PRN SOB 09/08/22 [History Last Taken 2 Days Ago ~09/06/22] cephalexin 500 mg capsule 500 mg PO BID . 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 Smoking Status: Former smoker how long ago did patient quit smokin years ago alcohol intake: former details: he quit 20 years ago substance use type: does not use Physical Exam Const alert and no apparent distress General Appearance: cooperative HEENT normocephalic and head/scalp atraumatic Eyes PERRL and EOMs intact bilaterally Neck supple and No nodes Resp normal air movement and clear to auscultation bilaterally Cardio regular rate and regular rhythm GI soft to palpation, non-tender and non-distended Extremity General Extremity: edema Skin Skin Narrative: reviewed photos of wound Neuro CN's II-XII intact bilaterally Medical Records Data Medical Nutrition Assessment Dietitian: Malnutrition Criteria Met Start: 09/09/22 10:18 Freq: Status: Active Protocol: Document 09/09/22 10:18 (Rec: 09/09/22 10:18 [id number]) Nutrition Malnutrition Evidence of Malnutrition Exists Yes Malnutrition (moderate): Chronic Evidenced By Suboptimal Energy Intake ( Moderate),Weight Loss ( Moderate) Clinical Problem Chronic Disease or Condition Related Malnutrition Etiology moderate, chronic malnutrition related to inadequate energy intake Signs/Symptoms as evidenced by estimated PO intake meeting <75% of estimated energy needs > 3 months; Moderate muscle wasting/fat loss evident in physical exam per orbital, clavicle, acromion, temporal areas and muscle wasting in lower extremities Status Active Problem Recommendation Dietitian Recommendations/Changes continue regular diet as tolerated; will add 120mL ensure plus high protein 4x/ day w/ medpass for additional calories/protein if consumed. Will cut up meats as requested by family. Lab / Micro Data Attestation: I reviewed the patient's lab results. Result Diagrams: 09/12/22 05:35 09/11/22 06:20 Labs: Laboratory Results - last 24 hr 09/09/22 05:25: Diff Path Review Reviewed 09/12/22 05:35: WBC 5.1, RBC 3.19 L, Hgb 10.8 L, Hct 32.5 L, MCV 101.9 H, MCH 33.9 H, MCHC 33.2, RDW Std Deviation 54.4 H, RDW Coeff of Marisel 14.6, Plt Count 62 L, MPV 11.2, Immature Gran % (Auto) 0.400, Neut % (Auto) 66.1, Lymph % (Auto) 22.6, Davison % (Auto) 7.9, Eos % (Auto) 2.6, Baso % (Auto) 0.4, Absolute Neuts (auto) 3.3, Absolute Lymphs (auto) 1.14, Nucleated RBC % 0 09/12/22 05:35: Vancomycin Trough 19.0 H Micro: Microbiology 09/08/22 17:43 Blood Culture (Wb) - Left Hand Blood Culture - Preliminary No growth in 48 hours. 09/08/22 17:40 Blood Culture (Wb) - Anticubital Left Blood Culture - Preliminary No growth in 48 hours. 09/08/22 18:45 Wound - Heel Gram Stain - Final 09/08/22 18:45 Wound - Heel Wound Culture - Final Meth. resistant Staph. aureus Acinetobacter baumannii 09/08/22 18:45 Wound - Other Gram Stain - Final 09/08/22 18:45 Wound - Other Wound Culture - Final Acinetobacter baumannii Enterobacter cloacae complex Meth. resistant Staph. aureus
--- NOTE | 2022-09-12 12:05 | CHAPLAIN ---
Type of Pastoral Visit _x__ Initial Visit ___ Follow-up Visit ___ On-call Visit ___ General Patient Visit ___ Spiritual Assessment ___ Family Conference ___ Bereavement ___ Rapid Response ___ Code Blue ___ Other (describe below) Pastoral Care Referral From _x__ Patient ___ Family ___ Nurse ___ Physician ___ Crystallography Teacher ___ Public Health Technician ___ Other (describe below) Sacrament/Intervention _x__ Active listening ___ Anointing ___ Mormonism ___ Bereavement ___ Communion ___ Shaniqua exploration ___ _x__ Life review ___ Prayer ___ Reconciliation ___ Sacrament of Sick _x__ Supportive presence ___ Wedding ___ Other (describe below) Pastoral Comments patient is awake and two guests are in room; a niece and a girlfriend are with him; pt uses humor to answer questions about his situation and his needs; pt is a consult for hospice but he does not discuss this at this time; pt talks about some of his frustrations with people; otherwise when asked the patient does not indicate any needs or concerns
[2022-09-12 14:09] VITALS: BP 133/74; PULSE 71; RESP 20; TEMP 36.9; O2SAT 96
--- NOTE | 2022-09-12 15:10 | CASEMGMT ---
Social Work This director of social media marketing met with patient in room to assess if patient is alert enough today to complete advanced directives as family continues to ask about this. This director of social media marketing introduced self and director of social media marketing role. Patient agreeable to meeting with this director of social media marketing. Patient able to identify the people in the room as patient significant other, Lise and patient nieceTiffany. Patient able to identify season as Winter and to be located in the hospital. Patient appears to be alert and oriented and joking with family and this director of social media marketing. 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 This director of social media marketing assisted patient in completing Health Care Power of Auto T[employer] Up Mechanic. This director of social media marketing placed copy on patient chart and provided patient with original documents. Tiffany is listed as first Health Care Power of civil attorney and Lise is listed as second. Tiffany then asking about status of referral to [facility]. This director of social media marketing to look into this and get back to Tiffany. This director of social media marketing speaking with unit director of social media marketing, Ирина about status of [facility] Hospice referral. Ирина states to have a missed called from Rubia with [facility] and to have not called Rubia back yet. Telephone call to Rubia Barkley reports to be waiting on code status to be changed to DNRCC, if this is patient wishes and to have the home that patient wishes to use. Rubia reports to be unable to accept patient until home is picked out. This director of social media marketing inquired about on site visit from [facility] to confirm patient level of care. Rubia states to be doing admission remotely to the inpatient unit and no need for [facility] staff to come to the hospital. Rubia states intent to set up transportation for patient when home is confirmed and patient is a DNRCC. Rubia request for discharge information and medication list to be faxed to [phone] when discharge is completed and patient accepted to [facility] Inpatient Hospice unit. This social updated patient and Tiffany on above information. Tiffany plans to reach out to Rubia with home choice. Dr. Hedrick to speak with patient about confirming code status of DNRCC. This director of social media marketing updated Ирина director of social media marketing. Ирина plans to follow up with [facility]. PLAN: [facility] Inpatient Hospice Unit. Social Work to continue to follow as needed. Jo ADAMSON, VEE
--- NOTE | 2022-09-12 16:58 | DCINST_ITS ---
Discharge Instructions Diet Discharge Diet: No restrictions Activity Discharge Activity: Return to Normal Activity Follow Up Care Test Results: Test results from this visit will be discussed in further detail at your follow- up appointment, if applicable. Discharge Plan Admission Admit Date/Time: 09/09/22 11:32 Attending Provider: Femi Hedrick Primary Care Provider: Care Physician,No Primary Consulting Providers: Jeromy Parkinson ; Mina Love ; Santhosh Jacobson Discharge Orders/Prescriptions Prescriptions: New polyethylene glycol 3350 17 gram Powder In Packet 17 g PO DAILY Qty: 0 0RF levofloxacin 500 mg Tablet 500 mg PO DAILY@0600 10 Days Qty: 0 0RF sennosides-docusate sodium [Stool Softener-Stimulant Laxat] 8.6-50 mg Tablet 2 tab PO BID Qty: 0 0RF spironolactone 50 mg Tablet 50 mg PO DAILY Qty: 0 0RF Continued hydroxyzine HCl 25 mg tablet 25 mg PO TID PRN (Reason: Anxiety) guaifenesin [Mucinex] 600 mg tablet extended release 12hr 600 mg PO BID furosemide [Lasix] 40 mg Tablet 40 mg PO DAILY lisinopril 20 mg Tablet 20 mg PO DAILY albuterol sulfate 2.5 mg /3 mL (0.083 %) Solution For Nebulization 2.5 mg INHALATION Q4H PRN (Reason: SOB) methadone 5 mg tablet 7.5 mg PO BID PRN (Reason: Pain) oxycodone 5 mg tablet 15 mg PO Q6H PRN (Reason: pain) Discontinued cephalexin 500 mg capsule 500 mg PO BID Label Comments: take 1 capsule by mouth twice a day for 5 days Referrals / Follow Up: Alecia Zhao MD [Med Staff - Active Staff] - 1 Week Care Physician,No Primary [Primary Care Provider] - Disposition Disposition (needs filled in before D/C Order can be placed): Hospice in Medical Facility
--- NOTE | 2022-09-12 17:01 | PCM.DC.SUM ---
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/hoop rolls operator Routine Comment: Reason for Consult:: B/L heel ulcer Consult: Podiatry Routine Consulting Provider: Jeromy Parkinson Reason for Consult: B/L leg ulcer EMERGENT Consult: No Notified: Yes Date Notified: 09/08/22 Time Notified: 17:17 Method of Notification: Text 09/10/22 10:28 Consult: Infectious Disease Routine Consulting Provider: Mina Love Reason for Consult: B/L heel ulcer, debilated, had UTI EMERGENT Consult: No MD Notified: Yes Date Notified: 09/10/22 Time Notified: 10:29 Method of Notification: Text Reason For Visit: UTI, OBSTRUCTED BLADDER Diagnosis Discharge Diagnosis (1) Cellulitis of left leg: Status: Acute Code(s): L03.116 - Cellulitis of left lower limb (2) Heel ulcer: Status: Acute Code(s): L97.409 - Non-pressure chronic ulcer of unspecified heel and midfoot with unspecified severity Medications at Discharge Home Medications furosemide 40 mg tablet (Lasix) 40 mg PO DAILY water pill 12/14/20 lisinopril 20 mg tablet 20 mg PO DAILY high bp 12/14/20 hydroxyzine HCl 25 mg tablet 25 mg PO TID PRN Anxiety 08/12/21 guaifenesin 600 mg tablet, extended release 12 hr (Mucinex) 600 mg PO BID 09/12/21 albuterol sulfate 2.5 mg/3 mL (0.083 %) solution for nebulization 2.5 mg inhalation Q4H PRN SOB 09/08/22 methadone 5 mg tablet 7.5 mg PO BID PRN Pain 09/08/22 oxycodone 5 mg tablet 15 mg PO Q6H PRN pain 09/08/22 levofloxacin 500 mg tablet 500 mg PO DAILY@0600 10 days #0 tabs 09/12/22 polyethylene glycol 3350 17 gram oral powder packet 17 g PO DAILY #0 ea 09/12/22 sennosides 8.6 mg-docusate sodium 50 mg tablet (Stool Softener-Stimulant Laxative) 2 tab PO BID #0 tabs 09/12/22 spironolactone 50 mg tablet 50 mg PO DAILY #0 tabs 09/12/22 Hospital Course Operations None Procedures None Summary of Care Provided Minutes Spent on Discharge: 40 Hospital Course: Per HPI: FRIDA PARSONS, is a 72 M who was sent to ED by hospice nurse Vandana.? ED physician talked to hospice nurse Vandana and she tried to put Potts catheter 8 Albanian but was unable to get through.? Patient is still voiding urine although incontinent.? Patient has been home hospice for more than 1 year and has been bedridden for last 18 months after his stroke.? Patient also has history of alcoholic cirrhosis with pancytopenia.? Patient used to follow with wound center until March 2021.? Was last admitted in November 2020 for left lower extremity abscess and cellulitis.? At that time patient had wound debridement and grew MRSA at that.? Patient has history of MRSA.? Patient has history of osteomyelitis of foot.? Wound culture from 09/07 growing gram-negative clay 25,000-50,000 colonies. Patient is confused disoriented.? He looks very dehydrated.? In ED, Tmax 99.9 Fahrenheit.? Patient does not have understanding and cannot make decision by himself.? ED physician tried to discharge on oral antibiotic but family wanted more care therefore admitted. Rest of the history taken by patient's significant others and daughter in ED. Hospital Course: 1.? Bilateral heel ulcer left worse than right with purulent drainage and surrounding/contiguous cellulitis: Patient is being [facility].? Ulcer looks chronic.? Bilateral lower extremity lymphedema with subcutaneous fibrosis and hyperplasia.? After discussion of family members, they are agreeable for realistic goal of wound dressing, care and antibiotic but not definitive treatment with the intent of cure or major surgical procedure like amputation.? Medical Surgery Nurse? Is consulted.? Empirically started on IV vancomycin and Zosyn.? IV fluid half-normal saline. 09/09: Labs reviewed.? Lactic acid normal.? Patient did not had hypotension therefore does not meet criteria for sepsis.? Discussed with Dr. Rhodes.? Goal is to control infection, palliative wound debridement.? Overall patient looks better.? Discussed with Dr. Rhodes.? Infection looks more superficial it was mainly blister which ruptured with serous discharge and small necrotic tissue which was debrided near the bedside.? He ordered the x-ray. egative clay [id number] but urine collection method is doubtful and does not seem to be sterile or optimal collection. 09/09: UA shows WBC 5-10 cells, RBC more than 100, LE 100 urine nitrite positive therefore possible UTI. 09/10: Urine culture from 09/08 shows no growth.? Previous urine culture from 09/07 Morganella morganii, sensitive to present antibiotic Zosyn but also to fluoroquinolones and Bactrim.? Prelim Gram stain shows gram-negative clay 3+ Staph aureus 1+.? Overall since patient had a UTI and is treated, therefore? resolved.? Continue present antibiotic.? And consult ID tomorrow a.m. 09/11/2022: Hopefully wound cultures when they resolve can identify an oral antibiotic as are not sure he would qualify for any kind of hospice if he needed IV antibiotics 09/12/2022: Cultures are back and everything is sensitive to Levaquin which he can be discharged on 500 mg of Levaquin p.o. daily for 10 more days. Family met with hospice today and they agreed to inpatient hospice and plan will be for discharge to hospice today. 2. Acute encephalopathy, present on admission with history of baseline hepatic encephalopathy and dementia: As per patient's caregiver his significant other and niece's mental status has worsened for last 4 to 5 days with confusion, disorientation, talking irrelevant which does not make sense, less amount of his speech hardly 1 or 2 words and mostly somnolent. 09/09: Patient looks better he is eating his breakfast, he speaks more words sometimes in whole sentence.? Orientation still cannot be ascertained.? Started on lactulose and Xifaxan. 09/10: Patient mental status is improved.? Patient having loose bowel movement with lactulose.? On Xifaxan. 3.? Chronic alcoholic cirrhosis decompensated with pancytopenia and hepatic encephalopathy, splenomegaly: Patient has seen Dr. Chaudhry oncologist in the past.? Hemoglobin 11.7, hematocrit 35%, MCV 100.6, platelet count 58,000. WBC count normal.? Patient does not look like fluid overload. 09/09: Patient has thrombocytopenia but WBC count and hemoglobin acceptable limit.? On lactulose and Xifaxan.? Lasix? low-dose 20 mg and spironolactone 50 mg daily from tomorrow AM. 09/10: Follow electrolytes 4.? Hypertension: Hold? lisinopril 09/10: BP systolic 149. Resume lisinopril.? 3.? Patient significant other and daughter revoked home hospice care.? They are agreeable for gentle wound care, IV antibiotics, fluid and? wounddressing, local bedside debridement and podiatry consult.? They know that definitive treatment is not realistic goal as it seems patient does not have healthy vascular supply or nerve supply, nutrition and functional mobility. 09/11/2022: Will need to discuss with family the role of IV antibiotics versus oral antibiotics, there is reports that they would like to transition to [place] hospice, versus hospice at 09/12/2022: Family and patient have agreed to inpatient hospice in [place]. 4.? Emaciated, chronic moderate protein calorie malnutrition: Although BMI is 25.2 kg/m? but patient is contracted at knee and hip joints.? Patient has moderate to severe muscle atrophy and loss of subcutaneous fat.? ADL is dependent.? Patient cannot transfer himself or rotate sideways on the bed. Medical Records Data Medical Nutrition Assessment Dietitian: Malnutrition Criteria Met Start: 09/09/22 10:18 Freq: Status: Active Protocol: Document 09/09/22 10:18 AG (Rec: 09/09/22 10:18 [id number]) Nutrition Malnutrition Evidence of Malnutrition Exists Yes Malnutrition (moderate): Chronic Evidenced By Suboptimal Energy Intake ( Moderate),Weight Loss ( Moderate) Clinical Problem Chronic Disease or Condition Related Malnutrition Etiology moderate, chronic malnutrition related to inadequate energy intake Signs/Symptoms as evidenced by estimated PO intake meeting <75% of estimated energy needs > 3 months; Moderate muscle wasting/fat loss evident in physical exam per orbital, clavicle, acromion, temporal areas and muscle wasting in lower extremities Status Active Problem Recommendation Dietitian Recommendations/Changes continue regular diet as tolerated; will add 120mL ensure plus high protein 4x/ day w/ medpass for additional calories/protein if consumed. Will cut up meats as requested by family. Weight / BMI Weight Weight: 183 lb 13.848 oz Body Mass Index (BMI) 23.6 ABG / Lab / Microbiology Data Result Diagrams: 09/12/22 05:35 09/11/22 06:20 Laboratory: Laboratory Results - last 24 hr 09/12/22 05:35: WBC 5.1, RBC 3.19 L, Hgb 10.8 L, Hct 32.5 L, MCV 101.9 H, MCH 33.9 H, MCHC 33.2, RDW Std Deviation 54.4 H, RDW Coeff of Marisel 14.6, Plt Count 62 L, MPV 11.2, Immature Gran % (Auto) 0.400, Neut % (Auto) 66.1, Lymph % (Auto) 22.6, Callahan % (Auto) 7.9, Eos % (Auto) 2.6, Baso % (Auto) 0.4, Absolute Neuts (auto) 3.3, Absolute Lymphs (auto) 1.14, Nucleated RBC % 0 09/12/22 05:35: Vancomycin Trough 19.0 H Microbiology: Microbiology 09/08/22 17:43 Blood Culture (Wb) - Left Hand Blood Culture - Preliminary No growth in 48 hours. 09/08/22 17:40 Blood Culture (Wb) - Anticubital Left Blood Culture - Preliminary No growth in 48 hours. 09/08/22 18:45 Wound - Heel Gram Stain - Final 09/08/22 18:45 Wound - Heel Wound Culture - Final Meth. resistant Staph. aureus Acinetobacter baumannii 09/08/22 18:45 Wound - Other Gram Stain - Final 09/08/22 18:45 Wound - Other Wound Culture - Final Acinetobacter baumannii Enterobacter cloacae complex Meth. resistant Staph. aureus 09/08/22 15:10 Urine, Random Urine Culture - Final Culture exhibits no growth. D/C Instructions Discharge Diet: No restrictions Meaningful Use Info Meaningful Use Diagnoses (Choose all that apply): None applicable Discharge Plan Admission Admit Date/Time: 09/09/22 11:32 Attending Provider: Femi Hedrick Primary Care Provider: Care Physician,No Primary Consulting Providers: Jeromy Parkinson ; Mina Love ; Santhosh Jacobson Discharge Orders/Prescriptions Prescriptions: New polyethylene glycol 3350 17 gram Powder In Packet 17 g PO DAILY Qty: 0 0RF levofloxacin 500 mg Tablet 500 mg PO DAILY@0600 10 Days Qty: 0 0RF sennosides-docusate sodium [Stool Softener-Stimulant Laxat] 8.6-50 mg Tablet 2 tab PO BID Qty: 0 0RF spironolactone 50 mg Tablet 50 mg PO DAILY Qty: 0 0RF Continued hydroxyzine HCl 25 mg tablet 25 mg PO TID PRN (Reason: Anxiety) guaifenesin [Mucinex] 600 mg tablet extended release 12hr 600 mg PO BID furosemide [Lasix] 40 mg Tablet 40 mg PO DAILY lisinopril 20 mg Tablet 20 mg PO DAILY albuterol sulfate 2.5 mg /3 mL (0.083 %) Solution For Nebulization 2.5 mg INHALATION Q4H PRN (Reason: SOB) methadone 5 mg tablet 7.5 mg PO BID PRN (Reason: Pain) oxycodone 5 mg tablet 15 mg PO Q6H PRN (Reason: pain) Discontinued cephalexin 500 mg capsule 500 mg PO BID Label Comments: take 1 capsule by mouth twice a day for 5 days Referrals / Follow Up: Alecia Zhao MD [Med Staff - Active Staff] - 1 Week Care Physician,No Primary [Primary Care Provider] - Disposition Disposition (needs filled in before D/C Order can be placed): Hospice in Medical Facility Charges/Coding Visit Charges Inpatient E&M: 39749 Disch Hosp >30min
[2022-09-12 21:07] VITALS: BP 131/56; PULSE 79; RESP 18; TEMP 37.1; O2SAT 93
[2022-09-13] MEDS: oxyCODONE 5 MG Tablet PO ×3 (01:13→09:49)
[2022-09-13 02:42] VITALS: BP 138/52; PULSE 74; RESP 18; TEMP 36.8; O2SAT 94
[2022-09-13] MEDS: Acetaminophen 325 MG Tablet 650 MG PO (02:48)
[2022-09-13 05:45] VITALS: BMI 24.0
[2022-09-13] MEDS: levoFLOXacin 500 MG Tablet PO (06:00)
[2022-09-13 08:31] VITALS: BP 137/85; PULSE 68; RESP 16; TEMP 36.6; O2SAT 96
[2022-09-13] MEDS: Spironolactone 50 MG Tablet PO (08:34)
[2022-09-13] MEDS: Lisinopril 10 MG Tablet PO (08:34)
[2022-09-13] MEDS: Menthol/Lanolin/Calamine/Znox 113 GM Tube 1 APPLIC TOPICAL (08:34)
[2022-09-13] MEDS: Furosemide 20 MG Tablet PO (08:34)
[2022-09-13] MEDS: rifAXIMin 550 MG Tablet PO (08:34)
[2022-09-13] MEDS: guaiFENesin 600 MG Tablet PO (08:35)
--- NOTE | 2022-09-13 08:46 | CASEMGMT ---
Addendum entered by Ирина Cueto 09/13/22 09:53: EPHRAIM faxed D/c instructions to [facility] ([phone]). Original Note: Social Work Charge Nurse, Esperanza, informed EPHRAIM that [facility] called and is setting up transport for pt to go to [facility] in [place]. Disposition: [facility] Inpatient Unit ELI Hernandez
--- NOTE | 2022-09-13 09:36 | NURSING ---
REPORT CALLED TO DENNYS NELSON AT [facility] AT [phone]
== END 2022-09-13 11:15 | disposition hospice, inpatient (51) | DRG 593 ==
LOC: ED 16:55 → MS3 17:14
PROVIDERS: Admitting Provider Internal Medicine; Emergency Provider Emergency Medicine; Visit Provider Family Medicine
DX: L89.622 Pressure ulcer of left heel, stage 2 (principal); L03.115 Cellulitis of right lower limb; D61.818 Other pancytopenia; E44.0 Moderate protein-calorie malnutrition; N39.0 Urinary tract infection, site not specified; L03.116 Cellulitis of left lower limb; K76.82 Hepatic encephalopathy; F03.90 Unspecified dementia, unspecified severity, without behavioral disturbance, psychotic disturbance, mood disturbance, and anxiety; K70.30 Alcoholic cirrhosis of liver without ascites; L89.612 Pressure ulcer of right heel, stage 2; M06.9 Rheumatoid arthritis, unspecified; I10 Essential (primary) hypertension; E86.0 Dehydration; M24.561 Contracture, right knee; M24.562 Contracture, left knee; M24.551 Contracture, right hip; M24.552 Contracture, left hip; I89.0 Lymphedema, not elsewhere classified; B95.62 Methicillin resistant Staphylococcus aureus infection as the cause of diseases classified elsewhere; Z74.01 Bed confinement status; Z66 Do not resuscitate; Z68.25 Body mass index [BMI] 25.0-25.9, adult; Z79.899 Other long term (current) drug therapy; Z87.891 Personal history of nicotine dependence; Z86.73 Personal history of transient ischemic attack (TIA), and cerebral infarction without residual deficits; Z86.14 Personal history of Methicillin resistant Staphylococcus aureus infection
CPT/HCPCS: 36415; 73630; 80048; 80053; 80076; 80202; 81001; 81002; 82565; 83605; 83735; 85025; 85610; 85730; 87040; 87070; 87077; 87086; 87088; 87186; 87205; 87640; 94668; 97802; 99252; 99285; J7030; J7040; J7050; A4216; G0463